=== PATIENT | female | born 1960 ===

== ENCOUNTER → 2020-05-02 10:13 | Outpatient (BNVA) | payer OTHER, SELFPAY | PROVIDERS: PCP Nurse Practitioner Family; Referring Provider Nurse Practitioner Family; Visit Provider Advanced Practice Midwife | DX: N64.4 Mastodynia (principal); N64.89 Other specified disorders of breast | CPT/HCPCS: 99203 ==

== ENCOUNTER → 2020-05-24 10:19 | Outpatient (BNVA) | payer OTHER, SELFPAY | PROVIDERS: PCP Nurse Practitioner Family; Visit Provider Surgery | DX: N64.4 Mastodynia (principal); N60.02 Solitary cyst of left breast | CPT/HCPCS: 99212 ==

== ENCOUNTER 2020-05-27 08:00 | Outpatient (RCR) | payer OTHER, SELFPAY ==
--- NOTE | 2020-06-17 10:25 | MHC.PT.DC ---
[facility] [place] [facility] [place] [facility] [place] [facility] [address] Lupe Barnett [address] [phone] F: [phone] F: [phone] F: [phone] F: [phone] Physical Therapy Discharge Report Diagnosis: Hip pain Date of Surgery: n/a Date of Evaluation: 05/03/20 Date of Discharge: 06/06/20 Treatments to Date: 7 Cancellations to Date: No Shows to Date: Discharge Status: Recommend MD Follow-up Discharge Summary: s/s unchanged. will refer back to MD at this time due to persistent unchanging L LE/UE paresthesias from PT intervention. Electronically signed by: Emanuel Marie PT Please sign and return to therapist. Thank you for your referral.
== END 2020-06-17 10:26 | disposition home or self-care (01) ==
LOC: HO.PTCHIC 08:00
PROVIDERS: PCP Nurse Practitioner Family; Visit Provider Nurse Practitioner Family
DX: M25.559 Pain in unspecified hip (principal)
CPT/HCPCS: 97035; 97110; 97112; 97163

== ENCOUNTER 2020-06-16 12:11 | Outpatient (REF) | payer OTHER, SELFPAY ==
--- NOTE | 2020-06-16 | US_ITS ---
EXAMINATION: MM DIAGNOSTIC DIGITAL BREAST TOMOSYNTHESIS, BILATERAL US DIAGNOSTIC ULTRASOUND BREAST, LEFT CLINICAL INFORMATION: Anterior left breast pain on and off since February. Recent history skin infection successfully treated with antibiotics. Persistent pain. Prior history reduction mammoplasty 2013. The lifetime risk of breast cancer based on the Tyrer-Cuzick Model is 17%. COMPARISON: Mammography: 09/15/2019, 07/14/2018, 06/18/2017 TECHNIQUE: Digital breast tomosynthesis is performed in both the craniocaudal and mediolateral oblique views along with computer-aided detection (CAD). Synthesized 2D images are generated from the tomosynthesis. Ultrasound left breast is targeted to the retroareolar and periareolar region. Grayscale imaging and color Doppler are performed without and with harmonics. FINDINGS: The breasts are almost entirely fatty (ACR BI-RADS breast composition Category a). Background stromal and fibroglandular densities are stable. There is no skin thickening or coarsening of the Gabriele's ligaments. No interval mass or architectural abnormality or focal duct ectasia. Again, there is minor scarring and benign bilateral anterior round and rim calcifications consistent with the prior reduction mammoplasty. No significant changes from prior studies. Ultrasound left breast demonstrates no cystic or solid mass, architectural abnormality, or focal duct ectasia. No skin thickening or edema tracking in the soft tissue planes. No abscess. Results are discussed with the patient at time of visit. US/US breast LT limited IMPRESSION: 1. No mammographic evidence of malignancy or focal inflammatory changes. 2. Unremarkable targeted left breast ultrasound. ASSESSMENT: BI-RADS 2: Benign RECOMMENDATION: 1. Patient's left breast pain should be managed based on the clinical impression. 2. Otherwise, routine annual screening mammography. This patient's information was entered into a reminder system with a target due date for their next mammogram.
--- NOTE | 2020-06-16 12:18 | MM_ITS ---
EXAMINATION: MM DIAGNOSTIC DIGITAL BREAST TOMOSYNTHESIS, BILATERAL US DIAGNOSTIC ULTRASOUND BREAST, LEFT CLINICAL INFORMATION: Anterior left breast pain on and off since February. Recent history skin infection successfully treated with antibiotics. Persistent pain. Prior history reduction mammoplasty 2013. The lifetime risk of breast cancer based on the Tyrer-Cuzick Model is 17%. COMPARISON: Mammography: 09/15/2019, 07/14/2018, 06/18/2017 TECHNIQUE: Digital breast tomosynthesis is performed in both the craniocaudal and mediolateral oblique views along with computer-aided detection (CAD). Synthesized 2D images are generated from the tomosynthesis. Ultrasound left breast is targeted to the retroareolar and periareolar region. Grayscale imaging and color Doppler are performed without and with harmonics. FINDINGS: The breasts are almost entirely fatty (ACR BI-RADS breast composition Category a). Background stromal and fibroglandular densities are stable. There is no skin thickening or coarsening of the Gabriele's ligaments. No interval mass or architectural abnormality or focal duct ectasia. Again, there is minor scarring and benign bilateral anterior round and rim calcifications consistent with the prior reduction mammoplasty. No significant changes from prior studies. Ultrasound left breast demonstrates no cystic or solid mass, architectural abnormality, or focal duct ectasia. No skin thickening or edema tracking in the soft tissue planes. No abscess. Results are discussed with the patient at time of visit. MM/MM tomosynthesis diagnostic BI IMPRESSION: 1. No mammographic evidence of malignancy or focal inflammatory changes. 2. Unremarkable targeted left breast ultrasound. ASSESSMENT: BI-RADS 2: Benign RECOMMENDATION: 1. Patient's left breast pain should be managed based on the clinical impression. 2. Otherwise, routine annual screening mammography. This patient's information was entered into a reminder system with a target due date for their next mammogram.
== END 2020-06-16 12:12 | disposition home or self-care (01) ==
LOC: HO.MAMMO 12:11
PROVIDERS: Visit Provider Surgery
DX: N60.02 Solitary cyst of left breast (principal); N64.4 Mastodynia
CPT/HCPCS: 76642; 77062; 77066

== ENCOUNTER 2020-06-23 07:02 | Outpatient (REF) | payer OTHER, SELFPAY ==
[2020-06-23 11:49] LABS: Alanine Aminotransferase 20 U/L (0-31); Albumin Level 4.2 g/dL (3.5-5.0); Alkaline Phosphatase 110 U/L (39-117); Anion Gap 15 (12-20); Aspartate Amino Transferase 27 U/L (5-31); Bilirubin Total 0.2 mg/dL (0.0-1.0); Blood Urea Nitrogen 10 mg/dL (9-16); Calcium 9.5 mg/dL (8.4-10.2); Carbon Dioxide 27 mmol/L (22-29); Chloride 105 mmol/L (96-108); Cholesterol 185 mg/dL; Estimated Glomerular Filt Rate > 60; Glucose Fasting 81 mg/dL (60-99); HDL Cholesterol 67 mg/dL; LDL Cholesterol Calculated 105 mg/dl; Potassium 4.5 mmol/l (3.3-5.1); Sodium 142 mmol/L (135-145); Total Protein 7.1 g/dL (6.5-8.0); Triglycerides 68 mg/dL
[2020-06-23 12:01] LABS: TSH reflex Free T4 3.46 mIU/mL (0.32-4.0); Vitamin D 25-OH Total 33.6 ng/mL (>30)
== END 2020-06-23 07:03 | disposition home or self-care (01) ==
LOC: HO.HMGCLDS 07:02
PROVIDERS: PCP Nurse Practitioner Family; Visit Provider Nurse Practitioner Family
DX: Z00.00 Encounter for general adult medical examination without abnormal findings (principal)
CPT/HCPCS: 80053; 80061; 82306; 84443

== ENCOUNTER → 2020-08-11 08:03 | Outpatient (BNVA) | payer OTHER, SELFPAY | PROVIDERS: PCP Nurse Practitioner Family; Referring Provider Nurse Practitioner Family; Visit Provider Student in an Organized Health Care Education/Training Program | DX: M47.816 Spondylosis without myelopathy or radiculopathy, lumbar region (principal) | CPT/HCPCS: 99212 ==

== ENCOUNTER → 2020-08-26 09:17 | Outpatient (BNVA) | payer OTHER, SELFPAY | PROVIDERS: PCP Nurse Practitioner Family; Visit Provider Nurse Practitioner | DX: Z76.89 Persons encountering health services in other specified circumstances (principal) | CPT/HCPCS: Q3014 ==

== ENCOUNTER 2020-09-08 09:29 | Outpatient (REF) | payer OTHER, SELFPAY ==
--- NOTE | ~2020-09-08 | US_ITS ---
EXAMINATION: US ABDOMEN COMPLETE CLINICAL INFORMATION: Fatty change of liver, not elsewhere classified. COMPARISON: Ultrasound abdomen complete 02/17/2020. TECHNIQUE: Real-time imaging of the abdominal viscera. FINDINGS: PANCREAS: The visualized pancreas is normal in size and contour and echogenicity. There is no pancreatic ductal distention or retroperitoneal effusion. Portion pancreatic tail obscured by bowel gas and not completely imaged. ABDOMINAL AORTA: The proximal, mid, and distal segments are normal in caliber. INFERIOR VENA CAVA: Visualized portions are normal. LIVER: The liver is normal in size and smooth in contour and within normal echogenicity. There is no focal hepatic parenchymal lesion or intrahepatic ductal dilatation. Color Doppler shows portal flow towards the liver. GALLBLADDER: Normal. The gallbladder is physiologically distended without evidence of stones, sludge, polyps, wall thickening or pericholecystic fluid. COMMON BILE DUCT: Normal in caliber measuring 0.3 cm in diameter. RIGHT KIDNEY: No hydronephrosis. No renal calculi or focal parenchymal lesions. The kidney measures 9.2 cm in maximum dimension. LEFT KIDNEY: No hydronephrosis. No renal calculi or focal parenchymal lesions. The kidney measures 9.4 cm in maximum dimension. SPLEEN: Normal. The spleen measures 8.2 cm in maximum dimension. FREE FLUID: None. US/US abdomen complete IMPRESSION: 1. Liver normal in size and within normal echogenicity. 2. No cholelithiasis or ductal dilatation. 3. Visualized pancreas is normal, portions pancreatic tail obscured by bowel gas.
== END 2020-09-08 09:30 | disposition home or self-care (01) ==
LOC: HO.US 09:29
PROVIDERS: Visit Provider Nurse Practitioner
DX: K76.0 Fatty (change of) liver, not elsewhere classified (principal)
CPT/HCPCS: 76700

== ENCOUNTER 2020-09-20 15:59 | Outpatient (REF) | payer OTHER, SELFPAY | END 2020-09-20 16:00 | disposition home or self-care (01) | LOC: HO.MAMMO 15:59 | PROVIDERS: PCP Nurse Practitioner Family; Visit Provider Nurse Practitioner Family | DX: Z13.89 Encounter for screening for other disorder (principal) ==

== ENCOUNTER 2020-09-23 09:28 | Outpatient (REF) | payer OTHER, SELFPAY ==
--- NOTE | ~2020-09-23 | XR_ITS ---
EXAMINATION: XR ABDOMEN WITH DECUBITUS VIEWS CLINICAL INDICATION: Chronic impaction constipation COMPARISON: X-rays of the lumbosacral spine September 2019. Abdominal ultrasound February 2020. CT abdomen and pelvis January 2018. TECHNIQUE: 2 views of the abdomen supine and upright FINDINGS: The bowel gas pattern is normal with no evidence of ileus or obstruction. Fecal volume within normal limits. No unusual soft tissue calcifications are noted. Postsurgical changes related to fusion of the lumbosacral spine, unchanged. Spinal wires/electrode device redemonstrated. XR/XR abdomen w decubitus IMPRESSION: Nonobstructive gas pattern. Postop changes in the spine, stable.
[2020-09-23 10:27] LABS: Alanine Aminotransferase 27 U/L (0-31); Albumin Level 3.8 g/dL (3.5-5.0); Alkaline Phosphatase 109 U/L (39-117); Aspartate Amino Transferase 19 U/L (5-31); Bilirubin Direct 0.3 mg/dL (0.0-0.5); Bilirubin Total 0.7 mg/dL (0.0-1.0); Total Protein 6.3 g/dL (6.5-8.0)
== END 2020-09-23 09:29 | disposition home or self-care (01) ==
LOC: HO.LAB 09:28
PROVIDERS: PCP Nurse Practitioner Family; Visit Provider Nurse Practitioner
DX: K76.0 Fatty (change of) liver, not elsewhere classified (principal); K59.04 Chronic idiopathic constipation
CPT/HCPCS: 36415; 74021; 80076; 82105

== ENCOUNTER 2020-10-12 10:16 | Outpatient (REF) | payer OTHER, SELFPAY | END 2020-10-12 10:17 | disposition home or self-care (01) | LOC: HO.HMGCLDS 10:16 | PROVIDERS: Internal Medicine; PCP Nurse Practitioner Family; Visit Provider Nurse Practitioner | DX: K59.04 Chronic idiopathic constipation (principal); K76.0 Fatty (change of) liver, not elsewhere classified; K29.70 Gastritis, unspecified, without bleeding; K21.9 Gastro-esophageal reflux disease without esophagitis; Z20.822 Contact with and (suspected) exposure to COVID-19; Z88.1 Allergy status to other antibiotic agents; Z88.5 Allergy status to narcotic agent; Z88.0 Allergy status to penicillin; Z88.8 Allergy status to other drugs, medicaments and biological substances; Z91.018 Allergy to other foods; Z91.048 Other nonmedicinal substance allergy status | CPT/HCPCS: C9803; Q3014; U0003; U0005 ==

== ENCOUNTER 2020-12-05 10:03 | Outpatient (REF) | payer OTHER, SELFPAY ==
--- NOTE | ~2020-12-05 | XR_ITS ---
EXAMINATION: XR CERVICAL SPINE CLINICAL INFORMATION: Radiculopathy, cervical region. COMPARISON: None TECHNIQUE: 3 views of the cervical spine were obtained. FINDINGS: There are bilateral cervical ribs, greater on the right. Mild leftward tilting cervical spine is present. The vertebral bodies are normal in height and there is no cervical vertebral compression, spondylolisthesis, destructive process, or prevertebral soft tissue swelling. The odontoid appears intact. There are degenerative disc changes at C5-C6 with disc narrowing and vertebral spurring. There are borderline degenerative disc changes at C4-C5 and C6-C7 with mild vertebral spurring. The oblique views show borderline bilateral foraminal spurring at C5-C6. XR/XR cervical spine 4V IMPRESSION: 1. Bilateral cervical rib, greater on right. 2. Degenerative disc changes greatest at C5-C6 with borderline bilateral foraminal spurring.
== END 2020-12-05 10:04 | disposition home or self-care (01) ==
LOC: HO.HMGCX 10:03
PROVIDERS: PCP Nurse Practitioner Family; Visit Provider Nurse Practitioner Family
DX: M54.12 Radiculopathy, cervical region (principal)
CPT/HCPCS: 72050

== ENCOUNTER → 2021-01-03 10:31 | Outpatient (BNVA) | payer OTHER, SELFPAY | PROVIDERS: PCP Nurse Practitioner Family; Visit Provider Nurse Practitioner | DX: K21.9 Gastro-esophageal reflux disease without esophagitis (principal); K59.04 Chronic idiopathic constipation; K76.0 Fatty (change of) liver, not elsewhere classified | CPT/HCPCS: Q3014 ==

== ENCOUNTER 2021-01-19 13:40 | Outpatient (REF) | payer OTHER, SELFPAY ==
--- NOTE | ~2021-01-19 | CT_ITS ---
EXAMINATION: CT CERVICAL SPINE WITHOUT CONTRAST CLINICAL INFORMATION: Radiculopathy COMPARISON: Plain film x-ray of December 05, 2020 TECHNIQUE: CT cervical spine without intrathecal contrast This CT examination was performed using dose optimization techniques as appropriate, variously including the following: *Automated exposure control *Adjustment of mA and/or kV according to patient size (this includes techniques or standardized protocols for targeted exams where dose is matched to indication/reason for exam; i.e. extremities or head) *Use of iterative reconstruction technique DLP: 348 mGy-cm FINDINGS: No abnormal prevertebral soft tissue swelling is present. Paraspinal muscle fat planes are intact. There is some degenerative spurring anteriorly at the C4-C5 level. There is disc space narrowing with endplate irregularity at the C5-C6 level. There is mild spurring of the joints of Luschka without significant neural foramina bony narrowing at the C5-C6 level. Visualized paranasal sinuses and mastoid air cell cells unremarkable. Pterygoid plates intact. No significant temporal mandibular joint abnormality appreciated. Lung apices unremarkable. CT/CT cervical spine wo con IMPRESSION: Cervical spondylosis at the C5-C6 level without evidence of bony encroachment of the neural foramina.
== END 2021-01-19 13:41 | disposition home or self-care (01) ==
LOC: HO.CT 13:40
PROVIDERS: PCP Nurse Practitioner Family; Visit Provider Nurse Practitioner Family
DX: M54.12 Radiculopathy, cervical region (principal)
CPT/HCPCS: 72125

== ENCOUNTER 2021-07-03 09:54 | Outpatient (REF) | payer OTHER, SELFPAY ==
--- NOTE | ~2021-07-03 | MM_ITS ---
EXAMINATION: MM SCREENING DIGITAL BREAST TOMOSYNTHESIS, BILATERAL CLINICAL INFORMATION: Screening. Asymptomatic. Prior history reduction mammoplasty, 2013. The lifetime risk of breast cancer based on the Tyrer-Cuzick Model is 16%. COMPARISON: Mammography: 06/16/2020, 09/15/2019, 07/14/2018 TECHNIQUE: Digital breast tomosynthesis is performed in both the craniocaudal and mediolateral oblique views along with computer-aided detection (CAD). Synthesized 2D images are generated from the tomosynthesis. FINDINGS: The breasts are almost entirely fatty (ACR BI-RADS breast composition Category a). There are no significant masses, abnormal calcifications, or other abnormalities. Stromal and fibroglandular densities and benign round and rim and dermal calcifications are stable. No developing density. No significant changes. MM/MM tomosynthesis screening BI IMPRESSION: No mammographic evidence of malignancy. ASSESSMENT: BI-RADS 2: Benign RECOMMENDATION: Routine annual mammography screening. This patient's information was entered into a reminder system with a target due date for their next mammogram.
== END 2021-07-03 09:55 | disposition home or self-care (01) ==
LOC: HO.MAMMO 09:54
PROVIDERS: Visit Provider Nurse Practitioner Family
DX: Z12.31 Encounter for screening mammogram for malignant neoplasm of breast (principal)
CPT/HCPCS: 77063; 77067

== ENCOUNTER → 2021-09-19 08:26 | Outpatient (BNVA) | payer OTHER, MEDICARE, SELFPAY | PROVIDERS: PCP Nurse Practitioner Family; Referring Provider Nurse Practitioner Family; Visit Provider Nurse Practitioner | DX: K59.04 Chronic idiopathic constipation (principal); K21.9 Gastro-esophageal reflux disease without esophagitis; K76.0 Fatty (change of) liver, not elsewhere classified; K63.5 Polyp of colon | CPT/HCPCS: 99212 ==

== ENCOUNTER 2021-11-28 11:00 | Emergency (ER) | payer OTHER, SELFPAY ==
--- NOTE | ~2021-11-28 | XR_ITS ---
EXAMINATION: LEFT ANKLE. LEFT FOOT. CLINICAL INFORMATION: Pain. Pain after falling COMPARISON: None TECHNIQUE: 3 views of the left ankle. 3 views of the left foot. FINDINGS: Left ankle: Mortise is intact. There is a tiny osseous density seen near the medial malleolus which appears chronic. There is no evidence of an acute fracture. There is mild spurring off the posterior calcaneus. 3 views of the left foot show no acute fracture. Postsurgical change in the first metatarsal is noted. Alignment preserved. XR/XR foot LT min 3V IMPRESSION: No acute abnormalities.
--- NOTE | ~2021-11-28 | XR_ITS ---
EXAMINATION: LEFT ANKLE. LEFT FOOT. CLINICAL INFORMATION: Pain. Pain after falling COMPARISON: None TECHNIQUE: 3 views of the left ankle. 3 views of the left foot. FINDINGS: Left ankle: Mortise is intact. There is a tiny osseous density seen near the medial malleolus which appears chronic. There is no evidence of an acute fracture. There is mild spurring off the posterior calcaneus. 3 views of the left foot show no acute fracture. Postsurgical change in the first metatarsal is noted. Alignment preserved. XR/XR ankle LT min 3V IMPRESSION: No acute abnormalities.
[2021-11-28 11:31] VITALS: BP 187/83; PULSE 76; RESP 19; TEMP 36.4; O2SAT 98; BMI 28.8
--- NOTE | 2021-11-28 12:51 | ED_ITS ---
HPI - Extremity Injury (Lower) General Chief Complaint: Extremity Injury, Lower Stated Complaint: fell inj l ankle Time Seen by Provider: 11/28/21 12:33 Source: patient Mode of arrival: EMS Limitations: no limitations History of Present Illness HPI Narrative: 60-year-old female who twisted her left ankle today outside the steps of [employer] [place] wall pain her taxes. 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 Patient did not fall, she did not strike her head Patient states that her misstep with her left ankle was due to her chronic left- sided weakness No numbness or tingling Related Data Home Medications Medication Instructions Recorded Confirmed alclometasone 0.05 % topical cream applic TOPICAL 05/24/20 06/06/21 ammonium lactate 12 % topical cream applic TOPICAL 05/24/20 06/06/21 betamethasone valerate 0.1 % applic TOPICAL DAILY 05/24/20 06/06/21 topical cream cetirizine 10 mg tablet 10 mg PO DAILY 05/24/20 06/06/21 sumatriptan succinate 100 mg tablet 100 mg PO ONCE PRN tab 05/24/20 06/06/21 flu vac [id number] 36mos up(PF) ml IM 06/22/20 06/06/21 doxepin 10 mg capsule 10 mg PO BEDTIME 12/05/20 06/06/21 Previous Rx's Medication Instructions Recorded tramadol 50 mg tablet 50 mg PO BID PRN 5 Days #10 tab 01/11/21 lidocaine 5 % topical patch 1 patch TOPICAL DAILY PRN 30 Days 04/10/21 #30 ea prednisone 50 mg tablet 50 mg PO DAILY 6 Days #6 tab 06/06/21 atorvastatin 20 mg tablet 20 mg PO DAILY #90 tab 08/21/21 cholecalciferol (vitamin D3) 25 25 mcg PO DAILY #90 tab 08/21/21 mcg (1,000 unit) tablet levothyroxine 75 mcg tablet 75 mcg PO DAILY #90 tab 08/21/21 bisacodyl 5 mg tablet,delayed 10 mg PO BEDTIME #60 tab 09/19/21 release linaclotide 145 mcg capsule 145 mcg PO QAM #30 cap 09/19/21 (Linzess) pantoprazole 40 mg tablet,delayed 40 mg PO BID #180 tab 09/19/21 release amlodipine 5 mg tablet 5 mg PO DAILY #90 tab 11/06/21 aspirin 81 mg tablet,delayed 81 mg PO DAILY #90 tab 11/06/21 release baclofen 10 mg tablet 10 mg PO BID PRN 30 Days #60 tab 11/06/21 methylcellulose (laxative) 500 mg 1,500 mg PO DAILY 30 Days #90 tab 11/07/21 tablet naproxen 500 mg tablet 500 mg PO BID 10 Days #20 tab 11/28/21 Allergies Allergy/AdvReac Type Severity Reaction Status Date / Time cyclobenzaprine Allergy Unknown pruritus Verified 11/28/21 11:31 morphine [MORPHINE] Allergy Unknown RASH,HIVES,SOB, Verified 11/28/21 11:31 rash, hives, SOB, rash, hives, SOB Penicillins [PENICILLINS] Allergy Unknown RASH,HIVES Verified 11/28/21 11:31 prazosin [PRAZOSIN] Allergy Unknown INCREASED Verified 11/28/21 11:31 HEADACHES, increase/worsened headaches, increase/worsened headaches strawberry [STRAWBERRY] Allergy Unknown RASH Verified 11/28/21 11:31 nickel Allergy Rash Verified 11/28/21 11:31 Butrans Allergy Unknown loss of Uncoded 11/28/21 11:31 consciousness, swelling, rash Cortisone Allergy Unknown unknown Uncoded 11/28/21 11:31 Rozerem AdvReac Unknown rash/memory Uncoded 11/28/21 11:31 loss Review of Systems Constitutional: Constitutional: Denies body ache(s), Denies chills, Denies fatigue, Denies fever(s), Denies headache(s), Denies malaise and Denies weakness Eyes: Eyes: Denies diplopia ENT: Denies vertigo, Denies dizziness, Denies headache(s) and Denies throat swelling Cardiovascular: Cardiovascular: Denies chest pain, Denies syncope, Denies leg edema, Denies lightheadedness, Denies Loss of Consciousness, Denies palpitations and Denies dyspnea Respiratory: Respiratory: Denies chest congestion, Denies cough and Denies dyspnea Musculoskeletal: Comments: Left lateral ankle pain and bruising Neurologic: Denies confusion, Denies vertigo, Denies dizziness, Denies syncope, Denies headache(s) and Denies weakness Psychiatric: Psychiatric: Denies anxiety, Denies confusion and Denies depression Endocrine: Endocrine: Denies fatigue and Denies palpitations Allergic/Immunologic: Allergic/Immunologic: Denies throat swelling PMFSH Past Medical History Medical History Bunion of unspecified foot Chronic low back pain Chronic tension headache Depression Diastolic murmur Dyslipidemia Gastritis Hepatic steatosis History of anxiety History of TIAs Hx of diverticulitis of colon Hypertension Hypothyroid Lumbar spondylosis Migraine Positive ANASTACIO (antinuclear antibody) Prediabetes Shoulder pain Tubular adenoma Surgical History H/O rectal polypectomy History of back surgery History of esophagogastroduodenoscopy (EGD) History of hysterectomy Hx of breast reduction, elective Hx of colonoscopy Family History Family History Father CVD (cardiovascular disease) ETOHism Myocardial infarct Mother CVD (cardiovascular disease) Myocardial infarct Maternal Aunt History of breast cancer Brother History of cancer of unknown primary site Other Mental health disorder Substance use disorder Social History Social History Household Members: None Housing: Apartment Alcohol intake: current Alcohol intake frequency: does not drink Patient Tobacco Use Status: Never used Tobacco Advance Directives: No Advance Directives Information Provided: No Physical Exam Vital Signs: Vital Signs: Last Vital Signs Temp 97.5 F 11/28/21 11:31 Pulse 76 11/28/21 11:31 Resp 19 11/28/21 11:31 BP 187/83 H 11/28/21 11:31 Pulse Ox 98 11/28/21 11:31 BMI result Body Mass Index 28.8 Const: General: No confusion Nutritional Appearance: well nourished Orientation/consciousness: No confusion Limitations: no limitations Eyes: Conjunctivae: conjunctivae normal Pupils: Equal, round and reactive pupils present EOM: EOMs intact bilaterally Neck: Neck: Yes full ROM, Yes no lymphadenopathy and Yes supple Resp: Effort & Inspection: normal respiratory effort and able to speak in complete sentences Auscultation: clear to auscultation bilaterally, no crackles, no rales, no rhonchi and no wheezes Cardio: Rate: regular rate Rhythm: regular rhythm Heart sounds: S1 normal heart sound present and S2 normal heart sound present Skin: General skin exam: no rashes or lesions noted Neuro: General: No confusion Cranial nerves: Yes Equal, round and reactive pupils present Extrem: Left lower extremity: full ROM, normal capillary refill and ankle Details: tenderness Location: of the lateral malleolus and of the anterior talofibular ligament, swelling Details: laterally, no edema and normal ROM; Negative for no warmth and no abrasions; No no cyanosis and no edema Psych: Appearance: grossly normal Affect: normal affect Attitude: cooperative Thought process: Normal thought process present Course Course Course Narrative: 60-year-old female with chronic left sided weakness due to a stroke in 2011 presents for twisting her left ankle today. On exam, patient is intact left lower extremity pulses, sensation, motor strength. Patient has ecchymosis and swelling to left lateral ankle. X-ray negative. Because of patient's chronic left-sided weakness, will see if she can weightbear with the boot, will have her follow up with Orthopedics, counseled rest, ice, compression, elevation. Naproxen. FINDINGS: Left ankle: Mortise is intact. There is a tiny osseous density seen near the medial malleolus which appears chronic. There is no evidence of an acute fracture. There is mild spurring off the posterior calcaneus. 3 views of the left foot show no acute fracture. Postsurgical change in the first metatarsal is noted. Alignment preserved.? Discharge Plan Discharge Clinical Impression: Moderate left ankle sprain Patient Disposition: Home, Self-Care Instructions: Ankle Sprain (ED), R.I.C.E. Treatment (ED), Walking Boot (ED) Additional Instructions: I have referred you to orthopedics, if you do not hear from them by tomorrow please call them at the following number [phone] Please use the boot until you are seen by orthopedics. Please rest, ice, and elevate your left foot. I have prescribed naproxen, please take as prescribed. Please return to emergency room for any new or concerning symptoms Prescriptions: New naproxen 500 mg tablet 500 mg PO BID 10 Days Qty: 20 0RF No Action atorvastatin 20 mg tablet 20 mg PO DAILY Qty: 90 1RF cholecalciferol (vitamin D3) 25 mcg (1,000 unit) tablet 25 mcg PO DAILY Qty: 90 1RF levothyroxine 75 mcg tablet 75 mcg PO DAILY Qty: 90 0RF baclofen 10 mg tablet 10 mg PO BID PRN (Reason: neck pains) 30 Days Qty: 60 0RF aspirin 81 mg tablet,delayed release (DR/EC) 81 mg PO DAILY Qty: 90 1RF amlodipine 5 mg tablet 5 mg PO DAILY Qty: 90 1RF methylcellulose (laxative) 500 mg tablet 1,500 mg PO DAILY 30 Days Qty: 90 6RF Afluria Qd 2019-(3yr up)(PF) 60 mcg (15 mcg x 4)/0.5 mL syringe IM 0RF lidocaine 5 % adhesive patch,medicated 1 patch topical DAILY PRN (Reason: pain) 30 Days Qty: 30 0RF Rx Instructions: leave on most painful area for up to 12 hrs doxepin 10 mg capsule 10 mg PO BEDTIME 0RF tramadol 50 mg tablet 50 mg PO BID PRN (Reason: pain) 5 Days Qty: 10 0RF prednisone 50 mg tablet 50 mg PO DAILY 6 Days Qty: 6 0RF cetirizine 10 mg tablet 10 mg PO DAILY 0RF alclometasone 0.05 % cream topical 0RF betamethasone valerate 0.1 % cream topical DAILY 0RF ammonium lactate 12 % cream topical 0RF sumatriptan succinate 100 mg tablet 100 mg PO ONCE PRN (Reason: migraine headache) 0RF bisacodyl 5 mg tablet,delayed release (DR/EC) 10 mg PO BEDTIME Qty: 60 6RF Linzess 145 mcg capsule 145 mcg PO QAM Qty: 30 6RF pantoprazole 40 mg tablet,delayed release (DR/EC) 40 mg PO BID Qty: 180 2RF Referrals: Madyson Iraheta MD [Physician] -
[2021-11-28] MEDS: Ibuprofen 600 MG TABLET PO (13:00)
[2021-11-28] MEDS: Acetaminophen 325 MG TABLET 975 MG PO (13:00)
== END 2021-11-28 13:25 | disposition home or self-care (01) ==
PROVIDERS: Emergency Provider Emergency Medicine; PCP Nurse Practitioner Family
DX: S93.402A Sprain of unspecified ligament of left ankle, initial encounter (principal); W10.9XXA Fall (on) (from) unspecified stairs and steps, initial encounter; Y93.9 Activity, unspecified; Y92.9 Unspecified place or not applicable; Y99.9 Unspecified external cause status; Z79.899 Other long term (current) drug therapy
CPT/HCPCS: 73610; 73630; 99283

== ENCOUNTER → 2022-01-08 09:41 | Outpatient (BNVA) | payer OTHER, SELFPAY | PROVIDERS: PCP Nurse Practitioner Family; Visit Provider Physician Assistant | DX: S93.402A Sprain of unspecified ligament of left ankle, initial encounter (principal) | CPT/HCPCS: 99202 ==

== ENCOUNTER 2022-01-12 12:06 | Outpatient (REF) | payer OTHER, SELFPAY ==
[2022-01-12 12:38] LABS: Binax Internal Control QC Valid; Binax Now Covid-19 Ag Negative (Negative)
== END 2022-01-12 12:07 | disposition home or self-care (01) ==
LOC: HO.HMGCLDS 12:06
PROVIDERS: Visit Provider Internal Medicine
DX: J06.9 Acute upper respiratory infection, unspecified (principal); Z20.822 Contact with and (suspected) exposure to COVID-19
CPT/HCPCS: 87811; C9803

== ENCOUNTER → 2022-01-16 07:35 | Outpatient (BNVA) | payer OTHER, SELFPAY | PROVIDERS: PCP Nurse Practitioner Family; Visit Provider Nurse Practitioner Family | DX: G43.909 Migraine, unspecified, not intractable, without status migrainosus (principal); R06.83 Snoring; I10 Essential (primary) hypertension; G47.19 Other hypersomnia; Z86.73 Personal history of transient ischemic attack (TIA), and cerebral infarction without residual deficits; Z79.899 Other long term (current) drug therapy | CPT/HCPCS: 99202 ==

== ENCOUNTER → 2022-02-19 14:42 | Outpatient (REF) | payer OTHER, SELFPAY | LOC: HO.SL 14:42 | PROVIDERS: PCP Nurse Practitioner Family; Visit Provider Nurse Practitioner Family | DX: Z13.89 Encounter for screening for other disorder (principal) ==

== ENCOUNTER → 2022-02-20 07:52 | Outpatient (BNVA) | payer OTHER, SELFPAY | PROVIDERS: PCP Nurse Practitioner Family; Referring Provider Nurse Practitioner Family; Visit Provider Nurse Practitioner | DX: K21.9 Gastro-esophageal reflux disease without esophagitis (principal); K59.04 Chronic idiopathic constipation; K76.0 Fatty (change of) liver, not elsewhere classified; Z79.899 Other long term (current) drug therapy | CPT/HCPCS: 99212 ==

== ENCOUNTER → 2022-04-24 08:15 | Outpatient (BNVA) | payer OTHER, SELFPAY | PROVIDERS: PCP Nurse Practitioner Family; Visit Provider Nurse Practitioner Family | DX: G43.909 Migraine, unspecified, not intractable, without status migrainosus (principal); R06.83 Snoring | CPT/HCPCS: 99212 ==

== ENCOUNTER → 2022-04-25 13:57 | Outpatient (BNVA) | payer OTHER, SELFPAY | PROVIDERS: PCP Nurse Practitioner Family; Visit Provider Anesthesiology | DX: M96.1 Postlaminectomy syndrome, not elsewhere classified (principal); T85.192A Other mechanical complication of implanted electronic neurostimulator of spinal cord electrode (lead), initial encounter; Z86.73 Personal history of transient ischemic attack (TIA), and cerebral infarction without residual deficits | CPT/HCPCS: 99212 ==

== ENCOUNTER 2022-05-22 06:26 | Outpatient (REF) | payer OTHER, SELFPAY ==
--- NOTE | ~2022-05-22 | FL_ITS ---
EXAMINATION: XR FLUOROSCOPY WITH IMAGES CLINICAL INFORMATION: Spinal stimulator trial. COMPARISON: Radiographs lumbar spine 09/18/2019 TECHNIQUE: Fluoroscopy performed by Dr. Cruz Crandall. Fluoroscopy time: 0.01 minutes. Cumulative Dose: 0.709 mGy. DAP: 0.193 Gy-cm2. Images: 4. FINDINGS: There are 2 spinal stimulator electrodes seen ascending the posterior spinal canal. The electrode tips are at level of mid thoracic spine, estimated T8. There is no visible kinking or defect of the leads. Stimulator generator seen overlying the left lower quadrant. There are postsurgical changes lumbosacral junction with disc spaces and surgical clips similar to prior exam. FL/FL guidance in treatment room IMPRESSION: Fluoroscopy for pain management procedure.
== END 2022-05-22 06:27 | disposition home or self-care (01) ==
LOC: CF 06:26
PROVIDERS: Visit Provider Anesthesiology
DX: M96.1 Postlaminectomy syndrome, not elsewhere classified (principal); T85.192A Other mechanical complication of implanted electronic neurostimulator of spinal cord electrode (lead), initial encounter; Z86.73 Personal history of transient ischemic attack (TIA), and cerebral infarction without residual deficits
CPT/HCPCS: 76000

== ENCOUNTER 2022-06-19 12:44 | Outpatient (REF) | payer OTHER, SELFPAY ==
[2022-06-19 12:52] LABS: MANUAL DIFF FLAG NO
[2022-06-19 13:41] LABS: Basophils Percent Auto 0.4 % (0-2); Eosinophils Absolute Auto 0.1 X10*3/uL (0.0-0.4); Eosinophils Percent Auto 1.7 % (0-4); Hematocrit 41.8 % (37.0-47.0); Hemoglobin 13.3 g/dl (12.0-16.0); Imm Gran Abs Auto 0.02 X10*3/uL (0.00-0.03); Imm Gran Pct Auto 0.3 % (0.0-0.4); Lymphocytes Percent Auto 37.9 % (20-40); Mean Corpuscular HGB Conc 31.8 g/dl (31.0-35.0); Mean Corpuscular Hemoglobin 26.8 pg (27.0-33.0); Mean Corpuscular Volume 84.1 fL (80.0-98.0); Mean Platelet Volume 10.8 fL (9.4-12.3); Monocytes Absolute Auto 0.6 X10*3/uL (0.1-1.2); Monocytes Percent Auto 7.9 % (2-11); Neutrophils Absolute Auto 4.1 x10*3/uL (2.0-8.3); Neutrophils Percent Auto 51.8 % (45-73); Platelet Count 230 X10*3/uL (160-400); Red Blood Count 4.97 X10*6/uL (4.20-5.50); Red Cell Distribution Width 14.6 % (11.0-16.0); White Blood Count 7.8 X10*3/uL (4.8-10.8)
[2022-06-19 14:27] LABS: Anion Gap 14 (12-20); Blood Urea Nitrogen 15 mg/dL (9-16); Calcium 9.9 mg/dL (8.4-10.2); Carbon Dioxide 25 mmol/L (22-29); Chloride 107 mmol/L (96-108); Estimated Glomerular Filt Rate > 60; Glucose Random 83 mg/dL (60-115); Potassium 5.3 mmol/L (3.3-5.1); Sodium 141 mmol/L (135-145)
== END 2022-06-19 12:45 | disposition home or self-care (01) ==
LOC: HO.LAB 12:44
PROVIDERS: PCP Nurse Practitioner Family; Visit Provider Nurse Practitioner Family
DX: G43.909 Migraine, unspecified, not intractable, without status migrainosus (principal); I10 Essential (primary) hypertension; Z79.899 Other long term (current) drug therapy
CPT/HCPCS: 36415; 80048; 85025; 99212

== ENCOUNTER 2022-06-21 08:41 | Outpatient (REF) | payer OTHER, SELFPAY ==
[2022-06-21 09:56] LABS: Anion Gap 13 (12-20); Blood Urea Nitrogen 17 mg/dL (9-16); Calcium 9.2 mg/dL (8.4-10.2); Carbon Dioxide 26 mmol/L (22-29); Chloride 107 mmol/L (96-108); Estimated Glomerular Filt Rate > 60; Glucose Random 79 mg/dL (60-115); Potassium 3.9 mmol/L (3.3-5.1); Sodium 142 mmol/L (135-145)
== END 2022-06-21 08:42 | disposition home or self-care (01) ==
LOC: HO.LAB 08:41
PROVIDERS: PCP Nurse Practitioner Family; Visit Provider Nurse Practitioner Family
DX: I10 Essential (primary) hypertension (principal); E87.5 Hyperkalemia
CPT/HCPCS: 36415; 80048

== ENCOUNTER 2022-07-10 09:27 | Outpatient (REF) | payer OTHER, SELFPAY ==
--- NOTE | ~2022-07-10 | MM_ITS ---
EXAMINATION: MM SCREENING DIGITAL BREAST TOMOSYNTHESIS, BILATERAL CLINICAL INFORMATION: Screening. Asymptomatic. The lifetime risk of breast cancer based on the Tyrer-Cuzick Model is 12.2%. COMPARISON: Mammography: July 03, 2021 and studies dating back to May 16, 2016 TECHNIQUE: Digital breast tomosynthesis is performed in both the craniocaudal and mediolateral oblique views along with computer-aided detection (CAD). Synthesized 2D images are generated from the tomosynthesis. FINDINGS: The breasts are almost entirely fatty (ACR BI-RADS breast composition Category a). There are no significant masses, abnormal calcifications, or other abnormalities. MM/MM tomosynthesis screening BI IMPRESSION: No significant changes from prior exam. ASSESSMENT: BI-RADS 1: Negative RECOMMENDATION: Routine annual mammography screening. This patient's information was entered into a reminder system with a target due date for their next mammogram.
== END 2022-07-10 09:28 | disposition home or self-care (01) ==
LOC: HO.MAMMO 09:27
PROVIDERS: PCP Nurse Practitioner Family; Visit Provider Nurse Practitioner Family
DX: Z12.31 Encounter for screening mammogram for malignant neoplasm of breast (principal)
CPT/HCPCS: 77063; 77067

== ENCOUNTER → 2022-07-19 08:48 | Outpatient (REF) | payer OTHER, SELFPAY | LOC: HO.SL 08:48 | PROVIDERS: PCP Nurse Practitioner Family; Visit Provider Nurse Practitioner Family | DX: R06.83 Snoring (principal); I10 Essential (primary) hypertension; G47.19 Other hypersomnia; Z86.73 Personal history of transient ischemic attack (TIA), and cerebral infarction without residual deficits | CPT/HCPCS: 95806 ==

== ENCOUNTER 2022-08-16 08:00 | Outpatient (RCR) | payer OTHER, SELFPAY ==
[2022-07-23 08:03] VITALS: BP 130/78
--- NOTE | 2022-07-23 16:30 | MHC.PT.EP ---
[facility] Office [place] Office [place] Office [address] [phone] F: [phone] F: [phone] F: [phone] F: [phone] Physical Therapy Plan of Care Date of Evaluation: Date of Surgery: Diagnosis: Headaches Assessment: Pt is a 6/3y/[age] female referred to PT for management of headaches resulting in decreased tolerance for concentrating, reading, lifting objects of weight, reading, driving as well as disturbed sleep secondary to Hx of stroke, increased cervical accessory tissue tension, decreased cervical ROM, decreased posture, and pain. Pt is deemed an appropriate candidate to receive skilled PT services to address their physical impairments in order to improve their functional ability. Frequency and Duration: The patient will be seen 2 x / wk x 5 wks. Short Term Goals: Initiate HEP. Improve baseline pain to < 5/10, initial 10/10 Group Home Goals: I with HEP. Pt will report < 1/4 disturbed night's sleep; initial: 1/2 disturbed. Pt will report she gets moderate STACK with come infrequently; initial: severe STACK which are frequent. Treatment Plan: Modalities to reduce pain, spasms and effusion. Manual therapy to restore motion and function. Therapeutic exercise to improve strength and flexibility. Neuromuscular re-education for posture and balance. Therapeutic activities to return to functional activities of daily living. Electronically signed by: Kt Lemon PT. Please sign and return to therapist. Thank you for your referral.
--- NOTE | 2022-09-13 08:16 | MHC.PT.DC ---
[facility] [place] Office [place] Office [place] Office [address] Lupe Barnett [address] [phone] F: [phone] F: [phone] F: [phone] F: [phone] Physical Therapy Discharge Report Diagnosis: Headaches Date of Surgery: Date of Evaluation: 07/23/22 Date of Discharge: 09/13/22 Treatments to Date: 5 Cancellations to Date: No Shows to Date: Discharge Status: Patient Elected to Stop Discharge Summary: Pt requested therapy hold, chart left open > 30 days and is DC'd. Electronically signed by: Kt Lemon PT. Please sign and return to therapist. Thank you for your referral.
== END 2022-09-13 08:17 | disposition home or self-care (01) ==
LOC: HO.PTCHIC 08:00
PROVIDERS: PCP Nurse Practitioner Family; Visit Provider Nurse Practitioner Family
DX: G43.909 Migraine, unspecified, not intractable, without status migrainosus (principal)
CPT/HCPCS: 97110; 97140; 97162

== ENCOUNTER 2022-08-21 08:03 | Outpatient (REF) | payer OTHER, SELFPAY ==
[2022-08-21 09:07] LABS: MANUAL DIFF FLAG NO
[2022-08-21 09:35] LABS: Basophils Percent Auto 0.4 % (0-2); Eosinophils Absolute Auto 0.2 X10*3/uL (0.0-0.4); Eosinophils Percent Auto 2.2 % (0-4); Hematocrit 39.2 % (37.0-47.0); Hemoglobin 12.3 g/dl (12.0-16.0); Imm Gran Abs Auto 0.01 X10*3/uL (0.00-0.03); Imm Gran Pct Auto 0.1 % (0.0-0.4); Lymphocytes Absolute Auto 2.6 X10*3/uL (1.2-4.9); Lymphocytes Percent Auto 37.1 % (20-40); Mean Corpuscular HGB Conc 31.4 g/dl (31.0-35.0); Mean Corpuscular Hemoglobin 26.1 pg (27.0-33.0); Mean Corpuscular Volume 83.1 fL (80.0-98.0); Mean Platelet Volume 10.6 fL (9.4-12.3); Monocytes Absolute Auto 0.5 X10*3/uL (0.1-1.2); Monocytes Percent Auto 7.8 % (2-11); Neutrophils Absolute Auto 3.6 x10*3/uL (2.0-8.3); Neutrophils Percent Auto 52.4 % (45-73); Platelet Count 185 X10*3/uL (160-400); Red Blood Count 4.72 X10*6/uL (4.20-5.50); Red Cell Distribution Width 14.6 % (11.0-16.0); White Blood Count 6.9 X10*3/uL (4.8-10.8)
[2022-08-21 09:46] LABS: Appearance Urine Clear; Color Urine Yellow; Glucose Urine UA Negative (Negative); Leukocyte Esterase Urine Small (1+) (Negative); Nitrite Urine Negative (Negative); Specific Gravity - Urine 1.015 (1.005-1.025); UMIC TRIGGER UACC YES; Urine Blood Negative (Negative); Urine Ketones Negative (Negative); Urine Protein Negative (Neg-Trace)
[2022-08-21 09:56] LABS: Bacteria Urine None Seen (None Seen); Hyaline Casts Urine 0-2 /LPF (0-2); Squamous Epithelial Cell Urine 0-2 /HPF (0-2); UACC Culture Trigger YES; WBC Urine 0-5 /HPF (0-5)
[2022-08-21 10:29] LABS: Alanine Aminotransferase 51 U/L (0-31); Albumin Level 4.1 g/dL (3.5-5.0); Alkaline Phosphatase 135 U/L (39-117); Anion Gap 14 (12-20); Aspartate Amino Transferase 29 U/L (5-31); Bilirubin Total 1.1 mg/dL (0.0-1.0); Blood Urea Nitrogen 14 mg/dL (9-16); Calcium 9.5 mg/dL (8.4-10.2); Carbon Dioxide 27 mmol/L (22-29); Chloride 107 mmol/L (96-108); Cholesterol 117 mg/dL; Estimated Glomerular Filt Rate > 60; Glucose Fasting 86 mg/dL (60-99); HDL Cholesterol 59 mg/dL; LDL Cholesterol Calculated 47 mg/dl; Potassium 4.3 mmol/L (3.3-5.1); Sodium 144 mmol/L (135-145); Total Protein 6.7 g/dL (6.5-8.0); Triglycerides 59 mg/dL
[2022-08-21 10:43] LABS: TSH reflex Free T4 2.64 uIU/mL (0.32-4.0)
[2022-08-23 13:53] LABS: Alpha Fetoprotein 2.3 ng/mL
== END 2022-08-21 08:04 | disposition home or self-care (01) ==
LOC: HO.LAB 08:03
PROVIDERS: PCP Nurse Practitioner Family; Visit Provider Nurse Practitioner
DX: K76.0 Fatty (change of) liver, not elsewhere classified (principal); K21.9 Gastro-esophageal reflux disease without esophagitis; K59.04 Chronic idiopathic constipation; G43.909 Migraine, unspecified, not intractable, without status migrainosus
CPT/HCPCS: 36415; 80053; 80061; 81001; 82105; 84443; 85025; 87086; 99212

== ENCOUNTER 2022-09-10 13:01 | Outpatient (REF) | payer OTHER, SELFPAY ==
[2022-09-10 13:57] LABS: Urine Cytology See Pathology rpt
[2022-09-10 14:06] LABS: Appearance Urine Clear; Color Urine Yellow; Glucose Urine UA Negative (Negative); Leukocyte Esterase Urine Trace (Negative); Nitrite Urine Negative (Negative); UMIC TRIGGER UACC YES; Urine Blood Negative (Negative); Urine Ketones Negative (Negative); Urine Protein Negative (Neg-Trace)
[2022-09-10 14:11] LABS: Bacteria Urine None Seen (None Seen); Hyaline Casts Urine 0-2 /LPF (0-2); RBC Urine 0-2 /HPF (0-2); Squamous Epithelial Cell Urine 0-2 /HPF (0-2); WBC Urine 0-5 /HPF (0-5)
== END 2022-09-10 13:02 | disposition home or self-care (01) ==
LOC: HO.LAB 13:01
PROVIDERS: PCP Nurse Practitioner Family; Visit Provider Nurse Practitioner Family
DX: R31.29 Other microscopic hematuria (principal)
CPT/HCPCS: 81001; 81003; 88112

== ENCOUNTER → 2022-10-09 07:40 | Outpatient (BNVA) | payer OTHER, SELFPAY | PROVIDERS: PCP Nurse Practitioner Family; Visit Provider Nurse Practitioner Family | DX: G44.85 Primary stabbing headache (principal); G43.909 Migraine, unspecified, not intractable, without status migrainosus | CPT/HCPCS: 99212 ==

== ENCOUNTER 2022-10-18 09:47 | Outpatient (REF) | payer OTHER, SELFPAY ==
--- NOTE | ~2022-10-18 | US_ITS ---
EXAMINATION: US ABDOMEN LIMITED CLINICAL INFORMATION: Fatty change of liver, not elsewhere classified. COMPARISON: X-ray abdomen 09/23/2020. Ultrasound abdomen complete 09/08/2020 and 02/17/2020. CT abdomen and pelvis 01/23/2018. TECHNIQUE: Real-time imaging of the right upper quadrant abdominal viscera. FINDINGS: PANCREAS: Not well visualized due to bowel gas LIVER: The liver is normal in size. The liver contour is normal. Liver echotexture is slightly increased. No focal hepatic lesion. There is no intrahepatic biliary duct dilatation seen. GALLBLADDER: Normal. The gallbladder is physiologically distended without evidence of stones, sludge, polyps, wall thickening or pericholecystic fluid. COMMON BILE DUCT: Normal in caliber measuring 0.5 cm in diameter. RIGHT KIDNEY: Normal. No hydronephrosis. No renal calculi or focal parenchymal lesions. The kidney measures 10.1 cm in maximum dimension. FREE FLUID: None. US/US abdomen limited IMPRESSION: Slightly echogenic liver probably representing fatty infiltration. Pancreas not well visualized.
== END 2022-10-18 09:48 | disposition home or self-care (01) ==
LOC: HO.HMGCX 09:47
PROVIDERS: PCP Nurse Practitioner Family; Visit Provider Nurse Practitioner
DX: K76.0 Fatty (change of) liver, not elsewhere classified (principal)
CPT/HCPCS: 76705

== ENCOUNTER 2022-11-01 09:26 | Outpatient (REF) | payer OTHER, SELFPAY ==
--- NOTE | ~2022-11-01 | XR_ITS ---
EXAMINATION: XR ABDOMEN WITH DECUBITUS VIEWS CLINICAL INDICATION: Gastroesophageal reflux disease. Constipation. COMPARISON: Previous x-ray most recent September 2020 TECHNIQUE: Supine and upright views of the abdomen and pelvis FINDINGS: There is stool throughout the colon suggestive of constipation. There are no dilated bowel or air-fluid levels to suggest obstruction. No free air. No calcifications. Postsurgical changes to the lower lumbar spine. Leads projecting over the lower thoracic spinal canal. XR/XR abdomen w decubitus IMPRESSION: Constipation.
[2022-11-01 11:09] LABS: MANUAL DIFF FLAG NO
[2022-11-01 11:23] LABS: Basophils Percent Auto 0.5 % (0-2); Eosinophils Absolute Auto 0.2 X10*3/uL (0.0-0.4); Eosinophils Percent Auto 2.3 % (0-4); Hematocrit 42.2 % (37.0-47.0); Imm Gran Abs Auto 0.01 X10*3/uL (0.00-0.03); Imm Gran Pct Auto 0.2 % (0.0-0.4); Lymphocytes Absolute Auto 2.5 X10*3/uL (1.2-4.9); Lymphocytes Percent Auto 37.9 % (20-40); Mean Corpuscular HGB Conc 30.8 g/dl (31.0-35.0); Mean Corpuscular Volume 84.4 fL (80.0-98.0); Mean Platelet Volume 10.7 fL (9.4-12.3); Monocytes Absolute Auto 0.4 X10*3/uL (0.1-1.2); Monocytes Percent Auto 6.3 % (2-11); Neutrophils Absolute Auto 3.5 x10*3/uL (2.0-8.3); Neutrophils Percent Auto 52.8 % (45-73); Platelet Count 226 X10*3/uL (160-400); Red Cell Distribution Width 14.9 % (11.0-16.0); White Blood Count 6.5 X10*3/uL (4.8-10.8)
[2022-11-01 11:51] LABS: Alanine Aminotransferase 48 U/L (0-31); Albumin Level 4.2 g/dL (3.5-5.0); Alkaline Phosphatase 137 U/L (39-117); Anion Gap 13 (12-20); Aspartate Amino Transferase 35 U/L (5-31); Bilirubin Total 0.8 mg/dL (0.0-1.0); Blood Urea Nitrogen 19 mg/dL (9-16); Calcium 9.6 mg/dL (8.4-10.2); Carbon Dioxide 29 mmol/L (22-29); Chloride 107 mmol/L (96-108); Cholesterol 139 mg/dL; Estimated Glomerular Filt Rate > 60; Glucose Fasting 87 mg/dL (60-99); HDL Cholesterol 61 mg/dL; LDL Cholesterol Calculated 66 mg/dl; Potassium 4.8 mmol/L (3.3-5.1); Sodium 144 mmol/L (135-145); Triglycerides 64 mg/dL
[2022-11-01 11:58] LABS: TSH reflex Free T4 3.33 uIU/mL (0.32-4.0)
[2022-11-01 11:59] LABS: Appearance Urine Clear; Color Urine Yellow; Glucose Urine UA Negative (Negative); Leukocyte Esterase Urine Small (1+) (Negative); Nitrite Urine Negative (Negative); Specific Gravity - Urine 1.025 (1.005-1.025); UMIC TRIGGER UACC YES; Urine Blood Trace (Negative); Urine Ketones Negative (Negative); Urine Protein Negative (Neg-Trace)
[2022-11-01 12:06] LABS: Bacteria Urine None Seen (None Seen); Hyaline Casts Urine 0-2 /LPF (0-2); UACC Culture Trigger YES
== END 2022-11-01 09:27 | disposition home or self-care (01) ==
LOC: HO.HMGCLDS 09:26
PROVIDERS: PCP Nurse Practitioner Family; Visit Provider Nurse Practitioner Family
DX: Z00.00 Encounter for general adult medical examination without abnormal findings (principal); K59.04 Chronic idiopathic constipation; K21.9 Gastro-esophageal reflux disease without esophagitis; K76.0 Fatty (change of) liver, not elsewhere classified; R82.90 Unspecified abnormal findings in urine
CPT/HCPCS: 36415; 74021; 80053; 80061; 81001; 81003; 84443; 85025; 87086; 99212

== ENCOUNTER → 2022-11-07 12:08 | Outpatient (BNVA) | payer OTHER, SELFPAY | PROVIDERS: PCP Nurse Practitioner Family; Visit Provider Nurse Practitioner | DX: K59.04 Chronic idiopathic constipation (principal); K21.9 Gastro-esophageal reflux disease without esophagitis; R51.9 Headache, unspecified; R74.8 Abnormal levels of other serum enzymes | CPT/HCPCS: 99212 ==

== ENCOUNTER → 2022-11-16 08:15 | Outpatient (REF) | payer OTHER, SELFPAY ==
--- NOTE | 2022-11-16 08:19 | HM_ITS ---
Conclusion: 1. Patient was monitored for total period of 1 day and 13 hours 2. Baseline was normal sinus rhythm with average heart of 62 beats per minute 3. No significant pauses greater than 2.5 seconds noted 4. Total of 11,241 PACs accounting for 8% of total beats account for frequent PACs 5. Seven SVT events, longest lasting 6 beats and the fastest at 148 beats per minute 6. No patient reported events MTDD
== END ==
LOC: HO.CARD 08:15
PROVIDERS: PCP Nurse Practitioner Family; Visit Provider Nurse Practitioner Family
DX: I49.1 Atrial premature depolarization (principal); I49.8 Other specified cardiac arrhythmias
CPT/HCPCS: 93242

== ENCOUNTER 2022-11-19 10:01 | Outpatient (REF) | payer OTHER, SELFPAY ==
--- NOTE | ~2022-11-19 | MR_ITS ---
EXAMINATION: MR BRAIN WITH AND WITHOUT CONTRAST CLINICAL INFORMATION: Stabbing headache COMPARISON: None. TECHNIQUE: MRI of the brain was obtained using routine sequences before and following administration of intravenous contrast. A total of 7.5 mL of Gadavist was administered intravenously. FINDINGS: No acute infarct. The GRE sequence is without susceptibility artifact to suggest acute or chronic blood products. No extra-axial fluid collection. The ventricles and sulci are normal in size and configuration without significant volume loss or hydrocephalus. There are a few nonspecific T2 FLAIR hyperintense foci within the subcortical white matter.No abnormal intraparenchymal or leptomeningeal enhancement. Incidental kristie cisterna magna. Bilobed/septated cystic lesion within the pituitary fossa projecting into the suprasellar cistern measuring approximately 1.3 x 1.8 x 1.1 cm (AP x TR x CC). 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 No mass effect along the optic nerve apparatus. The lesion encroaches upon the posterior right cavernous sinus. No herniation pattern. The intracranial dural venous sinus and arterial flow voids are preserved. The orbits are grossly unremarkable. Trace ethmoid air cell mucosal disease. Asymmetric opacification of right petrous apex air cells. No mastoid effusion.Nonspecific 7 mm sclerotic lesion within the high left parietal calvarium with suggestion of spiculated margins and stable since November 2017, most compatible with a bone island. MR/MR head/brain wo/w con IMPRESSION: 1. No acute intracranial findings. No abnormal intraparenchymal enhancement. 2. 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
== END 2022-11-19 10:02 | disposition home or self-care (01) ==
LOC: HO.MRI 10:01
PROVIDERS: PCP Nurse Practitioner Family; Visit Provider Nurse Practitioner Family
DX: G44.85 Primary stabbing headache (principal)
CPT/HCPCS: 70553; A9585

== ENCOUNTER 2022-11-30 08:48 | Outpatient (REF) | payer OTHER, SELFPAY ==
--- NOTE | ~2022-11-30 | CT_ITS ---
EXAMINATION: CT CERVICAL SPINE WITHOUT CONTRAST CLINICAL INFORMATION: Spondylosis without myelopathy or radiculopathy, cervical region COMPARISON: CT cervical spine 01/19/2021 TECHNIQUE: Noncontrast CT of the cervical spine was performed. Multiplanar reformations were generated and reviewed. This CT examination was performed using dose optimization techniques as appropriate, variously including the following: *Automated exposure control *Adjustment of mA and/or kV according to patient size (this includes techniques or standardized protocols for targeted exams where dose is matched to indication/reason for exam; i.e. extremities or head) *Use of iterative reconstruction technique DLP: 360 mGy-cm FINDINGS: Normal vertebral body heights. No evidence of acute fracture. No suspicious lytic or sclerotic osseous lesion. Cervical straightening. Trace anterolisthesis of C3 on C4. Multilevel degenerative disc space height loss with endplate osteophytosis, most pronounced at C5-C6. There are bilateral cervical ribs, larger on the right No abnormality of the visualized intracranial compartment. The visualized cervical soft tissues are within normal limits. The lung apices are clear. SPINAL LEVELS: C2-C3: No significant osseous spinal canal or neural foraminal narrowing C3-C4: Trace anterolisthesis. Small central disc protrusion. Left greater than right facet arthropathy. No significant osseous spinal canal and neural foraminal narrowing. C4-C5: Mild left facet arthropathy. Mild uncovertebral hypertrophy. No significant osseous spinal canal or neural foraminal narrowing. C5-C6: Uncovertebral hypertrophy. Mild to moderate bilateral neural foraminal narrowing. No significant osseous spinal canal stenosis. C6-C7: Mild right uncovertebral hypertrophy and mild left facet arthropathy. No significant osseous spinal canal or neural foraminal narrowing C7-T1: No significant osseous spinal canal or neural foraminal narrowing CT/CT cervical spine wo IV con IMPRESSION: 1. Mild multilevel cervical spondylosis without significant osseous spinal canal stenosis. Mild to moderate bilateral neural foraminal narrowing at C5-C6. 2. Bilateral cervical ribs, larger on the right.
== END 2022-11-30 08:49 | disposition home or self-care (01) ==
LOC: HO.CT 08:48
PROVIDERS: PCP Nurse Practitioner Family; Visit Provider Nurse Practitioner Family
DX: M47.812 Spondylosis without myelopathy or radiculopathy, cervical region (principal); R51.9 Headache, unspecified; M54.2 Cervicalgia
CPT/HCPCS: 72125

== ENCOUNTER → 2022-12-06 12:26 | Outpatient (BNVA) | payer OTHER, SELFPAY | PROVIDERS: PCP Nurse Practitioner Family; Referring Provider Nurse Practitioner Family; Visit Provider Nurse Practitioner ==

== ENCOUNTER 2022-12-06 13:33 | Outpatient (REF) | payer OTHER, SELFPAY ==
[2022-12-06 14:50] LABS: Gamma Glutamyl Transpeptidase 42 U/L (7-33)
[2022-12-06 16:07] LABS: Appearance Urine Clear; Color Urine Yellow; Glucose Urine UA Negative (Negative); Leukocyte Esterase Urine Negative (Negative); Nitrite Urine Negative (Negative); PH 6.5 (5.0-9.0); Specific Gravity - Urine <= 1.005 (1.005-1.025); Urine Blood Negative (Negative); Urine Ketones Negative (Negative); Urine Protein Negative (Neg-Trace)
[2022-12-14 14:14] LABS: Alk.Phos Iso. Macrohepatic 0 % (<=0); Alk.Phos Isoenzymes Bone 40 % (28-66); Alk.Phos Isoenzymes Intest 10 % (1-24); Alk.Phos Isoenzymes Liver 50 % (25-69); Alk.Phos Isoenzymes Placental 0 % (<=0); Alk.Phos Isoenzymes Total 110 U/L (37-153)
== END 2022-12-06 13:34 | disposition home or self-care (01) ==
LOC: HO.LAB 13:33
PROVIDERS: PCP Nurse Practitioner Family; Visit Provider Nurse Practitioner Family
DX: Z01.818 Encounter for other preprocedural examination (principal); R74.8 Abnormal levels of other serum enzymes; K21.9 Gastro-esophageal reflux disease without esophagitis; K59.04 Chronic idiopathic constipation; K76.0 Fatty (change of) liver, not elsewhere classified
CPT/HCPCS: 36415; 81003; 82977; 84080; 99212

== ENCOUNTER → 2023-01-16 07:47 | Outpatient (BNVA) | payer OTHER, SELFPAY | PROVIDERS: PCP Nurse Practitioner Family; Visit Provider Nurse Practitioner Family | DX: G44.85 Primary stabbing headache (principal); G43.909 Migraine, unspecified, not intractable, without status migrainosus; R51.9 Headache, unspecified; R93.0 Abnormal findings on diagnostic imaging of skull and head, not elsewhere classified | CPT/HCPCS: 99212 ==

== ENCOUNTER 2023-03-04 14:01 | Outpatient (AMB) | payer OTHER, SELFPAY ==
[2023-03-04 14:35] VITALS: BP 130/70; BMI 28.0
--- NOTE | 2023-03-04 14:35 | A.OFFVIS_ITS ---
Intake Vital Signs 03/04/23 14:35 03/04/23 14:56 Height 5 ft 5 in Weight 167 lb 15.876 oz BMI 28.0 BP 130/70 Blood Pressure Location Rt brachial Position Sitting Respiration 65 H Intake Visit Reasons: NPV/Atrial premature depolarization/Glogowski Intake Note: NPV Machinist Wood Required: Yes Machinist Wood Language: Wafer Substrate Tester Name: Iker Raymond Accompanied by: Self / Same As Patient Allergies cat dander Allergy (Unknown, Verified 03/04/23 14:38) Unknown cyclobenzaprine Allergy (Unknown, Verified 03/04/23 14:38) pruritus morphine [MORPHINE] Allergy (Unknown, Verified 03/04/23 14:38) RASH,HIVES,SOB, rash, hives, SOB, rash, hives, SOB Penicillins [PENICILLINS] Allergy (Unknown, Verified 03/04/23 14:38) RASH,HIVES prazosin [PRAZOSIN] Allergy (Unknown, Verified 03/04/23 14:38) INCREASED HEADACHES, increase/worsened headaches, increase/worsened headaches strawberry [STRAWBERRY] Allergy (Unknown, Verified 03/04/23 14:38) RASH nickel Allergy (Verified 03/04/23 14:38) Rash Butrans Allergy (Unknown, Uncoded 03/04/23 14:38) loss of consciousness, swelling, rash Cortisone Allergy (Unknown, Uncoded 03/04/23 14:38) unknown Rozerem Adverse Reaction (Unknown, Uncoded 03/04/23 14:38) rash/memory loss Medication List - Last Reconciled 03/04/23 by Rafiq Rendon MD alclometasone 0.05% appl topical amlodipine 5 mg PO DAILY aspirin 81 mg PO DAILY atorvastatin 20 mg PO DAILY betamethasone valerate 0.1% appl topical DAILY bisacodyl 10 mg (2 x 5 mg) PO BEDTIME cetirizine 10 mg PO DAILY cholecalciferol (vitamin D3) 25 mcg PO DAILY levothyroxine 75 mcg PO DAILY linaclotide (Linzess) 290 mcg PO QAM 30 days methylcellulose (laxative) 1,000 mg (2 x 500 mg) PO DAILY mirtazapine 15 mg PO BEDTIME pantoprazole 40 mg PO BID rimegepant (Nurtec ODT) 0 mg PO sertraline 25 mg PO DAILY ubrogepant (Ubrelvy) 50 - 100 mg (0.5 - 1 x 100 mg) PO ONCE PRN 30 days HPI HPI Comments History of Present Illness Details Tram is here for evaluation regarding supraventricular ectopy. Recent Holter had shown frequent supraventricular ectopy and hence she has been referred here. She feels occasional palpitations. Otherwise, does not really get any clear-cut chest pains of anginal type. No known cardiac issues like coronary artery disease or myocardial infarction or cardiomyopathy. Reported TIA versus CVA many years ago, but no further details available. Not documented have any sleep apnea. [facility] Medical History Bunion of unspecified foot Chronic low back pain Chronic tension headache Depression Diastolic murmur Dyslipidemia Gastritis Hepatic steatosis History of anxiety History of TIAs Hx of diverticulitis of colon Hypertension Hypothyroid Lumbar spondylosis Migraine Positive ANASTACIO (antinuclear antibody) Prediabetes Shoulder pain Tubular adenoma Surgical History H/O rectal polypectomy History of back surgery History of esophagogastroduodenoscopy (EGD) History of hysterectomy Hx of breast reduction, elective Hx of colonoscopy Family History Father CVD (cardiovascular disease) ETOHism Myocardial infarct Mother CVD (cardiovascular disease) Myocardial infarct Maternal Aunt History of breast cancer Brother History of cancer of unknown primary site Other Mental health disorder Substance use disorder Social History Household Members: None Housing: Apartment Alcohol intake: current Alcohol intake frequency: does not drink Patient Tobacco Use Status: Never used Tobacco e-Cigarette/Vaping Use: Never Used Current occupational status: disabled Cognitive needs: No Hearing needs: No Vision needs: No Female Reproductive History Menstrual Age of Menarche: 8 Review of Systems Const Denies chills, Denies daytime sleepiness, Denies fatigue, Denies fever(s), Denies frequent falls, Denies night sweats, Denies snoring, Denies weakness, Denies weight gain and Denies weight loss Eyes Denies loss of vision ENT Denies dizziness and Denies hearing loss Card Denies chest pain, Denies chest pain with activity, Denies syncope, Denies rapid heart rate, Denies edema, Denies claudication, Denies leg edema, Denies lightheadedness, Denies palpitations, Denies dyspnea, Denies dyspnea on exertion and Denies orthopnea Resp Denies cough, Denies excessive phlegm production, Denies dyspnea, Denies dyspnea on exertion, Denies snoring and Denies wheezing GI Denies abdominal pain, Denies hematochezia, Denies change in bowel habits, Denies change in stool character, Denies heartburn, Denies nausea and Denies vomiting Denies hematuria, Denies urinary frequency and Denies dysuria Musc Denies arthralgias, Denies muscle weakness, Denies numbness and Denies tingling Skin/Breast Denies nail changes and Denies rash Neuro Denies Abnormal speech present, Denies dizziness, Denies syncope, Denies frequent falls, Denies loss of vision, Denies memory loss, Denies numbness, Denies tingling and Denies weakness Psych Denies depression and Denies memory loss Endo Denies fatigue and Denies palpitations Aller/Immun Denies wheezing Physical Exam Vital Signs: Last Vital Signs Resp 65 H 03/04/23 14:56 BP 130/70 03/04/23 14:35 BMI result Body Mass Index 28.0 Const General: comfortable and no acute distress Orientation/consciousness: patient oriented x3 HEENT Other: Unremarkable Head: Yes normal to inspection Neck Neck: Yes normal visual inspection Chest Chest palpation & inspection: normal inspection of the chest Resp Auscultation: clear to auscultation bilaterally Cardio Palpation: normal PMI Heart sounds: S1 normal heart sound present, S2 normal heart sound present, no gallops, no murmurs and no rubs GI Palpation (GI): Soft to palpation Back/Spine/Pelvis Other: unremarkable Skin General skin exam: no rashes or lesions noted Neuro General: patient oriented x3 Speech: No Abnormal speech present Extrem General: Yes normal to inspection Psych Mental Status: mental status grossly normal Assessment & Plan Assessment & Plan (1) Atrial arrhythmia: Code(s): I49.8 - Other specified cardiac arrhythmias (2) Non-rheumatic aortic regurgitation: Code(s): I35.1 - Nonrheumatic aortic (valve) insufficiency (3) Non-rheumatic mitral regurgitation: Code(s): I34.0 - Nonrheumatic mitral (valve) insufficiency (4) HTN (hypertension): Code(s): I10 - Essential (primary) hypertension Plan In the 12 lead EKG, underlying rhythm is sinus at a rate of 63/Min; frequent supraventricular ectopy in a pattern of bigeminy. Holter shows underlying sinus rhythm with an average rate of 62/Min. Frequent PACs with burden of 8%. Seven short runs of SVT. Echocardiogram in 2020 with LVEF of 60-65%. [id number] aortic regurgitation. Mild mitral/tricuspid regurgitation. Mild left atrial dilatation. Overall, frequent supraventricular ectopy which increases the probability of developing atrial fibrillation in the future. Can try beta-blockers. Her blood pressure is also on the higher side and hence should help that as well. Continue amlodipine. Otherwise, we can screen her for obstructive sleep apnea with home sleep study. Repeat echocardiogram to follow-up on her valve disease. Follow-up after testing. Orders: Orders CA echo transthoracic complete Today I49.8 - Other specified cardiac arrhythmias RT home sleep study Today G47.33 - Obstructive sleep apnea (adult) (pediatric), I49.8 - Other specified cardiac arrhythmias Medications: New metoprolol succinate ER (Toprol XL) 50 mg PO DAILY 90 tabs 3RF I49.8 - Other specified cardiac arrhythmias Coding Level of Care Code New Pt Level 4 (25327) Diagnoses Atrial arrhythmia I49.8 Non-rheumatic aortic regurgitation I35.1 Non-rheumatic mitral regurgitation I34.0 HTN (hypertension) I10
[2023-03-04 14:56] VITALS: RESP 65
== END 2023-03-04 15:00 | disposition home or self-care (01) ==
PROVIDERS: PCP Nurse Practitioner Family; Referring Provider Nurse Practitioner Family; Visit Provider Internal Medicine
DX: I49.8 Other specified cardiac arrhythmias (principal); I35.1 Nonrheumatic aortic (valve) insufficiency; I34.0 Nonrheumatic mitral (valve) insufficiency; I10 Essential (primary) hypertension
CPT/HCPCS: 99204

== ENCOUNTER → 2023-03-04 14:01 | Outpatient (BNVA) | payer OTHER, SELFPAY | PROVIDERS: PCP Nurse Practitioner Family; Referring Provider Nurse Practitioner Family; Visit Provider Internal Medicine | DX: I49.8 Other specified cardiac arrhythmias (principal); I35.1 Nonrheumatic aortic (valve) insufficiency; I34.0 Nonrheumatic mitral (valve) insufficiency; I10 Essential (primary) hypertension; Z86.73 Personal history of transient ischemic attack (TIA), and cerebral infarction without residual deficits | CPT/HCPCS: 99202 ==

== ENCOUNTER 2023-04-01 08:11 | Outpatient (AMB) | payer OTHER, SELFPAY ==
[2023-04-01 08:22] VITALS: BP 132/74; PULSE 60; O2SAT 99; BMI 28.7
--- NOTE | 2023-04-01 08:22 | MHC.PC.OV ---
Vital Signs 04/01/23 08:22 Height 5 ft 5 in Weight 172 lb 8 oz BMI 28.7 BP 132/74 Blood Pressure Location Lt brachial Position Sitting Pulse 60 Pulse Source Pulse Oximeter Pulse Oximetry (%) 99 Oxygen Delivery Method Room Air Intake Visit Reasons: 5m follow up Allergies cat dander Allergy (Unknown, Verified 04/01/23 08:25) Unknown cyclobenzaprine Allergy (Unknown, Verified 04/01/23 08:25) pruritus morphine [MORPHINE] Allergy (Unknown, Verified 04/01/23 08:25) RASH,HIVES,SOB, rash, hives, SOB, rash, hives, SOB Penicillins [PENICILLINS] Allergy (Unknown, Verified 04/01/23 08:25) RASH,HIVES prazosin [PRAZOSIN] Allergy (Unknown, Verified 04/01/23 08:25) INCREASED HEADACHES, increase/worsened headaches, increase/worsened headaches strawberry [STRAWBERRY] Allergy (Unknown, Verified 04/01/23 08:25) RASH nickel Allergy (Verified 04/01/23 08:25) Rash Butrans Allergy (Unknown, Uncoded 04/01/23 08:25) loss of consciousness, swelling, rash Cortisone Allergy (Unknown, Uncoded 04/01/23 08:25) unknown Rozerem Adverse Reaction (Unknown, Uncoded 04/01/23 08:25) rash/memory loss Medication List - Last Reconciled 04/01/23 by MARTIN AvilaP- alclometasone 0.05% appl topical amlodipine 5 mg PO DAILY aspirin 81 mg PO DAILY atorvastatin 20 mg PO DAILY betamethasone valerate 0.1% appl topical DAILY bisacodyl 10 mg (2 x 5 mg) PO BEDTIME cetirizine 10 mg PO DAILY cholecalciferol (vitamin D3) 25 mcg PO DAILY levothyroxine 75 mcg PO DAILY linaclotide (Linzess) 290 mcg PO QAM 30 days methylcellulose (laxative) 1,000 mg (2 x 500 mg) PO DAILY metoprolol succinate ER (Toprol XL) 50 mg PO DAILY mirtazapine 15 mg PO BEDTIME pantoprazole 40 mg PO BID sertraline 100 mg PO DAILY ubrogepant (Ubrelvy) 50 - 100 mg (0.5 - 1 x 100 mg) PO ONCE PRN 30 days Tobacco use date assessed: 04/01/23 Fall risk assessment: No Falls in past year Last assessed Fall Risk: 04/01/23 Dental Screening Dental Screen Date: 04/01/23 Did you have a dental visit in the last 12 months?: Yes Did you have a dental problem in the last 6 months where you did not have access to dental care?: No Was dental information given to patient?: Patient has dentist HPI 5m follow up HPI Details HTN: Blood pressure is stable, managed with amlodipine 5mg and metoprolol 50mg. Denies chest pain, shortness of breath, headache, dizziness, and blurred vision. Will order labs. Pt is seeing cardiology, has an upcoming echo. Pt is following up with neurology due to occipital headaches. [facility] Medical History Hepatic steatosis Chronic tension headache Lumbar spondylosis Dyslipidemia Gastritis Diastolic murmur Positive ANASTACIO (antinuclear antibody) Tubular adenoma Hx of diverticulitis of colon Bunion of unspecified foot History of anxiety Depression Hypertension Shoulder pain Migraine Prediabetes Chronic low back pain Hypothyroid History of TIAs Surgical History History of esophagogastroduodenoscopy (EGD) Hx of colonoscopy H/O rectal polypectomy Hx of breast reduction, elective History of hysterectomy History of back surgery Family History Father CVD (cardiovascular disease) ETOHism Myocardial infarct Mother CVD (cardiovascular disease) Myocardial infarct Maternal Aunt History of breast cancer Brother History of cancer of unknown primary site Other Mental health disorder Substance use disorder Social History Household Members: None Housing: Apartment Alcohol intake: current Alcohol intake frequency: does not drink Patient Tobacco Use Status: Never used Tobacco e-Cigarette/Vaping Use: Never Used Current occupational status: disabled Cognitive needs: No Hearing needs: No Vision needs: No Female Reproductive History Menstrual Age of Menarche: 8 Questionnaire Thrive Questionnaire Date Thrive assessed: 09/21/21 MARTI-7 AMB Questionnaire MARTI-7 Date MARTI - 7 assessed: 09/21/21 Source: Developed by Drs. Jarad Mo, Karyn Alba, Salvador Saldana and colleagues, with an educational irwin from [employer]. Review of Systems Const Reports as per HPI Physical exam (Primary Care) Vital Signs: Last Vital Signs Pulse 60 04/01/23 08:22 BP 132/74 04/01/23 08:22 Pulse Ox 99 04/01/23 08:22 Oxygen Delivery Method Room Air 04/01/23 08:22 BMI result Body Mass Index 28.7 Tobacco/Smoking Status: Tobacco use Status Tobacco use date assessed 04/01/23 04/01/23 08:31 Patient Tobacco Use Status Never used Tobacco 04/01/23 08:31 e-Cigarette/Vaping Use Never Used 04/01/23 08:31 Thrive Assessment: Date of Thrive Assessment Date Thrive assessed 09/21/21 04/01/23 08:31 Const General: cooperative Orientation/consciousness: patient oriented x3 Resp Effort & Inspection: normal respiratory effort Auscultation: clear to auscultation bilaterally Cardio Rate: regular rate Rhythm: regular rhythm Heart sounds: S1 normal heart sound present and S2 normal heart sound present Neuro General: patient oriented x3 Extrem Right lower extremity: no edema Left lower extremity: no edema Psych Appearance: grossly normal Mental Status: mental status grossly normal Speech and movement: Normal speech and movement present Affect: normal affect Attitude: cooperative Thought process: Normal thought process present Thought content: Normal thought content present Insight: Good insight present (Psych) Judgement: Good judgement present (Psych) Assessment and Plan Assessment & Plan (1) HTN (hypertension): Code(s): I10 - Essential (primary) hypertension Plan: Labs ordered Plan The patient agreed to the use of a outside medical sales representative for this encounter. Scribed for JOCELYNE Mtz by Jackie Galo outside medical sales representative, on 04/01/2023 at 08:40 EST. Orders: Orders Complete Blood Count Auto Diff Today I10 - Essential (primary) hypertension Comprehensive [place]. Panel Fast Today I10 - Essential (primary) hypertension Lipid Panel Today I10 - Essential (primary) hypertension UA CC w/rflx Micro + Cult Today I10 - Essential (primary) hypertension TSH reflex Free T4 Today I10 - Essential (primary) hypertension Coding Level of Care Code Est Pt Level 3 (06073) Diagnoses HTN (hypertension) I10
== END 2023-04-01 08:54 | disposition home or self-care (01) ==
PROVIDERS: Visit Provider Nurse Practitioner Family
DX: I10 Essential (primary) hypertension (principal)
CPT/HCPCS: 99213

== ENCOUNTER → 2023-04-09 08:44 | Outpatient (REF) | payer OTHER, SELFPAY ==
--- NOTE | 2023-04-09 08:48 | CA_ITS ---
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 Normal LV ejection fraction of 55-60% 2. Mildly dilated left atrium 3. [id number]-[id number] mitral regurgitation and mild aortic regurgitation 4. Normal RV systolic pressure 5. No pericardial effusion Findings Left Ventricle Normal left ventricular size, thickness, and systolic function. The visually estimated ejection fraction is between 55-60%. Spectral Doppler is indicative of a normal filling pattern. Right Ventricle Normal right ventricular cavity size and systolic function. Atria The left atrium is mildly dilated. Interatrial shunt cannot be excluded. The right atrium is normal in size. Aortic Valve There is a normal trileaflet aortic valve. There is mild thickening of the aortic valve. There is no aortic valve stenosis. There is mild aortic valve regurgitation. Mitral Valve There is mild anterior and posterior mitral leaflet thickening. There is mild to moderate mitral valve regurgitation. There is no mitral valve stenosis. Pulmonic Valve The pulmonic valve is likely normal. There is trace to mild pulmonic valve regurgitation. Tricuspid Valve Normal tricuspid valve structure. There is mild tricuspid valve regurgitation. The right ventricular systolic pressure is normal. The right ventricular systolic pressure is 29 mmHg. Normal right atrial pressure. There is no evidence of pulmonary hypertension. Great Vessels All visible segments of the aorta are normal in size. The pulmonary artery was not well visualized. Venous The inferior vena cava is normal in size and collapses greater than 50% with inspiration. Pericardium/Pleural There is no evidence of pericardial effusion. Prior Study Comparison Changes noted compared to prior study dated: 04/04/2020. Mitral regurgitation appears to be [id number] Measurements 2D Linear Measurements IVSd: 0.90 0.6-0.9/0.6-1.0 cm LVIDd: 4.90 3.9-5.3/4.2-5.9 cm LVIDd Index: 2.63 2.4-3.2/2.2-3.1 cm/m2 LVIDs: 3.10 2.0-3.6 cm LVPWd: 0.90 0.7-1.1 cm LA Diam: 3.80 2.7-3.8/3.0-4.0 cm LAIDs Index: 2.04 1.5-2.3 cm/m2 LV Mass: 190.44 67-162/88-224 g LV Mass Index: 102.39 43-95/49-115 g/m2 LVOT Diam: 2.00 3.0+(-)1.3 cm 2D Systolic Function EF 4C: 56.30 >55% EF 2C: 60.50 >55% EF BiP: 58.50 >55% Mitral Valve MV Pk E: 0.83 MV PK A: 0.46 MV Decel Time: 279.00 E/A: 1.80 E'Lateral: 11.30 E'Medial: 5.66 E/E' Med: 14.60 E/E' Lat: 7.30 PHT: 82.00 MVA PHT: 2.68 Decel Colleton: 2.97 Aortic Valve AoV Pk Erasto: 1.29 AoV Mn Erasto: 0.84 AoV VTI: 0.35 AoV Pk Grad: 7.00 Aov Mn Grad: 3.00 MITCHEL Cont.VTI: 2.15 AI Pk Erasto: 3.39 AI Colleton: 1.07 LVOT LVOT Pk Erasto: 0.88 LVOT Mn Erasto: 0.58 LVOT VTI: 0.24 LVOT Pk Grad: 3.00 LVOT Mn Grad: 2.00 LVOT Diam: 2.00 LVOT Area: 3.14 Diastolic Function MV Pk E: 0.83 MV Pk A: 0.46 E/A: 1.80 E'Medial: 5.66 E/E' Med: 14.60 E' Laterial: 11.30 E/E' Lat: 7.30 Right Ventricle TAPSE (mm): 21.70 TVS' Erasto: 9.79 Tricuspid Valve TR Pk Erasto: 2.54 TR Pk Grad: 26.00 RA Press: 3.00 RVSP: 29.00 Great Vessels Aorta Sinus of Valsalva: 3.40 2.0-3.[address] Ridge: 2.50 1.7-3.4 cm Ao Asc: 3.30 2.1-3.4 cm Updated in Other Vendor System with Status of Final Leonidas Lentz MD electronically signed on 04/10/2023 10:57:48 AM with status of Final
== END ==
LOC: HO.CARD 08:44
PROVIDERS: PCP Nurse Practitioner Family; Visit Provider Internal Medicine
DX: I49.8 Other specified cardiac arrhythmias (principal); G47.33 Obstructive sleep apnea (adult) (pediatric)
CPT/HCPCS: 93306

== ENCOUNTER → 2023-04-09 08:48 | Outpatient (BNV) | payer OTHER, SELFPAY | PROVIDERS: PCP Nurse Practitioner Family; Visit Provider Internal Medicine Cardiovascular Disease | DX: I34.0 Nonrheumatic mitral (valve) insufficiency (principal); I35.1 Nonrheumatic aortic (valve) insufficiency | CPT/HCPCS: 93306 ==

== ENCOUNTER → 2023-06-03 10:41 | Outpatient (REF) | payer OTHER, SELFPAY | LOC: HO.SL 10:41 | PROVIDERS: PCP Nurse Practitioner Family; Visit Provider Internal Medicine | DX: Z13.89 Encounter for screening for other disorder (principal) ==

== ENCOUNTER 2023-06-12 07:29 | Outpatient (REF) | payer OTHER, SELFPAY ==
[2023-06-12 09:12] LABS: MANUAL DIFF FLAG NO
[2023-06-12 09:57] LABS: Basophils Percent Auto 0.6 % (0-2); Eosinophils Absolute Auto 0.3 X10*3/uL (0.0-0.4); Eosinophils Percent Auto 3.8 % (0-4); Hematocrit 40.4 % (37.0-47.0); Hemoglobin 12.6 g/dl (12.0-16.0); Imm Gran Abs Auto 0.02 X10*3/uL (0.00-0.03); Imm Gran Pct Auto 0.3 % (0.0-0.4); Lymphocytes Absolute Auto 2.8 X10*3/uL (1.2-4.9); Lymphocytes Percent Auto 39.2 % (20-40); Mean Corpuscular HGB Conc 31.2 g/dl (31.0-35.0); Mean Corpuscular Hemoglobin 26.4 pg (27.0-33.0); Mean Corpuscular Volume 84.7 fL (80.0-98.0); Mean Platelet Volume 10.6 fL (9.4-12.3); Monocytes Absolute Auto 0.5 X10*3/uL (0.1-1.2); Monocytes Percent Auto 6.4 % (2-11); Neutrophils Absolute Auto 3.6 x10*3/uL (2.0-8.3); Neutrophils Percent Auto 49.7 % (45-73); Platelet Count 222 X10*3/uL (160-400); Red Blood Count 4.77 X10*6/uL (4.20-5.50); Red Cell Distribution Width 15.1 % (11.0-16.0); White Blood Count 7.1 X10*3/uL (4.8-10.8)
[2023-06-12 10:37] LABS: Erythrocyte Sedimentation Rate 22 MM/HR (0-20)
[2023-06-12 10:41] LABS: Appearance Urine Clear; Color Urine Yellow; Glucose Urine UA Negative (Negative); Leukocyte Esterase Urine Moderate (2+) (Negative); Nitrite Urine Negative (Negative); UMIC TRIGGER UACC YES; Urine Blood Negative (Negative); Urine Ketones Negative (Negative); Urine Protein Negative (Neg-Trace)
[2023-06-12 10:54] LABS: Bacteria Urine None Seen (None Seen); Calcium Oxalate Crystals Urine Present; Hyaline Casts Urine 0-2 /LPF (0-2); UACC Culture Trigger YES
[2023-06-12 11:33] LABS: Alanine Aminotransferase 25 U/L (0-31); Albumin Level 4.3 g/dL (3.5-5.0); Alkaline Phosphatase 114 U/L (39-117); Anion Gap 10 (12-20); Aspartate Amino Transferase 29 U/L (5-31); Bilirubin Total 0.5 mg/dL (0.0-1.0); Blood Urea Nitrogen 28 mg/dL (9-16); C Reactive Protein < 0.10 mg/dL (< or = 0.50); Calcium 9.5 mg/dL (8.4-10.2); Carbon Dioxide 27 mmol/L (22-29); Chloride 107 mmol/L (96-108); Estimated Glomerular Filt Rate > 60; Glucose Random 86 mg/dL (60-115); Lactate Dehydrogenase 224 U/L (122-220); Potassium 4.4 mmol/L (3.3-5.1); Sodium 140 mmol/L (135-145)
[2023-06-12 11:35] LABS: Rheumatoid Factor < 13.0 IU/mL (<15.0)
[2023-06-13 08:03] LABS: EBV-VCA IgM Ab <36.00 U/mL
[2023-06-13 12:58] LABS: Alpha Fetoprotein 2.6 ng/mL
[2023-06-15 14:23] LABS: Vitamin D 25-OH, D2 <4 ng/mL; Vitamin D 25-OH, D3 46 ng/mL; Vitamin D 25-OH, Total 46 ng/mL (30-100)
== END 2023-06-12 07:30 | disposition home or self-care (01) ==
LOC: HO.LAB 07:29
PROVIDERS: PCP Nurse Practitioner Family; Visit Provider Nurse Practitioner
DX: R68.81 Early satiety (principal); I49.8 Other specified cardiac arrhythmias; I35.1 Nonrheumatic aortic (valve) insufficiency; I34.0 Nonrheumatic mitral (valve) insufficiency; I10 Essential (primary) hypertension; G47.33 Obstructive sleep apnea (adult) (pediatric); K59.04 Chronic idiopathic constipation; K21.9 Gastro-esophageal reflux disease without esophagitis; K76.0 Fatty (change of) liver, not elsewhere classified; R53.83 Other fatigue; R11.2 Nausea with vomiting, unspecified
CPT/HCPCS: 36415; 80053; 81001; 82105; 82306; 83615; 85025; 85652; 86140; 86431; 86664; 86665; 87086; 99212

== ENCOUNTER 2023-06-12 07:29 | Outpatient (AMB) | payer OTHER, SELFPAY ==
--- NOTE | 2023-06-12 07:52 | A.OFFVIS_ITS ---
Intake Vital Signs 06/12/23 07:55 Height 5 ft 5 in Weight 169 lb BMI 28.1 BP 143/69 H Blood Pressure Location Lt brachial Position Sitting Pulse 63 Intake Visit Reasons: 6 months follow up Intake Note: Patient for 6 month follow up for constipation. Patient cc: gassy, acid reflex, headaches, no appetite, and some constipation on and off. Dry Transfer Man Required: No Accompanied by: Self / Same As Patient Allergies cat dander Allergy (Unknown, Verified 06/12/23 07:51) Unknown cyclobenzaprine Allergy (Unknown, Verified 06/12/23 07:51) pruritus morphine [MORPHINE] Allergy (Unknown, Verified 06/12/23 07:51) RASH,HIVES,SOB, rash, hives, SOB, rash, hives, SOB Penicillins [PENICILLINS] Allergy (Unknown, Verified 06/12/23 07:51) RASH,HIVES prazosin [PRAZOSIN] Allergy (Unknown, Verified 06/12/23 07:51) INCREASED HEADACHES, increase/worsened headaches, increase/worsened headaches strawberry [STRAWBERRY] Allergy (Unknown, Verified 06/12/23 07:51) RASH nickel Allergy (Verified 06/12/23 07:51) Rash Butrans Allergy (Unknown, Uncoded 04/01/23 08:25) loss of consciousness, swelling, rash Cortisone Allergy (Unknown, Uncoded 04/01/23 08:25) unknown Rozerem Adverse Reaction (Unknown, Uncoded 04/01/23 08:25) rash/memory loss HPI 6 months follow up HPI Details Assessment & Plan (1) GERD (gastroesophageal reflux diseas e): Code(s): K21.9 - Gastro-esophageal reflux disease without esophagitis Plan: [place]cu[place] #DEDCLINES She is doing well on the Linzess 290 moving her bowels every morning. SHe stopped the protonix r/t perceived palpitations - but had a halter monitor showing runs of SVT so this is an on going evaluation and may have been random. She asks about her liver and we review the labs/US - mild GONZALEZ. Educated. She has not had any HB so I recommend TUMS if she has it (likely better r/t better bowel motility). She has N/V when she has her migraines and she has had a run of them lately. DUe for colonoscopy and agreeable w/hx of sessile TA. A she denies any respiratory problems but is having a history PVCs and history of TIAs. There are no prior problems with anesthesia or sedation. There are no infectious disease problems.. ROV 6 mos and after colonoscopy (2) Chronic idiopathic constipation: Code(s): K59.04 - Chronic idiopathic constipation (3) Hepatic steatosis: Comment: Baseline labs: 07/2019 ast/alt 42/52 alk phos 126 remainder normal, normal CBC, neg Hep A, B and C, ANASTACIO elevated 1:320 homogenous, negative autoimmune work up and neg hemochromatosis screen AFP 2.2, ferritin 32, total bilirubin 0.7 with directed 0.2 * CURRENT LABS 08/21/22 WBC 6.9 Hgb 12.3 Hct 39.2 MCV 83.1 MCH 26.1 L Plt Count 185 Estimated GFR > 60 Total Bilirubin 1.1 H AST 29 ALT 51 H Alkaline Phosphatase 135 H Alpha Fetoprotein 2.3 TSH 2.64 ULTRASOUND OF THE ABDOMEN 10/24/22 IMPRESSION: Slightly echogenic liver probably representing fatty infiltration. Pancreas not well visualized. Code(s): K76.0 - Fatty (change of) liver, not elsewhere classified (4) Pre-op examination: Code(s): Z01.818 - Encounter for other preprocedural examination Medications: New peg 3350-electroly giuliana 236-22.74-6.74 -5.86 gram (Golyt allie) until feca l effluent is makayla r; do not exceed a total volume of 2 ,000 mL 240 mL PO Q10M 1 day 4,000 mL 0RF Z12.11 - Encounter for screening for malignant neoplas m of colon Discontinued linaclotide (Linze ss) Discontinue d Reason: Doctor' s Order 145 mcg PO QAM 90 days 90 caps 2RF K59.04 - Chronic i diopathic constipa tion pantoprazole (Prot angela) Discontin ued Reason: Docto r's Order 40 mg PO BID 30 d ays 60 tabs 6RF Colonoscopy ? Scheduled for 06/28/2023 Biopsy TODAY'S VISIT Ecu[place] #Cary She has had a very difficult time of it! In April she had both the flu and COVID with very high fevers nausea vomiting and diarrhea along with body aches. Since then she has had continued fatigue and many changes in her body. She can not eat very much if she overwhelms her stomach she will vomit food and she will frequently have some nausea in the afternoon. She is not moving her bowels much but again she is not in taking much food. She is having quite a lot of gas despite all of this. This is bothersome to her. She is also having insomnia despite her daytime severe fatigue. She will go to bed at night and wake up at about 3 in the morning and not be able to sleep again. She wakes up every morning with severe headaches and this is being worked up for possible myofascial injections with Neurology/orthopedics. She will be seeing Cardiology today which is a good thing. She is continuing on her Linzess, she has utilized simethicone without much help for her gas, and she takes her pantoprazole twice a day. I think for now I am going to get some basic lab work including a fecal calprotectin to see if there is any systemic inflammation of the gut as a post COVID syndrome along with some basic inflammatory markers any urinalysis because her urine has been quite dark despite the fact that she drinks a fair amount of water. We could consider treating her with budesonide depending on the outcome of these studies. For now I think will try her on some mirtazapine to see if we can improve her sleep as this may go long way to allowing her body to repair itself. She has an appointment with me in June after her colonoscopy and we will keep this to follow-up for the labs and see how she is doing. [facility] Medical History Hepatic steatosis Chronic tension headache Lumbar spondylosis Dyslipidemia Gastritis Diastolic murmur Positive ANASTACIO (antinuclear antibody) Tubular adenoma Hx of diverticulitis of colon Bunion of unspecified foot History of anxiety Depression Hypertension Shoulder pain Migraine Prediabetes Chronic low back pain Hypothyroid History of TIAs Surgical History History of esophagogastroduodenoscopy (EGD) Hx of colonoscopy H/O rectal polypectomy Hx of breast reduction, elective History of hysterectomy History of back surgery Family History Father CVD (cardiovascular disease) ETOHism Myocardial infarct Mother CVD (cardiovascular disease) Myocardial infarct Maternal Aunt History of breast cancer Brother History of cancer of unknown primary site Other Mental health disorder Substance use disorder Social History Household Members: None Housing: Apartment Alcohol intake: current Alcohol intake frequency: does not drink Patient Tobacco Use Status: Never used Tobacco e-Cigarette/Vaping Use: Never Used Current occupational status: disabled Cognitive needs: No Hearing needs: No Vision needs: No Female Reproductive History Menstrual Age of Menarche: 8 Review of Systems Const Reports body aches, Reports difficulty sleeping, Reports fatigue, Denies fever (s), Reports headache(s), Reports lethargy, Reports malaise, Denies night sweats, Reports poor appetite and Reports weight loss ENT Reports Normal hearing present, Denies dental pain, Denies dysphagia, Reports headache(s), Denies hearing loss, Denies mouth pain, Denies odynophagia, Denies throat swelling, Denies tongue swelling and Reports other (Dentition adequate) Card Reports no additional complaints Resp Reports no additional complaints GI Denies abdominal pain, Denies melena, Denies bloating, Denies hematochezia, Reports constipation, Denies GI cramping, Denies dysphagia, Reports excessive flatus, Denies early satiety, Reports heartburn, Denies diarrhea, Reports nausea, Denies odynophagia, Reports vomiting and Denies hematemesis Skin/Breast Denies pruritus, Denies lesions, Denies rash and Denies jaundice Neuro Reports Normal hearing present, Denies Abnormal speech present and Reports headache(s) Endo Reports fatigue Aller/Immun Denies throat swelling and Denies tongue swelling Physical Exam Vital Signs: Last Vital Signs Pulse 63 06/12/23 07:55 BP 143/69 H 06/12/23 07:55 BMI result Body Mass Index 28.1 Const General: cooperative, no acute distress, well developed and well groomed Nutritional Appearance: average body habitus and well nourished Orientation/consciousness: oriented to person, oriented to place and oriented to time Limitations: No language barrier HEENT Head: Yes normocephalic and Yes atraumatic Eyes General: appearance normal, both eyes and all related structures Pupils: Equal, round and reactive pupils present Neck Neck: Yes normal visual inspection and Yes no lymphadenopathy Thyroid: Thyroid normal Resp Effort & Inspection: normal respiratory effort and able to speak in complete sentences Auscultation: clear to auscultation bilaterally Cardio Rate: regular rate Rhythm: regular rhythm Heart sounds: Normal, physiologic split S2 sound present Peripheral pulses: radial pulses present and posterior tibial pulses present GI Inspection: No distended and No Abdominal panniculus present Palpation (GI): Soft to palpation, nontender, no guarding, not rigid and No hepatosplenomegaly present Percussion: Yes normal to percussion Auscultation: normal bowel sounds Rectal Exam - Female: deferred Skin General skin exam: no rashes or lesions noted, turgor normal, skin not dry, no jaundice, No spider nevi and no striae Rashes: no rashes Nails: normal Neuro General: oriented to person, oriented to place and oriented to time Cranial nerves: Yes Equal, round and reactive pupils present and Yes Normal hearing present Speech: No Abnormal speech present Extrem General: Yes normal to inspection, No clubbing, No cyanosis and No edema Psych Appearance: grossly normal and well kempt Mental Status: mental status grossly normal Speech and movement: Normal speech and movement present Affect: normal affect Attitude: cooperative Thought process: Normal thought process present and not confabulating Thought content: Normal thought content present Insight: Fair insight present (Psych) Judgement: Fair judgement present (Psych) Assessment & Plan Assessment & Plan (1) GERD (gastroesophageal reflux disease): Code(s): K21.9 - Gastro-esophageal reflux disease without esophagitis (2) Chronic idiopathic constipation: Code(s): K59.04 - Chronic idiopathic constipation (3) Hepatic steatosis: Comment: Baseline labs: 07/2019 ast/alt 42/52 alk phos 126 remainder normal, normal CBC, neg Hep A, B and C, ANASTACIO elevated 1:320 homogenous, negative autoimmune work up and neg hemochromatosis screen AFP 2.2, ferritin 32, total bilirubin 0.7 with directed 0.2 * CURRENT LABS 08/21/22 WBC 6.9 Hgb 12.3 Hct 39.2 MCV 83.1 MCH 26.1 L Plt Count 185 Estimated GFR > 60 Total Bilirubin 1.1 H AST 29 ALT 51 H Alkaline Phosphatase 135 H Alpha Fetoprotein 2.3 TSH 2.64 ULTRASOUND OF THE ABDOMEN 10/24/22 IMPRESSION: Slightly echogenic liver probably representing fatty infiltration. Pancreas not well visualized. Code(s): K76.0 - Fatty (change of) liver, not elsewhere classified (4) Fatigue: Code(s): R53.83 - Other fatigue (5) Nausea and vomiting: Code(s): R11.2 - Nausea with vomiting, unspecified (6) Early satiety: Code(s): R68.81 - Early satiety (7) Insomnia: Code(s): G47.00 - Insomnia, unspecified Plan Colonoscopy ? Scheduled for 06/28/2023 Biopsy TODAY'S VISIT Ecu[place]orean #Declines She has had a very difficult time of it! In April she had both the flu and COVID with very high fevers nausea vomiting and diarrhea along with body aches. Since then she has had continued fatigue and many changes in her body. She can not eat very much if she overwhelms her stomach she will vomit food and she will frequently have some nausea in the afternoon. She is not moving her bowels much but again she is not in taking much food. She is having quite a lot of gas despite all of this. This is bothersome to her. She is also having insomnia despite her daytime severe fatigue. She will go to bed at night and wake up at about 3 in the morning and not be able to sleep again. She wakes up every morning with severe headaches and this is being worked up for possible myofascial injections with Neurology/orthopedics. She will be seeing Cardiology today which is a good thing. She is continuing on her Linzess, she has utilized simethicone without much help for her gas, and she takes her pantoprazole twice a day. I think for now I am going to get some basic lab work including a fecal calprotectin to see if there is any systemic inflammation of the gut as a post COVID syndrome along with some basic inflammatory markers any urinalysis because her urine has been quite dark despite the fact that she drinks a fair amount of water. We could consider treating her with budesonide depending on the outcome of these studies. For now I think will try her on some mirtazapine to see if we can improve her sleep as this may go long way to allowing her body to repair itself. She has an appointment with me in June after her colonoscopy and we will keep this to follow-up for the labs and see how she is doing. Orders: Orders Alpha Fetoprotein Today R11.2 - Nausea with vomiting, unspecified, R53.83 - Other fatigue, R68.81 - Early satiety Calprotectin, Fecal Today R11.2 - Nausea with vomiting, unspecified, R53.83 - Other fatigue, R68.81 - Early satiety UA CC w/rflx Micro + Cult Today R11.2 - Nausea with vomiting, unspecified, R53.83 - Other fatigue, R68.81 - Early satiety C Reactive Protein Today R11.2 - Nausea with vomiting, unspecified, R53.83 - Other fatigue, R68.81 - Early satiety Walt-Harman Virus Profile Today R11.2 - Nausea with vomiting, unspecified, R53.83 - Other fatigue, R68.81 - Early satiety Vitamin D 25-OH (D2 and D3) Today R11.2 - Nausea with vomiting, unspecified, R53.83 - Other fatigue, R68.81 - Early satiety Complete Blood Count Auto Diff Today R11.2 - Nausea with vomiting, unspecified, R53.83 - Other fatigue, R68.81 - Early satiety Comprehensive Met. Panel Today R11.2 - Nausea with vomiting, unspecified, R53.83 - Other fatigue, R68.81 - Early satiety US abdomen complete Today R11.2 - Nausea with vomiting, unspecified, R53.83 - Other fatigue, R68.81 - Early satiety Erythrocyte Sedimentation Rate Today R11.2 - Nausea with vomiting, unspecified, R53.83 - Other fatigue, R68.81 - Early satiety Rheumatoid Factor Today R11.2 - Nausea with vomiting, unspecified, R53.83 - Other fatigue, R68.81 - Early satiety Lactate Dehydrogenase Today R11.2 - Nausea with vomiting, unspecified, R53.83 - Other fatigue, R68.81 - Early satiety Medications: New pantoprazole 40 mg PO BID 60 tabs 6RF mirtazapine 15 mg PO BEDTIME 30 tabs 3RF G47.00 - Insomnia, unspecified, R11.2 - Nausea with vomiting, unspecified, R53.83 - Other fatigue, R68.81 - Early sa tiety Refilled linaclotide (Linzess) 290 mcg PO QAM 30 days 30 caps 6RF methylcellulose (laxative) 1,000 mg (2 x 500 mg) PO DAILY 60 tabs 6RF bisacodyl 10 mg (2 x 5 mg) PO BEDTIME 56 tabs 6RF K59.04 - Chronic idiopathic constipation Coding Level of Care Code Est Pt Level 4 (93672) Diagnoses GERD (gastroesophageal reflux disease) K21.9 Chronic idiopathic constipation K59.04 Hepatic steatosis K76.0 Fatigue R53.83 Nausea and vomiting R11.2 Early satiety R68.81 Insomnia G47.00 Time Spent (min) 38 Comment Thirty-three [id number] 5 chart
[2023-06-12 07:55] VITALS: BP 143/69; PULSE 63; BMI 28.1
== END 2023-06-12 08:51 | disposition home or self-care (01) ==
PROVIDERS: Visit Provider Nurse Practitioner
DX: K21.9 Gastro-esophageal reflux disease without esophagitis (principal); K59.04 Chronic idiopathic constipation; K76.0 Fatty (change of) liver, not elsewhere classified; R53.83 Other fatigue; R11.2 Nausea with vomiting, unspecified; R68.81 Early satiety; G47.00 Insomnia, unspecified
CPT/HCPCS: 99214

== ENCOUNTER 2023-06-12 09:21 | Outpatient (AMB) | payer OTHER, SELFPAY ==
--- NOTE | 2023-06-12 09:41 | MHC.OFFVIS ---
Intake Vital Signs 06/12/23 09:45 Height 5 ft 5 in Weight 169 lb 12.095 oz BMI 28.2 BP 126/66 Blood Pressure Location Lt brachial Position Sitting Pulse 62 Pulse Source Palpation Intake Visit Reasons: 3 mth f/up home sleep/ echo Intake Note: 3 month follow up testing Check Writing Machine Operator Required: Yes Check Writing Machine Operator Language: Masking Machine Operator Name: Rob [id number] Accompanied by: Self / Same As Patient Allergies cat dander Allergy (Unknown, Verified 06/12/23 09:44) Unknown cyclobenzaprine Allergy (Unknown, Verified 06/12/23 09:44) pruritus morphine [MORPHINE] Allergy (Unknown, Verified 06/12/23 09:44) RASH,HIVES,SOB, rash, hives, SOB, rash, hives, SOB Penicillins [PENICILLINS] Allergy (Unknown, Verified 06/12/23 09:44) RASH,HIVES prazosin [PRAZOSIN] Allergy (Unknown, Verified 06/12/23 09:44) INCREASED HEADACHES, increase/worsened headaches, increase/worsened headaches strawberry [STRAWBERRY] Allergy (Unknown, Verified 06/12/23 09:44) RASH nickel Allergy (Verified 06/12/23 09:44) Rash Butrans Allergy (Unknown, Uncoded 06/12/23 09:44) loss of consciousness, swelling, rash Cortisone Allergy (Unknown, Uncoded 06/12/23 09:44) unknown Rozerem Adverse Reaction (Unknown, Uncoded 06/12/23 09:44) rash/memory loss Medication List - Last Reconciled 06/12/23 by Rafiq Rendon MD alclometasone 0.05% appl topical amlodipine 5 mg PO DAILY aspirin 81 mg PO DAILY atorvastatin 20 mg PO DAILY betamethasone valerate 0.1% appl topical DAILY bisacodyl 10 mg (2 x 5 mg) PO BEDTIME cetirizine 10 mg PO DAILY cholecalciferol (vitamin D3) 25 mcg PO DAILY levothyroxine 75 mcg PO DAILY linaclotide (Linzess) 290 mcg PO QAM 30 days methylcellulose (laxative) 1,000 mg (2 x 500 mg) PO DAILY metoprolol succinate ER (Toprol XL) 50 mg PO DAILY mirtazapine 15 mg PO BEDTIME pantoprazole 40 mg PO BID sertraline 100 mg PO DAILY ubrogepant (Ubrelvy) 50 - 100 mg (0.5 - 1 x 100 mg) PO ONCE PRN 30 days HPI HPI Comments History of Present Illness Details Tram returns for follow-up. Recently seen in consultation regarding supraventricular ectopy. Holter had shown frequent supraventricular ectopy and hence she has been referred here. She feels occasional palpitations. Otherwise, does not really get any clear-cut chest pains of anginal type. No known cardiac issues like coronary artery disease or myocardial infarction or cardiomyopathy. Reported TIA versus CVA many years ago, but no further details available. [facility] Medical History (Reviewed 04/01/23 @ 08:54 by Carmelo Enriquez, [facility]) Hepatic steatosis Chronic tension headache Lumbar spondylosis Dyslipidemia Gastritis Diastolic murmur Positive ANASTACIO (antinuclear antibody) Tubular adenoma Hx of diverticulitis of colon Bunion of unspecified foot History of anxiety Depression Hypertension Shoulder pain Migraine Prediabetes Chronic low back pain Hypothyroid History of TIAs Surgical History History of esophagogastroduodenoscopy (EGD) Hx of colonoscopy H/O rectal polypectomy Hx of breast reduction, elective History of hysterectomy History of back surgery Family History Father CVD (cardiovascular disease) ETOHism Myocardial infarct Mother CVD (cardiovascular disease) Myocardial infarct Maternal Aunt History of breast cancer Brother History of cancer of unknown primary site Other Mental health disorder Substance use disorder Social History Household Members: None Housing: Apartment Alcohol intake: current Alcohol intake frequency: does not drink Patient Tobacco Use Status: Never used Tobacco e-Cigarette/Vaping Use: Never Used Current occupational status: disabled Cognitive needs: No Hearing needs: No Vision needs: No Female Reproductive History Menstrual Age of Menarche: 8 Review of Systems Const Denies weakness ENT Denies dizziness Card Denies chest pain, Denies chest pain with activity, Denies syncope, Denies pedal edema, Denies edema, Denies leg edema, Denies lightheadedness, Denies dyspnea, Denies dyspnea on exertion and Denies orthopnea Resp Denies cough, Denies dyspnea and Denies dyspnea on exertion GI Denies hematochezia and Denies change in stool character Musc Denies abnormal gait, Denies muscle cramps, Denies muscle weakness, Denies numbness, Denies radiating pain into limb and Denies tingling Neuro Denies abnormal gait, Denies dizziness, Denies syncope, Denies numbness, Denies tingling and Denies weakness Physical Exam Vital Signs: Last Vital Signs Pulse 62 06/12/23 09:45 BP 126/66 06/12/23 09:45 BMI result Body Mass Index 28.2 Const General: comfortable and no acute distress Orientation/consciousness: patient oriented x3 HEENT Other: Unremarkable Head: Yes normal to inspection Neck Neck: Yes normal visual inspection Chest Chest palpation & inspection: normal inspection of the chest Resp Auscultation: clear to auscultation bilaterally Cardio Palpation: normal PMI Heart sounds: S1 normal heart sound present, S2 normal heart sound present, no gallops, no murmurs and no rubs GI Palpation (GI): Soft to palpation Back/Spine/Pelvis Other: unremarkable Skin General skin exam: no rashes or lesions noted Neuro General: patient oriented x3 Extrem General: Yes normal to inspection Psych Mental Status: mental status grossly normal Assessment & Plan Assessment & Plan (1) Atrial arrhythmia: Code(s): I49.8 - Other specified cardiac arrhythmias (2) Non-rheumatic aortic regurgitation: Code(s): I35.1 - Nonrheumatic aortic (valve) insufficiency (3) Non-rheumatic mitral regurgitation: Code(s): I34.0 - Nonrheumatic mitral (valve) insufficiency (4) HTN (hypertension): Code(s): I10 - Essential (primary) hypertension (5) Obstructive sleep apnea: Code(s): G47.33 - Obstructive sleep apnea (adult) (pediatric) Plan In the 12 lead EKG, underlying rhythm is sinus at a rate of 63/Min; frequent supraventricular ectopy in a pattern of bigeminy. Holter shows underlying sinus rhythm with an average rate of 62/Min. Frequent PACs with burden of 8%. Seven short runs of SVT. Echocardiogram with LVEF of 55-60%; [id number] mitral regurgitation mild aortic regurgitation. Mild left atrial dilatation. Home sleep study shows mild MONICA with increased severity in supine sleep. She was recommended APAP-she is already seen at neurology. Overall, there is increased risk of developing atrial fibrillation the future. She has just been started on beta-blockers and that can be continued. Follow-up in 1 year. Orders: Orders ECG 3 day holter monitor 51 Weeks I49.8 - Other specified cardiac arrhythmias, R00.2 - Palpitations Coding Level of Care Code Est Pt Level 3 (84975) Diagnoses Atrial arrhythmia I49.8 Non-rheumatic aortic regurgitation I35.1 Non-rheumatic mitral regurgitation I34.0 HTN (hypertension) I10 Obstructive sleep apnea G47.33
[2023-06-12 09:45] VITALS: BP 126/66; PULSE 62; BMI 28.2
== END 2023-06-12 10:02 | disposition home or self-care (01) ==
PROVIDERS: PCP Nurse Practitioner Family; Visit Provider Internal Medicine
DX: I49.8 Other specified cardiac arrhythmias (principal); I35.1 Nonrheumatic aortic (valve) insufficiency; I34.0 Nonrheumatic mitral (valve) insufficiency; I10 Essential (primary) hypertension; G47.33 Obstructive sleep apnea (adult) (pediatric)
CPT/HCPCS: 99213

== ENCOUNTER 2023-06-13 14:25 | Outpatient (REF) | payer OTHER, SELFPAY ==
[2023-06-17 22:33] LABS: Calprotectin, Fecal 382 mcg/g
== END 2023-06-13 14:26 | disposition home or self-care (01) ==
LOC: HO.LNP 14:25
PROVIDERS: Visit Provider Nurse Practitioner
DX: R53.83 Other fatigue (principal); R68.81 Early satiety; R11.2 Nausea with vomiting, unspecified
CPT/HCPCS: 83993

== ENCOUNTER 2023-06-25 08:16 | Outpatient (REF) | payer OTHER, SELFPAY ==
--- NOTE | ~2023-06-25 | US_ITS ---
EXAMINATION: US ABDOMEN COMPLETE CLINICAL INFORMATION: Other fatigue. Nausea and vomiting. COMPARISON: X-ray abdomen 11/01/2022 and 09/23/2020. Ultrasound abdomen limited 10/18/2022. Ultrasound abdomen complete 11/06/2020. TECHNIQUE: Real-time imaging of the abdominal viscera. FINDINGS: PANCREAS: Normal head and body, the tail is obscured by bowel gas. ABDOMINAL AORTA: The proximal, mid, and distal segments are normal in caliber. INFERIOR VENA CAVA: Visualized portions are normal. LIVER: The liver is normal in size. The liver contour is normal. Parenchymal echogenicity is normal. No focal hepatic lesion. There is no intrahepatic biliary duct dilatation seen. GALLBLADDER: Normal. The gallbladder is physiologically distended without evidence of stones, sludge, polyps, wall thickening or pericholecystic fluid. COMMON BILE DUCT: Normal in caliber measuring 0.47 cm in diameter. RIGHT KIDNEY: Normal. No hydronephrosis. No renal calculi or focal parenchymal lesions. The kidney measures 9.2 cm in maximum dimension. LEFT KIDNEY: Normal. No hydronephrosis. No renal calculi or focal parenchymal lesions. The kidney measures 9.2 cm in maximum dimension. SPLEEN: Normal. The spleen measures 8.6 cm in maximum dimension. FREE FLUID: None. US/US abdomen complete IMPRESSION: No abnormality demonstrated.
[2023-06-25 11:46] LABS: Appearance Urine Clear; Color Urine Yellow; Glucose Urine UA Negative (Negative); Leukocyte Esterase Urine Trace (Negative); Nitrite Urine Negative (Negative); UMIC TRIGGER UACC YES; Urine Blood Negative (Negative); Urine Ketones Negative (Negative); Urine Protein Negative (Neg-Trace)
[2023-06-25 12:17] LABS: Bacteria Urine None Seen (None Seen); Calcium Oxalate Crystals Urine Present; Hyaline Casts Urine 0-2 /LPF (0-2); Squamous Epithelial Cell Urine 0-2 /HPF (0-2); WBC Urine 0-5 /HPF (0-5)
== END 2023-06-25 08:17 | disposition home or self-care (01) ==
LOC: HO.HMGCX 08:16
PROVIDERS: PCP Nurse Practitioner Family; Visit Provider Nurse Practitioner
DX: R53.83 Other fatigue (principal); R11.2 Nausea with vomiting, unspecified; R68.81 Early satiety
CPT/HCPCS: 76700; 81001

== ENCOUNTER 2023-06-28 11:43 | Day surgery (SDC) | payer OTHER, SELFPAY ==
[2023-06-26 15:22] VITALS: BMI 28.2
--- NOTE | 2023-06-27 09:41 | P.CONAN_ITS ---
Documented by User: Lauren New NP 06/27/23 09:44 HPI - Anesthesia Eval Consult details Narrative: 62yo F for Colonoscopy Follows [facility] [place] Cardiology. Last office visit 05/2023, stable with 1 year f/u. [facility] Active Problems Active Problems: All Active Problems (Updated 06/19/23 @ 11:36 by TATE Majano) Colitis (Acute) Calcium oxalate crystals in urine (Acute) Obstructive sleep apnea (Acute) Insomnia (Acute) Early satiety (Acute) Nausea and vomiting (Acute) Fatigue (Acute) Non-rheumatic mitral regurgitation (Acute) Non-rheumatic aortic regurgitation (Acute) Atrial arrhythmia (Acute) Depression (Acute) Mass in region of sella turcica present on magnetic resonance imaging (Acute) Pre-op examination (Acute) SVT (supraventricular tachycardia) (Acute) Elevated alkaline phosphatase level (Acute) Bigeminy (Acute) Premature atrial beats (Acute) Cervicalgia (Acute) Worsening headaches (Acute) Microscopic hematuria (Acute) Occipital headache (Acute) Hyperkalemia (Acute) Stabbing headache (Acute) Spinal cord stimulator dysfunction (Acute) Postlaminectomy syndrome (Acute) Hx of TIA (transient ischemic attack) and stroke (Acute) Edema (Acute) Headache (Acute) Snoring (Acute) Irritant dermatitis (Acute) Left ankle sprain (Acute) HTN (hypertension) (Acute) Sessile colonic polyp (Acute) Migraine (Acute) Encounter for annual wellness visit (AWV) in Medicare patient (Acute) Cervical spondylosis (Acute) Eczema (Acute) GERD (gastroesophageal reflux disease) (Acute) Chronic idiopathic constipation (Acute) Cervical radiculopathy (Acute) Hepatic steatosis (Acute) Lumbar spondylosis (Acute) Systolic murmur (Acute) Physical exam (Acute) Intractable left heel pain (Acute) Cyst of left nipple (Acute) Breast pain, left (Acute) Hip pain (Acute) Sciatica (Acute) Past Medical History Medical History Hepatic steatosis Chronic tension headache Lumbar spondylosis Dyslipidemia Gastritis Diastolic murmur Positive ANASTACIO (antinuclear antibody) Tubular adenoma Hx of diverticulitis of colon Bunion of unspecified foot History of anxiety Depression Hypertension Shoulder pain Migraine Prediabetes Chronic low back pain Hypothyroid History of TIAs Family History Family History Father CVD (cardiovascular disease) ETOHism Myocardial infarct Mother CVD (cardiovascular disease) Myocardial infarct Maternal Aunt History of breast cancer Brother History of cancer of unknown primary site Other Mental health disorder Substance use disorder Surgical History Surgical History History of esophagogastroduodenoscopy (EGD) Hx of colonoscopy H/O rectal polypectomy Hx of breast reduction, elective History of hysterectomy History of back surgery Social History Social History Household Members: None Housing: Apartment Alcohol intake: current Alcohol intake frequency: does not drink Patient Tobacco Use Status: Never used Tobacco e-Cigarette/Vaping Use: Never Used Use of substances other than those prescribed or required for medical reasons: No Are you DNR?: No Advance Directives: No Advance Directives Information Provided: Yes Current occupational status: disabled Cognitive needs: No Hearing needs: No Vision needs: No Meds Allergies Allergy/AdvReac Type Severity Reaction Status Date / Time cat dander Allergy Unknown Unknown Verified 06/12/23 09:44 cyclobenzaprine Allergy Unknown pruritus Verified 06/12/23 09:44 morphine [MORPHINE] Allergy Unknown RASH,HIVES,SOB, Verified 06/12/23 09:44 rash, hives, SOB, rash, hives, SOB Penicillins [PENICILLINS] Allergy Unknown RASH,HIVES Verified 06/12/23 09:44 prazosin [PRAZOSIN] Allergy Unknown INCREASED Verified 06/12/23 09:44 HEADACHES, increase/worsened headaches, increase/worsened headaches strawberry [STRAWBERRY] Allergy Unknown RASH Verified 06/12/23 09:44 nickel Allergy Rash Verified 06/12/23 09:44 Butrans Allergy Unknown loss of Uncoded 06/12/23 09:44 consciousness, swelling, rash Cortisone Allergy Unknown unknown Uncoded 06/12/23 09:44 Rozerem AdvReac Unknown rash/memory Uncoded 06/12/23 09:44 loss Home Medications Medication Instructions Recorded Confirmed Last Taken Type alclometasone 0.05 % topical cream applic topical 05/24/20 06/12/23 Unknown History betamethasone valerate 0.1 % applic topical DAILY 05/24/20 06/12/23 Unknown History topical cream cetirizine 10 mg tablet 10 mg PO DAILY 05/24/20 06/12/23 Unknown History sertraline 100 mg tablet 100 mg PO DAILY 04/01/23 06/12/23 Unknown History Exam Height,Weight and Vital Signs: Height 5 ft 5 in Weight 76.997 kg Pertinent Lab Results Pertinent Lab Results: Laboratory Tests 06/12/23 09:10 WBC 7.1 Hgb 12.6 Hct 40.4 Plt Count 222 Sodium 140 Potassium 4.4 Chloride 107 Carbon Dioxide 27 BUN 28 H Creatinine 0.77 Narrative Narrative: Per 05/2023 cardiac office visit EKG 05/2023 underlying rhythm is sinus at a rate of 63/Min; frequent supraventricular ectopy in a pattern of bigeminy. Holter shows underlying sinus rhythm with an average rate of 62/Min. Frequent PACs with burden of 8%. Seven short runs of SVT. Home sleep study shows mild MONICA with increased severity in supine sleep. She was recommended APAP-she is already seen at neurology. ECHO 05/2023 Conclusions: - 1. Normal LV ejection fraction of 55-60% 2. Mildly dilated left atrium 3. [id number] mitral regurgitation and mild aortic regurgitation 4. Normal RV systolic pressure 5. No pericardial effusion Assessment and Plan Assessment Anesthesia Assessment: Chart Reviewed Documented by User: Radha Peres MD 06/28/23 14:27 [facility] Past Medical History Medical History Hepatic steatosis Chronic tension headache Lumbar spondylosis Dyslipidemia Gastritis Diastolic murmur Positive ANASTACIO (antinuclear antibody) Tubular adenoma Hx of diverticulitis of colon Bunion of unspecified foot History of anxiety Depression Hypertension Shoulder pain Migraine Prediabetes Chronic low back pain Hypothyroid History of TIAs Family History Family History Father CVD (cardiovascular disease) ETOHism Myocardial infarct Mother CVD (cardiovascular disease) Myocardial infarct Maternal Aunt History of breast cancer Brother History of cancer of unknown primary site Other Mental health disorder Substance use disorder Family history of problems with anesthesia: No Surgical History Surgical History History of esophagogastroduodenoscopy (EGD) Hx of colonoscopy H/O rectal polypectomy Hx of breast reduction, elective History of hysterectomy History of back surgery History of Problems with Anesthesia: No Social History Social History Household Members: None Housing: Apartment Alcohol intake: current Alcohol intake frequency: does not drink Patient Tobacco Use Status: Never used Tobacco e-Cigarette/Vaping Use: Never Used Use of substances other than those prescribed or required for medical reasons: No Are you DNR?: No Advance Directives: No Advance Directives Information Provided: Yes Current occupational status: disabled Cognitive needs: No Hearing needs: No Vision needs: No Meds Allergies Allergy/AdvReac Type Severity Reaction Status Date / Time cat dander Allergy Unknown Unknown Verified 06/12/23 09:44 cyclobenzaprine Allergy Unknown pruritus Verified 06/12/23 09:44 morphine [MORPHINE] Allergy Unknown RASH,HIVES,SOB, Verified 06/12/23 09:44 rash, hives, SOB, rash, hives, SOB Penicillins [PENICILLINS] Allergy Unknown RASH,HIVES Verified 06/12/23 09:44 prazosin [PRAZOSIN] Allergy Unknown INCREASED Verified 06/12/23 09:44 HEADACHES, increase/worsened headaches, increase/worsened headaches strawberry [STRAWBERRY] Allergy Unknown RASH Verified 06/12/23 09:44 nickel Allergy Rash Verified 06/12/23 09:44 Butrans Allergy Unknown loss of Uncoded 06/12/23 09:44 consciousness, swelling, rash Cortisone Allergy Unknown unknown Uncoded 06/12/23 09:44 Rozerem AdvReac Unknown rash/memory Uncoded 06/12/23 09:44 loss Home Medications Medication Instructions Recorded Confirmed Last Taken Type alclometasone 0.05 % topical cream applic topical 05/24/20 06/12/23 Unknown History betamethasone valerate 0.1 % applic topical DAILY 05/24/20 06/12/23 Unknown History topical cream cetirizine 10 mg tablet 10 mg PO DAILY 05/24/20 06/12/23 Unknown History sertraline 100 mg tablet 100 mg PO DAILY 04/01/23 06/12/23 Unknown History Exam Airway Mallampati Class: II (bridge) TM Dist: >3cm Neck ROM: Full Heart: rrr Lungs: cta Assessment and Plan Assessment Anesthesia Assessment: Anesthesia Plan Discussed Final Anesthetic Review Family History of Problems with Anesthesia: No History of Problems with Anesthesia: No NPO: Yes ASA Class: III Final Preanesthetic Review: No Changes in Pt Med Stat, Meds/Allgs Chart Reviewed and Consent Obtained/Reviewed Patient Risk: Intermediate Procedure Risk: Intermediate Anesthetic Plan Anesthetic Plan: MAC: Disposition: Standard PACU
[2023-06-28 13:56] VITALS: BMI 28.0
[2023-06-28 14:00] VITALS: BP 129/56; PULSE 53; RESP 16; TEMP 36.2; O2SAT 98
[2023-06-28] MEDS: Lactated Ringers 1,000 ML 100 ML IVCONT (14:03)
--- NOTE | 2023-06-28 15:09 | MHC.SHP ---
Pre-Procedural Eval Section A Date of Service: 06/28/23 The patient is an INPATIENT: No Changes since office visit: Yes Patient answered all questions; No Cold of Flu in the past 2 weeks, No New Medical Problems and No Changes in Medication The History & Physical has been completed within 30 days and I have reviewed it.: Yes Section B Chief Complaint: Chronic idiopathic constipation Allergies: Allergies Allergy/AdvReac Type Severity Reaction Status Date / Time cat dander Allergy Unknown Unknown Verified 06/12/23 09:44 cyclobenzaprine Allergy Unknown pruritus Verified 06/12/23 09:44 morphine [MORPHINE] Allergy Unknown RASH,HIVES,SOB, Verified 06/12/23 09:44 rash, hives, SOB, rash, hives, SOB Penicillins [PENICILLINS] Allergy Unknown RASH,HIVES Verified 06/12/23 09:44 prazosin [PRAZOSIN] Allergy Unknown INCREASED Verified 06/12/23 09:44 HEADACHES, increase/worsened headaches, increase/worsened headaches strawberry [STRAWBERRY] Allergy Unknown RASH Verified 06/12/23 09:44 nickel Allergy Rash Verified 06/12/23 09:44 Butrans Allergy Unknown loss of Uncoded 06/12/23 09:44 consciousness, swelling, rash Cortisone Allergy Unknown unknown Uncoded 06/12/23 09:44 Rozerem AdvReac Unknown rash/memory Uncoded 06/12/23 09:44 loss Plan Diagnosis/Plan: Unchanged I have reviewed the history and physical and performed a pertinent physical examination on my patient. No changes have occurred unless specified. Time Spent With Patient Time: Total time managing care of this patient today ____ minutes.
--- NOTE | 2023-06-28 15:09 | W.PM.OPN ---
Operative Note Operative Note Date of Service: 06/28/23 Narrative: COLONOSCOPY TILL CECUM WITH SNARE POLYPECTOMY Pre-op diagnosis: Surveillance for colon polyps Post-op diagnosis:? Colon polyps, diverticulosis Endoscopist:? Sarahy Dwyer MD Anesthesia:?MAC Consent: Indications for the procedure and potential complications of bleeding, perforation, reaction to medications and missed diagnosis were discussed with the patient and informed consent was obtained. Instrument: Olympus PCF H 190 L variable stiffness pediatric colonoscope Monitoring: Vital signs and clinical assessment, intermittent blood pressure monitoring, continuous EKG monitoring, Pulse oximetry and Carbon Dioxide monitoring were done throughout the procedure. Please see anesthesia flowsheet. Colon withdrawl time was 16 minutes. Procedure: The patient was placed in the left lateral decubitis position and pre-procedure medications were administered. After a digital rectal examination of the ano-rectum, the video colonoscope was inserted into the rectum and advanced through the colon to the cecum. The colonoscope was slowly withdrawn in a retrograde panoramic fashion and the colon mucosa was carefully examined including a retroflexed view of the rectum. Findings and interventions are described below. Procedure Difficulty: Colon was long and tortuous and there was some loop formation Findings: Terminal Ileum: Not evaluated Cecum: Normal Ascending Colon: Normal Transverse Colon: Normal Descending Colon: A 6-7 mm sessile polyp - removed with a cold snare Sigmoid Colon: Moderate diverticulosis Rectum: Normal Ano-rectum: Normal Colon preparation: Good after some irrigation Impression and Post Procedure Diagnosis: Colonoscopy Findings: One small polyp removed Moderate diverticulosis seen in the sigmoid colon Plan: Await pathology results Patient has an appointment on 07/12/23 in the GI Clinic with Nayeli Bond NP . Repeat Colonoscopy interval based on path results - in 5 years if polyps are adenomatous and 10 years if polyps are hyperplastic. Above findings were reviewed with the patient and Colon polyps and handout was given in the discharge area
[2023-06-28 15:50] VITALS: BP 91/52; PULSE 59; RESP 16; TEMP 36.8; O2SAT 98
[2023-06-28 16:05] VITALS: BP 107/44; PULSE 57; RESP 16; O2SAT 98
[2023-06-28 16:20] VITALS: BP 130/56; PULSE 58; RESP 16; TEMP 36.3; O2SAT 98
== END 2023-06-28 16:31 | disposition home or self-care (01) ==
PROVIDERS: PCP Nurse Practitioner Family; Visit Provider Internal Medicine Gastroenterology
PROC: 0DJD8ZZ Inspection of Lower Intestinal Tract, Via Natural or Artificial Opening Endoscopic (ICD-10-PCS; CPT 45378; principal; 2023-06-28 14:40)
DX: K59.04 Chronic idiopathic constipation (principal); Z86.010 Personal history of colon polyps; K63.5 Polyp of colon; K57.30 Diverticulosis of large intestine without perforation or abscess without bleeding; K21.9 Gastro-esophageal reflux disease without esophagitis; K76.0 Fatty (change of) liver, not elsewhere classified; R53.83 Other fatigue; R11.2 Nausea with vomiting, unspecified; R68.81 Early satiety; G47.00 Insomnia, unspecified; G43.909 Migraine, unspecified, not intractable, without status migrainosus; I10 Essential (primary) hypertension; R73.03 Prediabetes; Z86.73 Personal history of transient ischemic attack (TIA), and cerebral infarction without residual deficits; Z79.899 Other long term (current) drug therapy; Z88.0 Allergy status to penicillin; Z88.5 Allergy status to narcotic agent; Z88.8 Allergy status to other drugs, medicaments and biological substances; Z98.890 Other specified postprocedural states; Z86.16 Personal history of COVID-19
CPT/HCPCS: 45385; 88305; J2704

== ENCOUNTER → 2023-06-28 11:43 | Outpatient (BNV) | payer OTHER, SELFPAY | PROVIDERS: PCP Nurse Practitioner Family; Visit Provider Internal Medicine Gastroenterology | DX: Z12.11 Encounter for screening for malignant neoplasm of colon (principal); K57.30 Diverticulosis of large intestine without perforation or abscess without bleeding; D12.4 Benign neoplasm of descending colon | CPT/HCPCS: 45385 ==

== ENCOUNTER 2023-07-16 08:42 | Outpatient (REF) | payer OTHER, SELFPAY ==
--- NOTE | ~2023-07-16 | MM_ITS ---
EXAMINATION: MM SCREENING DIGITAL BREAST TOMOSYNTHESIS, BILATERAL CLINICAL INFORMATION: Screening. Asymptomatic. Prior history of reduction mammoplasty. COMPARISON: Mammography: 07/10/2022, 07/03/2021, 06/16/2020, 09/15/2019, and dating back to 2012. TECHNIQUE: Digital breast tomosynthesis is performed in both the craniocaudal and mediolateral oblique views along with computer-aided detection (CAD). Synthesized 2D images are generated from the tomosynthesis. FINDINGS: The breasts are almost entirely fatty (ACR BI-RADS breast composition Category a). There are skin calcifications in the bilateral anterior periareolar regions. There are no suspicious masses, suspicious grouped calcifications, or areas of architectural distortion in either breast. The parenchymal pattern is stable from prior exams. No axillary abnormalities. MM/MM tomosynthesis screening BI IMPRESSION: No mammographic evidence of malignancy. ASSESSMENT: BI-RADS BI-RADS 2 - Benign Findings RECOMMENDATION: Routine annual mammography screening. 1 year F/U This examination should not preclude the clinical evaluation of a suspicious palpable abnormality. This patient's information was entered into a reminder system with a target due date for their next mammogram.
== END 2023-07-16 08:43 | disposition home or self-care (01) ==
LOC: HO.MAMMO 08:42
PROVIDERS: PCP Nurse Practitioner Family; Visit Provider Nurse Practitioner Family
DX: Z12.31 Encounter for screening mammogram for malignant neoplasm of breast (principal)
CPT/HCPCS: 77063; 77067

== ENCOUNTER → 2023-07-16 09:15 | Outpatient (BNV) | payer OTHER, SELFPAY | PROVIDERS: PCP Nurse Practitioner Family; Visit Provider Radiology Diagnostic Radiology | DX: Z12.31 Encounter for screening mammogram for malignant neoplasm of breast (principal) | CPT/HCPCS: 77063; 77067 ==

== ENCOUNTER 2023-08-01 08:27 | Outpatient (AMB) | payer OTHER, SELFPAY ==
--- NOTE | 2023-08-01 08:34 | A.OFFPC_ITS ---
Vital Signs 08/01/23 08:37 Weight 174 lb 8 oz BP 128/82 Blood Pressure Location Lt brachial Position Sitting Pulse 55 Pulse Source Pulse Oximeter Pulse Oximetry (%) 99 Oxygen Delivery Method Room Air Intake Visit Reasons: 4 Month follow up Intake Note: Patient here for HTN F/U. Allergies cat dander Allergy (Unknown, Verified 08/01/23 08:38) Unknown cyclobenzaprine Allergy (Unknown, Verified 08/01/23 08:38) pruritus morphine [MORPHINE] Allergy (Unknown, Verified 08/01/23 08:38) RASH,HIVES,SOB, rash, hives, SOB, rash, hives, SOB Penicillins [PENICILLINS] Allergy (Unknown, Verified 08/01/23 08:38) RASH,HIVES prazosin [PRAZOSIN] Allergy (Unknown, Verified 08/01/23 08:38) INCREASED HEADACHES, increase/worsened headaches, increase/worsened headaches strawberry [STRAWBERRY] Allergy (Unknown, Verified 08/01/23 08:38) RASH nickel Allergy (Verified 08/01/23 08:38) Rash Butrans Allergy (Unknown, Uncoded 08/01/23 08:38) loss of consciousness, swelling, rash Cortisone Allergy (Unknown, Uncoded 08/01/23 08:38) unknown Rozerem Adverse Reaction (Unknown, Uncoded 08/01/23 08:38) rash/memory loss Tobacco use date assessed: 08/01/23 Fall risk assessment: No Falls in past year Last assessed Fall Risk: 08/01/23 Dental Screening Dental Screen Date: 08/01/23 Did you have a dental visit in the last 12 months?: No Did you have a dental problem in the last 6 months where you did not have access to dental care?: No Was dental information given to patient?: Patient has dentist HPI 4 Month follow up HPI Details Pt reports ongoing left-sided cervical neck pain. She reports that this radiates to her occipital skull. Pt had a CT on 11/30/22 which showed mild multilevel cervical spondylosis without significant osseous spinal canal stenosis. Mild to moderate bilateral neural foraminal narrowing at C5-C6. Bilateral cervical ribs, larger on the right. She will be seeing [facility] at the end of this month for injections. Pt was also following up with neurology due to migraines/cervical spine pain. Denies fever, chills, and dizziness. FOR[facility], [facility] Medical History Hepatic steatosis Chronic tension headache Lumbar spondylosis Dyslipidemia Gastritis Diastolic murmur Positive ANASTACIO (antinuclear antibody) Tubular adenoma Hx of diverticulitis of colon Bunion of unspecified foot History of anxiety Depression Hypertension Shoulder pain Migraine Prediabetes Chronic low back pain Hypothyroid History of TIAs Surgical History History of esophagogastroduodenoscopy (EGD) Hx of colonoscopy H/O rectal polypectomy Hx of breast reduction, elective History of hysterectomy History of back surgery Family History Father CVD (cardiovascular disease) ETOHism Myocardial infarct Mother CVD (cardiovascular disease) Myocardial infarct Maternal Aunt History of breast cancer Brother History of cancer of unknown primary site Other Mental health disorder Substance use disorder Social History Household Members: None Housing: Apartment Alcohol intake: current Alcohol intake frequency: does not drink Patient Tobacco Use Status: Never used Tobacco e-Cigarette/Vaping Use: Never Used Current occupational status: disabled Cognitive needs: No Hearing needs: No Vision needs: No Female Reproductive History Menstrual Age of Menarche: 8 Questionnaire PHQ-9 Over the last 2 weeks, how often have you been bothered by any of the following problems? 1. Little interest or pleasure in doing things: nearly every day 2. Feeling down, depressed, or hopeless: more than half the days 3. Trouble falling or staying asleep, or sleeping too much: several days 4. Feeling tired or having little energy: not at all 5. Poor appetite or overeating: not at all 6. Feeling bad about yourself - or that you are a failure or have let yourself or your family down: nearly every day 7. Trouble concentrating on things, such as reading the newspaper or watching television: several days 8. Moving or speaking so slowly that other people could have noticed. Or the opposite - being so fidgety or restless that you have been moving around a lot more than usual: not at all 9. Thoughts that you would be better off or of hurting yourself in some way: not at all Total score: 10 Depression Screening Interpretation: Positive Depression Screening Done: Yes 81605 - PHQ-9 Billing: Yes Source: Developed by Drs. Jarad Mo, Salvador Quinones and colleagues, with an educational irwin from [employer]. Thrive Questionnaire Date Thrive assessed: 09/21/21 AUDIT C Alcohol Use Questionnaire (AUDIT-C) 1. How often do you have a drink containing alcohol?: Never 3. How often do you have six or more drinks on one occasion?: Never Total Score: 0 MARTI-7 AMB Questionnaire MARTI-7 Date MARTI - 7 assessed: 08/01/23 Source: Developed by Karyn White Kurt Kroenke and colleagues, with an educational irwin from [employer]. MARTI-7 Assessment Billing MARTI-7 Assessment Tool: pt declined-do not bill Review of Systems Const Reports as per HPI Physical exam (Primary Care) Vital Signs: Last Vital Signs Pulse 55 08/01/23 08:37 BP 128/82 08/01/23 08:37 Pulse Ox 99 08/01/23 08:37 Oxygen Delivery Method Room Air 08/01/23 08:37 Tobacco/Smoking Status: Tobacco use Status Tobacco use date assessed 08/01/23 08/01/23 08:39 Patient Tobacco Use Status Never used Tobacco 08/01/23 08:34 e-Cigarette/Vaping Use Never Used 08/01/23 08:34 PHQ-9: PHQ-9 Score PHQ-9: Total score 10 08/01/23 09:12 Depression Screening Interpretation: Positive Thrive Assessment: Date of Thrive Assessment Date Thrive assessed 09/21/21 08/01/23 08:34 Const General: cooperative Orientation/consciousness: patient oriented x3 Resp Effort & Inspection: normal respiratory effort Auscultation: clear to auscultation bilaterally Cardio Rate: regular rate Rhythm: regular rhythm Heart sounds: S1 normal heart sound present, S2 normal heart sound present and Murmur heart sound present systolic (faint) Neuro General: patient oriented x3 Extrem Other: turning head side to side, chin tucks and chin raises, tenderness reported to left occipital skull region, radiating to left upper cervical region and to left upper trap. + spurlings Psych Appearance: grossly normal Mental Status: mental status grossly normal Speech and movement: Normal speech and movement present Affect: normal affect Attitude: cooperative Thought process: Normal thought process present Thought content: Normal thought content present Insight: Good insight present (Psych) Judgement: Good judgement present (Psych) Assessment and Plan Assessment & Plan (1) Cervicalgia: Code(s): M54.2 - Cervicalgia (2) Occipital headache: Code(s): R51.9 - Headache, unspecified Plan: pt following up with [facility] Plan The patient agreed to the use of a electromedical service engineer for this encounter. Scribed for [employer] by Jackie Galo electromedical service engineer, on 08/01/2023 at 08:55 EST. Coding Level of Care Code Est Pt Level 3 (50910) Diagnoses Cervicalgia M54.2 Occipital headache R51.9
[2023-08-01 08:37] VITALS: BP 128/82; PULSE 55; O2SAT 99
== END 2023-08-01 09:03 | disposition home or self-care (01) ==
PROVIDERS: PCP Nurse Practitioner Family; Visit Provider Nurse Practitioner Family
DX: M54.2 Cervicalgia (principal); R51.9 Headache, unspecified
CPT/HCPCS: 99213

== ENCOUNTER 2023-08-13 16:48 | Emergency (ER) | payer OTHER, SELFPAY ==
[2023-08-13 16:58] VITALS: BP 156/56; PULSE 58; RESP 18; TEMP 36.3; O2SAT 98; BMI 28.8
[2023-08-14 00:31] VITALS: BP 176/68; PULSE 59; RESP 19; TEMP 36.4; O2SAT 98
--- NOTE | 2023-08-14 00:59 | ED_ITS ---
HPI - Headache General Chief Complaint: Dizziness Stated Complaint: headache dizzy Time Seen by Provider: 08/14/23 00:31 Source: patient, family and old records reviewed Mode of arrival: ambulatory Limitations: no limitations History of Present Illness HPI Narrative: 62 yo female with PMH of neck pain, HTN, GERD, chronic headaches being followed by neurology and neurosurgery just had botox injections but no relief from headaches now cannot sleep. States she just needs to sleep. She is frustrated and is taking ubrelvy but no relief. I offered her medications but she is refusing and states she just wants medications to help her. No further workup. States she has dealt with this and there is no change from baseline but the dentist made her come today because she was dizzy and complained of pain today. MD elicited complaint: migraine Pertinent past history: migraines Onset (ago): month(s) Onset description: gradually and while at rest Location: left, temporal and band-like Severity: moderate Quality & Timing: throbbing and progressively worsening Exacerbating factors: light and noise Relieving factors: nothing Context: other (chronic never goes away) Associated symptoms: nausea, vomiting, photophobia and other (dizziness) Related Data Home Medications Medication Instructions Recorded Confirmed alclometasone 0.05 % topical cream applic topical 05/24/20 06/12/23 betamethasone valerate 0.1 % applic topical DAILY 05/24/20 06/12/23 topical cream cetirizine 10 mg tablet 10 mg PO DAILY 05/24/20 06/12/23 sertraline 100 mg tablet 100 mg PO DAILY 04/01/23 06/12/23 Previous Rx's Medication Instructions Recorded ubrogepant 100 mg tablet (Ubrelvy) 50 - 100 mg (0.5 - 1 x 100 mg) PO 03/01/23 ONCE PRN migraine headache 30 days #16 tabs metoprolol succinate 50 mg 50 mg PO DAILY #90 tabs 03/04/23 tablet,extended release 24 hr (Toprol XL) atorvastatin 20 mg tablet 20 mg PO DAILY #90 tabs 05/10/23 cholecalciferol (vitamin D3) 25 25 mcg PO DAILY #90 tabs 05/29/23 mcg (1,000 unit) tablet levothyroxine 75 mcg tablet 75 mcg PO DAILY #90 tabs 05/29/23 linaclotide 290 mcg capsule 290 mcg PO QAM 30 days #30 caps 06/12/23 (Linzess) methylcellulose (laxative) 500 mg 1,000 mg (2 x 500 mg) PO DAILY #60 06/12/23 tablet tabs mirtazapine 15 mg tablet 15 mg PO BEDTIME #30 tabs 06/12/23 pantoprazole 40 mg tablet,delayed 40 mg PO BID #60 tabs 06/12/23 release budesonide 3 mg 9 mg (3 x 3 mg) PO DAILY #90 ea 06/19/23 capsule,delayed,extended release amlodipine 5 mg tablet 5 mg PO DAILY #90 tabs 08/08/23 aspirin 81 mg tablet,delayed 81 mg PO DAILY #90 tabs 08/08/23 release lorazepam 1 mg tablet (Ativan) 1 mg PO BEDTIME PRN sleep #7 tabs 08/14/23 Allergies Allergy/AdvReac Type Severity Reaction Status Date / Time cat dander Allergy Unknown Unknown Verified 08/01/23 08:38 cyclobenzaprine Allergy Unknown pruritus Verified 08/01/23 08:38 morphine [MORPHINE] Allergy Unknown RASH,HIVES,SOB, Verified 08/01/23 08:38 rash, hives, SOB, rash, hives, SOB Penicillins [PENICILLINS] Allergy Unknown RASH,HIVES Verified 08/01/23 08:38 prazosin [PRAZOSIN] Allergy Unknown INCREASED Verified 08/01/23 08:38 HEADACHES, increase/worsened headaches, increase/worsened headaches strawberry [STRAWBERRY] Allergy Unknown RASH Verified 08/01/23 08:38 nickel Allergy Rash Verified 08/01/23 08:38 Butrans Allergy Unknown loss of Uncoded 08/01/23 08:38 consciousness, swelling, rash Cortisone Allergy Unknown unknown Uncoded 08/01/23 08:38 Rozerem AdvReac Unknown rash/memory Uncoded 08/01/23 08:38 loss Review of Systems Review of Systems: Constitutional : No Fever, No Chills, No Fatigue ENT/Mouth : No sore throat, No Rhinorrhea Eyes: No Eye Pain, No Swelling, No Redness Cardiovascular : No Chest Pain, No SOB, No Dyspnea on Exertion Respiratory : No Cough, No Sputum Gastrointestinal : pos Nausea, No Vomiting, No Diarrhea, No abdominal Pain Genitourinary : No Dysuria, No Urinary Frequency, No Hematuria, Musculoskeletal : No joint pain, No Myalgias, No Joint Swelling Skin : No Skin Lesions, No rash Neuro : No Weakness, No Numbness, pos Dizziness, positive Headache Psych : No Anxiety/Panic, No Depression All other systems reviewed and are negative [facility] Past Medical History Attestation statement: The following information was validated with the patient. Source: old records reviewed Medical History Hepatic steatosis Chronic tension headache Lumbar spondylosis Dyslipidemia Gastritis Diastolic murmur Positive ANASTACIO (antinuclear antibody) Tubular adenoma Hx of diverticulitis of colon Bunion of unspecified foot History of anxiety Depression Hypertension Shoulder pain Migraine Prediabetes Chronic low back pain Hypothyroid History of TIAs Surgical History History of esophagogastroduodenoscopy (EGD) Hx of colonoscopy H/O rectal polypectomy Hx of breast reduction, elective History of hysterectomy History of back surgery Family History Family History Father CVD (cardiovascular disease) ETOHism Myocardial infarct Mother CVD (cardiovascular disease) Myocardial infarct Maternal Aunt History of breast cancer Brother History of cancer of unknown primary site Other Mental health disorder Substance use disorder Social History Social History Household Members: None Housing: Apartment Alcohol intake: current Alcohol intake frequency: does not drink Patient Tobacco Use Status: Never used Tobacco e-Cigarette/Vaping Use: Never Used Advance Directives: No Advance Directives Information Provided: Yes Current occupational status: disabled Cognitive needs: No Hearing needs: No Vision needs: No Physical Exam Vital Signs: Vital Signs: Last Vital Signs Temp 97.6 F 08/14/23 00:31 Pulse 59 08/14/23 00:31 Resp 19 08/14/23 00:31 BP 176/68 H 08/14/23 00:31 Pulse Ox 98 08/14/23 00:31 O2 Del Method Room Air 08/14/23 00:31 BMI result Body Mass Index 28.8 Appearance: Alert. Oriented X3. No acute distress. Eyes: Pupils equal, round and reactive to light. ENT: Pharynx normal. on scalp states she feels she has holes I see no rash, no abscess there are no holes I just feel the ridges of her occiput Neck: Normal inspection. Neck supple. CVS: Normal heart rate and rhythm. Pulses normal. Respiratory: No respiratory distress. Breath sounds normal. Abdomen: Soft and nontender. Skin: Skin warm and dry. Normal skin color. Normal skin turgor. Extremities: No lower extremity edema. No calf ttp Neuro: Oriented X 3. No motor deficit. No sensory deficit. Medical Decision Making Medical Decision Making MDM Narrative: 62 yo female with PMH of neck pain, HTN, GERD, chronic headaches being followed by neurology and neurosurgery just had botox injections but no relief from headaches now cannot sleep she notes no change from her headaches no new neuro deficits she is asking for medications - does not want anything here just PO meds at home. 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 At this time I offered workup and IV in ED but she refused and wants medications to help her at home she cannot sleep PO ativan ordered. Differential Diagnosis Differential Diagnoses: The differential diagnosis associated with the presentation includes migraine, tension Admission/Observation Consideration of admission/observation: Escalation of care including admission/observation considered declined Independent Historian Clinical information obtained from an independent historian. History obtained from or confirmed by: Friend External Record Review External record reviewed: Inpatient record and Prior outpatient radiology Prescription Management I considered prescription management with: Other Discharge Plan Discharge Clinical Impression: Headache, migraine Qualifiers: Migraine type: unspecified Status migrainosus presence: with status migrainosus Intractability: intractable Qualified Code(s): G43.911 - Migraine, unspecified, intractable, with status migrainosus Patient Disposition: Home, Self-Care Instructions: Migraine Headache (ED) Additional Instructions: please follow up with your neurosurgeon and doctor about your symptoms return for any worsening symptoms or concerns. karissa un seguimiento con wheatley neurocirujano y m?dico si mago s?ntomas regresan en channing de que empeore o tenga alguna inquietud. Prescriptions: New lorazepam [Ativan] 1 mg tablet 1 mg PO BEDTIME PRN (Reason: sleep) Qty: 7 0RF No Action Ubrelvy 100 mg tablet 50 - 100 mg PO ONCE PRN (Reason: migraine headache) 30 Days Qty: 16 3RF Rx Instructions: take at onset of migraine, may repeat in 2hrs (may take w/ Ibuprofen) atorvastatin 20 mg tablet 20 mg PO DAILY Qty: 90 1RF levothyroxine 75 mcg tablet 75 mcg PO DAILY Qty: 90 1RF cholecalciferol (vitamin D3) 25 mcg (1,000 unit) tablet 25 mcg PO DAILY Qty: 90 1RF budesonide 3 mg capsule,delayed,extend.release 9 mg PO DAILY Qty: 90 3RF aspirin 81 mg tablet,delayed release (DR/EC) 81 mg PO DAILY Qty: 90 1RF amlodipine 5 mg tablet 5 mg PO DAILY Qty: 90 1RF sertraline 100 mg tablet 100 mg PO DAILY cetirizine 10 mg tablet 10 mg PO DAILY alclometasone 0.05 % cream topical betamethasone valerate 0.1 % cream topical DAILY metoprolol succinate [Toprol XL] 50 mg tablet extended release 24 hr 50 mg PO DAILY Qty: 90 3RF mirtazapine 15 mg tablet 15 mg PO BEDTIME Qty: 30 3RF Linzess 290 mcg capsule 290 mcg PO QAM 30 Days Qty: 30 6RF pantoprazole 40 mg tablet,delayed release (DR/EC) 40 mg PO BID Qty: 60 6RF methylcellulose (laxative) 500 mg tablet 1,000 mg PO DAILY Qty: 60 6RF Print Language: Norwegian
== END 2023-08-14 01:28 | disposition home or self-care (01) ==
PROVIDERS: Emergency Provider Emergency Medicine; PCP Nurse Practitioner Family
DX: G43.911 Migraine, unspecified, intractable, with status migrainosus (principal)
CPT/HCPCS: 99283; 99284

== ENCOUNTER 2023-08-23 11:42 | Outpatient (REF) | payer OTHER, SELFPAY ==
[2023-08-23 13:02] LABS: MANUAL DIFF FLAG NO
[2023-08-23 13:05] LABS: Basophils Percent Auto 0.3 % (0-2); Eosinophils Absolute Auto 0.2 X10*3/uL (0.0-0.4); Hematocrit 41.4 % (37.0-47.0); Hemoglobin 12.7 g/dl (12.0-16.0); Imm Gran Abs Auto 0.01 X10*3/uL (0.00-0.03); Imm Gran Pct Auto 0.2 % (0.0-0.4); Lymphocytes Absolute Auto 2.5 X10*3/uL (1.2-4.9); Lymphocytes Percent Auto 39.2 % (20-40); Mean Corpuscular HGB Conc 30.7 g/dl (31.0-35.0); Mean Corpuscular Hemoglobin 26.1 pg (27.0-33.0); Mean Platelet Volume 9.7 fL (9.4-12.3); Monocytes Absolute Auto 0.5 X10*3/uL (0.1-1.2); Monocytes Percent Auto 7.5 % (2-11); Neutrophils Absolute Auto 3.2 x10*3/uL (2.0-8.3); Neutrophils Percent Auto 49.8 % (45-73); Platelet Count 217 X10*3/uL (160-400); Red Blood Count 4.87 X10*6/uL (4.20-5.50); Red Cell Distribution Width 14.6 % (11.0-16.0); White Blood Count 6.4 X10*3/uL (4.8-10.8)
[2023-08-23 13:15] LABS: Ammonia 26 umol/L (13-55)
[2023-08-23 13:20] LABS: Alanine Aminotransferase 40 U/L (0-31); Albumin Level 4.3 g/dL (3.5-5.0); Alkaline Phosphatase 115 U/L (39-117); Anion Gap 12 (12-20); Aspartate Amino Transferase 32 U/L (5-31); Bilirubin Total 0.5 mg/dL (0.0-1.0); Blood Urea Nitrogen 19 mg/dL (9-16); C Reactive Protein < 0.10 mg/dL (< or = 0.50); Calcium 9.7 mg/dL (8.4-10.2); Carbon Dioxide 28 mmol/L (22-29); Chloride 106 mmol/L (96-108); Estimated Glomerular Filt Rate > 60; Glucose Random 97 mg/dL (60-115); Potassium 3.8 mmol/L (3.3-5.1); Sodium 142 mmol/L (135-145); Total Protein 8.2 g/dL (6.5-8.0)
[2023-08-23 13:55] LABS: Folate 13.2 ng/mL (> or = 4.0); Vitamin B12 510 pg/mL (200-900)
[2023-08-23 13:59] LABS: Appearance Urine Clear; Color Urine Yellow; Glucose Urine UA Negative (Negative); Leukocyte Esterase Urine Negative (Negative); Nitrite Urine Negative (Negative); PH 5.5 (5.0-9.0); Urine Blood Negative (Negative); Urine Ketones Negative (Negative); Urine Protein Negative (Neg-Trace)
[2023-08-24 09:13] LABS: Prolactin 5.5 ng/mL
[2023-08-28 13:43] LABS: Vitamin D 25-OH, D2 <4 ng/mL; Vitamin D 25-OH, D3 39 ng/mL; Vitamin D 25-OH, Total 39 ng/mL (30-100)
[2023-08-30 14:58] LABS: Insulin Growth Factor 2 634 ng/mL (267-616)
== END 2023-08-23 11:43 | disposition home or self-care (01) ==
LOC: HO.LAB 11:42
PROVIDERS: PCP Nurse Practitioner Family; Visit Provider Nurse Practitioner
DX: E23.6 Other disorders of pituitary gland (principal); R51.9 Headache, unspecified; R19.5 Other fecal abnormalities; R53.83 Other fatigue; R11.2 Nausea with vomiting, unspecified; R68.81 Early satiety; K21.9 Gastro-esophageal reflux disease without esophagitis; K59.04 Chronic idiopathic constipation
CPT/HCPCS: 36415; 80053; 81003; 82140; 82306; 82607; 82746; 83789; 84146; 85025; 86140; 99212

== ENCOUNTER 2023-08-23 11:42 | Outpatient (AMB) | payer OTHER, SELFPAY ==
--- NOTE | 2023-08-23 11:47 | A.OFFVIS_ITS ---
Intake Vital Signs 08/23/23 11:49 Height 5 ft Weight 175 lb 14.862 oz BMI 34.4 BP 147/76 H Blood Pressure Location Lt brachial Position Sitting Pulse 69 Intake Visit Reasons: S/P Congers; Dr. Dwyer Intake Note: Tram returns to in office follow up s/p colonoscopy. CC: Patient underwent colonoscopy with Dr. Dwyer on 06/28/24. Patient reports that she is doing well from GI standpoint. She c/o headaches and feeling disoriented and losing her balance sometimes. 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: Yes Accompanied by: Self / Same As Patient Allergies cat dander Allergy (Unknown, Verified 08/23/23 11:55) Unknown cyclobenzaprine Allergy (Unknown, Verified 08/23/23 11:55) pruritus morphine [MORPHINE] Allergy (Unknown, Verified 08/23/23 11:55) RASH,HIVES,SOB, rash, hives, SOB, rash, hives, SOB Penicillins [PENICILLINS] Allergy (Unknown, Verified 08/23/23 11:55) RASH,HIVES prazosin [PRAZOSIN] Allergy (Unknown, Verified 08/23/23 11:55) INCREASED HEADACHES, increase/worsened headaches, increase/worsened headaches strawberry [STRAWBERRY] Allergy (Unknown, Verified 08/23/23 11:55) RASH nickel Allergy (Verified 08/23/23 11:55) Rash Butrans Allergy (Unknown, Uncoded 08/01/23 08:38) loss of consciousness, swelling, rash Cortisone Allergy (Unknown, Uncoded 08/01/23 08:38) unknown Rozerem Adverse Reaction (Unknown, Uncoded 08/01/23 08:38) rash/memory loss HPI S/P Congers; Dr. Dwyer HPI Details Assessment & Plan (1) GERD (gastroesophageal reflux diseas e): Code(s): K21.9 - Gastro-esophageal reflux disease without esophagitis (2) Chronic idiopathic constipation: Code(s): K59.04 - Chronic idiopathic constipation (3) Hepatic steatosis: Comment: Baseline labs: 07/2019 ast/alt 42/52 alk phos 126 remainder normal, normal CBC, neg Hep A, B and C, ANASTACIO elevated 1:320 homogenous, negative autoimmune work up and neg hemochromatosis screen AFP 2.2, ferritin 32, total bilirubin 0.7 with directed 0.2 * CURRENT LABS 08/21/22 WBC 6.9 Hgb 12.3 Hct 39.2 MCV 83.1 MCH 26.1 L Plt Count 185 Estimated GFR > 60 Total Bilirubin 1.1 H AST 29 ALT 51 H Alkaline Phosphatase 135 H Alpha Fetoprotein 2.3 TSH 2.64 ULTRASOUND OF THE ABDOMEN 10/24/22 IMPRESSION: Slightly echogenic liver probably representing fatty infiltration. Pancreas not well visualized. Code(s): K76.0 - Fatty (change of) liver, not elsewhere classified (4) Fatigue: Code(s): R53.83 - Other fatigue (5) Nausea and vomiting: Code(s): R11.2 - Nausea with vomiting, unspecified (6) Early satiety: Code(s): R68.81 - Early satiety (7) Insomnia: Code(s): G47.00 - Insomnia, unspecified Plan She has had a very difficult time of it! In April she had both the flu and COVID with very high fevers nausea vomiting and diarrhea along with body aches. Since then she has had continued fatigue and many changes in her body. She can not eat very much if she overwhelms her stomach she will vomit food and she will frequently have some nausea in the afternoon. She is not moving her bowels much but again she is not in taking much food. She is having quite a lot of gas despite all of this. This is bothersome to her. She is also having insomnia despite her daytime severe fatigue. She will go to bed at night and wake up at about 3 in the morning and not be able to sleep again. She wakes up every morning with severe headaches and this is being worked up for possible myofascial injections with Neurology/orthopedics. She will be seeing Cardiology today which is a good thing. She is continuing on her Linzess, she has utilized simethicone without much help for her gas, and she takes her pantoprazole twice a day. I think for now I am going to get some basic lab work including a fecal calprotectin to see if there is any systemic inflammation of the gut as a post COVID syndrome along with some basic inflammatory markers any urinalysis because her urine has been quite dark despite the fact that she drinks a fair amount of water. We could consider treating her with budesonide depending on the outcome of these studies. For now I think will try her on some mirtazapine to see if we can improve her sleep as this may go long way to allowing her body to repair itself. She has an appointment with me in June after her colonoscopy and we will keep this to follow-up for the labs and see how she is doing. Orders: Orders Alpha Fetoprotein Today R11.2 - Nausea wit h vomiting, unspec ified, R53.83 - Ot her fatigue, R68.8 1 - Early satiety Calprotectin, Feca l Today R11.2 - Nausea wit h vomiting, unspec ified, R53.83 - Ot her fatigue, R68.8 1 - Early satiety UA CC w/rflx Micro + Cult Today R11.2 - Nausea wit h vomiting, unspec ified, R53.83 - Ot her fatigue, R68.8 1 - Early satiety C Reactive Protein Today R11.2 - Nausea wit h vomiting, unspec ified, R53.83 - Ot her fatigue, R68.8 1 - Early satiety Walt-Harman Virus Profile Today R11.2 - Nausea wit h vomiting, unspec ified, R53.83 - Ot her fatigue, R68.8 1 - Early satiety Vitamin D 25-OH (D 2 and D3) Today R11.2 - Nausea wit h vomiting, unspec ified, R53.83 - Ot her fatigue, R68.8 1 - Early satiety Complete Blood Cou nt Auto Diff Today R11.2 - Nausea wit h vomiting, unspec ified, R53.83 - Ot her fatigue, R68.8 1 - Early satiety Comprehensive Met. Panel Today R11.2 - Nausea wit h vomiting, unspec ified, R53.83 - Ot her fatigue, R68.8 1 - Early satiety US abdomen complet e Today R11.2 - Nausea wit h vomiting, unspec ified, R53.83 - Ot her fatigue, R68.8 1 - Early satiety Erythrocyte Sedime ntation Rate Today R11.2 - Nausea wit h vomiting, unspec ified, R53.83 - Ot her fatigue, R68.8 1 - Early satiety Rheumatoid Factor Today R11.2 - Nausea wit h vomiting, unspec ified, R53.83 - Ot her fatigue, R68.8 1 - Early satiety Lactate Dehydrogen ase Today R11.2 - Nausea wit h vomiting, unspec ified, R53.83 - Ot her fatigue, R68.8 1 - Early satiety Medications: New pantoprazole 40 mg PO BID 60 t abs 6RF mirtazapine 15 mg PO BEDTIME 30 tabs 3RF G47.00 - Insomnia, unspecified, R11. 2 - Nausea with vo miting, unspecifie d, R53.83 - Other fatigue, R68.81 - Early satiety Refilled linaclotide (Linze ss) 290 mcg PO QAM 30 days 30 caps 6RF methylcellulose (l axative) 1,000 mg (2 x 500 mg) PO DAILY 60 ta bs 6RF bisacodyl 10 mg (2 x 5 mg) P O BEDTIME 56 tabs 6RF K59.04 - Chronic i diopathic constipa tion LABS: Laboratory Tests 06/12/23 06/12/23 06/13/23 09:10 09:10 12:40 WBC 7.1 Hgb 12.6 Hct 40.4 Plt Count 222 Estimated GFR > 60 Total Bilirubin 0.5 AST 29 ALT 25 Alkaline Phosphata se 114 Lactate Dehydrogen ase 224 H C-Reactive Protein < 0.10 Alpha Fetoprotein 2.6 25-OH Vitamin D To lisha 46 Stool Calprotectin 382 H Rheumatoid Factor < 13.0 EBV Capsid Ag IgG Ab 186.00 H EBV Capsid Ag IgM Index <36.00 EBV Nuclear Ag IgG Indx 213.00 H Colonoscopy 07/01/23 Findings: Terminal Ileum: Not evaluated Cecum: Normal Ascending Colon: Normal Transverse Colon: Normal Descending Colon: A 6-7 mm sessile polyp - removed with a cold snare Sigmoid Colon: Moderate diverticulosis Rectum: Normal Ano-rectum: Normal Colon preparation: Good after some irrigation Impression and Post Procedure Diagnosis: Colonoscopy Findings: One small polyp removed Moderate diverticulosis seen in the sigmoid colon Plan: Await pathology results Patient has an appointment on 07/12/23 in the GI Clinic with Nayeli Bond NP . Repeat Colonoscopy interval based on path results - in 5 years if polyps are adenomatous and 10 years if polyps are hyperplastic Biopsy Received: 07/01/23 Diagnosis Colon, descending, polypectomy: Hyperplastic mucosal polyp TODAY'S VISIT [place] Nahum Livingston She tolerated the procedure well and is agreeable to a 10 year follow-up. The procedure was well tolerated. The results were explained and the patient is agreeable to the follow-up interval as stated. The bowel pattern has returned to normal. Education was provided to tell any 1st degree relatives about their findings to be sure that they are screened by age 45. Educated that they will be put on a recall list when it is time for their repeat scope but should they move out of state or away from the hospital they will need to remember along with their primary to repeat the procedure in a timely fashion to avoid any adverse complications. She has been having a couple of days when I forget where I am and who I am speaking with, and I am forgetting more and more [place] every day. She does not retain information she has read. She was seen in the ER for this. It seems she declined a work up. She feels all of this started after she had covid this past summer. No other medications that were new. She is not sleeping well, so this could be the problem. She is taking the mirtazepine 30mg and finds it helpful for sleep. I will get an expanse of labs for confusion/dizziness etc, and we will try reducing her budesinide to see it this is worsening her sx. It HAS helped with her gas and bloating. Again, my thought was that she has had some sort of post COVID inflammation since her symptoms do not match IBD and neither does her most recent colonoscopy with biopsies. She continues on her pantoprazole and Linzess and these are working well. ROV 3 weeks. [facility] Medical History (Updated 08/23/23 @ 12:32 by TATE Majano) Hepatic steatosis Chronic tension headache Lumbar spondylosis Dyslipidemia Gastritis Diastolic murmur Positive ANASTACIO (antinuclear antibody) Tubular adenoma Hx of diverticulitis of colon Bunion of unspecified foot History of anxiety Depression Hypertension Shoulder pain Migraine Prediabetes Chronic low back pain Hypothyroid History of TIAs Surgical History (Updated 08/23/23 @ 11:57 by DIETER Sears) History of esophagogastroduodenoscopy (EGD) Hx of colonoscopy H/O rectal polypectomy Hx of breast reduction, elective History of hysterectomy History of back surgery Family History Father CVD (cardiovascular disease) ETOHism Myocardial infarct Mother CVD (cardiovascular disease) Myocardial infarct Maternal Aunt History of breast cancer Brother History of cancer of unknown primary site Other Mental health disorder Substance use disorder Social History Household Members: None Housing: Apartment Alcohol intake: current Alcohol intake frequency: does not drink Patient Tobacco Use Status: Never used Tobacco e-Cigarette/Vaping Use: Never Used Current occupational status: disabled Cognitive needs: No Hearing needs: No Vision needs: No Female Reproductive History Menstrual Age of Menarche: 8 Review of Systems Const Denies fatigue, Denies fever(s), Reports headache(s), Reports malaise, Denies night sweats, Denies poor appetite and Denies weight loss Eyes Details: glasses Reports diplopia and Reports requires corrective lenses ENT Reports Normal hearing present, Denies dental pain, Denies dysphagia, Reports headache(s), Denies hearing loss, Denies mouth pain, Denies odynophagia, Reports disequilibrium, Denies throat swelling, Denies tongue swelling and Reports other (Dentition adequate) Card Reports syncope Resp Reports no additional complaints GI Details: Denies abdominal pain, Denies melena, Reports bloating, Denies hematochezia, Reports constipation, Denies GI cramping, Denies dysphagia, Denies excessive flatus, Denies early satiety, Reports heartburn, Denies diarrhea, Denies nausea, Denies odynophagia, Denies vomiting and Denies hematemesis Musc Reports myalgias and Reports arthralgias Skin/Breast Denies pruritus, Denies lesions, Denies rash and Denies jaundice Neuro Reports Normal hearing present, Denies Abnormal speech present, Reports syncope, Reports headache(s), Reports memory loss and Reports disequilibrium Psych Reports abnormal sleep pattern and Reports memory loss Endo Denies fatigue Aller/Immun Denies throat swelling and Denies tongue swelling Physical Exam Vital Signs: Last Vital Signs Pulse 69 08/23/23 11:49 BP 147/76 H 08/23/23 11:49 BMI result Body Mass Index 34.4 Const General: awake, acute distress mild and tired appearing Nutritional Appearance: well nourished and obese Orientation/consciousness: oriented to person, oriented to place and oriented to time Limitations: language barrier HEENT Head: Yes normocephalic and Yes atraumatic Eyes General: appearance normal, both eyes and all related structures Pupils: Equal, round and reactive pupils present Neck Neck: Yes normal visual inspection and Yes no lymphadenopathy Thyroid: Thyroid normal Resp Effort & Inspection: normal respiratory effort and able to speak in complete sentences Auscultation: clear to auscultation bilaterally Cardio Rate: regular rate Rhythm: regular rhythm Heart sounds: Normal, physiologic split S2 sound present Peripheral pulses: radial pulses present and posterior tibial pulses present GI Inspection: Yes distended, No Abdominal panniculus present and Yes obesity Palpation (GI): Soft to palpation, Tenderness to palpation present (GI), no guarding, not rigid and No hepatosplenomegaly present Percussion: Yes normal to percussion Auscultation: normal bowel sounds Rectal Exam - Female: deferred Skin General skin exam: no rashes or lesions noted, turgor normal, skin not dry, no jaundice, No spider nevi and no striae Rashes: no rashes Nails: normal Neuro General: oriented to person, oriented to place and oriented to time Cranial nerves: Yes Equal, round and reactive pupils present and Yes Normal hearing present Speech: No Abnormal speech present Extrem General: Yes normal to inspection, No clubbing, No cyanosis and No edema Psych Appearance: grossly normal and well kempt Mental Status: mental status grossly normal Speech and movement: Slowed speech present (Psych) Affect: Labile affect present, Sad affect present and Anxious affect present Attitude: cooperative Thought process: not confabulating and Impoverished thought process present Thought content: Normal thought content present Insight: Limited insight present (Psych) Judgement: Limited judgement present (Psych) Results Reviewed Results Reviewed: Laboratory Tests 06/12/23 06/12/23 06/13/23 09:10 09:10 12:40 WBC 7.1 Hgb 12.6 Hct 40.4 Plt Count 222 Estimated GFR > 60 Total Bilirubin 0.5 AST 29 ALT 25 Alkaline Phosphatase 114 Lactate Dehydrogenase 224 H C-Reactive Protein < 0.10 Alpha Fetoprotein 2.6 25-OH Vitamin D Total 46 Stool Calprotectin 382 H Rheumatoid Factor < 13.0 EBV Capsid Ag IgG Ab 186.00 H EBV Capsid Ag IgM Index <36.00 EBV Nuclear Ag IgG Indx 213.00 H Colonoscopy 07/01/23 Findings: Terminal Ileum: Not evaluated Cecum: Normal Ascending Colon: Normal Transverse Colon: Normal Descending Colon: A 6-7 mm sessile polyp - removed with a cold snare Sigmoid Colon: Moderate diverticulosis Rectum: Normal Ano-rectum: Normal Colon preparation: Good after some irrigation Impression and Post Procedure Diagnosis: Colonoscopy Findings: One small polyp removed Moderate diverticulosis seen in the sigmoid colon Plan: Await pathology results Patient has an appointment on 07/12/23 in the GI Clinic with Nayeli Bond NP . Repeat Colonoscopy interval based on path results - in 5 years if polyps are adenomatous and 10 years if polyps are hyperplastic Biopsy Received: 07/01/23 Diagnosis Colon, descending, polypectomy: Hyperplastic mucosal polyp Assessment & Plan Assessment & Plan (1) Worsening headaches: Code(s): R51.9 - Headache, unspecified (2) Elevated fecal calprotectin: Comment: ? Post COVID inflammation since patient has constipation less likely IBD Code(s): R19.5 - Other fecal abnormalities Plan [place] #Benji Live She tolerated the procedure well and is agreeable to a 10 year follow-up. The procedure was well tolerated. The results were explained and the patient is agreeable to the follow-up interval as stated. The bowel pattern has returned to normal. Education was provided to tell any 1st degree relatives about their findings to be sure that they are screened by age 45. Educated that they will be put on a recall list when it is time for their repeat scope but should they move out of state or away from the hospital they will need to remember along with their primary to repeat the procedure in a timely fashion to avoid any adverse complications. She has been having a couple of days when I forget where I am and who I am speaking with, and I am forgetting more and more [place] every day. She does not retain information she has read. She was seen in the ER for this. It seems she declined a work up. She feels all of this started after she had covid this past summer. No other medications that were new. She is not sleeping well, so this could be the problem. She is taking the mirtazepine 30mg and finds it helpful for sleep. I will get an expanse of labs for confusion/dizziness etc, and we will try reducing her budesinide to see it this is worsening her sx. It HAS helped with her gas and bloating. Again, my thought was that she has had some sort of post COVID inflammation since her symptoms do not match IBD and neither does her most recent colonoscopy with biopsies. She continues on her pantoprazole and Linzess and these are working well. This is a very long appointment because she seems to have trouble reporting her symptoms as she holds her head in her hand and jumps somewhat from subject to subject. I can tell that she is very worried and concerned, but she has been referred to both Neurosurgery and outside Neurology. Because she does not seem to think she is getting any answers I encouraged her to call Mehnaz Stephens and get a follow-up with her. I am obviously no expert in pituitary cyst/tumors. ROV 3 weeks. Orders: Orders Complete Blood Count Auto Diff Today E23.6 - Other disorders of pituitary gland, R51.9 - Headache, unspecified Ammonia Today E23.6 - Other disorders of pituitary gland, R51.9 - Headache, unspecified Vitamin D 25-OH (D2 and D3) Today E23.6 - Other disorders of pituitary gland, R51.9 - Headache, unspecified Insulin Growth Factor 2 Today E23.6 - Other disorders of pituitary gland, R51.9 - Headache, unspecified C Reactive Protein Today R19.5 - Other fecal abnormalities Comprehensive Met. Panel Today E23.6 - Other disorders of pituitary gland, R51.9 - Headache, unspecified UA CC w/rflx Micro + Cult Today E23.6 - Other disorders of pituitary gland, R51.9 - Headache, unspecified Vitamin B12 and Folate Today E23.6 - Other disorders of pituitary gland, R51.9 - Headache, unspecified Prolactin Today E23.6 - Other disorders of pituitary gland, R51.9 - Headache, unspecified Medications: Refilled linaclotide (Linzess) 290 mcg PO QAM 30 days 30 caps 6RF pantoprazole 40 mg PO BID 60 tabs 6RF methylcellulose (laxative) 1,000 mg (2 x 500 mg) PO DAILY 60 tabs 6RF Coding Level of Care Code Est Pt Level 4 (85242) Diagnoses Worsening headaches R51.9 Elevated fecal calprotectin R19.5 Time Spent (min) 45
[2023-08-23 11:49] VITALS: BP 147/76; PULSE 69; BMI 34.4
== END 2023-08-23 12:40 | disposition home or self-care (01) ==
PROVIDERS: PCP Nurse Practitioner Family; Visit Provider Nurse Practitioner
DX: R51.9 Headache, unspecified (principal); R19.5 Other fecal abnormalities
CPT/HCPCS: 99214

== ENCOUNTER 2023-09-13 12:19 | Outpatient (AMB) | payer OTHER, SELFPAY ==
--- NOTE | 2023-09-13 12:29 | A.OFFVIS_ITS ---
Intake Vital Signs 09/13/23 12:44 Height 5 ft 5 in Weight 176 lb BMI 29.3 BP 126/61 Blood Pressure Location Lt brachial Position Sitting Pulse 65 Intake Visit Reasons: 3 week follow up Intake Note: Patient follow up for lab/urine results. Patient cc: abdominal fullness, and gaining weight, denies any other GI issues. Powerhouse Electrician Required: Yes Powerhouse Electrician [place] [facility] [place] Accompanied by: Self / Same As Patient Allergies cat dander Allergy (Unknown, Verified 09/13/23 12:41) Unknown cyclobenzaprine Allergy (Unknown, Verified 09/13/23 12:41) pruritus morphine [MORPHINE] Allergy (Unknown, Verified 09/13/23 12:41) RASH,HIVES,SOB, rash, hives, SOB, rash, hives, SOB Penicillins [PENICILLINS] Allergy (Unknown, Verified 09/13/23 12:41) RASH,HIVES prazosin [PRAZOSIN] Allergy (Unknown, Verified 09/13/23 12:41) INCREASED HEADACHES, increase/worsened headaches, increase/worsened headaches strawberry [STRAWBERRY] Allergy (Unknown, Verified 09/13/23 12:41) RASH nickel Allergy (Verified 09/13/23 12:41) Rash Butrans Allergy (Unknown, Uncoded 08/01/23 08:38) loss of consciousness, swelling, rash Cortisone Allergy (Unknown, Uncoded 08/01/23 08:38) unknown Rozerem Adverse Reaction (Unknown, Uncoded 08/01/23 08:38) rash/memory loss HPI 3 week follow up HPI Details Assessment & Plan (1) Worsening headaches: Code(s): R51.9 - Headache, unspecified (2) Elevated fecal calprotectin: Comment: ? Post COVID inflammation since patient has constipation less likely IBD Code(s): R19.5 - Other fecal abnormalities Plan [place] #Benji Live She tolerated the procedure well and is agreeable to a 10 year follow-up. The procedure was well tolerated. The results were explained and the patient is agreeable to the follow-up interval as stated. The bowel pattern has returned to normal. Education was provided to tell any 1st degree relatives about their findings to be sure that they are screened by age 45. Educated that they will be put on a recall list when it is time for their repeat scope but should they move out of state or away from the hospital they will need to remember along with their primary to repeat the procedure in a timely fashion to avoid any adverse complications. She has been having a couple of days when I forget where I am and who I am speaking with, and I am forgetting more and more Occitan every day. She does not retain information she has read. She was seen in the ER for this. It seems she declined a work up. She feels all of this started after she had covid this past summer. No other medications that were new. She is not sleeping well, so this could be the problem. She is taking the mirtazepine 30mg and finds it helpful for sleep. I will get an expanse of labs for confusion/dizziness etc, and we will try reducing her budesinide to see it this is worsening her sx. It HAS helped with her gas and bloating. Again, my thought was that she has had some sort of post COVID inflammation since her symptoms do not match IBD and neither does her most recent colonoscopy with biopsies. She continues on her pantoprazole and Linzess and these are working well. This is a very long appointment because she seems to have trouble reporting her symptoms as she holds her head in her hand and jumps somewhat from subject to subject. I can tell that she is very worried and concerned, but she has been referred to both Neurosurgery and outside Neurology. Because she does not seem to think she is getting any answers I encouraged her to call Mehnaz Stephens and get a follow-up with her. I am obviously no expert in pituitary cyst/tumors. ROV 3 weeks. Orders: Orders Complete Blood Cou nt Auto Diff Today E23.6 - Other diso rders of pituitary gland, R51.9 - He adache, unspecifie d Ammonia Today E23.6 - Other diso rders of pituitary gland, R51.9 - He adache, unspecifie d Vitamin D 25-OH (D 2 and D3) Today E23.6 - Other diso rders of pituitary gland, R51.9 - He adache, unspecifie d Insulin Growth Fac tor 2 Today E23.6 - Other diso rders of pituitary gland, R51.9 - He adache, unspecifie d C Reactive Protein Today R19.5 - Other feca l abnormalities Comprehensive Met. Panel Today E23.6 - Other diso rders of pituitary gland, R51.9 - He adache, unspecifie d UA CC w/rflx Micro + Cult Today E23.6 - Other diso rders of pituitary gland, R51.9 - He adache, unspecifie d Vitamin B12 and Fo late Today E23.6 - Other diso rders of pituitary gland, R51.9 - He adache, unspecifie d Prolactin Today E23.6 - Other diso rders of pituitary gland, R51.9 - He adache, unspecifie d Medications: Refilled linaclotide (Linze ss) 290 mcg PO QAM 30 days 30 caps 6RF pantoprazole 40 mg PO BID 60 t abs 6RF methylcellulose (l axative) 1,000 mg (2 x 500 mg) PO DAILY 60 ta bs 6RF LABS: Laboratory Tests 06/12/23 06/12/23 06/12/23 09:10 09:10 09:10 WBC 7.1 Hgb 12.6 Hct 40.4 ESR 22 H Estimated GFR Total Bilirubin AST ALT Alkaline Phosphata se Lactate Dehydrogen ase 224 H C-Reactive Protein Alpha Fetoprotein Vitamin B12 Folate Prolactin Insulin-like GF II Stool Calprotectin Rheumatoid Factor < 13.0 06/12/23 06/13/23 08/23/23 09:10 12:40 13:00 WBC Hgb Hct ESR Estimated GFR > 60 Total Bilirubin 0.5 AST 32 H ALT 40 H Alkaline Phosphata se 115 Lactate Dehydrogen ase C-Reactive Protein Alpha Fetoprotein 2.6 Vitamin B12 Folate Prolactin Insulin-like GF II Stool Calprotectin 382 H Rheumatoid Factor 08/23/23 08/23/23 13:00 13:00 WBC Hgb Hct ESR Estimated GFR Total Bilirubin AST ALT Alkaline Phosphata se Lactate Dehydrogen ase C-Reactive Protein < 0.10 Alpha Fetoprotein Vitamin B12 510 Folate 13.2 Prolactin 5.5 Insulin-like GF II 634 H Stool Calprotectin Rheumatoid Factor 08/23/23-[address]: Carmelo Cagle THEORETICAL PHYSICS TEACHER- ORDERED: Ua Clean Catch QUERIES: Sourc e: Urine, Clean Ca tch Test Result Flag Refere nce Ur Color Yellow Ur Appear Clear PH 5.5 5.0-9.0 Ur Glu Neg ative Negative m g/dL Urine Blood Negative Neg ative Spec G ravity Ur 1.010 1.005-1.025 U rine Protein Nega tive Neg-Trace m g/dL Urine [place] es Negative Neg ative mg/dL Ur N itrite Negativ e Negative Ur Na Esterase Ne gative Negative COLONOSCOPY 07/01/23 Findings: Terminal Ileum: Not evaluated Cecum: Normal Ascending Colon: Normal Transverse Colon: Normal Descending Colon: A 6-7 mm sessile polyp - removed with a cold snare Sigmoid Colon: Moderate diverticulosis Rectum: Normal Ano-rectum: Normal Colon preparation: Good after some irrigation Impression and Post Procedure Diagnosis: Colonoscopy Findings: One small polyp removed Moderate diverticulosis seen in the sigmoid colon Plan: Await pathology results Patient has an appointment on 07/12/23 in the GI Clinic with Nayeli Bond NP . Repeat Colonoscopy interval based on path results - in 5 years if polyps are adenomatous and 10 years if polyps are hyperplastic. Received: 07/01/23 Diagnosis Colon, descending, polypectomy: Hyperplastic mucosal polyp TODAY'S VISIT [place] #Hannah Live She is agreeable to a 10 year follow-up. The procedure was well tolerated. The results were explained and the patient is agreeable to the follow-up interval as stated. The bowel pattern has returned to normal. Education was provided to tell any 1st degree relatives about their findings to be sure that they are screened by age 45. Educated that they will be put on a recall list when it is time for their repeat scope but should they move out of state or away from the hospital they will need to remember along with their primary to repeat the procedure in a timely fashion to avoid any adverse complications. She has a cold today. She says I have an eating disorder, I have gained a lot of weight. She seems to have a large appetite and eats a lot at night. However, review of her past visits shows only a 3-5lb wt gain. We review the labs, she has not yet seen neurology about the pituitary mass found on brain MRI. Given her elevated insulin like growth factor, I think she should be seen by an personalized living assistant for more definitive work up. She continues to c/o dizziness and disorientation. We had reduced the budesinide to see if this helped the dizziness, she has weaned down to 1 a day. This had helped with her gas and bloating, but now it has returned. Her fecal calprotectin was elevated, but the colonoscopy looked normal. I want her to start weaning to be off of this and see how she does. Her BM's are normal and formed. I will give her simethicone for the bloating. She was just started on a migraine preventative medication because her STACK's have been very severe. This has helped her migraines, but not the pain at the base of her head at the neck. 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 She shows me a rash on her skin that appears to be Jesika so I will prescribe some nystatin. I am also referring her to endocrinology for her workup. Will try starting her on simethicone because she feels quite bloated as we wean her off of budesonide. Return office visit in 8 weeks [facility] Medical History (Updated 09/13/23 @ 13:25 by TATE Majano) Hepatic steatosis Chronic tension headache Lumbar spondylosis Dyslipidemia Gastritis Diastolic murmur Positive ANASTACIO (antinuclear antibody) Tubular adenoma Hx of diverticulitis of colon Bunion of unspecified foot History of anxiety Depression Hypertension Shoulder pain Migraine Prediabetes Chronic low back pain Hypothyroid History of TIAs Surgical History History of esophagogastroduodenoscopy (EGD) Hx of colonoscopy H/O rectal polypectomy Hx of breast reduction, elective History of hysterectomy History of back surgery Family History Father CVD (cardiovascular disease) ETOHism Myocardial infarct Mother CVD (cardiovascular disease) Myocardial infarct Maternal Aunt History of breast cancer Brother History of cancer of unknown primary site Other Mental health disorder Substance use disorder Social History Household Members: None Housing: Apartment Alcohol intake: current Alcohol intake frequency: does not drink Patient Tobacco Use Status: Never used Tobacco e-Cigarette/Vaping Use: Never Used Current occupational status: disabled Cognitive needs: No Hearing needs: No Vision needs: No Female Reproductive History Menstrual Age of Menarche: 8 Review of Systems Const Denies fatigue, Reports fever(s), Reports headache(s), Reports malaise, Denies night sweats, Denies poor appetite, Reports weight gain and Denies weight loss ENT Reports Normal hearing present, Denies dental pain, Denies dysphagia, Reports vertigo, Reports headache(s), Denies hearing loss, Reports hoarseness, Denies mouth pain, Reports nasal congestion, Reports nasal discharge, Reports neck pain, Denies odynophagia, Reports disequilibrium, Denies throat swelling, Denies tongue swelling and Reports other (Dentition adequate) Card Reports no additional complaints Resp Reports cough GI Details: Denies abdominal pain, Denies melena, Reports bloating, Denies hematochezia, Reports constipation, Reports GI cramping, Denies dysphagia, Denies excessive flatus, Denies early satiety, Reports heartburn, Denies diarrhea, Denies nausea, Denies odynophagia, Denies vomiting and Denies hematemesis Musc Reports myalgias and Reports neck pain Skin/Breast Denies pruritus, Denies lesions, Denies rash and Denies jaundice Neuro Reports Normal hearing present, Denies Abnormal speech present, Reports vertigo, Reports headache(s) and Reports disequilibrium Psych Reports anxiety Endo Denies fatigue and Reports polyphagia Aller/Immun Denies throat swelling and Denies tongue swelling Physical Exam Vital Signs: Last Vital Signs Pulse 65 09/13/23 12:44 BP 126/61 09/13/23 12:44 BMI result Body Mass Index 29.3 Const General: cooperative, no acute distress, well developed and well groomed Nutritional Appearance: well nourished, obese and overweight Orientation/consciousness: oriented to person, oriented to place and oriented to time Limitations: No language barrier, ambulation with cane, ambulation with walker and wheelchair HEENT Head: Yes normocephalic and Yes atraumatic Eyes General: appearance normal, both eyes and all related structures Pupils: Equal, round and reactive pupils present Neck Neck: Yes normal visual inspection and Yes no lymphadenopathy Thyroid: Thyroid normal Resp Effort & Inspection: normal respiratory effort and able to speak in complete sentences Auscultation: clear to auscultation bilaterally Cardio Rate: regular rate Rhythm: regular rhythm Heart sounds: Normal, physiologic split S2 sound present Peripheral pulses: radial pulses present and posterior tibial pulses present GI Inspection: No distended and No Abdominal panniculus present Palpation (GI): Soft to palpation, nontender, no guarding, not rigid, No hepatosplenomegaly present and Hepatosplenomegaly present Percussion: Yes normal to percussion Auscultation: normal bowel sounds Rectal Exam - Female: deferred Skin General skin exam: no rashes or lesions noted, turgor normal, skin not dry, no jaundice, No spider nevi and no striae Rashes: no rashes Nails: normal Neuro General: oriented to person, oriented to place and oriented to time Cranial nerves: Yes Equal, round and reactive pupils present and Yes Normal hearing present Speech: No Abnormal speech present Extrem General: Yes normal to inspection, No clubbing, No cyanosis and No edema Psych Thought process: Normal thought process present and not confabulating Thought content: Normal thought content present Insight: Good insight present (Psych) Judgement: Good judgement present (Psych) Results Reviewed Results Reviewed: Laboratory Tests 06/12/23 06/12/23 06/12/23 09:10 09:10 09:10 WBC 7.1 Hgb 12.6 Hct 40.4 ESR 22 H Estimated GFR Total Bilirubin AST ALT Alkaline Phosphatase Lactate Dehydrogenase 224 H C-Reactive Protein Alpha Fetoprotein Vitamin B12 Folate Prolactin Insulin-like GF II Stool Calprotectin Rheumatoid Factor < 13.0 06/12/23 06/13/23 08/23/23 09:10 12:40 13:00 WBC Hgb Hct ESR Estimated GFR > 60 Total Bilirubin 0.5 AST 32 H ALT 40 H Alkaline Phosphatase 115 Lactate Dehydrogenase C-Reactive Protein Alpha Fetoprotein 2.6 Vitamin B12 Folate Prolactin Insulin-like GF II Stool Calprotectin 382 H Rheumatoid Factor 08/23/23 08/23/23 13:00 13:00 WBC Hgb Hct ESR Estimated GFR Total Bilirubin AST ALT Alkaline Phosphatase Lactate Dehydrogenase C-Reactive Protein < 0.10 Alpha Fetoprotein Vitamin B12 510 Folate 13.2 Prolactin 5.5 Insulin-like GF II 634 H Stool Calprotectin Rheumatoid Factor 08/23/23-[address] [facility] [address]: Carmelo Enriquez [facility] ORDERED: Ua Clean Catch QUERIES: Source: Urine, Clean Catch Test Result Flag Reference Ur Color Yellow Ur Appear Clear PH 5.5 5.0-9.0 Ur Glu Negative Negative mg/dL Urine Blood Negative Negative Spec Orla Ur 1.010 1.005-1.025 Urine Protein Negative Neg-Trace mg/dL Urine Ketones Negative Negative mg/dL Ur Nitrite Negative Negative Ur Na Esterase Negative Negative COLONOSCOPY 07/01/23 Findings: Terminal Ileum: Not evaluated Cecum: Normal Ascending Colon: Normal Transverse Colon: Normal Descending Colon: A 6-7 mm sessile polyp - removed with a cold snare Sigmoid Colon: Moderate diverticulosis Rectum: Normal Ano-rectum: Normal Colon preparation: Good after some irrigation Impression and Post Procedure Diagnosis: Colonoscopy Findings: One small polyp removed Moderate diverticulosis seen in the sigmoid colon Plan: Await pathology results Patient has an appointment on 07/12/23 in the GI Clinic with Nayeli Bond NP . Repeat Colonoscopy interval based on path results - in 5 years if polyps are adenomatous and 10 years if polyps are hyperplastic. Received: 07/01/23 Diagnosis Colon, descending, polypectomy: Hyperplastic mucosal polyp Assessment & Plan Assessment & Plan (1) GERD (gastroesophageal reflux disease): Code(s): K21.9 - Gastro-esophageal reflux disease without esophagitis (2) Chronic idiopathic constipation: Code(s): K59.04 - Chronic idiopathic constipation (3) Hepatic steatosis: Comment: Baseline labs: 07/2019 ast/alt 42/52 alk phos 126 remainder normal, normal CBC, neg Hep A, B and C, ANASTACIO elevated 1:320 homogenous, negative autoimmune work up and neg hemochromatosis screen AFP 2.2, ferritin 32, total bilirubin 0.7 with directed 0.2 * CURRENT LABS 08/21/22 WBC 6.9 Hgb 12.3 Hct 39.2 MCV 83.1 MCH 26.1 L Plt Count 185 Estimated GFR > 60 Total Bilirubin 1.1 H AST 29 ALT 51 H Alkaline Phosphatase 135 H Alpha Fetoprotein 2.3 TSH 2.64 ULTRASOUND OF THE ABDOMEN 10/24/22 IMPRESSION: Slightly echogenic liver probably representing fatty infiltration. Pancreas not well visualized. 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 The procedure was well tolerated. The results were explained and the patient is agreeable to the follow-up interval as stated. The bowel pattern has returned to normal. Education was provided to tell any 1st degree relatives about their findings to be sure that they are screened by age 45. Educated that they will be put on a recall list when it is time for their repeat scope but should they move out of state or away from the hospital they will need to remember along with their primary to repeat the procedure in a timely fashion to avoid any adverse complications. She has a cold today. She says I have an eating disorder, I have gained a lot of weight. She seems to have a large appetite and eats a lot at night. However, review of her past visits shows only a 3-5lb wt gain. We review the labs, she has not yet seen neurology about the pituitary mass found on brain MRI. Given her elevated insulin like growth factor, I think she should be seen by an personalized living assistant for more definitive work up. She continues to c/o dizziness and disorientation. We had reduced the budesinide to see if this helped the dizziness, she has weaned down to 1 a day. This had helped with her gas and bloating, but now it has returned. Her fecal calprotectin was elevated, but the colonoscopy looked normal. I want her to start weaning to be off of this and see how she does. Her BM's are normal and formed. I will give her simethicone for the bloating. She was just started on a migraine preventative medication because her STACK's have been very severe. This has helped her migraines, but not the pain at the base of her head at the neck. 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 She shows me a rash on her skin that appears to be Jesika so I will prescribe some nystatin. I am also referring her to endocrinology for her workup. Will try starting her on simethicone because she feels quite bloated as we wean her off of budesonide. Return office visit in 8 weeks Orders: Referrals Endocrinology Referral E23.6 - Other disorders of pituitary gland, R79.89 - Other specified abnormal findings of blood chemistry Medications: New simethicone after meals 180 mg PO QID 120 caps 3RF 30 days nystatin 1 appl topical TID 30 grams 0RF B37.2 - Candidiasis of skin and nail Coding Level of Care Code Est Pt Level 4 (68141) Diagnoses GERD (gastroesophageal reflux disease) K21.9 Chronic idiopathic constipation K59.04 Hepatic steatosis K76.0 Pituitary cyst E23.6 Elevated insulin-like growth factor 1 (IGF-1) level R79.89 Jesika infection of flexural skin B37.2 Family history of colon cancer Z80.0
[2023-09-13 12:44] VITALS: BP 126/61; PULSE 65; BMI 29.3
== END 2023-09-13 13:31 | disposition home or self-care (01) ==
PROVIDERS: PCP Nurse Practitioner Family; Visit Provider Nurse Practitioner
DX: K21.9 Gastro-esophageal reflux disease without esophagitis (principal); K59.04 Chronic idiopathic constipation; K76.0 Fatty (change of) liver, not elsewhere classified; E23.6 Other disorders of pituitary gland; R79.89 Other specified abnormal findings of blood chemistry; B37.2 Candidiasis of skin and nail; Z80.0 Family history of malignant neoplasm of digestive organs
CPT/HCPCS: 99214

== ENCOUNTER → 2023-09-13 12:19 | Outpatient (BNVA) | payer OTHER, SELFPAY | PROVIDERS: PCP Nurse Practitioner Family; Visit Provider Nurse Practitioner | DX: K21.9 Gastro-esophageal reflux disease without esophagitis (principal); K59.04 Chronic idiopathic constipation; K76.0 Fatty (change of) liver, not elsewhere classified; E23.6 Other disorders of pituitary gland; R79.89 Other specified abnormal findings of blood chemistry; B37.2 Candidiasis of skin and nail; Z80.0 Family history of malignant neoplasm of digestive organs | CPT/HCPCS: 99212 ==

== ENCOUNTER 2023-10-31 08:38 | Outpatient (AMB) | payer OTHER, SELFPAY ==
[2023-10-31 08:46] VITALS: BP 114/66; BMI 29.1
--- NOTE | 2023-10-31 08:46 | MHC.OFFVIS ---
Intake Vital Signs 10/31/23 08:46 Height 5 ft 5 in Weight 175 lb BMI 29.1 BP 114/66 Intake Visit Reasons: non inflammatory disorders of vagina Intake Note: Caregiver Svetlana Cash Room Clerk Required: Yes Cash Room Clerk Language: Assistant Project Engineer Name: Shannon TURNER Information Interpreted: non-clinical & clinical Ethnoarchaeologist: Ethnoarchaeologist Present (Shannon) Accompanied by: Other Relationship Allergies cat dander Allergy (Unknown, Verified 09/13/23 12:41) Unknown cyclobenzaprine Allergy (Unknown, Verified 09/13/23 12:41) pruritus morphine [MORPHINE] Allergy (Unknown, Verified 09/13/23 12:41) RASH,HIVES,SOB, rash, hives, SOB, rash, hives, SOB Penicillins [PENICILLINS] Allergy (Unknown, Verified 09/13/23 12:41) RASH,HIVES prazosin [PRAZOSIN] Allergy (Unknown, Verified 09/13/23 12:41) INCREASED HEADACHES, increase/worsened headaches, increase/worsened headaches strawberry [STRAWBERRY] Allergy (Unknown, Verified 09/13/23 12:41) RASH nickel Allergy (Verified 09/13/23 12:41) Rash Butrans Allergy (Unknown, Uncoded 08/01/23 08:38) loss of consciousness, swelling, rash Cortisone Allergy (Unknown, Uncoded 08/01/23 08:38) unknown Rozerem Adverse Reaction (Unknown, Uncoded 08/01/23 08:38) rash/memory loss HPI HPI Comments History of Present Illness Details 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 She reports being treated for a fungal rash last month that did not resolve after course of antibiotics. She still presents with some itching externally, currently not sexually active, has no pelvic pain or urinary symptoms. COUNT INCLUDES [facility] Medical History (Updated 09/13/23 @ 13:25 by TATE Majano) Hepatic steatosis Chronic tension headache Lumbar spondylosis Dyslipidemia Gastritis Diastolic murmur Positive ANASTACIO (antinuclear antibody) Tubular adenoma Hx of diverticulitis of colon Bunion of unspecified foot History of anxiety Depression Hypertension Shoulder pain Migraine Prediabetes Chronic low back pain Hypothyroid History of TIAs Surgical History History of esophagogastroduodenoscopy (EGD) Hx of colonoscopy H/O rectal polypectomy Hx of breast reduction, elective History of hysterectomy History of back surgery Family History Father CVD (cardiovascular disease) ETOHism Myocardial infarct Mother CVD (cardiovascular disease) Myocardial infarct Maternal Aunt History of breast cancer Brother History of cancer of unknown primary site Other Mental health disorder Substance use disorder Social History Household Members: None Housing: Apartment Alcohol intake: current Alcohol intake frequency: does not drink Patient Tobacco Use Status: Never used Tobacco e-Cigarette/Vaping Use: Never Used Current occupational status: disabled Cognitive needs: No Hearing needs: No Vision needs: No Female Reproductive History Menstrual Age of Menarche: 8 Menopause type: surgical Total pregnancies: 0 Review of Systems Const All systems reviewed & are unremarkable except as noted in HPI and below Physical Exam Vital Signs: Last Vital Signs BP 114/66 10/31/23 08:46 BMI result Body Mass Index 29.1 Const General: cooperative, healthy appearing and no acute distress Orientation/consciousness: patient oriented x3 GI Inspection: Yes normal to inspection Palpation (GI): Soft to palpation and Other GI palpation findings present (Nontender) Rectal Exam - Female: visual inspection normal Other: Fungal appearing rash predominantly in the bilateral groins and on the left labia majora, and left inner upper thigh adjacent to the groin General: Yes bladder normal to palpation External Female Exam: normal appearance of the urethra Speculum Exam - Vagina: normal appearance of the vagina, normal palpation and normal vaginal discharge (Heavy white and creamy) Speculum Exam - Cervix: normal appearance of the cervix and normal palpation Bimanual exam- vagina & uterus: normal bimanual exam, normal palpation, uterine size normal, bladder normal to palpation, normal palpation, uterine shape normal and non-tender Bimanual Exam- Adnexa, other: normal adnexae Neuro General: patient oriented x3 Assessment & Plan Assessment & Plan (1) Vulvar rash: Code(s): R21 - Rash and other nonspecific skin eruption Plan Discussed: BV panel obtained await results for plan of care and treatment. Topical medication ordered today, directions for use were reviewed. Instructions: Clean with warm water, no soaps, scented products. Use a cool cloth to the area several times a day if swollen and/or uncomfortable. Wear loose, cotton underclothes, avoid tight outer clothing. Air when possible. No coitus until well healed. Complete all medications as prescribed. Await final pending results for any changes in the plan of care. Call the office if there is no improvement in 24-48hrs., or if worsening symptoms. All of her questions and concerns were addressed to the best of my ability and shared decision making. She is agreeable to the plan of care. Schedule annual exam. This note is constructed using voice recognition software. While every effort has been made to ensure accuracy, rivet passer errors may have been included. Orders: Orders Bacterial Vaginosis Panel Today N89.8 - Other specified noninflammatory disorders of vagina Medications: New clotrimazole-betamethasone 1-0.05 % apply externally a thin coat to the area as directed 1 appl topical BID 7 days 45 grams 0RF itching Coding Level of Care Code Est Pt Level 3 (54150) Diagnoses Vulvar rash R21
== END 2023-10-31 09:27 | disposition home or self-care (01) ==
PROVIDERS: PCP Nurse Practitioner Family; Visit Provider Advanced Practice Midwife
DX: R21 Rash and other nonspecific skin eruption (principal)
CPT/HCPCS: 99213

== ENCOUNTER 2023-10-31 08:38 | Outpatient (REF) | payer OTHER, SELFPAY ==
[2023-11-01 12:19] LABS: BV Int Neg Control Negative (Negative); BV Int Pos Control Positive (Positive)
== END 2023-10-31 08:39 | disposition home or self-care (01) ==
LOC: HO.LNP 08:38
PROVIDERS: PCP Nurse Practitioner Family; Visit Provider Advanced Practice Midwife
DX: N89.8 Other specified noninflammatory disorders of vagina (principal); R21 Rash and other nonspecific skin eruption
CPT/HCPCS: 87480; 87510; 87660; 99212

== ENCOUNTER 2023-11-07 10:23 | Outpatient (AMB) | payer OTHER, SELFPAY ==
--- NOTE | 2023-11-07 10:27 | MHC.PC.OV ---
Vital Signs 11/07/23 10:30 Height 5 ft 5 in Weight 178 lb 6 oz BMI 29.7 BP 110/74 Blood Pressure Location Lt brachial Position Sitting Pulse 63 Pulse Source Pulse Oximeter Pulse Oximetry (%) 99 Oxygen Delivery Method Room Air Intake Visit Reasons: Annual PE Intake Note: Patient here for physical exam. pt would like to talk about headaches that she has been having daily. mammo: 2023 due 2024 Allergies cat dander Allergy (Unknown, Verified 11/07/23 10:30) Unknown cyclobenzaprine Allergy (Unknown, Verified 11/07/23 10:30) pruritus morphine [MORPHINE] Allergy (Unknown, Verified 11/07/23 10:30) RASH,HIVES,SOB, rash, hives, SOB, rash, hives, SOB Penicillins [PENICILLINS] Allergy (Unknown, Verified 11/07/23 10:30) RASH,HIVES prazosin [PRAZOSIN] Allergy (Unknown, Verified 11/07/23 10:30) INCREASED HEADACHES, increase/worsened headaches, increase/worsened headaches strawberry [STRAWBERRY] Allergy (Unknown, Verified 11/07/23 10:30) RASH nickel Allergy (Verified 11/07/23 10:30) Rash Butrans Allergy (Unknown, Uncoded 11/07/23 10:30) loss of consciousness, swelling, rash Cortisone Allergy (Unknown, Uncoded 11/07/23 10:30) unknown Rozerem Adverse Reaction (Unknown, Uncoded 11/07/23 10:30) rash/memory loss Medication List - Last Reconciled 11/07/23 by ROGER Avila-BC alclometasone 0.05% appl topical amlodipine 5 mg PO DAILY ammonium lactate 12% 1 appl topical BID aspirin 81 mg PO DAILY atorvastatin 20 mg PO DAILY baclofen 10 mg PO BID betamethasone valerate 0.1% appl topical DAILY budesonide DR-ER 9 mg (3 x 3 mg) PO DAILY cetirizine 10 mg PO DAILY cholecalciferol (vitamin D3) 25 mcg PO DAILY clotrimazole-betamethasone 1-0.05 % 1 appl topical BID 7 days duloxetine 20 mg PO DAILY hydroxyzine pamoate 25 mg PO DAILY PRN levothyroxine 75 mcg PO DAILY lidocaine 5% 1 patch topical DAILY PRN 30 days linaclotide (Linzess) 290 mcg PO QAM 30 days lorazepam (Ativan) 1 mg PO BEDTIME PRN methylcellulose (laxative) 1,000 mg (2 x 500 mg) PO DAILY metoprolol succinate ER (Toprol XL) 50 mg PO DAILY metronidazole 500 mg PO BID 7 days mirtazapine 30 mg PO BEDTIME mirtazapine 15 mg PO BEDTIME nystatin 1 appl topical TID pantoprazole 40 mg PO BID sertraline 100 mg PO DAILY simethicone 180 mg PO QID 30 days ubrogepant (Ubrelvy) 50 - 100 mg (0.5 - 1 x 100 mg) PO ONCE PRN 30 days Tobacco use date assessed: 08/01/23 Fall risk assessment: 2 + Falls in past year Last assessed Fall Risk: 11/07/23 Dental Screening Dental Screen Date: 08/01/23 HPI Annual PE HPI Details Pt is here for a PE. Will order labs. Colon screen is up to date. Mammo is up to date. 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 Pt follows up with cardiology and GI. Pt c/o ongoing frequent headaches. She saw neurology for this in the past but is no longer seeing them. It was believed that pt's headaches are related to her spine. She is seeing [facility] and will be seeing endo. [facility] Medical History Hepatic steatosis Chronic tension headache Lumbar spondylosis Dyslipidemia Gastritis Diastolic murmur Positive ANASTACIO (antinuclear antibody) Tubular adenoma Hx of diverticulitis of colon Bunion of unspecified foot History of anxiety Depression Hypertension Shoulder pain Migraine Prediabetes Chronic low back pain Hypothyroid History of TIAs Surgical History History of esophagogastroduodenoscopy (EGD) Hx of colonoscopy H/O rectal polypectomy Hx of breast reduction, elective History of hysterectomy History of back surgery Family History Father CVD (cardiovascular disease) ETOHism Myocardial infarct Mother CVD (cardiovascular disease) Myocardial infarct Maternal Aunt History of breast cancer Brother History of cancer of unknown primary site Other Mental health disorder Substance use disorder Social History (Reviewed 11/07/23 @ 10:55 by JOCELYNE AvilaMargarita Household Members: None Housing: Apartment Alcohol intake: current Alcohol intake frequency: does not drink Patient Tobacco Use Status: Never used Tobacco e-Cigarette/Vaping Use: Never Used Current occupational status: disabled Cognitive needs: No Hearing needs: No Vision needs: No Female Reproductive History Menstrual Age of Menarche: 8 Questionnaire Thrive Questionnaire Date Thrive assessed: 09/21/21 AUDIT C Alcohol Use Questionnaire (AUDIT-C) 1. How often do you have a drink containing alcohol?: Never 3. How often do you have six or more drinks on one occasion?: Never Total Score: 0 Score Reviewed/Action Taken: No MARTI-7 AMB Questionnaire MARTI-7 Date MARTI - 7 assessed: 08/01/23 Source: Developed by Drs. Jarad Mo, Karyn Alba, Salvador Saldana and colleagues, with an educational irwin from [employer]. Review of Systems Const Denies chills, Denies fever(s) and Reports headache(s) Eyes Denies blurry vision ENT Denies vertigo, Denies dizziness, Reports headache(s) and Denies sore throat Card Denies chest pain at rest, Denies chest pain with activity, Denies diaphoresis, Denies dyspnea and Denies dyspnea on exertion Resp Denies cough, Denies dyspnea, Denies dyspnea on exertion and Denies wheezing GI Denies abdominal pain, Denies melena, Denies hematochezia, Denies constipation, Denies diarrhea and Denies loose stools Denies hematuria Musc Denies numbness and Denies tingling Skin/Breast Denies lesions Neuro Denies vertigo, Denies dizziness, Reports headache(s), Denies numbness and Denies tingling Psych Denies anxiety, Denies depression, Denies homicidal ideation, Denies suicidal ideation and Denies other (substance abuse) Aller/Immun Denies wheezing Physical exam (Primary Care) Vital Signs: Last Vital Signs Pulse 63 11/07/23 10:30 BP 110/74 11/07/23 10:30 Pulse Ox 99 11/07/23 10:30 Oxygen Delivery Method Room Air 11/07/23 10:30 BMI result Body Mass Index 29.7 Tobacco/Smoking Status: Tobacco use Status Tobacco use date assessed 08/01/23 11/07/23 10:29 Patient Tobacco Use Status Never used Tobacco 11/07/23 10:29 e-Cigarette/Vaping Use Never Used 11/07/23 10:29 Thrive Assessment: Date of Thrive Assessment Date Thrive assessed 09/21/21 11/07/23 10:29 Const General: cooperative Nutritional Appearance: well nourished Orientation/consciousness: patient oriented x3 HENMT Head: Yes normal to inspection, Yes normocephalic and Yes atraumatic Ears: TM's normal bilaterally Eyes General: appearance normal, both eyes and all related structures Alignment and Position: alignment normal and position normal Neck Neck: Yes normal visual inspection and Yes no lymphadenopathy Thyroid: Thyroid normal Resp Effort & Inspection: normal respiratory effort Auscultation: clear to auscultation bilaterally Cardio Rate: regular rate Rhythm: regular rhythm Heart sounds: S1 normal heart sound present, S2 normal heart sound present and no murmurs GI Palpation (GI): Soft to palpation and nontender Auscultation: normal bowel sounds Skin Rashes: no rashes Neuro General: patient oriented x3, moves all extremities, no focal motor deficits and deep tendon reflexes 2+ bilaterally Romberg Test: Negative Psych Appearance: grossly normal Mental Status: mental status grossly normal Speech and movement: Normal speech and movement present Affect: normal affect Attitude: cooperative Thought process: Normal thought process present Thought content: Normal thought content present Insight: Good insight present (Psych) Judgement: Good judgement present (Psych) Assessment and Plan Assessment & Plan (1) Physical exam: Code(s): Z00.00 - Encounter for general adult medical examination without abnormal findings Plan: Labs ordered Plan The patient agreed to the use of a biomedical engineering technologist for this encounter. Scribed for JOCELYNE Mtz by Jackie Galo biomedical engineering technologist, on 11/07/2023 at 10:40 EST. Orders: Orders UA CC w/rflx Micro + Cult Today Z00.00 - Encounter for general adult medical examination without abnormal findings Lipid Panel Today Z00.00 - Encounter for general adult medical examination without abnormal findings Vitamin D 25-OH Total Today Z00.00 - Encounter for general adult medical examination without abnormal findings Complete Blood Count Auto Diff Today Z00.00 - Encounter for general adult medical examination without abnormal findings Comprehensive [place]. Panel Fast Today Z00.00 - Encounter for general adult medical examination without abnormal findings TSH reflex Free T4 Today Z00.00 - Encounter for general adult medical examination without abnormal findings XR DEXA axial skeleton Today Z00.00 - Encounter for general adult medical examination without abnormal findings Medications: New lidocaine 5% leave on most painful area for up to 12 hrs 1 patch topical DAILY 30 days PRN 30 ea 0RF pain Coding Level of Care Code Est Pt Prev Care 40-64y(46016) Diagnoses Physical exam Z00.00
[2023-11-07 10:30] VITALS: BP 110/74; PULSE 63; O2SAT 99; BMI 29.7
== END 2023-11-07 11:03 | disposition home or self-care (01) ==
PROVIDERS: PCP Nurse Practitioner Family; Visit Provider Nurse Practitioner Family
DX: Z00.00 Encounter for general adult medical examination without abnormal findings (principal)
CPT/HCPCS: 99396

== ENCOUNTER 2023-11-12 09:24 | Outpatient (REF) | payer OTHER, SELFPAY ==
[2023-11-12 13:20] LABS: Appearance Urine Clear; Color Urine Dark Yellow; Glucose Urine UA Negative (Negative); Leukocyte Esterase Urine Small (1+) (Negative); Nitrite Urine Negative (Negative); PH 6.5 (5.0-9.0); UMIC TRIGGER UACC YES; Urine Blood Negative (Negative); Urine Ketones Trace mg/dL (Negative); Urine Protein Negative (Neg-Trace)
[2023-11-12 13:23] LABS: MANUAL DIFF FLAG NO
[2023-11-12 13:29] LABS: Basophils Percent Auto 0.4 % (0-2); Eosinophils Absolute Auto 0.2 X10*3/uL (0.0-0.4); Eosinophils Percent Auto 2.4 % (0-4); Hematocrit 41.6 % (37.0-47.0); Hemoglobin 12.9 g/dl (12.0-16.0); Imm Gran Abs Auto 0.02 X10*3/uL (0.00-0.03); Imm Gran Pct Auto 0.3 % (0.0-0.4); Lymphocytes Absolute Auto 2.6 X10*3/uL (1.2-4.9); Lymphocytes Percent Auto 37.9 % (20-40); Mean Corpuscular Hemoglobin 27.1 pg (27.0-33.0); Mean Corpuscular Volume 87.4 fL (80.0-98.0); Mean Platelet Volume 10.6 fL (9.4-12.3); Monocytes Absolute Auto 0.6 X10*3/uL (0.1-1.2); Monocytes Percent Auto 8.5 % (2-11); Neutrophils Absolute Auto 3.4 x10*3/uL (2.0-8.3); Neutrophils Percent Auto 50.5 % (45-73); Platelet Count 204 X10*3/uL (160-400); Red Blood Count 4.76 X10*6/uL (4.20-5.50); Red Cell Distribution Width 14.6 % (11.0-16.0); White Blood Count 6.7 X10*3/uL (4.8-10.8)
[2023-11-12 13:39] LABS: Bacteria Urine Trace (None Seen); Hyaline Casts Urine 0-2 /LPF (0-2); RBC Urine 0-2 /HPF (0-2); UACC Culture Trigger YES; WBC Urine 0-5 /HPF (0-5)
[2023-11-12 14:18] LABS: Alanine Aminotransferase 40 U/L (0-31); Albumin Level 3.9 g/dL (3.5-5.0); Alkaline Phosphatase 80 U/L (39-117); Anion Gap 11 (12-20); Aspartate Amino Transferase 38 U/L (5-31); Bilirubin Total 0.4 mg/dL (0.0-1.0); Blood Urea Nitrogen 16 mg/dL (9-16); Calcium 9.5 mg/dL (8.4-10.2); Carbon Dioxide 29 mmol/L (22-29); Chloride 108 mmol/L (96-108); Cholesterol 110 mg/dL (<200); Estimated Glomerular Filt Rate > 60; Glucose Fasting 90 mg/dL (60-99); HDL Cholesterol 54 mg/dL (>40); LDL Cholesterol Calculated 43 mg/dL (<100); Potassium 4.8 mmol/L (3.3-5.1); Sodium 143 mmol/L (135-145); TSH reflex Free T4 3.72 uIU/mL (0.32-4.0); Total Protein 7.1 g/dL (6.5-8.0); Triglycerides 65 mg/dL (<150); Vitamin D 25-OH Total 30.1 ng/mL (>30)
== END 2023-11-12 09:25 | disposition home or self-care (01) ==
LOC: HO.HMGCLDS 09:24
PROVIDERS: PCP Nurse Practitioner Family; Visit Provider Nurse Practitioner Family
DX: Z00.00 Encounter for general adult medical examination without abnormal findings (principal); Z13.6 Encounter for screening for cardiovascular disorders; R82.90 Unspecified abnormal findings in urine
CPT/HCPCS: 36415; 80053; 80061; 81001; 82306; 84443; 85025; 87086

== ENCOUNTER 2023-12-31 10:53 | Outpatient (REF) | payer OTHER, SELFPAY ==
--- NOTE | ~2023-12-31 | MM_ITS ---
EXAMINATION: BONE DENSITOMETRY CLINICAL INDICATION: Osteopenia. COMPARISON: This is the patient's baseline examination. TECHNIQUE: Using a [employer] DXA System (software version: 13.1) manufactured by [employer], dual-energy x-ray absorptiometry was performed of the lumbar spine and left hip. The images are of good technical quality. Summary results are attached. FINDINGS: LEFT FEMUR, NECK: BMD 0.719 g/cm2, Z-score -1.2, T-score -2.3, osteopenia. LEFT FEMUR, TOTAL: BMD 0.754 g/cm2, Z-score -1.2, T-score -2.0, osteopenia. AP SPINE L1-L4: BMD 1.118 g/cm2, Z-score 0.5, T-score -0.5, normal. IDENTIFIED RISK FACTORS: Early menopause, bilateral oophorectomy, hysterectomy, recurrent falls, secondary osteoporosis (hyperthyroidism). HISTORY OF FRACTURE: None listed. MEDICATIONS: Calcium, vitamin D. MM/XR DEXA axial skeleton IMPRESSION: 1. DIAGNOSIS: Osteopenia based on the lowest T-score value of -2.3 in the femoral neck applying World Health Organization criteria. 2. 10-YEAR FRACTURE RISK PREDICTION, FRAX: Major osteoporotic fracture (clinical spine, forearm, hip or shoulder) 6.6%. Hip fracture 1.2%. 3. Treatment Recommendations: NOF guidelines recommend consideration for treatment in postmenopausal women and men age 50 and older presenting with the following: -A hip or vertebral (clinical or morphometric) fracture. -T-score less than or equal to -2.5 at the femoral neck or spine after appropriate evaluation to exclude secondary causes. -Low bone mass at the hip or spine and a 10-year fracture probability by FRAX of greater than or equal to 3% for hip fracture or greater than or equal to 20% for major osteoporotic fracture based on the [place] adapted WHO algorithm. 4. Other Recommendations: All treatment decisions require clinical judgment and consideration of individual patient factors, including patient preferences, comorbidities, previous drug use, risk factors not captured in the FRAX model (e.g. frailty, falls, vitamin D deficiency, increased bone turnover, interval significant decline in bone density) and possible under or overestimation of fracture risk by FRAX. Additional medical evaluation for secondary cause of low bone mineral density may be appropriate. FUTURE SCAN RECOMMENDATION: People with diagnosed cases of osteoporosis or at high risk for fracture should have regular bone mineral density tests. For patients eligible for Medicare, routine testing is allowed once every 2 years. The testing frequency can be increased to one year for patients who have rapidly progressing disease, those who are receiving or discontinuing medical therapy to restore bone mass, or have additional risk factors.
== END 2023-12-31 10:54 | disposition home or self-care (01) ==
LOC: HO.MAMMO 10:53
PROVIDERS: PCP Nurse Practitioner Family; Visit Provider Nurse Practitioner Family
DX: Z13.820 Encounter for screening for osteoporosis (principal); M85.9 Disorder of bone density and structure, unspecified; Z78.0 Asymptomatic menopausal state
CPT/HCPCS: 77080

== ENCOUNTER 2024-01-20 10:28 | Outpatient (REF) | payer OTHER, SELFPAY ==
--- NOTE | ~2024-01-20 | XR_ITS ---
EXAMINATION: XR SHOULDER, RIGHT CLINICAL INFORMATION: Shoulder pain COMPARISON: None available. TECHNIQUE: Two views of the right shoulder. FINDINGS: Mild acromioclavicular arthritis. Humeral head articulates with the glenoid. There is inferior humeral head spurring. Limited evaluation of the glenohumeral joint space in the provided views. No acute fracture or dislocation. No abnormal soft tissue calcification. There is a partially imaged stimulator device projected over the thoracolumbar spine. XR/XR shoulder RT min 2V IMPRESSION: Mild glenohumeral joint arthritis. Mild acromioclavicular arthritis.
== END 2024-01-20 10:29 | disposition home or self-care (01) ==
LOC: HO.XRAY 10:28
PROVIDERS: PCP Nurse Practitioner Family; Visit Provider Student in an Organized Health Care Education/Training Program
DX: M75.41 Impingement syndrome of right shoulder (principal)
CPT/HCPCS: 73030

== ENCOUNTER 2024-03-17 08:40 | Outpatient (AMB) | payer MEDICARE, MEDICAID, SELFPAY ==
--- NOTE | 2024-03-17 08:52 | MHC.OFFVIS ---
Vital Signs 03/17/24 08:53 Height 5 ft 5 in Weight 180 lb 5.41 oz BMI 30.0 BP 138/62 Blood Pressure Location Lt brachial Position Sitting Pulse 55 Intake Visit Reasons: 6 month follow up Intake Note: Tram presents to in office today in 6 months follow up of GERD and CIC. CC: Patient reports that she went to see endocrinology on 03/09 and was ordered to have some bloodwork. Patient reports nausea and vomiting recently but she sates she believes is related to migraines, because her migraines are worst. She states that she feels like she is gaining too much weight and she is not eating much. Denies other GI concerns today. Field Education Director Required: Yes Accompanied by: WAITSTAFF Allergies buprenorphine [From Butrans] Allergy (Severe, Verified 03/17/24 09:02) Anaphylaxis cat dander Allergy (Unknown, Verified 03/17/24 09:02) Unknown cortisone Allergy (Unknown, Verified 03/17/24 09:02) Unknown cyclobenzaprine Allergy (Unknown, Verified 03/17/24 09:02) pruritus morphine [MORPHINE] Allergy (Unknown, Verified 03/17/24 09:02) RASH,HIVES,SOB, rash, hives, SOB, rash, hives, SOB Penicillins [PENICILLINS] Allergy (Unknown, Verified 03/17/24 09:02) RASH,HIVES prazosin [PRAZOSIN] Allergy (Unknown, Verified 03/17/24 09:02) INCREASED HEADACHES, increase/worsened headaches, increase/worsened headaches strawberry [STRAWBERRY] Allergy (Unknown, Verified 03/17/24 09:02) RASH nickel Allergy (Verified 03/17/24 09:02) Rash Rozerem Adverse Reaction (Unknown, Uncoded 11/07/23 10:30) rash/memory loss HPI HPI 6 month follow up: Details: Assessment & Plan (1) GERD (gastroesophageal reflux disease): Code(s): K21.9 - Gastro-esophageal reflux disease without esophagitis (2) Chronic idiopathic constipation: Code(s): K59.04 - Chronic idiopathic constipation (3) Hepatic steatosis: Comment: Baseline labs: 07/2019 ast/alt 42/52 alk phos 126 remainder normal, normal CBC, neg Hep A, B and C, ANASTACIO elevated 1:320 homogenous, negative autoimmune work up and neg hemochromatosis screen AFP 2.2, ferritin 32, total bilirubin 0.7 with directed 0.2 * CURRENT LABS 08/21/22 WBC 6.9 Hgb 12.3 Hct 39.2 MCV 83.1 MCH 26.1 L Plt Count 185 Estimated GFR > 60 Total Bilirubin 1.1 H AST 29 ALT 51 H Alkaline Phosphatase 135 H Alpha Fetoprotein 2.3 TSH 2.64 ULTRASOUND OF THE ABDOMEN 10/24/22 IMPRESSION: Slightly echogenic liver probably representing fatty infiltration. Pancreas not well visualized. Code(s): K76.0 - Fatty (change of) liver, not elsewhere classified (4) Pituitary cyst: Code(s): E23.6 - Other disorders of pituitary gland (5) Elevated insulin-like growth factor 1 (IGF-1) level: Code(s): R79.89 - Other specified abnormal findings of blood chemistry (6) Jesika infection of flexural skin: Code(s): B37.2 - Candidiasis of skin and nail (7) Family history of colon cancer: Comment: brother age 42 Code(s): Z80.0 - Family history of malignant neoplasm of digestive organs Plan [place] #Hannah Live She is agreeable to a 10 year follow-up. The procedure was well tolerated. The results were explained and the patient is agreeable to the follow-up interval as stated. The bowel pattern has returned to normal. Education was provided to tell any 1st degree relatives about their findings to be sure that they are screened by age 45. Educated that they will be put on a recall list when it is time for their repeat scope but should they move out of state or away from the hospital they will need to remember along with their primary to repeat the procedure in a timely fashion to avoid any adverse complications. She has a cold today. She says I have an eating disorder, I have gained a lot of weight. She seems to have a large appetite and eats a lot at night. However, review of her past visits shows only a 3-5lb wt gain. We review the labs, she has not yet seen neurology about the pituitary mass found on brain MRI. Given her elevated insulin like growth factor, I think she should be seen by an rn provider relations for more definitive work up. She continues to c/o dizziness and disorientation. We had reduced the budesinide to see if this helped the dizziness, she has weaned down to 1 a day. This had helped with her gas and bloating, but now it has returned. Her fecal calprotectin was elevated, but the colonoscopy looked normal. I want her to start weaning to be off of this and see how she does. Her BM's are normal and formed. I will give her simethicone for the bloating. She was just started on a migraine preventative medication because her STACK's have been very severe. This has helped her migraines, but not the pain at the base of her head at the neck. 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 She shows me a rash on her skin that appears to be Jesika so I will prescribe some nystatin. I am also referring her to endocrinology for her workup. Will try starting her on simethicone because she feels quite bloated as we wean her off of budesonide. Return office visit in 8 weeks Orders: Referrals Endocrinology Referral E23.6 - Other disorders of pituitary gland, R79.89 - Other specified abnormal findings of blood chemistry Medications: New simethicone after meals 180 mg PO QID 120 caps 3RF 30 days nystatin 1 appl topical TID 30 grams 0RF B37.2 - Candidiasis of skin and nail TODAY'S VISIT [place] #WAITSTAFF translates per pt request (sissy) She tells me she has been seeing the endocriniolgist and they are investigating a possible pituitary lesion. She is having severe STACK's and vomiting. CIC and GERD well controlled with Linzess, bisacodyl p.r.n., simethicone, and pantoprazole twice a day. She is due for monitoring for transaminitis and I will get labs and an ultrasound. Return office visit in 6 months. [facility] Medical History Hepatic steatosis Chronic tension headache Lumbar spondylosis Dyslipidemia Gastritis Diastolic murmur Positive ANASTACIO (antinuclear antibody) Tubular adenoma Hx of diverticulitis of colon Bunion of unspecified foot History of anxiety Depression Hypertension Shoulder pain Migraine Prediabetes Chronic low back pain Hypothyroid History of TIAs Surgical History History of esophagogastroduodenoscopy (EGD) Hx of colonoscopy H/O rectal polypectomy Hx of breast reduction, elective History of hysterectomy History of back surgery Family History Father CVD (cardiovascular disease) ETOHism Myocardial infarct Mother CVD (cardiovascular disease) Myocardial infarct Maternal Aunt History of breast cancer Brother History of cancer of unknown primary site Other Mental health disorder Substance use disorder Social History Household Members: None Housing: Apartment Alcohol intake: current Alcohol intake frequency: does not drink Patient Tobacco Use Status: Never used Tobacco e-Cigarette/Vaping Use: Never Used Current occupational status: disabled Cognitive needs: No Hearing needs: No Vision needs: No Female Reproductive History Menstrual Age of Menarche: 8 Review of Systems Const Denies fatigue, Denies fever(s), Reports headache(s), Denies night sweats, Reports poor appetite, Reports weight gain and Denies weight loss Eyes Details: glasses Reports requires corrective lenses ENT Reports Normal hearing present, Denies dental pain, Denies dysphagia, Reports dizziness, Reports headache(s), Denies hearing loss, Denies mouth pain, Denies odynophagia, Denies throat swelling, Denies tongue swelling and Reports other (Dentition adequate) Card Reports leg edema Resp Reports no additional complaints GI Details: Denies abdominal pain, Denies melena, Reports bloating, Denies hematochezia, Reports constipation, Denies GI cramping, Denies dysphagia, Denies excessive flatus, Denies early satiety, Reports heartburn, Denies diarrhea, Reports nausea, Denies odynophagia, Reports vomiting and Denies hematemesis Skin/Breast Denies pruritus, Denies lesions, Denies rash and Denies jaundice Neuro Reports Normal hearing present, Denies Abnormal speech present, Reports dizziness, Reports headache(s) and Reports memory loss Psych Reports memory loss Endo Denies fatigue Aller/Immun Denies throat swelling and Denies tongue swelling Physical Exam Vital Signs: Last Vital Signs Pulse 55 03/17/24 08:53 BP 138/62 03/17/24 08:53 BMI result Body Mass Index 30.0 Const General: cooperative, no acute distress, well developed and well groomed Nutritional Appearance: well nourished and obese Orientation/consciousness: oriented to person, oriented to place and oriented to time Limitations: language barrier HEENT Head: Yes normocephalic and Yes atraumatic Eyes General: appearance normal, both eyes and all related structures Pupils: Equal, round and reactive pupils present Neck Neck: Yes normal visual inspection and Yes no lymphadenopathy Thyroid: Thyroid normal Resp Effort & Inspection: normal respiratory effort and able to speak in complete sentences Auscultation: clear to auscultation bilaterally Cardio Rate: regular rate Rhythm: regular rhythm Heart sounds: Normal, physiologic split S2 sound present Peripheral pulses: radial pulses present and posterior tibial pulses present GI Inspection: No distended, No Abdominal panniculus present and Yes obesity Palpation (GI): Soft to palpation, nontender, no guarding, not rigid and No hepatosplenomegaly present Percussion: Yes normal to percussion Auscultation: normal bowel sounds Rectal Exam - Female: deferred Skin General skin exam: no rashes or lesions noted, turgor normal, skin not dry, no jaundice, No spider nevi and no striae Rashes: no rashes Nails: normal Neuro General: oriented to person, oriented to place and oriented to time Cranial nerves: Yes Equal, round and reactive pupils present and Yes Normal hearing present Speech: No Abnormal speech present Extrem General: Yes normal to inspection, No clubbing, No cyanosis and No edema Psych Appearance: grossly normal and well kempt Mental Status: mental status grossly normal Speech and movement: Normal speech and movement present Affect: normal affect Attitude: cooperative Thought process: Normal thought process present and not confabulating Thought content: Normal thought content present Insight: Limited insight present (Psych) Judgement: Limited judgement present (Psych) Assessment & Plan Assessment & Plan (1) Chronic idiopathic constipation: Code(s): K59.04 - Chronic idiopathic constipation Category: Medical (2) GERD (gastroesophageal reflux disease): Code(s): K21.9 - Gastro-esophageal reflux disease without esophagitis Category: Medical (3) Hepatic steatosis: Comment: Baseline labs: 07/2019 ast/alt 42/52 alk phos 126 remainder normal, normal CBC, neg Hep A, B and C, ANASTACIO elevated 1:320 homogenous, negative autoimmune work up and neg hemochromatosis screen AFP 2.2, ferritin 32, total bilirubin 0.7 with directed 0.2 * CURRENT LABS 08/21/22 WBC 6.9 Hgb 12.3 Hct 39.2 MCV 83.1 MCH 26.1 L Plt Count 185 Estimated GFR > 60 Total Bilirubin 1.1 H AST 29 ALT 51 H Alkaline Phosphatase 135 H Alpha Fetoprotein 2.3 TSH 2.64 ULTRASOUND OF THE ABDOMEN 10/24/22 IMPRESSION: Slightly echogenic liver probably representing fatty infiltration. Pancreas not well visualized. Code(s): K76.0 - Fatty (change of) liver, not elsewhere classified Category: Medical Plan [place] #WAITSTAFF translates per pt request (sissy) She tells me she has been seeing the endocriniolgist and they are investigating a possible pituitary lesion. She is having severe STACK's and vomiting. CIC and GERD well controlled with Linzess, bisacodyl p.r.n., simethicone, and pantoprazole twice a day. She is due for monitoring for transaminitis and I will get labs and an ultrasound. Return office visit in 6 months. Orders: Orders US abdomen complete Today K76.0 - Fatty (change of) liver, not elsewhere classified Alpha Fetoprotein Today K76.0 - Fatty (change of) liver, not elsewhere classified Comprehensive Met. Panel Today K76.0 - Fatty (change of) liver, not elsewhere classified Medications: New bisacodyl 10 mg (2 x 5 mg) PO BEDTIME 60 tabs 3RF K21.9 - Gastro-esophageal reflux disease without esophagitis, K59.04 - Chronic idiopathic constipation Refilled simethicone after meals 180 mg PO QID 30 days 120 caps 6RF pantoprazole 40 mg PO BID 60 tabs 6RF linaclotide (Linzess) 290 mcg PO QAM 30 days 30 caps 6RF Coding Level of Care Code Est Pt Level 3 (87528) Diagnoses Chronic idiopathic constipation K59.04 GERD (gastroesophageal reflux disease) K21.9 Hepatic steatosis K76.0
[2024-03-17 08:53] VITALS: BP 138/62; PULSE 55
== END 2024-03-17 09:46 | disposition home or self-care (01) ==
PROVIDERS: PCP Nurse Practitioner Family; Visit Provider Nurse Practitioner
DX: K59.04 Chronic idiopathic constipation (principal); K21.9 Gastro-esophageal reflux disease without esophagitis; K76.0 Fatty (change of) liver, not elsewhere classified
CPT/HCPCS: 99213

== ENCOUNTER → 2024-03-17 08:40 | Outpatient (BNVA) | payer MEDICARE, MEDICAID, SELFPAY | PROVIDERS: PCP Nurse Practitioner Family; Visit Provider Nurse Practitioner | DX: K59.04 Chronic idiopathic constipation (principal); K21.9 Gastro-esophageal reflux disease without esophagitis; K76.0 Fatty (change of) liver, not elsewhere classified | CPT/HCPCS: 99212 ==

== ENCOUNTER 2024-04-03 08:29 | Outpatient (REF) | payer MEDICARE, OTHER, SELFPAY ==
--- NOTE | ~2024-04-03 | US_ITS ---
EXAMINATION: US ABDOMEN COMPLETE CLINICAL INFORMATION: Fatty change of liver, not elsewhere classified. COMPARISON: Ultrasound abdomen complete 06/25/2023. X-ray abdomen 11/01/2022. Limited abdominal ultrasound 10/18/2022. CT abdomen and pelvis 01/23/2018. TECHNIQUE: Real-time imaging of the abdominal viscera. FINDINGS: PANCREAS: The visualized pancreas appears unremarkable but the pancreatic tail is obscured by bowel gas. ABDOMINAL AORTA: The proximal, mid, and distal segments are normal in caliber. INFERIOR VENA CAVA: Visualized portions are normal. LIVER: The liver is normal in size. The liver contour is normal. Parenchymal echogenicity is normal. No focal hepatic lesion. There is no intrahepatic biliary duct dilatation seen. GALLBLADDER: m The gallbladder is physiologically distended without evidence of stones, sludge, polyps, wall thickening or pericholecystic fluid. COMMON BILE DUCT: Normal in caliber measuring 0.5 cm in diameter. RIGHT KIDNEY: Normal. No hydronephrosis. No renal calculi or focal parenchymal lesions. The kidney measures 10.3 cm in maximum dimension. LEFT KIDNEY: Normal. No hydronephrosis. No renal calculi or focal parenchymal lesions. The kidney measures 10.1 cm in maximum dimension. SPLEEN: Normal. The spleen measures 8.3 cm in maximum dimension. FREE FLUID: None. US/US abdomen complete IMPRESSION: Negative exam. Electronically signed by: Aguila Mann MD 04/08/2024 05:05 PM EDT
[2024-04-03 14:08] LABS: Alanine Aminotransferase 20 U/L (0-31); Albumin Level 4.3 g/dL (3.5-5.0); Alkaline Phosphatase 89 U/L (39-117); Anion Gap 12 (12-20); Aspartate Amino Transferase 24 U/L (5-31); Bilirubin Total 0.6 mg/dL (0.0-1.0); Blood Urea Nitrogen 13 mg/dL (9-16); Calcium 10.2 mg/dL (8.4-10.2); Carbon Dioxide 32 mmol/L (22-29); Chloride 107 mmol/L (96-108); Estimated Glomerular Filt Rate 57; Glucose Random 92 mg/dL (60-115); Potassium 4.6 mmol/L (3.3-5.1); Sodium 146 mmol/L (135-145); Total Protein 7.6 g/dL (6.5-8.0)
[2024-04-06 13:08] LABS: Alpha Fetoprotein 1.8 ng/mL
== END 2024-04-03 08:30 | disposition home or self-care (01) ==
LOC: HO.HMGCX 08:29
PROVIDERS: PCP Nurse Practitioner Family; Visit Provider Nurse Practitioner
DX: K76.0 Fatty (change of) liver, not elsewhere classified (principal)
CPT/HCPCS: 36415; 76700; 80053; 82105

== ENCOUNTER 2024-04-30 11:47 | Outpatient (REF) | payer OTHER, SELFPAY | END 2024-04-30 11:48 | disposition home or self-care (01) | LOC: HO.MRI 11:47 | PROVIDERS: PCP Nurse Practitioner Family; Visit Provider Nurse Practitioner Family | DX: Z13.89 Encounter for screening for other disorder (principal) ==

== ENCOUNTER 2024-05-06 13:36 | Outpatient (REF) | payer OTHER, SELFPAY ==
--- NOTE | ~2024-05-06 | MR_ITS ---
EXAMINATION: MR BRAIN WITHOUT AND WITH CONTRAST CLINICAL INFORMATION: Disorders of pituitary gland COMPARISON: MRI brain on 11/19/2022 TECHNIQUE: Multiplanar, multisequence MRI of the brain was obtained before and after the intravenous administration of 4.5 mL Gadavist. FINDINGS: The sella is not enlarged. Redemonstration of bilobed/septated cystic lesion within the pituitary fossa the pituitary fossa 1.9 cm in transverse dimensions, unchanged. The lesion extends into the suprasellar region. There is mass effect on the pituitary gland. Leftward deviation of the infundibulum. There is mild involvement of the right cavernous sinus. The optic chiasm and prechiasmatic optic tracts are unremarkable. No abnormal intracranial enhancement. No acute intracranial hemorrhage or infarct. Scattered and confluent periventricular and deep white matter T2/FLAIR hyperintensities, nonspecific however commonly seen with small vessel ischemic disease. No midline shift or hydrocephalus. No acute extra-axial fluid collections. The osseous structures are unremarkable. The pineal gland and remaining midline structures are unremarkable. No orbital pathology. The paranasal sinuses and mastoid air cells are clear. 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 Electronically signed by: Erik Mckay MD 05/07/2024 12:10 PM EDT
[2024-05-06] MEDS: gadobutroL 7.5 ML VIAL IVPUSH (14:39)
== END 2024-05-06 13:37 | disposition home or self-care (01) ==
LOC: HO.MRI 13:36
PROVIDERS: PCP Nurse Practitioner Family; Visit Provider Nurse Practitioner Family
DX: E23.6 Other disorders of pituitary gland (principal); G44.85 Primary stabbing headache
CPT/HCPCS: 70553; A9585

== ENCOUNTER → 2024-05-22 11:14 | Outpatient (REF) | payer OTHER, SELFPAY ==
--- NOTE | 2024-05-22 11:17 | HM_ITS ---
* Total monitoring time 3 days. * Underlying rhythm is sinus with an average rate of 53/Min. About 87% of the time, rate < 60/Min. * Supraventricular ectopy noted with a burden of 1.7%. * Rare ventricular ectopy with minimal burden. * No significant pauses or high-grade AV blocks. * No patient markers or diary events. MTDD
== END ==
LOC: HO.CARD 11:14
PROVIDERS: PCP Nurse Practitioner Family; Visit Provider Internal Medicine
DX: R00.2 Palpitations (principal); I49.8 Other specified cardiac arrhythmias
CPT/HCPCS: 93242

== ENCOUNTER → 2024-05-22 11:17 | Outpatient (BNV) | payer OTHER, SELFPAY | PROVIDERS: PCP Nurse Practitioner Family; Visit Provider Internal Medicine | DX: I47.10 Supraventricular tachycardia, unspecified (principal) | CPT/HCPCS: 93244 ==

== ENCOUNTER 2024-07-17 09:44 | Outpatient (AMB) | payer OTHER, SELFPAY ==
[2024-07-17 09:46] VITALS: BP 144/78; PULSE 51; O2SAT 97; BMI 28.8
--- NOTE | 2024-07-17 09:46 | MHC.OFFVIS ---
Vital Signs 07/17/24 09:46 Height 5 ft 5 in Weight 173 lb 4 oz BMI 28.8 BP 144/78 H Blood Pressure Location Rt brachial Position Sitting Pulse 51 Pulse Source Pulse Oximeter Pulse Oximetry (%) 97 Oxygen Delivery Method Room Air Intake Visit Reasons: Follow Up Procurement Specialist Required: No Accompanied by: Self / Same As Patient Allergies buprenorphine [From Butrans] Allergy (Severe, Verified 07/17/24 09:52) Anaphylaxis cat dander Allergy (Unknown, Verified 07/17/24 09:52) Unknown cortisone Allergy (Unknown, Verified 07/17/24 09:52) Unknown cyclobenzaprine Allergy (Unknown, Verified 07/17/24 09:52) pruritus morphine [MORPHINE] Allergy (Unknown, Verified 07/17/24 09:52) RASH,HIVES,SOB, rash, hives, SOB, rash, hives, SOB Penicillins [PENICILLINS] Allergy (Unknown, Verified 07/17/24 09:52) RASH,HIVES prazosin [PRAZOSIN] Allergy (Unknown, Verified 07/17/24 09:52) INCREASED HEADACHES, increase/worsened headaches, increase/worsened headaches strawberry [STRAWBERRY] Allergy (Unknown, Verified 07/17/24 09:52) RASH nickel Allergy (Verified 07/17/24 09:52) Rash Rozerem Adverse Reaction (Unknown, Uncoded 11/07/23 10:30) rash/memory loss Do you need a note to return to daycare/school/sports/work: No HPI Comments Details: 63-yr-old female presents for f/u visit of stabbing headache and migraine. She was last seen by this provider in January 2023. Pt states she is having worsening headaches and migraines. Pt continues to have constant left lateral occipital region stabbing headache. She continues to have bothersome neck discomfort/tightness. She has chronic LLE weakness s/p stroke. She is noticing that she is not recalling what she is reading as well as she used to. She denies any peripheral vision changes. She has f/u eye exam this month- at [facility] in [place]. 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 Scattered and confluent periventricular and deep white matter T2/FLAIR hyperintensities, nonspecific however commonly seen with small vessel ischemic disease. She is f/b [facility] Endocrinology. When the migraine is worse she is feeling more squeezing and pressure. Migraine is bilateral frontal/top pressure a/w photophobia, phonophobia, nausea, dizziness, disoriented feeling, and activity intolerance. In the past month, she had 2 attacks, lasting 8 days. States she tried but Topiramate, as it caused palpitations. Reports Nurtec was more helpful than the Ubrelvy for the migraine and stabbing headaches.? Previous work-up: 11/19/22, MR/MR head/brain wo/w con IMPRESSION: 1.? No acute intracranial findings. No abnormal intraparenchymal enhancement. 2.? 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 11/30/22, CT/CT cervical spine wo IV con IMPRESSION: ?1.? Mild multilevel cervical spondylosis without significant osseous spinal canal stenosis. Mild to moderate bilateral neural foraminal narrowing at C5-C6. ?2.? Bilateral cervical ribs, larger on the right PFSH Medical History Physical exam Encounter for annual wellness visit (AWV) in Medicare patient Pre-op examination Early satiety Hepatic steatosis Chronic tension headache Lumbar spondylosis Dyslipidemia Gastritis Diastolic murmur Positive ANASTACIO (antinuclear antibody) Tubular adenoma Hx of diverticulitis of colon Bunion of unspecified foot History of anxiety Depression Hypertension Shoulder pain Migraine Prediabetes Chronic low back pain Hypothyroid History of TIAs Surgical History History of esophagogastroduodenoscopy (EGD) Hx of colonoscopy H/O rectal polypectomy Hx of breast reduction, elective History of hysterectomy History of back surgery Family History Father CVD (cardiovascular disease) ETOHism Myocardial infarct Mother CVD (cardiovascular disease) Myocardial infarct Maternal Aunt History of breast cancer Brother History of cancer of unknown primary site Other Mental health disorder Substance use disorder Social History Household Members: None Housing: Apartment Alcohol intake: current Alcohol intake frequency: does not drink Patient Tobacco Use Status: Never used Tobacco e-Cigarette/Vaping Use: Never Used Current occupational status: disabled Cognitive needs: No Hearing needs: No Vision needs: No Female Reproductive History Menstrual Age of Menarche: 8 Physical Exam Vital Signs: Last Vital Signs Pulse 51 07/17/24 09:46 BP 144/78 H 07/17/24 09:46 Pulse Ox 97 07/17/24 09:46 Oxygen Delivery Method Room Air 07/17/24 09:46 BMI result Body Mass Index 28.8 Const General: cooperative and no acute distress Orientation/consciousness: patient oriented x3 HEENT Head: Yes normocephalic Resp Effort & Inspection: normal respiratory effort and able to speak in complete sentences Back/Spine/Pelvis Other: Bilateral posterior cervical tightness. Cervical ROM: limited Neuro Other: Photophobic Gait steady w/ LLE AFO. General: patient oriented x3, gait normal and CN's II-XI intact bilaterally Cognition (Neuro): normal cognition Motor exam (neuro): 5/5 motor strength present throughout Psych Appearance: grossly normal Mental Status: mental status grossly normal Speech and movement: Normal speech and movement present Affect: normal affect Attitude: cooperative Thought process: Normal thought process present Thought content: Normal thought content present Insight: Good insight present (Psych) Judgement: Good judgement present (Psych) Assessment & Plan Assessment & Plan (1) Occipital headache: Code(s): R51.9 - Headache, unspecified Category: Medical (2) Stabbing headache: Code(s): 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 Category: Medical (3) Migraine: Code(s): G43.909 - Migraine, unspecified, not intractable, without status migrainosus Category: Medical (4) Mass in region of sella turcica present on magnetic resonance imaging: Code(s): R93.0 - Abnormal findings on diagnostic imaging of skull and head, not elsewhere classified Category: Medical Plan For sella turcica mass: Follow-up with [facility] Endocrinology as scheduled. For left side locked headache: Trial lamotrigine 25 mg q.h.s. x2 weeks, then 25 mg b.i.d. Pt may benefit from a trial of occipital nerve block and/or adjustment in her Botox regimen. Treatment contraindications: Tegretol and Trileptal due to cyclobenzaprine allergy. For acute migraine without aura treatment: Discontinue Ubrelvy order-not as effective as Nurtec. Resume Nurtec 75 mg ODT at onset of migraine, may repeat in 24 hours. We will need to initiate a new Nurtec prior authorization request. Previous acute tx trials: Reyvow, not tolerated, caused palpitations. Ubrelvy order-not as effective as Nurtec. Tx contraindications: Triptans- h/o stroke, TIA, HTN. For migraine without aura preventive treatment: Try lamotrigine as above. Previous preventive migraine tx trials: Propranolol ER 60mg qhs- ineffective and contraindicated during allergy injection tx. Amitriptyline- not tolerated palpitations, nausea. Topiramate- caused chest discomfort. For memory: Monitor clinically, however if memory does not improve with optimization of migraine and headache control, consider further workup including EEG and labs. Previous HST- WNL. Pt previously declined f/u in-lab PSG. Medications: New lamotrigine 1 tab qhs x's 2 weeks, then 1 tab bid orally daily; 60 tabs 1RF 30 days 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 rimegepant (Nurtec ODT) at onset of migraine, max 1 tab per day 75 mg PO ONCE PRN 16 tabs 6RF migraine headache 30 days Discontinued ubrogepant take at onset of migraine, may repeat in 2hrs (may take w/ Ibuprofen) Discontinued Reason: Doctor's Order 50 - 100 mg (0.5 - 1 x 100 mg) PO ONCE 30 days PRN 16 tabs 3RF migraine headache Coding Level of Care Code Est Pt Level 4 (49903) Diagnoses Occipital headache R51.9 Stabbing headache G44.85 Migraine G43.909 Mass in region of sella turcica present on magnetic resonance imaging R93.0
== END 2024-07-17 11:03 | disposition home or self-care (01) ==
PROVIDERS: PCP Nurse Practitioner Family; Visit Provider Nurse Practitioner Family
DX: R51.9 Headache, unspecified (principal); G44.85 Primary stabbing headache; G43.909 Migraine, unspecified, not intractable, without status migrainosus; R93.0 Abnormal findings on diagnostic imaging of skull and head, not elsewhere classified
CPT/HCPCS: 99214

== ENCOUNTER → 2024-07-17 09:44 | Outpatient (BNVA) | payer MEDICARE, OTHER, SELFPAY | PROVIDERS: PCP Nurse Practitioner Family; Visit Provider Nurse Practitioner Family | DX: G44.85 Primary stabbing headache (principal); G43.909 Migraine, unspecified, not intractable, without status migrainosus; R93.0 Abnormal findings on diagnostic imaging of skull and head, not elsewhere classified; R51.9 Headache, unspecified | CPT/HCPCS: 99212 ==

== ENCOUNTER 2024-07-20 08:55 | Outpatient (REF) | payer OTHER, SELFPAY ==
--- NOTE | ~2024-07-20 | MM_ITS ---
EXAMINATION: MM SCREENING DIGITAL BREAST TOMOSYNTHESIS, BILATERAL CLINICAL INFORMATION: Screening. Asymptomatic. COMPARISON: Mammography: Comparison is made with available priors TECHNIQUE: Digital breast mammography with tomosynthesis is performed in both the craniocaudal and mediolateral oblique views along with computer-aided detection (CAD). FINDINGS: There are scattered areas of fibroglandular density (ACR BI-RADS breast composition Category b). Bilateral reduction mammoplasty. There are no significant masses, abnormal calcifications, or other abnormalities. MM/MM tomosynthesis screening BI IMPRESSION: No mammographic evidence of malignancy. ASSESSMENT: BI-RADS BI-RADS 2 - Benign Findings RECOMMENDATION: Routine annual mammography screening. 1 year F/U This examination should not preclude the clinical evaluation of a suspicious palpable abnormality. This patient's information was entered into a reminder system with a target due date for their next mammogram. Electronically signed by: Araceli Wetzel DO 07/26/2024 05:53 PM ROXANA
== END 2024-07-20 08:56 | disposition home or self-care (01) ==
LOC: HO.MAMMO 08:55
PROVIDERS: PCP Nurse Practitioner Family; Visit Provider Nurse Practitioner Family
DX: Z12.31 Encounter for screening mammogram for malignant neoplasm of breast (principal)
CPT/HCPCS: 77063; 77067

== ENCOUNTER → 2024-07-20 09:15 | Outpatient (BNV) | payer OTHER, SELFPAY | PROVIDERS: PCP Nurse Practitioner Family; Visit Provider Internal Medicine | DX: Z12.31 Encounter for screening mammogram for malignant neoplasm of breast (principal) | CPT/HCPCS: 77063; 77067 ==

== ENCOUNTER 2024-08-12 09:05 | Outpatient (AMB) | payer OTHER, SELFPAY ==
[2024-08-12 09:18] VITALS: BP 116/70; BMI 28.8
--- NOTE | 2024-08-12 09:18 | A.OFFVIS_ITS ---
Vital Signs 3 08/12/24 09:18 Height 5 ft 5 in Weight 173 lb BMI 28.8 BP 116/70 Intake Visit Reasons: Vaginal rash Flight Radio Operator Services: Flight Radio Operator Present Information Interpreted: clinical only Lead Injection Mold Technician: Lead Injection Mold Technician Present Allergies buprenorphine [From Butrans] Allergy (Severe, Verified 08/12/24 09:19) Anaphylaxis cat dander Allergy (Unknown, Verified 08/12/24 09:19) Unknown cortisone Allergy (Unknown, Verified 08/12/24 09:19) Unknown cyclobenzaprine Allergy (Unknown, Verified 08/12/24 09:19) pruritus morphine [MORPHINE] Allergy (Unknown, Verified 08/12/24 09:19) RASH,HIVES,SOB, rash, hives, SOB, rash, hives, SOB Penicillins [PENICILLINS] Allergy (Unknown, Verified 08/12/24 09:19) RASH,HIVES prazosin [PRAZOSIN] Allergy (Unknown, Verified 08/12/24 09:19) INCREASED HEADACHES, increase/worsened headaches, increase/worsened headaches strawberry [STRAWBERRY] Allergy (Unknown, Verified 08/12/24 09:19) RASH nickel Allergy (Verified 08/12/24 09:19) Rash Rozerem Adverse Reaction (Unknown, Uncoded 08/12/24 09:19) rash/memory loss Medication List - Last Reconciled 08/12/24 by Selene Larkin CNM alclometasone 0.05% appl topical amlodipine 5 mg PO DAILY ammonium lactate 12% 1 appl topical BID aspirin 81 mg PO DAILY atorvastatin 20 mg PO DAILY baclofen 10 mg PO BID betamethasone valerate 0.1% appl topical DAILY bisacodyl 5 mg PO BEDTIME budesonide DR-ER 9 mg (3 x 3 mg) PO DAILY cetirizine 10 mg PO DAILY cholecalciferol (vitamin D3) 25 mcg PO DAILY hydroxyzine pamoate 25 mg PO DAILY PRN lamotrigine 1 tab qhs x's 2 weeks, then 1 tab bid orally daily; 30 days [Left leg AFO for nighttime use As directed] levothyroxine 75 mcg PO DAILY linaclotide (Linzess) 290 mcg PO QAM 30 days lorazepam (Ativan) 1 mg PO BEDTIME PRN meloxicam 7.5 mg PO BID methylcellulose (laxative) (Citrucel) 1,000 mg (2 x 500 mg) PO DAILY metoprolol succinate ER (Toprol XL) 50 mg PO DAILY nystatin 1 appl topical TID pantoprazole 40 mg PO BID rimegepant (Nurtec ODT) 75 mg PO ONCE PRN 30 days sertraline 100 mg PO DAILY sertraline 25 mg PO DAILY simethicone 180 mg PO QID 30 days Post menopausal: Yes HPI HPI Vaginal rash: Details: Patient is here because she has a recurrence of a rash in her groin that she had last year in October. She saw Mindy Dahl at that time and she was given a prescription for clotrimazole betamethasone that she said worked for her additionally and she thought it was at the same time but it must have been after the visit those swabs that have been taken came back positive for BV and she was prescribed metronidazole tablets which she also took she said she does not have any vaginal complaints at all neither itching or discharge or malodor and her issue today is only in the groin.. She is accompanied by a her BLUEPRINT DEVELOPER. Patient had a stroke a few years ago and is gradually encouraging the left side of her body to take on more function. [facility] Medical History Physical exam Encounter for annual wellness visit (AWV) in Medicare patient Pre-op examination Early satiety Hepatic steatosis Chronic tension headache Lumbar spondylosis Dyslipidemia Gastritis Diastolic murmur Positive ANASTACIO (antinuclear antibody) Tubular adenoma Hx of diverticulitis of colon Bunion of unspecified foot History of anxiety Depression Hypertension Shoulder pain Migraine Prediabetes Chronic low back pain Hypothyroid History of TIAs Surgical History History of esophagogastroduodenoscopy (EGD) Hx of colonoscopy H/O rectal polypectomy Hx of breast reduction, elective History of hysterectomy History of back surgery Family History Father CVD (cardiovascular disease) ETOHism Myocardial infarct Mother CVD (cardiovascular disease) Myocardial infarct Maternal Aunt History of breast cancer Brother History of cancer of unknown primary site Other Mental health disorder Substance use disorder Social History Household Members: None Housing: Apartment Alcohol intake: current Alcohol intake frequency: does not drink Patient Tobacco Use Status: Never used Tobacco e-Cigarette/Vaping Use: Never Used Current occupational status: disabled Cognitive needs: No Hearing needs: No Vision needs: No Female Reproductive History Menstrual Age of Menarche: 8 control method: none Total pregnancies: 0 Physical Exam Vital Signs: Last Vital Signs BP 116/70 08/12/24 09:18 BMI result Body Mass Index 28.8 Other: External exam there is darkening of the skin in both groin areas and also there was some pink inflammation in parts of the right groin. External exam of the vaginal introitus reveals atrophic vaginal changes but no abnormal discharge patient denies any symptoms in her vaginal area at all so we will defer exam with speculum and cultures as not necessary. Female genitals images: 2 1. Areas of darkened pigmentation blending into pink 2. Areas of darkened pigmentation. Assessment & Plan Assessment & Plan (1) Hx of TIA (transient ischemic attack) and stroke: Code(s): Z86.73 - Personal history of transient ischemic attack (TIA), and cerebral infarction without residual deficits Category: Medical (2) Fungal infection of the groin: Comment: We will re-treat with clotrimazole betamethasone cream to be used twice daily for up to 2 weeks maximum for a recurrence, with refills Code(s): B35.6 - Tinea cruris Category: Medical Plan Reviewed that she has not been on any recent antibiotics. She is not diabetic. Reviewed that this is a very common recurrence and we all have yeast and fungus on our skin and it does prefer areas that become moist so anything she can do to keep her groin area clean and dry which she is endeavoring to do is to the good. We will re-treat with the clotrimazole betamethasone cream that worked well for her last year and I will give her refills and I also gave instructions on limiting its use to only when necessary but it can be we used if she does have a future recurrence. Reviewed the circumstances that contribute to this. There was no need to do vaginal cultures as she has no vaginal symptoms whatsoever she is not sexually active she has no discharge or malodor or itching from vaginal area. Reviewed how well she is doing in her continued recovery from her stroke in trying to become more mobile and not lose function and force her left side to work. Prescription sent to her new [facility] pharmacy with 3 refills; originally prescription went to her old pharmacy- [facility] so it needed to be re sent.. She has an appointment for her annual exam coming up as well as well as appointments with other providers. Medications: Changed 2 From clotrimazole-betamethasone 1-0.05 % apply externally a thin coat to the area as directed 1 appl topical BID 7 days 45 grams 0RF itching To clotrimazole-betamethasone 1-0.05 % apply externally a thin coat to the area as directed, twice daily for 1-2 w maximum at a time....may retreat for a recurrence 1 appl topical BID 7 days 45 grams 3RF itching Refilled 2 clotrimazole-betamethasone 1-0.05 % apply externally a thin coat to the area as directed, twice daily for 1-2 w maximum at a time....may retreat for a recurrence 1 appl topical BID 7 days 45 grams 3RF itching Coding Level of Care Code Est Pt Level 3 (77213) Diagnoses Hx of TIA (transient ischemic attack) and stroke Z86.73 Fungal infection of the groin B35.6
--- OUTSIDE RECORDS SUMMARY | 2024-08-12 10:29 | XMS_ITS | Data Portability ---
Author Organization [facility] [employer] [facility], Main Office Address [address] [place] [address] Care Team Providers Care Eye Dropper Assembler Name Role Phone MARKY BUNN - 2ND FLOOR OTHER Assessment No assessment recorded. Plan of Treatment Reminders Order Date Submit Date Provider Last Modified By Organization Details Last Modified Time Details Appointments None record ed. Lab None record ed. Referral None record ed. Procedures None record ed. Surgeries None record ed. Imaging None record ed. Medication Orders None record ed. Patient TargetsNo targets recorded. Patient InstructionsNo instructions recorded. Reason for Referral None Reported. Problems Name Problem SNOMED Code Status Onset Date Resolution Date Notes Provider Name and Address Organization Details Recorded Time Hemiplegic migraine 55021529 Active 2016 Lizy Duong MD [address] , [address], [place], [address], [facility] Amina 7 21:05:29 Depressive disorder 70936880 Active 2016 Lizy Duong MD [address], [address], [place], [address], [facility] [employer] [facility] 7 21:08:25 Disturbance in speech 32656089 Active 2016 Lizy Duong MD [address] [place] [address], [address], [place], [address], [facility] [employer] [facility] 7 21:08:28 Essential hypertension 50281273 Active 2016 Lizy Duong MD [address], [address], [place], [address], [facility] [employer] [facility] 7 21:08:32 Mixed hyperlipidemia 651585240 Active 2016 Lizy Duong MD [address], [address], [place], [address], [facility] [employer] [facility] 7 21:12:16 Allergic rhinitis 94308156 Active 2016 Lizy Duong MD [address], [address], [place], [address], [facility] [employer] [facility] 7 21:12:45 Gastroesophage al reflux disease without esophagitis 774569989 Active 2016 Lizy Duong MD [address], [address], [place], [address], [facility] [employer] [facility] 7 21:13:12 Acquired hypothyroidism 151418765 Active 2016 Lizy Duong MD [address], [address], [place], [address], [facility] [employer] [facility] 7 21:13:54 History of cerebrovascula r accident 490911784 Active 2016 Lizy Duong MD [address], [address], [place], [address], [facility] [employer] [facility] 7 13:39:33 Problem Notes None recorded. Medical Equipment None Reported. Allergies Allergen ID Allergen Name Allergen Category Reaction Reaction Severity Criticality Documentation Date Start Date Code Code System Note Provider Name and Address Organization Details Recorded Time [id number] 2824e codeine medicatio n Not available Not available Not available 01/13/2017 2670 RxNorm Not Available Not Available Not Available Vitals Date Recorded Heart rate Respiratory rate Body temperature Oxygen saturation Oxygen saturation in Arterial blood by Pulse oximetry Systolic blood pressure Diastolic blood pressure Provider Name and Address Organization Details Last Updated DateTime 7 78 /min 18 /min 98.1 [degF] 98 % 98 % 118 mm[Hg] 70 mm[Hg] Lizy Duong MD [address], [address], [place], [address], [employer] [facility] 7 16:24:20 Social History None recorded. Functional Status None recorded. Mental Status None recorded. Family History Nothing Reported. Medical History No medical history recorded. Gynecological HistoryNo gynecological history recorded. Obstetrics History GPAL:G 0 P 0 0 0 0 Past Encounters Encounter ID Performer Location Encounter Start Date Encounter Closed Date Diagnosis/Indication Diagnosis SNOMED-CT Code Diagnosis ICD10 Code Diagnosis Note [id number] Lizy Duong MD [address] [address] 01/11/2017 16:22:56 01/25/2017 13:57:04 Hemiplegic migraine 53952647 G43.409 Was started on topamax in hospital. Had already been on baclofen and lidocaine patches for back/neck pain. At this time with new sxs as below, being sent back to hospital for further eval. Disturbance in speech 29 140459 R47.89 New speech abnormalit y, hard to describe, part stutter, part word finding difficulti es. Was definitely not present yesterday per nurse who cared for her last night. WIll send back to ED as above. Essential hypertension 21690711 I10 Stable on chlorthali done 25 mg qd. Depressive disorder 3548 9007 F33.1 Had been stable on citalopram 40 mg qd. Sees outpt psych. Consult NEG prn. Mixed hyperlipidemia 267 115550 E78.2 Continue atorvastat in 20 mg qd and ASA 81 mg. Allergic rhinitis 925471 04 J30.2 Continue benadryl prn Gastroesop hageal reflux disease without esophagitis 300838876 K21.9 continue famotidine 20 mg BID Acquired hypothyroidism 969706659 E03.8 TSH good on levothyrox ine 50 mcg qd. Follow [id number] Lizy Duong MD [address] [address] 01/14/2017 13:20:56 01/25/2017 14:01:02 Hemiplegic migraine 51286969 G43.409 Sxs have completely resolved, probably topamax has kicked in now. Will continue and have her f/u with neuro as planned. OK for d/c tomorrow Disturbance in speech 29 557122 R47.89 Resolved Essential hypertension 67892340 I10 Stable on chlorthali done 25 mg qd. F/U with PCP as outpt. Depressive disorder 3548 9007 F33.1 Had been stable on citalopram 40 mg qd. Sees outpt psych. F/U with PCP as outpt. Mixed hyperlipidemia 267 648082 E78.2 Continue atorvastat in 20 mg qd and ASA 81 mg. F/U with PCP as outpt. Allergic rhinitis 948782 04 J30.2 Continue benadryl prn Gastroesop hageal reflux disease without esophagitis 163011693 K21.9 continue famotidine 20 mg BID. F/U with PCP as outpt. Acquired hypothyroidism 627820332 E03.8 TSH good on levothyrox ine 50 mcg qd. F/U with PCP as outpt. History of cerebrovascular accident 035902999 Z86.73 with some left sided weakness and balance issues, PT/OT feel she is ready to go home. 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 Health Concerns Section Related Observation LastModified by Organization Detai ls LastModified Time None Recorded Concern Status LastModified by Organization Details LastModified Time None Recorded Advance Directives Directive None Recorded Payers Encounter Date Sequence Insurance Name Policy Number Policy Spicer Covered Member ID Spicer Member ID Guarantor Name 01/11/2017 2 [place] [facility] Tram Macedo [id number] Tram Mossendez 01/11/2017 1 [facility] - [facility] PRIOR TO 2022 - DUAL ELIGIBLE (MEDICARE REPLACEMENT/AD VANTAGE - HMO) Tram Macedo [id number] Tram Macedo 01/14/2017 2 [place] [facility] Tram Mossendez [id number] Tram Mossendez 01/14/2017 1 [facility] - DOS PRIOR TO 2022 - DUAL ELIGIBLE (MEDICARE REPLACEMENT/AD VANTAGE - HMO) Tram Macedo [id number] Tram Macedo Notes Date Note Type Note Provider Name and Address Organization Details Recorded Time 01/11/2017 text/html This is a 56 yo woman who is here for rehab after an acute hospitalization for a question of CVA, with final dx of hemiplegic migraine. She has baseline left hemiparesis since CVA in 2012. She presented to ED on 01/09 with left sided weakness and severe STACK. Her CT and MRI of brain were both neg. Carotid dopplers were unremarkable. Neuro saw her and dxed her as above and started her on topiramate. And wants to see her in f/u as an outpt. PMH is notable for CVA in 2011 and 2012 with residual left sided weakness, depression, AODM, HLD, HTN, anxiety, hypothyroidism, s/p OANH and low back pain. This AM she had severe head pain which improved after 600 mg of ibuprofen. When I go in to see her she is having trouble communicating. See PE notes. Lizy Duong MD [address] [place] [address], [address], [place], [address], [facility] Amina 01/13/2017 21:26:25 01/14/2017 text/html I am asked to se e this 56 yo woman because she feels ready to go home. She was here for rehab after an acute hospitalization for a question of CVA, with final dx of hemiplegic migraine. Neuro saw her and dxed her as above and started her on topiramate. And wants to see her in f/u as an outpt. On 01/11 I sent her back to the ED because of unusual dysarthric speech which was new for her. They gave her fioricet and she improved and she was sent back. At this time she feels back to normal. No pain currently. PT/OT feels she is ready to go home. Plan for d/c tomorrow. PMH is notable for CVA in 2011 and 2012 with residual left sided weakness, depression, AODM, HLD, HTN, anxiety, hypothyroidism, s/p OANH and low back pain. Lizy Duong MD [address] [place] [address], [address], [place], [address], [facility] Amina 01/14/2017 13:41:26 OBGyn Episode No OBEpisode recorded.
--- OUTSIDE RECORDS SUMMARY | 2024-08-12 10:29 | XMS_ITS | Clinical Summary ---
Author Organization [facility] Address [address] [place] [address] Care Team Providers Care Skin Washer Name Role Phone Carmelo Enriquez Primary Care Provider [phone] Social History Tobacco Use Types Packs/Day Years Used Date Smoking Tobacco: Never Assessed Sex and Gender Information Value Date Recorded Sex Assigned at Not on file Gender Identity Not on file Sexual Orientation Not on file Plan of Treatment Health Maintenance Due Date Last Done Comments Hepatitis C Screening 1960 COVID-19 Vaccine (#1) 06/03/1959 Depression Screening 1970 Preventative Health Evaluation 1976 DTap / Tdap / Td (1 - Tdap) 1977 Cervical Cancer Screening (P ap Smear) 12/02/1979 Colon Cancer Screening (Colonoscopy) 12/02/2003 Breast Cancer Screening (Mammogram) 2008 Shingrix-Zoster Vaccine (1 of 2) 2008 Fall Risk Assessment 12/02/2023 Osteoporosis Screening (DEXA Scan) 12/02/2023 Pneumococcal Vaccine (1 of 1 - PCV) 12/02/2023 Influenza Vaccine (#1) 2024 RSV Adult > 60+ Yrs or Pregn ant (1 - 1-dose 75+ series) 2033 Hepatitis B Vaccines Aged Out No long er eligible based on patient's age to complete this topic Pneumococcal Vaccine Aged Out No long er eligible based on patient's age to complete this topic RSV Ped < 20 months Aged Out No longe r eligible based on patient's age to complete this topic Care Teams Skin Washer Relationship Specialty Start Date End Date Carmelo Enriquez [address] [facility] [address] PCP - General Family Medicine 04/18/20
--- OUTSIDE RECORDS SUMMARY | 2024-08-12 10:30 | XMS_ITS | Clinical Summary ---
Author Organization [employer] [facility] Address [address] [place] [address] Care Team Providers Care Orientation & Mobility Specialist Name Role Phone Carmelo Enriquez NP Primary Care Provider Surgical History Surgery Date Site/Laterality Comments BACK SURGERY PROCEDURE: HISTORICAL BACK SURGERY HYSTERECTOMY PROCEDURE: HISTORICAL HYSTERECTOMY BREAST REDUCTION PROCEDURE: FL BREAST REDUCTION Medical History Medical History Date Comments Headache DX:Headache Migraine DX:Migraine Depression DX:Depression Gastritis DX:Gastritis Essential (primary) hypertension DX:Essential (primary) hypertension Hypothyroidism DX:Hypothyroidis m Social History Tobacco Use Types Packs/Day Years Used Date Smoking Tobacco: Never Smokeless Tobacco: Never Sex and Gender Information Value Date Recorded Sex Assigned at Not on file Gender Identity Not on file Sexual Orientation Not on file Obstetrics History Last Filed Vital Signs Vital Sign Reading Time Taken Comments Blood Pressure - - Pulse - - Temperature - - Respiratory Rate - - Oxygen Saturation - - Inhaled Oxygen Concentration - - Weight 76.2 kg (168 lb) 01/22/2023 11:07 AM EDT Height 165.1 cm (5' 5 ) 01/22/2023 11:07 AM EDT Body Mass Index 27.96 01/22/2023 11:07 AM EDT Plan of Treatment Health Maintenance Due Date Last Done Comments Breast Cancer Screening 1960 DTaP,Tdap,and Td Vaccines (1 - Tdap) 1977 Cervical Cancer Screening: P ap Smear 12/02/1979 Zoster Vaccines (1 of 2) 2008 Colorectal Cancer Screening: Colonoscopy 06/17/2022 Depression Screening 06/17/2022 Hepatitis C Screening 06/17/2022 Osteoporosis Screening (Bone Density Screening) 06/17/2022 Social Influencers of Health Screening 06/17/2022 Falls Risk Assessment 12/02/2023 Pneumococcal Vaccine: 65+ Ye ars (1 of 1 - PCV) 12/02/2023 COVID-19 Vaccine ( - 2023-2 5 season) 2024 Influenza Vaccine (#1) 2024 RSV Immunization Patients 60 + Years Old (1 - 1-dose 75+ series) 2033 HIB Vaccines Aged Out No longer eligi ble based on patient's age to complete this topic HPV Vaccines Aged Out No longer eligi ble based on patient's age to complete this topic Hepatitis A Vaccines Aged Out No long er eligible based on patient's age to complete this topic Hepatitis B Vaccines Aged Out No long er eligible based on patient's age to complete this topic IPV Vaccines Aged Out No longer eligi ble based on patient's age to complete this topic MMR Vaccines Aged Out No longer eligi ble based on patient's age to complete this topic Meningococcal ACWY Vaccine Aged Out N o longer eligible based on patient's age to complete this topic Pneumococcal Vaccine: Pediat rics (0 to 5 Years) and At-Risk Patients (6 to 64 Years) Aged Out No longer eligible b ased on patient's age to complete this topic RSV Immunization Patients Un gustavo 20 months Aged Out No longer eligible b ased on patient's age to complete this topic Varicella Vaccines Aged Out No longer eligible based on patient's age to complete this topic Care Teams Orientation & Mobility Specialist Relationship Specialty Start Date End Date Carmelo Enriquez NP [address] [facility] [place], [place] PCP - General Family Medicine 04/18/20
== END 2024-08-12 10:30 | disposition home or self-care (01) ==
PROVIDERS: PCP Nurse Practitioner Family; Visit Provider Advanced Practice Midwife
DX: Z86.73 Personal history of transient ischemic attack (TIA), and cerebral infarction without residual deficits (principal); B35.6 Tinea cruris
CPT/HCPCS: 99213

== ENCOUNTER → 2024-08-12 09:05 | Outpatient (BNVA) | payer OTHER, SELFPAY | PROVIDERS: PCP Nurse Practitioner Family; Visit Provider Advanced Practice Midwife | DX: B35.6 Tinea cruris (principal); Z86.73 Personal history of transient ischemic attack (TIA), and cerebral infarction without residual deficits; Z79.899 Other long term (current) drug therapy | CPT/HCPCS: 99212 ==

== ENCOUNTER 2024-08-17 09:30 | Outpatient (AMB) | payer OTHER, SELFPAY ==
--- OUTSIDE RECORDS SUMMARY | 2024-08-17 09:55 | XMS_ITS | Clinical Summary ---
Author Organization [employer] [facility] Address [address] [place] [address] Care Team Providers Care Airplane Refueler Name Role Phone Carmelo Enriquez NP Primary [...] age to complete this topic Care Teams Airplane Refueler Relationship Specialty Start Date End Date Carmelo Enriquez NP [address] [facility] [place], [place] PCP - General Family Medicine 04/18/20
--- OUTSIDE RECORDS SUMMARY | 2024-08-17 09:55 | XMS_ITS | Clinical Summary ---
Author Organization [facility] Address [address] [place] [address] Care Team Providers Care Pulmonologist Name Role Phone Carmelo Enriquez Primary Care Provider [phone] Social History Tobacco Use Types Packs/Day Years [...] age to complete this topic Care Teams Pulmonologist Relationship Specialty Start Date End Date Carmelo Enriquez [address] [place] [address] PCP - General Family Medicine 04/18/20
[2024-08-17 10:14] VITALS: BP 150/62; PULSE 58; BMI 29.1
--- NOTE | 2024-08-17 10:14 | A.OFFVIS_ITS ---
Vital Signs 08/17/24 10:14 Height 5 ft 5 in Weight 174 lb 9.698 oz BMI 29.1 BP 150/62 H Blood Pressure Location Rt brachial Position Sitting Pulse 58 Intake Visit Reasons: r/s 1-20/ yr f/up W[employer] F[employer] Required: No Accompanied by: Other Relationship Allergies buprenorphine [From Butrans] Allergy (Severe, Verified 08/12/24 09:19) Anaphylaxis cat dander Allergy (Unknown, Verified 08/12/24 09:19) Unknown cortisone Allergy (Unknown, Verified 08/12/24 09:19) Unknown cyclobenzaprine Allergy (Unknown, Verified 08/12/24 09:19) pruritus morphine [MORPHINE] Allergy (Unknown, Verified 08/12/24 09:19) RASH,HIVES,SOB, rash, hives, SOB, rash, hives, SOB Penicillins [PENICILLINS] Allergy (Unknown, Verified 08/12/24 09:19) RASH,HIVES prazosin [PRAZOSIN] Allergy (Unknown, Verified 08/12/24 09:19) INCREASED HEADACHES, increase/worsened headaches, increase/worsened headaches strawberry [STRAWBERRY] Allergy (Unknown, Verified 08/12/24 09:19) RASH nickel Allergy (Verified 08/12/24 09:19) Rash Rozerem Adverse Reaction (Unknown, Uncoded 08/12/24 09:19) rash/memory loss Medication List - Last Reconciled 08/17/24 by Rafiq Rendon MD alclometasone 0.05% appl topical amlodipine 5 mg PO DAILY ammonium lactate 12% 1 appl topical BID aspirin 81 mg PO DAILY atorvastatin 20 mg PO DAILY baclofen 10 mg PO BID betamethasone valerate 0.1% appl topical DAILY bisacodyl 5 mg PO BEDTIME budesonide DR-ER 9 mg (3 x 3 mg) PO DAILY cetirizine 10 mg PO DAILY PRN cholecalciferol (vitamin D3) 25 mcg PO DAILY clotrimazole-betamethasone 1-0.05 % 1 appl topical BID 7 days hydroxyzine pamoate 75 mg PO DAILY PRN lamotrigine 1 tab qhs x's 2 weeks, then 1 tab bid orally daily; 30 days [Left leg AFO for nighttime use As directed] levothyroxine 75 mcg PO DAILY linaclotide (Linzess) 290 mcg PO QAM 30 days lorazepam (Ativan) 1 mg PO BEDTIME PRN meloxicam 7.5 mg PO BID methylcellulose (laxative) (Citrucel) 1,000 mg (2 x 500 mg) PO DAILY metoprolol succinate ER (Toprol XL) 50 mg PO DAILY nystatin 1 appl topical TID pantoprazole 40 mg PO BID rimegepant (Nurtec ODT) 75 mg PO ONCE PRN 30 days sertraline 100 mg PO DAILY simethicone 180 mg PO QID 30 days HPI Comments Details: Tram returns for follow-up regarding supraventricular ectopy. Previously, Holter had shown frequent supraventricular ectopy and hence she was referred here. She feels occasional palpitations. Otherwise, does not really get any clear-cut chest pains of anginal type. No known cardiac issues like coronary artery disease or myocardial infarction or cardiomyopathy. Reported TIA versus CVA many years ago, but no further details available. [facility] Medical History (Updated 08/13/24 @ 10:53 by Carmelo Enriquez [facility]) Physical exam Encounter for annual wellness visit (AWV) in Medicare patient Pre-op examination Early satiety Hepatic steatosis Chronic tension headache Lumbar spondylosis Dyslipidemia Gastritis Diastolic murmur Positive ANASTACIO (antinuclear antibody) Tubular adenoma Hx of diverticulitis of colon Bunion of unspecified foot History of anxiety Depression Hypertension Shoulder pain Migraine Prediabetes Chronic low back pain Hypothyroid History of TIAs Surgical History History of esophagogastroduodenoscopy (EGD) Hx of colonoscopy H/O rectal polypectomy Hx of breast reduction, elective History of hysterectomy History of back surgery Family History Father CVD (cardiovascular disease) ETOHism Myocardial infarct Mother CVD (cardiovascular disease) Myocardial infarct Maternal Aunt History of breast cancer Brother History of cancer of unknown primary site Other Mental health disorder Substance use disorder Social History Household Members: None Housing: Apartment Alcohol intake: current Alcohol intake frequency: does not drink Patient Tobacco Use Status: Never used Tobacco e-Cigarette/Vaping Use: Never Used Current occupational status: disabled Cognitive needs: No Hearing needs: No Vision needs: No Female Reproductive History Menstrual Age of Menarche: 8 Review of Systems Const Denies chills, Denies fatigue, Denies fever(s), Denies weight gain and Denies weight loss ENT Denies dizziness Card Denies chest pain, Denies leg edema, Denies lightheadedness, Denies palpitat ions, Denies dyspnea on exertion, Denies orthopnea and Denies other Resp Denies cough and Denies dyspnea on exertion GI Denies hematochezia and Denies change in stool character Musc Denies abnormal gait, Denies muscle weakness, Denies numbness, Denies radiating pain into limb and Denies tingling Neuro Denies abnormal gait, Denies dizziness, Denies numbness and Denies tingling Endo Denies fatigue and Denies palpitations Physical Exam Vital Signs: Last Vital Signs Pulse 58 08/17/24 10:14 BP 150/62 H 08/17/24 10:14 BMI result Body Mass Index 29.1 Const General: comfortable and no acute distress Orientation/consciousness: patient oriented x3 HEENT Other: Unremarkable Head: Yes normal to inspection Neck Neck: Yes normal visual inspection Chest Chest palpation & inspection: normal inspection of the chest Resp Auscultation: clear to auscultation bilaterally Cardio Palpation: normal PMI Heart sounds: S1 normal heart sound present, S2 normal heart sound present, no gallops, no murmurs and no rubs GI Palpation (GI): Soft to palpation Back/Spine/Pelvis Other: unremarkable Skin General skin exam: no rashes or lesions noted Neuro General: patient oriented x3 Extrem General: Yes normal to inspection Psych Mental Status: mental status grossly normal Office Procedures EKG Details: EKG with underlying sinus bradycardia at 58/Min; no significant ST-T changes and otherwise unremarkable. [place]. [id number], Complete Assessment & Plan Assessment & Plan (1) Atrial arrhythmia: Code(s): I49.8 - Other specified cardiac arrhythmias Category: Medical (2) Non-rheumatic aortic regurgitation: Code(s): I35.1 - Nonrheumatic aortic (valve) insufficiency Category: Medical (3) Non-rheumatic mitral regurgitation: Code(s): I34.0 - Nonrheumatic mitral (valve) insufficiency Category: Medical (4) HTN (hypertension): Code(s): I10 - Essential (primary) hypertension Category: Medical (5) Obstructive sleep apnea: Code(s): G47.33 - Obstructive sleep apnea (adult) (pediatric) Category: Medical Plan In a prior EKG, underlying rhythm is sinus at a rate of 63/Min; frequent supraventricular ectopy in a pattern of bigeminy. Holter shows underlying sinus rhythm with an average rate of 62/Min. Frequent PACs with burden of 8%. Seven short runs of SVT. This was repeated and the more recent study shows PAC burden of 1.7%. Echocardiogram with LVEF of 55-60%; iwcf-cm-qutnajvo mitral regurgitation, mild aortic regurgitation. Mild left atrial dilatation. Home sleep study shows mild MONICA with increased severity in supine sleep. She was recommended APAP- however, she is not being treated for this and hence we will send a message to Nephrology. Blood pressure seems to be up and down. Today, slightly increased but last week it was only 116/70 mm Hg. Hence no changes today. Overall, there is increased risk of developing atrial fibrillation in the future due to frequent supraventricular ectopy. Okay to continue beta-blockers without changes. We will see her back in about 2 years. Coding Level of Care Code Est Pt Level 4 (17593) Diagnoses Atrial arrhythmia I49.8 Non-rheumatic aortic regurgitation I35.1 Non-rheumatic mitral regurgitation I34.0 HTN (hypertension) I10 Obstructive sleep apnea G47.33 CPT Codes EKG - CPT: 31191-Vycnbyhejytilqdai, Complete ([id number])
== END 2024-08-17 10:41 | disposition home or self-care (01) ==
PROVIDERS: PCP Nurse Practitioner Family; Visit Provider Internal Medicine
DX: I49.8 Other specified cardiac arrhythmias (principal); I35.1 Nonrheumatic aortic (valve) insufficiency; I34.0 Nonrheumatic mitral (valve) insufficiency; I10 Essential (primary) hypertension; G47.33 Obstructive sleep apnea (adult) (pediatric)
CPT/HCPCS: 93010; 99214

== ENCOUNTER → 2024-08-17 09:30 | Outpatient (BNVA) | payer OTHER, SELFPAY | PROVIDERS: PCP Nurse Practitioner Family; Visit Provider Internal Medicine ==

== ENCOUNTER 2024-08-17 10:36 | Outpatient (REF) | payer OTHER, SELFPAY ==
[2024-08-17 10:47] LABS: MANUAL DIFF FLAG NO
[2024-08-17 11:17] LABS: Basophils Percent Auto 0.4 % (0-2); Eosinophils Absolute Auto 0.1 X10*3/uL (0.0-0.4); Eosinophils Percent Auto 1.5 % (0-4); Hematocrit 40.3 % (37.0-47.0); Hemoglobin 12.7 g/dl (12.0-16.0); Imm Gran Abs Auto 0.03 X10*3/uL (0.00-0.03); Imm Gran Pct Auto 0.4 % (0.0-0.4); Lymphocytes Absolute Auto 2.4 X10*3/uL (1.2-4.9); Lymphocytes Percent Auto 29.9 % (20-40); Mean Corpuscular HGB Conc 31.5 g/dl (31.0-35.0); Mean Corpuscular Hemoglobin 26.9 pg (27.0-33.0); Mean Corpuscular Volume 85.4 fL (80.0-98.0); Mean Platelet Volume 10.5 fL (9.4-12.3); Monocytes Absolute Auto 0.5 X10*3/uL (0.1-1.2); Monocytes Percent Auto 6.2 % (2-11); Neutrophils Absolute Auto 4.9 x10*3/uL (2.0-8.3); Neutrophils Percent Auto 61.6 % (45-73); Platelet Count 210 X10*3/uL (160-400); Red Blood Count 4.72 X10*6/uL (4.20-5.50); Red Cell Distribution Width 15.4 % (11.0-16.0); White Blood Count 7.9 X10*3/uL (4.8-10.8)
--- OUTSIDE RECORDS SUMMARY | 2024-08-17 11:28 | XMS_ITS | Clinical Summary ---
Author Organization [facility] [facility] Address [id number] [place] [address] Care Team Providers Care Locksmith Apprentice Name Role Phone Carmelo Enriquez NP Primary Care Provider Surgical History Surgery Date Site/Laterality Comments BACK SURGERY PROCEDURE: HISTORICAL BACK SURGERY HYSTERECTOMY PROCEDURE: HISTORICAL HYSTERECTOMY BREAST REDUCTION PROCEDURE: [place] BREAST REDUCTION Medical History Medical History Date [...] age to complete this topic Care Teams Locksmith Apprentice Relationship Specialty Start Date End Date Carmelo Enriquez NP [address] [place], [place] PCP - General Family Medicine 04/18/20
--- OUTSIDE RECORDS SUMMARY | 2024-08-17 11:28 | XMS_ITS | Data Portability ---
Author Organization [facility] [employer] [facility], Main Office Address [address] [place] [address] Care Team Providers Care Wireless Telegrapher Name Role Phone MARKY BUNN - 2ND [...] Address Organization Details Recorded Time Hemiplegic migraine 28488161 Active 2016 Lizy Duong MD [address] , [address], [place], [address], [facility] [employer] 7 21:05:29 Depressive disorder 32198634 Active 2016 Lizy Duong MD [address], [address], [place], [address], [facility] [employer] [facility] 7 21:08:25 Disturbance in speech 91833254 Active 2016 Lizy Duong MD [address] [place] [address], [address], [place], [address], [facility] [employer] [facility] 7 21:08:28 Essential hypertension 24730361 Active 2016 Lizy Duong MD [address], [address], [place], [address], [facility] [employer] [facility] 7 21:08:32 Mixed hyperlipidemia 514316234 Active 2016 Lizy Duong MD [address], [address], [place], [address], [facility] [employer] [facility] 7 21:12:16 Allergic rhinitis 04163498 Active 2016 Lizy Duong MD [address], [address], [place], [address], [facility] [employer] [facility] 7 21:12:45 Gastroesophage al reflux disease without esophagitis 703943540 Active 2016 Lizy Duong MD [address], [address], [place], [address], [facility] 7 21:13:12 Acquired hypothyroidism 138168765 Active 2016 Lizy Duong MD [address], [address], [place], [address], [facility] [employer] [facility] 7 21:13:54 History of cerebrovascula r accident 335839733 Active 2016 Lziy Duong MD [address], [address], [place], [address], [facility] [employer] [facility] 7 13:39:33 Problem Notes None recorded. Medical Equipment None Reported. Allergies Allergen ID Allergen Name Allergen Category Reaction Reaction Severity Criticality Documentation Date Start Date Code Code System Note Provider Name and Address Organization Details Recorded Time 7402 codeine medicatio n Not available Not available [...] mm[Hg] 70 mm[Hg] Lizy Duong MD [address], [address], [place], [address], [facility] 7 16:24:20 Social History None recorded. Functional Status None recorded. Mental Status None recorded. Family History Nothing Reported. Medical History No medical history recorded. Gynecological HistoryNo gynecological history recorded. Obstetrics History GPAL:G 0 P 0 0 0 0 Past Encounters Encounter ID Performer Location Encounter Start Date Encounter Closed Date Diagnosis/Indication Diagnosis SNOMED-CT Code Diagnosis ICD10 Code Diagnosis Note [id number] Lizy Duong MD [address] [address] 01/11/2017 16:22:56 01/25/2017 13:57:04 Hemiplegic migraine 31698985 G43.409 Was started on topamax in hospital. Had already been on baclofen and lidocaine patches for back/neck pain. At this time with new sxs as below, being sent back to hospital for further eval. Disturbance in speech 29 716180 R47.89 New speech abnormalit y, hard to describe, part stutter, part word finding difficulti es. Was definitely not present yesterday per nurse who cared for her last night. WIll send back to ED as above. Essential hypertension 52801109 I10 Stable on chlorthali done 25 mg qd. Depressive disorder 3548 9007 F33.1 Had been stable on citalopram 40 mg qd. Sees outpt psych. Consult NEG prn. Mixed hyperlipidemia 267 984614 E78.2 Continue atorvastat in 20 mg qd and ASA 81 mg. Allergic rhinitis 470904 04 J30.2 Continue benadryl prn Gastroesop hageal reflux disease without esophagitis 461503949 K21.9 continue famotidine 20 mg BID Acquired hypothyroidism 129676242 E03.8 TSH good on levothyrox ine 50 mcg qd. Follow [id number] Lizy Duong MD [address] [address] 01/14/2017 13:20:56 01/25/2017 14:01:02 Hemiplegic migraine 13376835 G43.409 Sxs have completely resolved, probably topamax has kicked in now. Will continue and have her f/u with neuro as planned. OK for d/c tomorrow Disturbance in speech 29 002844 R47.89 Resolved Essential hypertension 74465109 I10 Stable on chlorthali done 25 mg qd. F/U with PCP as outpt. Depressive disorder 3548 9007 F33.1 Had been stable on citalopram 40 mg qd. Sees outpt psych. F/U with PCP as outpt. Mixed hyperlipidemia 267 199582 E78.2 Continue atorvastat in 20 mg qd and ASA 81 mg. F/U with PCP as outpt. Allergic rhinitis 669357 04 J30.2 Continue benadryl prn Gastroesop hageal reflux disease without esophagitis 475748463 K21.9 continue famotidine 20 mg BID. F/U with PCP as outpt. Acquired hypothyroidism 317049900 E03.8 TSH good on levothyrox ine 50 mcg qd. F/U with PCP as outpt. History of cerebrovascular accident 460550007 Z86.73 with some left sided weakness and balance issues, PT/OT feel she is ready to go home. 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 Health Concerns Section Related Observation LastModified by Organization Detai ls LastModified Time None Recorded Concern Status LastModified by Organization Details LastModified Time None Recorded Advance Directives Directive None Recorded Payers Encounter Date Sequence Insurance Name Policy Number Policy Spicer Covered Member ID Spicer Member ID Guarantor Name 01/11/2017 2 [place] [facility] Tram Macedo [id number] Tram Macedo 01/11/2017 1 [facility] - DOS PRIOR TO 2022 - DUAL ELIGIBLE (MEDICARE REPLACEMENT/AD VANTAGE - HMO) Tram Macedo [id number] Tram Macedo 01/14/2017 2 [place] [facility] Tram Macedo [id number] Tram Macedo 01/14/2017 1 [facility] - DOS PRIOR TO 2022 - DUAL ELIGIBLE (MEDICARE REPLACEMENT/AD VANTAGE - HMO) Tram Macedo [id number] Tram Macedo Notes Date Note Type Note [...] communicating. See PE notes. Lizy Duong MD [address], [address], [place], [address], [facility] [employer] 01/13/2017 21:26:25 01/14/2017 text/html I am asked [...] and low back pain. Lizy Duong MD [address], [address], [place], [address], [facility] [employer] 01/14/2017 13:41:26 OBGyn Episode No OBEpisode recorded.
--- OUTSIDE RECORDS SUMMARY | 2024-08-17 11:28 | XMS_ITS | Clinical Summary ---
Author Organization [facility] Address [address] [place] [address] Care Team Providers Care General Accounting Clerk Name Role Phone Carmelo Enriquez Primary Care Provider [phone] Social History Tobacco Use Types Packs/Day Years [...] age to complete this topic Care Teams General Accounting Clerk Relationship Specialty Start Date End Date Carmelo Enriquez [address] [facility] [place] [address] PCP - General Family Medicine 04/18/20
[2024-08-17 12:41] LABS: Alanine Aminotransferase 99 U/L (0-31); Albumin Level 4.1 g/dL (3.5-5.0); Alkaline Phosphatase 135 U/L (39-117); Anion Gap 12 (12-20); Aspartate Amino Transferase 84 U/L (5-31); Bilirubin Total 0.4 mg/dL (0.0-1.0); Blood Urea Nitrogen 20 mg/dL (9-16); Calcium 9.4 mg/dL (8.4-10.2); Carbon Dioxide 27 mmol/L (22-29); Chloride 109 mmol/L (96-108); Estimated Glomerular Filt Rate > 60; Glucose Random 99 mg/dL (60-115); Potassium 4.6 mmol/L (3.3-5.1); Sodium 143 mmol/L (135-145); TSH reflex Free T4 5.41 uIU/mL (0.32-4.0); Total Protein 7.8 g/dL (6.5-8.0)
[2024-08-17 13:37] LABS: Free T4 (Free Thyroxine) 0.84 ng/dL (0.71-1.85)
== END 2024-08-17 10:37 | disposition home or self-care (01) ==
LOC: HO.LAB 10:36
PROVIDERS: PCP Nurse Practitioner Family; Visit Provider Nurse Practitioner Family
DX: G47.33 Obstructive sleep apnea (adult) (pediatric) (principal); R53.83 Other fatigue; I10 Essential (primary) hypertension; I34.0 Nonrheumatic mitral (valve) insufficiency; I35.1 Nonrheumatic aortic (valve) insufficiency; I49.8 Other specified cardiac arrhythmias
CPT/HCPCS: 36415; 80053; 84439; 84443; 85025; 93005; 99212

== ENCOUNTER → 2024-08-19 09:31 | Outpatient (BNVA) | payer MEDICARE, OTHER, SELFPAY | PROVIDERS: PCP Nurse Practitioner Family; Visit Provider Nurse Practitioner Family | DX: R74.8 Abnormal levels of other serum enzymes (principal); E03.9 Hypothyroidism, unspecified; G47.30 Sleep apnea, unspecified | CPT/HCPCS: 99212 ==

== ENCOUNTER 2024-09-08 09:25 | Outpatient (REF) | payer OTHER, SELFPAY ==
--- NOTE | ~2024-09-08 | US_ITS ---
CLINICAL HISTORY: R74.8 - Abnormal levels of other serum enzymes US abdomen complete with color Doppler Comparison: None Findings: The visualized pancreas, aorta, and inferior vena cava are unremarkable. Liver normal size and echotexture. No focal hepatic masses. Common duct 4.4 mm diameter. Physiologic distention of the gallbladder. No gallstones or sludge. No gallbladder wall thickening. No pericholecystic fluid. No sonographic Callahan sign. Main portal vein antegrade. Right kidney normal size, 10.0 cm in length. Normal cortical width and echotexture. No solid or cystic renal masses. No nephrolithiasis or hydronephrosis. Left kidney normal, 9.1 cm in length. Normal cortical width and echotexture. No solid or cystic renal masses. No nephrolithiasis or hydronephrosis. Spleen measures 8.5 cm. No splenic masses. No ascites. No lymphadenopathy. Impression: 1. Normal abdominal ultrasound. This document has been electronically signed by: Flynn Geiger MD on 09/08/2024 10:32:18
--- OUTSIDE RECORDS SUMMARY | 2024-09-08 10:27 | XMS_ITS | Clinical Summary ---
Author Organization [facility] Address [address] [place] [address] Care Team Providers Care Communications Strategist Name Role Phone Carmelo Enriquez Primary Care Provider [phone] Social History Tobacco Use Types Packs/Day Years [...] age to complete this topic Care Teams Communications Strategist Relationship Specialty Start Date End Date Carmelo Enriquez [address] [place] [address] PCP - General Family Medicine 04/18/20
--- OUTSIDE RECORDS SUMMARY | 2024-09-08 10:27 | XMS_ITS | Data Portability ---
Author Organization [facility] [employer] [facility], Main Office Address [address] [place] [address] Care Team Providers Care Drywall Hanger Name Role Phone MARKY BUNN - 2ND [...] Address Organization Details Recorded Time Hemiplegic migraine 91342471 Active 2016 Lizy Duong MD [address] , [address], [place], [address], [facility] [employer] 7 21:05:29 Depressive disorder 40538055 Active 2016 Lizy Duong MD [address], [address], [place], [address], [facility] [employer] [facility] 7 21:08:25 Disturbance in speech 80824337 Active 2016 Lizy Duong MD [facility] [address] , [address], [place], [address], [facility] [employer] [facility] 7 21:08:28 Essential hypertension 89244984 Active 2016 Lizy Duong MD [address], [address], [place], [address], [facility] [employer] [facility] 7 21:08:32 Mixed hyperlipidemia 681056270 Active 2016 Lizy Duong MD [address], [address], [place], [address], [facility] [employer] [facility] 7 21:12:16 Allergic rhinitis 37394772 Active 2016 Lizy Duong MD [address], [address], [place], [address], [facility] [employer] [facility] 7 21:12:45 Gastroesophage al reflux disease without esophagitis 478219744 Active 2016 Lizy Duong MD [address], [address], [place], [address], [facility] 7 21:13:12 Acquired hypothyroidism 225322138 Active 2016 Lizy Duong MD [address], [address], [place], [address], [facility] [employer] [facility] 7 21:13:54 History of cerebrovascula r accident 821100829 Active 2016 Lizy Duong MD [address], [address], [place], [address], [facility] [employer] [facility] 7 13:39:33 Problem Notes None recorded. Medical [...] mm[Hg] 70 mm[Hg] Lizy Duong MD [address], [address], [place], [address], [employer] 7 16:24:20 Social History None recorded. Functional Status None recorded. Mental Status None recorded. Family History Nothing Reported. Medical History No medical history recorded. Gynecological HistoryNo gynecological history recorded. Obstetrics History GPAL:G 0 P 0 0 0 0 Past Encounters Encounter ID Performer Location Encounter Start Date Encounter Closed Date Diagnosis/Indication Diagnosis SNOMED-CT Code Diagnosis ICD10 Code Diagnosis Note [id number] Lizy Duong MD [address] [address] 01/11/2017 16:22:56 01/25/2017 13:57:04 Hemiplegic migraine 21419610 G43.409 Was started on topamax in hospital. Had already been on baclofen and lidocaine patches for back/neck pain. At this time with new sxs as below, being sent back to hospital for further eval. Disturbance in speech 29 382606 R47.89 New speech abnormalit y, hard to describe, part stutter, part word finding difficulti es. Was definitely not present yesterday per nurse who cared for her last night. WIll send back to ED as above. Essential hypertension 29142519 I10 Stable on chlorthali done 25 mg qd. Depressive disorder 3548 9007 F33.1 Had been stable on citalopram 40 mg qd. Sees outpt psych. Consult NEG prn. Mixed hyperlipidemia 267 791472 E78.2 Continue atorvastat in 20 mg qd and ASA 81 mg. Allergic rhinitis 466048 04 J30.2 Continue benadryl prn Gastroesop hageal reflux disease without esophagitis 608539404 K21.9 continue famotidine 20 mg BID Acquired hypothyroidism 909416783 E03.8 TSH good on levothyrox ine 50 mcg qd. Follow [id number] Lizy Duong MD [address] [address] 01/14/2017 13:20:56 01/25/2017 14:01:02 Hemiplegic migraine 47400729 G43.409 Sxs have completely resolved, probably topamax has kicked in now. Will continue and have her f/u with neuro as planned. OK for d/c tomorrow Disturbance in speech 29 749709 R47.89 Resolved Essential hypertension 26892170 I10 Stable on chlorthali done 25 mg qd. F/U with PCP as outpt. Depressive disorder 3548 9007 F33.1 Had been stable on citalopram 40 mg qd. Sees outpt psych. F/U with PCP as outpt. Mixed hyperlipidemia 267 393204 E78.2 Continue atorvastat in 20 mg qd and ASA 81 mg. F/U with PCP as outpt. Allergic rhinitis 086915 04 J30.2 Continue benadryl prn Gastroesop hageal reflux disease without esophagitis 316957214 K21.9 continue famotidine 20 mg BID. F/U with PCP as outpt. Acquired hypothyroidism 845227789 E03.8 TSH good on levothyrox ine 50 mcg qd. F/U with PCP as outpt. History of cerebrovascular accident 409802656 Z86.73 with some left sided weakness and balance issues, PT/OT feel she is ready to go home. 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 Health Concerns Section Related Observation LastModified by Organization Detai ls LastModified Time None Recorded Concern Status LastModified by Organization Details LastModified Time None Recorded Advance Directives Directive None Recorded Payers Encounter Date Sequence Insurance Name Policy Number Policy Spicer Covered Member ID Spicer Member ID Guarantor Name 01/11/2017 2 [place] [facility] Tram Macedo [id number] Tram Macedo 01/11/2017 1 [facility] - DOS PRIOR TO 2022 - DUAL ELIGIBLE (MEDICARE REPLACEMENT/AD VANTAGE - HMO) Tram Macedo [id number] Tram Macedo 01/14/2017 2 [place] [facility] Tram Macedo [id number] Tram Macedo 01/14/2017 1 [facility] - DOS PRIOR TO 2022 - DUAL ELIGIBLE (MEDICARE REPLACEMENT/AD VANTAGE - HMO) Tram Macedo [id number] Tram Macedo Notes Date Note Type Note [...] See PE notes. Lizy Duong MD [address], [address], [place], [address], [facility] [employer] 01/13/2017 21:26:25 01/14/2017 text/html I am asked [...] low back pain. Lizy Duong MD [address], [address], [place], [address], [employer] 01/14/2017 13:41:26 OBGyn Episode No OBEpisode recorded.
--- OUTSIDE RECORDS SUMMARY | 2024-09-08 10:27 | XMS_ITS | Clinical Summary ---
Author Organization [facility] Address [id number] [place] [id number] Care Team Providers Care Face Man Name Role Phone Carmelo Enriquez NP Primary Care Provider Surgical History Surgery Date Site/Laterality Comments BACK SURGERY PROCEDURE: HISTORICAL BACK SURGERY HYSTERECTOMY PROCEDURE: HISTORICAL HYSTERECTOMY BREAST REDUCTION PROCEDURE: [place] BREAST REDUCTION Medical History Medical History Date Comments Headache DX:Headache Migraine DX:Migraine Depression DX:Depression Gastritis DX:Gastritis Essential (primary) hypertension DX:Essential (primary) hypertension Hypothyroidism DX:Hypothyroidis m Social History Tobacco Use Types Packs/Day Years Used Date Smoking Tobacco: Never Smokeless Tobacco: Never Comments Unknown Sex and Gender Information Value Date Recorded Sex Assigned at Not on file Legal Sex Female 12:19 AM EST Gender Identity Not on file Sexual Orientation [...] Cervical Cancer Screening: P ap Smear 12/02/1979 Pneumococcal Vaccine: 50+ Ye ars (1 of 1 - PCV) 2008 Zoster Vaccines (1 of 2) 2008 Colorectal Cancer Screening: Colonoscopy 06/17/2022 Depression Screening 06/17/2022 Hepatitis C Screening 06/17/2022 Osteoporosis Screening (Bone Density Screening) 06/17/2022 Social Influencers of Health Screening 06/17/2022 Falls Risk Assessment 12/02/2023 COVID-19 Vaccine ( - 2023-2 5 [...] patient's age to complete this topic Meningococcal B Vacine Aged Out No lo nger eligible based on patient's age to complete [...] age to complete this topic Care Teams Face Man Relationship Specialty Start Date End Date [facility]ri[facility] [place] [facility] 04/18/20
== END 2024-09-08 09:26 | disposition home or self-care (01) ==
LOC: HO.HMGCX 09:25
PROVIDERS: PCP Nurse Practitioner Family; Visit Provider Nurse Practitioner Family
DX: R74.8 Abnormal levels of other serum enzymes (principal)
CPT/HCPCS: 76700

== ENCOUNTER → 2024-09-08 09:27 | Outpatient (BNV) | payer OTHER, SELFPAY | PROVIDERS: PCP Nurse Practitioner Family; Visit Provider Radiology Diagnostic Radiology | DX: R74.8 Abnormal levels of other serum enzymes (principal) | CPT/HCPCS: 76700 ==

== ENCOUNTER 2024-10-08 11:01 | Outpatient (AMB) | payer OTHER, SELFPAY ==
--- NOTE | 2024-10-08 11:09 | A.OFFVIS_ITS ---
Vital Signs 10/08/24 11:21 Height 5 ft 5 in Weight 174 lb 9.698 oz BMI 29.1 BP 151/66 H Blood Pressure Location Lt brachial Position Sitting Pulse 61 Intake Visit Reasons: 6 month follow up CIC, Ko Intake Note: Tram presents in follow up of CIC and KO. CC: Patient c/o vomiting after she eats and takes her medication, a lot of gas, acid reflux. Onset about a month ago. The patient is questioning if the new medication she was placed on has something to do with onset of symptoms. Patient states that she is not eating well. Healthcare Liaison Required: No Allergies buprenorphine [From Butrans] Allergy (Severe, Verified 10/08/24 11:32) Anaphylaxis cat dander Allergy (Unknown, Verified 10/08/24 11:32) Unknown cortisone Allergy (Unknown, Verified 10/08/24 11:32) Unknown cyclobenzaprine Allergy (Unknown, Verified 10/08/24 11:32) pruritus morphine [MORPHINE] Allergy (Unknown, Verified 10/08/24 11:32) RASH,HIVES,SOB, rash, hives, SOB, rash, hives, SOB Penicillins [PENICILLINS] Allergy (Unknown, Verified 10/08/24 11:32) RASH,HIVES prazosin [PRAZOSIN] Allergy (Unknown, Verified 10/08/24 11:32) INCREASED HEADACHES, increase/worsened headaches, increase/worsened headaches strawberry [STRAWBERRY] Allergy (Unknown, Verified 10/08/24 11:32) RASH nickel Allergy (Verified 10/08/24 11:32) Rash Rozerem Adverse Reaction (Unknown, Uncoded 08/12/24 09:19) rash/memory loss HPI HPI 6 month follow up CIC, Ko: Details: Assessment & Plan (1) Chronic idiopathic constipation: Code(s): K59.04 - Chronic idiopathic constipation Category: Medical (2) GERD (gastroesophageal reflux disease): Code(s): K21.9 - Gastro-esophageal reflux disease without esophagitis Category: Medical (3) Hepatic steatosis: Comment: Baseline labs: 07/2019 ast/alt 42/52 alk phos 126 remainder normal, normal CBC, neg Hep A, B and C, ANASTACIO elevated 1:320 homogenous, negative autoimmune work up and neg hemochromatosis screen AFP 2.2, ferritin 32, total bilirubin 0.7 with directed 0.2 * CURRENT LABS 08/21/22 WBC 6.9 Hgb 12.3 Hct 39.2 MCV 83.1 MCH 26.1 L Plt Count 185 Estimated GFR > 60 Total Bilirubin 1.1 H AST 29 ALT 51 H Alkaline Phosphatase 135 H Alpha Fetoprotein 2.3 TSH 2.64 ULTRASOUND OF THE ABDOMEN 10/24/22 IMPRESSION: Slightly echogenic liver probably representing fatty infiltration. Pancreas not well visualized. Code(s): K76.0 - Fatty (change of) liver, not elsewhere classified Category: Medical Plan [employer]OV[employer]IAN #[employer] EQUIPMENT MECH[employer]IC translates per pt request (sissy) She tells me she has been seeing the endocriniolgist and they are investigating a possible pituitary lesion. She is having severe STACK's and vomiting. CIC and GERD well controlled with Linzess, bisacodyl p.r.n., simethicone, and pantoprazole twice a day. She is due for monitoring for transaminitis and I will get labs and an ultrasound. Return office visit in 6 months. Orders: Orders US abdomen complete Today K76.0 - Fatty (change of) liver, not elsewhere classified Alpha Fetoprotein Today K76.0 - Fatty (change of) liver, not elsewhere classified Comprehensive Met. Panel Today K76.0 - Fatty (change of) liver, not elsewhere classified Medications: New bisacodyl 10 mg (2 x 5 mg) PO BEDTIME 60 tabs 3RF K21.9 - Gastro-esophageal ref lux disease without esophagitis, K59.04 - Chronic idiopathic constipation Refilled simethicone after meals 180 mg PO QID 30 days 120 caps 6RF pantoprazole 40 mg PO BID 60 tabs 6RF linaclotide (Linzess) 290 mcg PO QAM 30 days 30 caps 6RF LABS Laboratory Tests 04/03/24 04/03/24 08/17/24 09:25 09:28 10:46 Estimated GFR 57 > 60 Total Bilirubin 0.6 0.4 AST 24 84 H ALT 20 99 H Alkaline Phosphatase 89 135 H Alpha Fetoprotein 1.8 TSH 5.41 H Free T4 0.84 US OF THE ABDOMEN 09/08/24 Findings: The visualized pancreas, aorta, and inferior vena cava are unremarkable. Liver normal size and echotexture. No focal hepatic masses. Common duct 4.4 mm diameter. Physiologic distention of the gallbladder. No gallstones or sludge. No gallbladder wall thickening. No pericholecystic fluid. No sonographic Callahan sign. Main portal vein antegrade. Right kidney normal size, 10.0 cm in length. Normal cortical width and echotexture. No solid or cystic renal masses. No nephrolithiasis or hydronephrosis. Left kidney normal, 9.1 cm in length. Normal cortical width and echotexture. No solid or cystic renal masses. No nephrolithiasis or hydronephrosis. Spleen measures 8.5 cm. No splenic masses. No ascites. No lymphadenopathy. Impression: 1. Normal abdominal ultrasound. TODAY'S VISIT Egyptian #declines CIC and GERD well controlled with Linzess, bisacodyl p.r.n., simethicone, and pantoprazole twice a day. She started vomiting after being started on lamictal by her automotive electrician helper also since she started it she seems to have a severe increase in her transaminitis. Because 1 of the potential side effects of Lamictal is severe fulminant hepatic failure I tell her to stop it immediately I think this is also causing her nausea and vomiting. Will also get some additional liver workup to make sure there is no other contributing factor. We will repeat labs today and then again in 2 weeks to make sure they are coming down. I am going to give her a temporary prescription of Zofran but she does find that if she avoids heavier foods she is less nauseated and this will be for comfort until we find the underlying cause. I am going to send her for an EKG because cardiotoxicity can sometimes be a problem with Lamictal we will also get an amylase lipase to screen for pancreatitis. Of note she has been on it for at least 4 weeks and it has had no affect on her headaches and according to the Neurology note this is why was initiated. I will send a letter to the provider letting her know why I have discontinued the medication. Return office visit next available [facility] Medical History (Updated 10/08/24 @ 11:52 by TATE Majano) Colitis Elevated fecal calprotectin Vaginal irritation Jesika infection of flexural skin Fungal infection of the groin Physical exam Encounter for annual wellness visit (AWV) in Medicare patient Pre-op examination Early satiety Hepatic steatosis Chronic tension headache Lumbar spondylosis Dyslipidemia Gastritis Diastolic murmur Positive ANASTACIO (antinuclear antibody) Tubular adenoma Hx of diverticulitis of colon Bunion of unspecified foot History of anxiety Depression Hypertension Shoulder pain Migraine Prediabetes Chronic low back pain Hypothyroid History of TIAs Surgical History History of esophagogastroduodenoscopy (EGD) Hx of colonoscopy H/O rectal polypectomy Hx of breast reduction, elective History of hysterectomy History of back surgery Family History Father CVD (cardiovascular disease) ETOHism Myocardial infarct Mother CVD (cardiovascular disease) Myocardial infarct Maternal Aunt History of breast cancer Brother History of cancer of unknown primary site Other Mental health disorder Substance use disorder Social History Household Members: None Housing: Apartment Alcohol intake: current Alcohol intake frequency: does not drink Patient Tobacco Use Status: Never used Tobacco e-Cigarette/Vaping Use: Never Used Current occupational status: disabled Cognitive needs: No Hearing needs: No Vision needs: No Female Reproductive History Menstrual Age of Menarche: 8 Review of Systems Const Denies fatigue, Denies fever(s), Reports headache(s), Denies night sweats, Denies poor appetite and Denies weight loss ENT Reports Normal hearing present, Denies dental pain, Denies dysphagia, Reports dizziness, Reports headache(s), Denies hearing loss, Denies mouth pain, Denies odynophagia, Denies throat swelling, Denies tongue swelling and Reports other (Dentition adequate) Card Reports irregular heart rhythm Resp Reports no additional complaints GI Details: Reports abdominal pain, Denies melena, Denies bloating, Denies hematochezia, Reports constipation, Denies GI cramping, Denies dysphagia, Denies excessive flatus, Denies early satiety, Reports heartburn, Denies diarrhea, Reports nausea, Denies odynophagia, Reports vomiting and Denies hematemesis Skin/Breast Denies pruritus, Denies lesions, Denies rash and Denies jaundice Neuro Reports Normal hearing present, Denies Abnormal speech present, Reports dizziness and Reports headache(s) Endo Denies fatigue Aller/Immun Denies throat swelling and Denies tongue swelling Physical Exam Const General: cooperative, no acute distress, well developed and well groomed Nutritional Appearance: well nourished and overweight Orientation/consciousness: oriented to person, oriented to place and oriented to time Limitations: No language barrier HEENT Head: Yes normocephalic and Yes atraumatic Eyes General: appearance normal, both eyes and all related structures Pupils: Equal, round and reactive pupils present Neck Neck: Yes normal visual inspection and Yes no lymphadenopathy Thyroid: Thyroid normal Resp Effort & Inspection: normal respiratory effort and able to speak in complete sentences Auscultation: clear to auscultation bilaterally Cardio Rate: regular rate Rhythm: regular rhythm Heart sounds: Normal, physiologic split S2 sound present Peripheral pulses: radial pulses present and posterior tibial pulses present GI Inspection: No distended and No Abdominal panniculus present Palpation (GI): Soft to palpation, nontender, no guarding, not rigid and No hepatosplenomegaly present Percussion: Yes normal to percussion Auscultation: normal bowel sounds Rectal Exam - Female: deferred Skin General skin exam: no rashes or lesions noted, turgor normal, skin not dry, no jaundice, No spider nevi and no striae Rashes: no rashes Nails: normal Neuro General: oriented to person, oriented to place and oriented to time Cranial nerves: Yes Equal, round and reactive pupils present and Yes Normal hearing present Speech: No Abnormal speech present Extrem General: Yes normal to inspection, No clubbing, No cyanosis and No edema Psych Appearance: grossly normal and well kempt Mental Status: mental status grossly normal Speech and movement: Normal speech and movement present Affect: normal affect Attitude: cooperative Thought process: Normal thought process present and not confabulating Thought content: Normal thought content present Insight: Limited insight present (Psych) Judgement: Limited judgement present (Psych) Assessment & Plan Assessment & Plan (1) GERD (gastroesophageal reflux disease): Code(s): K21.9 - Gastro-esophageal reflux disease without esophagitis Category: Medical (2) Chronic idiopathic constipation: Code(s): K59.04 - Chronic idiopathic constipation Category: Medical (3) Hepatic steatosis: Comment: Baseline labs: 07/2019 ast/alt 42/52 alk phos 126 remainder normal, normal CBC, neg Hep A, B and C, ANASTACIO elevated 1:320 homogenous, negative autoimmune work up and neg hemochromatosis screen AFP 2.2, ferritin 32, total bilirubin 0.7 with directed 0.2 * CURRENT LABS 08/21/22 WBC 6.9 Hgb 12.3 Hct 39.2 MCV 83.1 MCH 26.1 L Plt Count 185 Estimated GFR > 60 Total Bilirubin 1.1 H AST 29 ALT 51 H Alkaline Phosphatase 135 H Alpha Fetoprotein 2.3 TSH 2.64 ULTRASOUND OF THE ABDOMEN 10/24/22 IMPRESSION: Slightly echogenic liver probably representing fatty infiltration. Pancreas not well visualized. Code(s): K76.0 - Fatty (change of) liver, not elsewhere classified Category: Medical (4) Nausea and vomiting: Code(s): R11.2 - Nausea with vomiting, unspecified Category: Medical (5) Transaminitis: Code(s): R74.01 - Elevation of levels of liver transaminase levels Category: Medical (6) Chest pain: Code(s): R07.9 - Chest pain, unspecified Category: Medical (7) Nausea and vomiting: Code(s): R11.2 - Nausea with vomiting, unspecified Category: Medical (8) Transaminitis: Code(s): R74.01 - Elevation of levels of liver transaminase levels Category: Medical Plan Egyptian #declines CIC and GERD well controlled with Linzess, bisacodyl p.r.n., simethicone, and pantoprazole twice a day. She started vomiting after being started on lamictal by her automotive electrician helper also since she started it she seems to have a severe increase in her transaminitis. Because 1 of the potential side effects of Lamictal is severe fulminant hepatic failure I tell her to stop it immediately I think this is also causing her nausea and vomiting. Will also get some additional liver workup to make sure there is no other contributing factor. We will repeat labs today and then again in 2 weeks to make sure they are coming down. I am going to give her a temporary prescription of Zofran but she does find that if she avoids heavier foods she is less nauseated and this will be for comfort until we find the underlying cause. I am going to send her for an EKG because cardiotoxicity can sometimes be a problem with Lamictal we will also get an amylase lipase to screen for pancreatitis. Of note she has been on it for at least 4 weeks and it has had no affect on her headaches and according to the Neurology note this is why was initiated. I will send a letter to the provider letting her know why I have discontinued the medication. Return office visit next available Orders: Orders ECG 12 lead EKG Today R07.9 - Chest pain, unspecified Amylase Today R11.2 - Nausea with vomiting, unspecified, R74.01 - Elevation of levels of liver transaminase levels Complete Blood Count Auto Diff Today R11.2 - Nausea with vomiting, unspecified, R74.01 - Elevation of levels of liver transaminase levels Comprehensive Met. Panel Today R11.2 - Nausea with vomiting, unspecified, R74.01 - Elevation of levels of liver transaminase levels Hepatitis A,B,C Profile Today R11.2 - Nausea with vomiting, unspecified, R74.01 - Elevation of levels of liver transaminase levels Liver Panel Today R11.2 - Nausea with vomiting, unspecified, R74.01 - Elevation of levels of liver transaminase levels Lipase Today R11.2 - Nausea with vomiting, unspecified, R74.01 - Elevation of levels of liver transaminase levels Mitochondrial Antibody Today R11.2 - Nausea with vomiting, unspecified, R74.01 - Elevation of levels of liver transaminase levels Smooth Muscle Antibody Today R11.2 - Nausea with vomiting, unspecified, R74.01 - Elevation of levels of liver transaminase levels Medications: New ondansetron HCl 4 mg PO BID-TID 14 days PRN 60 tabs 0RF nausea and vomiting R11.2 - Nausea with vomiting, unspecified Changed From budesonide DR-ER 9 mg (3 x 3 mg) PO DAILY 90 caps 5RF K52.9 - Noninfective gastroenteritis and colitis, unspecified To budesonide DR-ER 6 mg (2 x 3 mg) PO DAILY 60 caps 5RF K52.9 - Noninfective gastroenteritis and colitis, unspecified Refilled psyllium husk (Reguloid (psyllium husk)) 2 caps PO daily 0.8 grams (2 x 0.4 gram) PO DAILY 30 days 60 caps 3RF pantoprazole 40 mg PO BID 60 tabs 6RF simethicone after meals 180 mg PO QID 30 days 120 caps 6RF linaclotide (Linzess) 290 mcg PO QAM 30 days 30 caps 6RF Discontinued lamotrigine Discontinued Reason: Change Referral Type 1 tab qhs x's 2 weeks, then 1 tab bid orally daily; 30 days 60 tabs 1RF 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
[2024-10-08 11:21] VITALS: BP 151/66; PULSE 61; BMI 29.1
--- OUTSIDE RECORDS SUMMARY | 2024-10-08 14:37 | XMS_ITS | Data Portability ---
Author Organization [employer] [facility], [place] - [facility] Address [address] [place] [phone] Care Team Providers Care Acoustical Carpenter Name Role Phone HIM CCA OTHER Assessment Encounter Date Assessment Date Assessment LastModified by Organization Details LastModified Time 09/21/2024 09/21/2024 I provided real -time medical direction via phone for this encounter, and was available for additional phone based assistance as needed. I have reviewed and agree with the Assessment and Plan as documented by the Sample Wrapper. We discussed the diagnostic uncertainty of home visits and the risk associated with this. In this case the patient and I felt this to be an acceptable and reasonable amount of risk given the benefit of avoiding an ED visit. However caution patient should any of her symptoms worsen she will need to go to the ED urgently-also advised close follow-up with PCP to call tomorrow. She was also informed she may call us for a revisit if she feels she needs 1. The patient/family given the opportunity to ask questions. Allergies and pharmacy reviewed. Patient request to use local [facility] for pharmacy rather than [facility] Advised if develops CP/severe SOB/turning blue/severe abdominal pain/uncontrolle d n/v/d or black/bloody emesis or stool/ AMS/ syncope/ severe STACK/ any new neuro changes: vision/ speech/ focal weakness/ or numbness//hi fever to call 911- she verbalized understanding of instructions to the medic [email or web address] Not available 09/21/2024 19:46:19 Plan of Treatment Reminders Order Date Submit Date Provider Last Modified By Organization Details Last Modified Time Details Appointments None recorded. Lab rapid flu (A+B) 2024 025 [email or web address] 0 [facility], [address] [place] [address], [place], [phone], 15:03:52 rapid SARS CoV 2 Ag, QL IA, respiratory specimen 2024 [email or web address] [facility], [address] [place] [address], [phone], 5 15:03:51 BMP, serum or plasma [facility]24 [facility], [address] [place] [address], [id number], 18:04:17 Referral None recorded. Procedures None recorded. Surgeries None recorded. Imaging None recorded. Medication Orders acetaminoph en ER 650 mg tablet,exte nded release 2024 [facility]/Pharmacy #[id number], [address] [place] [address], [id number], 5 15:15:29 acetaminoph en 500 mg tablet 2024 025 [email or web address] 0 [facility]/Pharmacy #[id number], [address] [place] [address], [address], 5 15:15:26 sodium chloride 0.9 % intravenous solution 2024 025 [email or web address] 0 [facility]/Pharmacy #[facility], [address] [place] [address], [address], 5 15:05:39 ondansetron HCl (PF) 4 mg/2 mL injection solution 2024 [email or web address] 0 [facility]/Pharmacy #[id number], [address] [place] [address], [address], 5 15:05:39 loperamide 2 mg tablet 2024 025 [email or web address] 0 [facility]/Pharmacy #[id number], [address] [place] [address], [address], 5 15:05:39 ondansetron 4 mg disintegrat ing tablet 2024 025 [facility]/Pharmacy #[id number], [address] [place], [address], 15:15:29 loperamide 2 mg tablet 2024 025 [facility]/Pharmacy #[id number], [address] [place], [address], 15:15:29 Patient TargetsNo targets recorded. Patient InstructionsNo instructions recorded. Reason for Referral None Reported. Results Created Date Observation Date Name Description Value Unit Range Abnormal Flag Note LastModifiedBy Organization Detail LastModifiedTime 09/22/1909/21/2024 rapid SARS CoV 2 Ag, QL IA, respi rator y speci men rapid SARS CoV 2 Ag, QL IA, respiratory specimen negati ve Not Available [facility] [address] [place] [address], [phone], 09/21/2024 14:51:23 09/22/19 25 09/21/2024 rapid flu (A+B) Flu negati ve Not Available [facility] [address] [place] [address], [phone], 09/21/2024 14:51:20 Result Notes None recorded. Medical Equipment None Reported. Allergies Allergen ID Allergen Name Allergen Category Reaction Reaction Severity Criticality Documentation Date Start Date Code Code System Note Provider Name and Address Organization Details Recorded Time 97874 Product containin g penicilli n (product) medicatio n Not available Not available Not available 09/21/2024 14559 8001 SNOMED Not Available [facility] - production 09:59:51 78984 morphine medicatio n Not available Not available Not available 09/21/2024 7052 RxNorm Not Available [facility] - production 09:59:51 Medications Name Sig Start Date Stop Date Status Note LastModified by Organization Details LastModified Time atorvastatin 20 mg tablet active Not Available Not Available Not Available loperamide 2 mg capsule PLEASE SEE ATTACHED FOR DETAILED DIRECTIONS active Not Available Not Available N ot Available cetirizine 10 mg tablet active Not Available Not Available Not Available ibuprofen 800 mg tablet TOME AIDA TABLETA POR V A ORAL CADA OCHO HORAS CUANDO SEA NECESARIO PARA EL DOLOR active Not Available Not Available No t Available simethicone 180 mg capsule active Not Available Not Available Not Available metoprolol succinate ER 50 mg tablet,exten ded release 24 hr active Not Available Not Available Not Available sertraline 100 mg tablet active Not Available Not Available Not Available loperamide 2 mg tablet Take 2 tablets after the first bout of diarrhea every day, then may have 1 pill after each subsequent loose/diarr hea stool-maxim um 4 tablets per 24 hours 2024 active Not Available Not Available Not Avai lable clindamycin HCl 150 mg capsule TOME 1 C PSULA POR V A ORAL CADA DOCE HORAS HASTA QUE SE TERMINE active Not Available Not Available N ot Available metronidazol e 500 mg tablet active Not Available Not Available Not Available amlodipine 5 mg tablet active Not Available Not Available No t Available aspirin 81 mg tablet,delay ed release active Not Available Not Available N ot Available lamotrigine 25 mg tablet active Not Available Not Available Not Available acetaminophe n ER 650 mg tablet,exten ded release Take 1 tablet every 6 hours by oral route as needed, for pain. 2024 active Not Available Not Available Not Avai lable levothyroxin e 75 mcg tablet active Not Available Not Available Not Available meloxicam 7.5 mg tablet active Not Available Not Available Not Available levothyroxin e 100 mcg tablet active Not Available Not Available Not Available baclofen 10 mg tablet active Not Available Not Available No t Available pantoprazole 40 mg tablet,delay ed release active Not Available Not Available N ot Available mirtazapine 30 mg tablet active Not Available Not Available Not Available clotrimazole -betamethaso ne 1 %-0.05 % topical cream active Not Available Not Available Not Available Citrucel 500 mg tablet active Not Available Not Available No t Available sertraline 25 mg tablet active Not Available Not Available Not Available ammonium lactate 12 % topical cream active Not Available Not Available Not Available bisacodyl 5 mg tablet,delay ed release active Not Available Not Available N ot Available mirtazapine 15 mg tablet active Not Available Not Available Not Available budesonide DR - ER 3 mg capsule,daquan yed,extended release active Not Available Not Available Not Available ondansetron 4 mg disintegrati ng tablet DISSOLVE 1 TABLET POR V A ORAL CADA OCHO HORAS CUANDO SEA NECESARIO PARA LAS N USEAS Y V MITOS active Not Available Not Available No t Available hydroxyzine pamoate 25 mg capsule active Not Available Not Available N ot Available duloxetine 20 mg capsule,daquan yed release active Not Available Not Available Not Available cholecalcife rol (vitamin D3) 25 mcg (1,000 unit) tablet active Not Available Not Available Not Available Linzess 290 mcg capsule active Not Available Not Available Not Available Ubrelvy 100 mg tablet active Not Available Not Available No t Available Nurtec ODT 75 mg disintegrati ng tablet active Not Available Not Available No t Available Vitals Date Recorded Heart rate Respiratory rate Body temperature Body weight Body height Oxygen saturation Oxygen saturation in Arterial blood by Pulse oximetry Systolic blood pressure Diastolic blood pressure Provider Name and Address Organization Details Last Updated DateTime 5 56 /min 19 /min 97.9 [degF] 86140.0 08 g 165.1 cm 99 % 99 % 141 mm[Hg] 66 mm[Hg] Not Available [facility] - production 5 14:49:20 Social History None recorded. Functional Status None recorded. Mental Status None recorded. Family History Nothing Reported. Medical History No medical history recorded. Gynecological HistoryNo gynecological history recorded. Obstetrics History GPAL:G 0 P 0 0 0 0 Past Encounters Encounter ID Performer Location Encounter Start Date Encounter Closed Date Diagnosis/Indication Diagnosis SNOMED-CT Code Diagnosis ICD10 Code Diagnosis Note [id number] Esperanza Chaidez MD [facility] - [facility] [address] [place] [phone] 09/21/2024 14:49:10 09/21/2024 22:15:10 Muscle pain 56167039 M79.10 Likely viral syndrome with myalgias/l abs non concerning -lactate not above 2, patient has stable H&H. See medic notes- d/w patient - avoid ibuprofen while GI upset -explained it is too irritating to the GI tract- may have Tylenol Headache 69797591 R51.9 has been taking excedrin and ibuprofen/ given GERD and dyspepsia ketorolac contraindi cated-advi sed may have Tylenol safely Nausea, vo miting and diarrhea 0936941 R11.2 R19.7 hx GERD-advis ed to continue pantoprazo le she feels better after normal saline and Zofran will send Rxfor zofran-adv ised clear liquids today avoiding caffeine as that can be a GI irritant and then progressed slowly to a bland brat diet/avoid ing dairy. Patient does not seem to be having excessive diarrhea she thinks she may have been on antibiotic s last month, she is unsure nothing more recent will trial low-dose loperamide along with dietary restrictio ns-likely viral gastroente ritis but reviewed warning signs for worsening of her condition which would require immediate recheck in the ED. She verbalized understand ing to the medic Health Concerns Section Related Observation LastModified by Organization Detai ls LastModified Time None Recorded Concern Status LastModified by Organization Details LastModified Time None Recorded Advance Directives Directive None Recorded Payers Encounter Date Sequence Insurance Name Policy Number Policy Spicer Covered Member ID Spicer Member ID Guarantor Name 09/21/2024 1 [facility] - DOS ON OR AFTER 2022 - DUAL ELIGIBLE - RETIREMENT OPTIONS AND ONE CARE (MEDICARE REPLACEMENT/ADV ANTAGE - HMO) Tram Macedo [id number] Tram Macedo Notes Date Note Type Note Provider Name and Address Organization Details Recorded Time 09/21/2024 text/html CRC Nurse Triage Notes (Danny Buck): Reason For Request: Patient has a body ache and headache for 1 week.Denies: Sharp focal or diffuse abdominal pain Vomiting blood/coffee ground material Bloating, jaundice new onset with pain Nausea and vomiting greater than 2 hours with abdominal pain Tearing pain that radiates to back Food Impaction Chief Complaints: Headache, Diarrhea, Nausea / VomitingPMH: Stroke, Hypertension, MigrainePMH Reviewed at 09/21/2024 - :59Allergies Reviewed at 09/21/2024 - :59Comments: Sales And Catering Coordinator verified the patient's name//address and phone number. Pt Colombian speaking primarily, lang interpreter# [phone] used for triage assessment. Pt reports body aches for approx one week, diarrhea with intermittent nausea. Pt also reports headaches and poor PO intake. Pt denies any sick contacts, states she lives alone. Pt reports abdominal discomfort when she eats solid food. Pt reports taking migraine medication for headache but states this time it is not working . Education provided on the response time and the patient was advised to monitor reported s/s and seek emergency treatment if needed -Kamran Buck RN Sample Wrapper Organization Information for Karla Frost - [place] Legal Name: [facility] TransportationAddr ess: [address] [place], [place] [address], [facility] Director: Omid PALACIO No.: [id number] Sample Wrapper POC Test Results from Karla Frost - ALS Rapid COVID antigen (14:45:50)COVID: -Attachments uploaded as part of this test result can be found under Documents section. Rapid influenza antigen (14:45:51)Flu: -Attachments uploaded as part of this test result can be found under Documents section. epoc (14:45:55)pH: 7.358 pH unitspCO2: 47.6 mmHgpO2: 26.4 mmHgNa: 141 mmol/LK: 4.6 mmol/LiCa: 1.27 mmol/LCl: 107 mmol/LTCO2: 26.0 mEq/LHct: 41 %Hb: 14.1 g/dLGlu: 106 mg/dLLac: 1.89 mmol/LCr: 0.72 mg/dLBUN: 16 mg/dLA mmol/LHCO3: 26.7 mmol/LAttachments uploaded as part of this test result can be found under Documents section. .................. .................. .................. .................. .................. .................. .................. ............... Sample Wrapper Note From Karla Frost: Pt chief complaint today of headache, nausea, vomiting as well as diarrhea and possible dehydration. Pt state that all signs and symptoms have been occurring for the past 5 days prior to [facility] arrival on scene, pt notes that she has been drinking roughly 1 liter of water each day. Pt also notes her headache to be. 7/10 level mostly focused in the front portion of her head but not going down to her face, eyes or ears. Pt states that she has been having splits between bouts of diarrhea as well as vomiting, last bout of either was this morning after her breakfast, or noted watery stool with no discoloration such as red. This goes as well for her bouts of vomiting. Pt has been taking excedrin as well as ibuprofen with minimal relief in symptoms. Pt today is looking to have a general ,assessment as well as possible treatment. Pt denies any cp, sob, dizziness or blurred vision. Nonneural focal exam, afebrile, vitals wnl for the baseline of the patient, lungs are noted to be clear on auscultation bilaterally. Benign abdominal assessment from pain. Pt notes a weird feeling in the abdomen, no lower extremity edema. 20 gauge iv placed in right ac. Per [facility] orders POC blood work taken with no significant findings. Pt is feliciano 4 with a GCS of 15. Negative covid. Flu test given. [facility] Esperanza Chaidez consulted, Pt given. 1 gram of Tylenol, 500 ml of normal saline, 4 mg of loperamide as well as 4 mg of iv zofran. Pt informs to contact her pcp at earliest convenience for a possible follow up. Pt informed of red flag S&S and to call emergency services if any present. [facility] Lab Orders: rapid flu (A+B): Performed rapid SARS CoV 2 Ag, QL IA, respiratory specimen: Performed BMP, serum or plasma: Performed [facility] Medication Orders: acetaminophen 500 mg tablet: Administered sodium chloride 0.9 % intravenous solution: Administered ondansetron HCl (PF) 4 mg/2 mL injection solution: Administered loperamide 2 mg tablet: Administered .................. .................. .................. .................. .................. .................. .................. ............... [facility] Consulted: Esperanza Chaidez .................. .................. .................. .................. .................. .................. .................. ............... Disposition: Fulfilled SEGMD: Patient states she has a history of migraines for which she takes Excedrin and ibuprofen. Has not had any medication since this morning. Her bowel movement this morning was watery but not black or bloody and she feels like her GERD is acting up she has small amounts of vomit without hematemesis. She is on pantoprazole 40 mg daily. She denies chest pain. For breakfast she had coffee [place] and milk. She has had normal urination. She denies any focal weakness numbness, changes in vision or speech. She states she does have some pain in the back of her upper neck which radiates to the front of her head. Esperanza Chaidez MD [address] [place] [address],[address] [facility], [place], [phone], Turn 09/21/2024 19:47:12 OBGyn Episode No OBEpisode recorded.
--- OUTSIDE RECORDS SUMMARY | 2024-10-08 14:37 | XMS_ITS | Clinical Summary ---
[facility] Address [id number] [place] [phone] Care Team Providers Care Ip Paralegal Name Role Phone Carmelo Enriquez NP Primary Care Provider Surgical History Surgery Date Site/Laterality Comments BACK SURGERY PROCEDURE: HISTORICAL BACK SURGERY HYSTERECTOMY PROCEDURE: HISTORICAL HYSTERECTOMY BREAST REDUCTION PROCEDURE: [place] BREAST REDUCTION Medical History Medical History Date [...] age to complete this topic Care Teams Ip Paralegal Relationship Specialty Start Date End Date [facility] Enriquez [facility] [address] [facility] - General Family Medicine 04/18/20
--- OUTSIDE RECORDS SUMMARY | 2024-10-08 14:37 | XMS_ITS | Clinical Summary ---
Author Organization [facility] Address [address] [place] [address] Care Team Providers Care Animal Shelter Clerk Name Role Phone Carmelo Enriquez Primary Care Provider [phone] Social History Tobacco Use Types Packs/Day Years [...] age to complete this topic Care Teams Animal Shelter Clerk Relationship Specialty Start Date End Date Carmelo Enriquez [address] [place] [address] PCP - General Family Medicine 04/18/20
--- OUTSIDE RECORDS SUMMARY | 2024-10-08 14:37 | XMS_ITS | Continuity of Care Document ---
Author Organization [facility], [place] - [facility] Address [address] [place] [address] Care Team Providers Care Cutter Grinder Operator Name Role Phone HIM CCA OTHER Assessment Encounter Date Assessment Date Assessment LastModified by Organization Details LastModified Time 09/21/2024 09/21/2024 I provided real -time medical direction via phone for this encounter, and was available for additional phone based assistance as needed. I have reviewed and agree with the Assessment and Plan as documented by the Athletic Coordinator. We discussed the diagnostic uncertainty of home [...] verbalized understanding of instructions to the medic [email or web address] Not available 09/21/2024 19:46:19 Plan of Treatment Reminders Order Date Submit Date Provider Last Modified By Organization Details Last Modified Time Details Appointments None recorded. Lab rapid flu (A+B) 2024 025 [email or web address] 0 [facility], [address] [place] [address], [place], [address], 15:03:52 rapid SARS CoV 2 Ag, QL IA, respiratory specimen 2024 025 [email or web address] 0 [facility], [address] [place] [address], [address], 5 15:03:51 BMP, serum or plasma 2024 [facility], [address] [place] [address], [address], 18:04:17 Referral None recorded. Procedures None recorded. Surgeries None recorded. Imaging None recorded. Medication Orders acetaminoph en ER 650 mg tablet,exte nded release 2024 [id number], [address] [place] [address], [address], 5 15:15:29 acetaminoph en 500 mg tablet 2024 025 [email or web address] 0 [id number], [address] [place] [address], [address], 5 15:15:26 sodium chloride 0.9 % intravenous solution 2024 025 [email or web address] 0 [id number], [address] [place] [address], [address], 5 15:05:39 ondansetron HCl (PF) 4 mg/2 mL injection solution 2024 025 [email or web address] 0 [facility], [address] [place] [address], [address], 5 15:05:39 loperamide 2 mg tablet 2024 025 [email or web address] 0 [id number], [address] [place] [address], [address], 5 15:05:39 ondansetron 4 mg disintegrat ing tablet 2024 025 [id number], [address] [place], [address], 15:15:29 loperamide 2 mg tablet 2024 025 [id number], [address] [place], [address], 15:15:29 Patient TargetsNo targets recorded. Patient InstructionsNo instructions recorded. Reason for Referral None Reported. Results Created Date Observation Date Name Description Value Unit Range Abnormal Flag Note LastModifiedBy Organization Detail LastModifiedTime 09/22/1909/21/2024 rapid SARS CoV 2 Ag, QL IA, respi rator y speci men rapid SARS CoV 2 Ag, QL IA, respiratory specimen negati ve Not Available [facility] ed [address] [place] [address], [address], 09/21/2024 14:51:23 09/22/19 25 09/21/2024 rapid flu (A+B) Flu negati ve Not Available [facility] ed [address] [place] [address], [address], 09/21/2024 14:51:20 Result Notes None recorded. Medical Equipment None Reported. Allergies Allergen ID Allergen Name Allergen Category Reaction Reaction Severity Criticality Documentation Date Start Date Code Code System Note Provider Name and Address Organization Details Recorded Time 99881 Product containin g penicilli n (product) medicatio n Not available Not available Not available 09/21/2024 91396 8001 SNOMED Not Available [facility] - production 09:59:51 73381 morphine medicatio n Not available Not available [...] 5 56 /min 19 /min 97.9 [degF] 63459.0 08 g 165.1 cm 99 % 99 [...] SNOMED-CT Code Diagnosis ICD10 Code Diagnosis Note [id number] Esperanza Chaidez MD Main - [facility] [address] [place] [phone] 09/21/2024 14:49:10 09/21/2024 22:15:10 Muscle pain 79234531 M79.10 Likely viral syndrome with myalgias/l abs non concerning -lactate not above 2, patient has stable H&H. See medic notes- d/w patient - avoid ibuprofen while GI upset -explained it is too irritating to the GI tract- may have Tylenol Headache 41623111 R51.9 has been taking excedrin and ibuprofen/ given GERD and dyspepsia ketorolac contraindi cated-advi sed may have Tylenol safely Nausea, vo miting and diarrhea 6886004 R11.2 R19.7 hx GERD-advis ed to continue [...] by Organization Details LastModified Time None Recorded Payers Encounter Date Sequence Insurance Name Policy Number Policy Spicer Covered Member ID Spicer Member ID Guarantor Name 09/21/2024 1 [facility] - DOS ON OR AFTER 2022 - DUAL ELIGIBLE - SNF OPTIONS AND ONE CARE (MEDICARE REPLACEMENT/ADV ANTAGE - HMO) Tram Macedo [id number] Tram Macedo Notes Date Note Type Note [...] - :59Allergies Reviewed at 09/21/2024 - :59Comments: Maintenance Welder verified the patient's name//address and phone number. Pt Cameroonian speaking primarily, seamer panty hose# [phone] used for triage assessment. Pt reports body [...] emergency treatment if needed -Kamran Buck RN Athletic Coordinator Organization Information for Karla Frost [place] Legal Name: [facility] TransportationAddr ess: [address] [facility], [place] [address], Medical Director: Omid PALACIO No.: [id number] Athletic Coordinator POC Test Results from Karla Frost - LAURIE Rapid COVID antigen (14:45:50)COVID: -Attachments uploaded as [...] .................. .................. .................. .................. .................. .................. ............... Athletic Coordinator Note From Karla Frost: Pt chief complaint today of headache, nausea, vomiting as well as diarrhea and possible dehydration. Pt state that all signs and symptoms have been occurring for the past 5 days prior to [facility] arrival on scene, pt notes that she [...] gauge iv placed in right ac. Per [facility] orders POC blood work taken with no significant findings. Pt is feliciano 4 with a GCS of 15. Negative covid. Flu test given. [facility] Esperanza Chaidez consulted, Pt given. 1 gram of Tylenol, 500 ml of normal saline, 4 mg of loperamide as well as 4 mg of iv zofran. Pt informs to contact her pcp at earliest convenience for a possible follow up. Pt informed of red flag S&S and to call emergency services if any present. [facility] Lab Orders: rapid flu (A+B): Performed rapid SARS CoV 2 Ag, QL IA, respiratory specimen: Performed BMP, serum or plasma: Performed [facility] Medication Orders: acetaminophen 500 mg tablet: Administered sodium chloride 0.9 % intravenous solution: Administered ondansetron HCl (PF) 4 mg/2 mL injection solution: Administered loperamide 2 mg tablet: Administered .................. .................. .................. .................. .................. .................. .................. ............... [facility] Consulted: Esperanza Chaidez .................. .................. .................. .................. [...] chest pain. For breakfast she had coffee [place] and milk. She has had normal urination. She denies any focal weakness numbness, changes in vision or speech. She states she does have some pain in the back of her upper neck which radiates to the front of her head. Esperanza Chaidez MD [address] [place] [address],[facility], [place], [phone], [place] 09/21/2024 19:47:12 OBGyn Episode No OBEpisode recorded.
== END 2024-10-08 11:57 | disposition home or self-care (01) ==
LOC: HO.HGI 11:03
PROVIDERS: PCP Nurse Practitioner Family; Visit Provider Nurse Practitioner
DX: K21.9 Gastro-esophageal reflux disease without esophagitis (principal); K59.04 Chronic idiopathic constipation; K76.0 Fatty (change of) liver, not elsewhere classified; R11.2 Nausea with vomiting, unspecified; R74.01 Elevation of levels of liver transaminase levels; R07.9 Chest pain, unspecified
CPT/HCPCS: 99214

== ENCOUNTER → 2024-10-08 11:01 | Outpatient (REF) | payer OTHER, SELFPAY ==
--- NOTE | 2024-10-08 12:13 | ECG_ITS ---
Test Reason : chest pain Blood Pressure : */* mmHG Vent. Rate : 61 BPM Atrial Rate : 61 BPM P-R Int : 146 ms QRS Dur : 78 ms QT Int : 388 ms P-R-T Axes : 21 3 35 degrees QTcB Int : 390 ms Normal sinus rhythm Normal ECG When compared with ECG of 19-Nov-2017 13:39, Non-specific change in ST segment in Inferior leads Non-specific change in ST segment in Lateral leads QT has shortened Referred By: Nayeli Bond Electronically Signed By: JOLENE SCOTT MD
[2024-10-08 12:20] LABS: MANUAL DIFF FLAG NO
[2024-10-08 12:37] LABS: Basophils Percent Auto 0.6 % (0-2); Eosinophils Absolute Auto 0.1 X10*3/uL (0.0-0.4); Hematocrit 43.1 % (37.0-47.0); Hemoglobin 13.3 g/dl (12.0-16.0); Imm Gran Abs Auto 0.02 X10*3/uL (0.00-0.03); Imm Gran Pct Auto 0.3 % (0.0-0.4); Lymphocytes Absolute Auto 2.3 X10*3/uL (1.2-4.9); Lymphocytes Percent Auto 31.8 % (20-40); Mean Corpuscular HGB Conc 30.9 g/dl (31.0-35.0); Mean Corpuscular Hemoglobin 26.3 pg (27.0-33.0); Mean Corpuscular Volume 85.2 fL (80.0-98.0); Mean Platelet Volume 10.2 fL (9.4-12.3); Monocytes Absolute Auto 0.5 X10*3/uL (0.1-1.2); Monocytes Percent Auto 7.4 % (2-11); Neutrophils Absolute Auto 4.2 x10*3/uL (2.0-8.3); Neutrophils Percent Auto 57.9 % (45-73); Platelet Count 214 X10*3/uL (160-400); Red Blood Count 5.06 X10*6/uL (4.20-5.50); Red Cell Distribution Width 14.4 % (11.0-16.0); White Blood Count 7.2 X10*3/uL (4.8-10.8)
[2024-10-08 13:04] LABS: Alanine Aminotransferase 76 U/L (0-31); Albumin Level 4.3 g/dL (3.5-5.0); Anion Gap 13 (12-20); Aspartate Amino Transferase 67 U/L (5-31); Bilirubin Direct 0.2 mg/dL (0.0-0.5); Bilirubin Total 0.5 mg/dL (0.0-1.0); Blood Urea Nitrogen 17 mg/dL (9-16); Calcium 10.2 mg/dL (8.4-10.2); Carbon Dioxide 26 mmol/L (22-29); Chloride 108 mmol/L (96-108); Estimated Glomerular Filt Rate > 60; Glucose Random 103 mg/dL (60-115); Lipase 8 U/L (8-78); Sodium 142 mmol/L (135-145); Total Protein 7.9 g/dL (6.5-8.0)
[2024-10-08 13:06] LABS: Alkaline Phosphatase 126 U/L (39-117); Amylase 65 U/L (28-100)
[2024-10-08 13:21] LABS: HBS Num1 8.19 mIU/mL (0-7.99); HBc Num1 0.09 S/CO (0.00-0.79); HBsAGNum1 0.38 S/CO (0.00-0.99); Hepatitis A Antibody IgM 0.24 Index (0-0.79); Hepatitis B Core Antibody Nonreactive (Nonreactive); Hepatitis B Surface Antigen Negative (Negative); ~HepC Num1 0.12 S/CO (0.00-0.79); ~Hepatitis A Antibody IgM Nonreactive (Nonreactive); ~Hepatitis C Antibody Nonreactive (Nonreactive)
[2024-10-08 15:18] LABS: HBS Num2 8.34 mIU/mL (0-7.99); HBS Num3 8.48 mIU/mL (0-7.99); ~Hepatitis B Surface Antibody GRAYZONE (Nonreactive)
--- OUTSIDE RECORDS SUMMARY | 2024-10-08 15:30 | XMS_ITS | Clinical Summary ---
Author Organization [facility] Address [address] [place] [phone] Care Team Providers Care Division Controller Name Role Phone Carmelo Enriquez NP Primary Care Provider Surgical History Surgery Date Site/Laterality Comments BACK SURGERY PROCEDURE: HISTORICAL BACK SURGERY HYSTERECTOMY PROCEDURE: HISTORICAL HYSTERECTOMY BREAST REDUCTION PROCEDURE: [place] BREAST REDUCTION Medical History Medical History Date [...] age to complete this topic Care Teams Division Controller Relationship Specialty Start Date End Date [facility]ri[facility] [address] [facility] [place] [facility] - General Family Medicine 04/18/20
--- OUTSIDE RECORDS SUMMARY | 2024-10-08 15:30 | XMS_ITS | Clinical Summary ---
Author Organization [facility] Address [address] [place] [address] Care Team Providers Care Multicultural Internship Name Role Phone Carmelo Enriquez Primary Care Provider [phone] Social History Tobacco Use Types Packs/Day Years [...] age to complete this topic Care Teams Multicultural Internship Relationship Specialty Start Date End Date Carmelo Enriquez [address] [facility] [place] [address] PCP - General Family Medicine 04/18/20
== END ==
LOC: HO.CARD 11:01
PROVIDERS: PCP Nurse Practitioner Family; Visit Provider Nurse Practitioner
DX: R07.9 Chest pain, unspecified (principal); R11.2 Nausea with vomiting, unspecified; R74.01 Elevation of levels of liver transaminase levels; K21.9 Gastro-esophageal reflux disease without esophagitis; K59.04 Chronic idiopathic constipation; K76.0 Fatty (change of) liver, not elsewhere classified
CPT/HCPCS: 36415; 80053; 82150; 82248; 83690; 85025; 86015; 86381; 86704; 86706; 86709; 86803; 87340; 93005; 99212

== ENCOUNTER → 2024-10-08 12:13 | Outpatient (BNV) | payer OTHER, SELFPAY | PROVIDERS: PCP Nurse Practitioner Family; Visit Provider Internal Medicine Cardiovascular Disease | DX: R07.9 Chest pain, unspecified (principal) | CPT/HCPCS: 93010 ==

== ENCOUNTER 2024-11-04 08:36 | Outpatient (AMB) | payer OTHER, SELFPAY ==
--- NOTE | 2024-11-04 08:38 | MHC.OFFVIS ---
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 Rukhsana Laboratory Technician Required: No Instructional Support Technician: Instructional Support Technician Present Accompanied by: Other Relationship Allergies buprenorphine [From Butrans] Allergy (Severe, Verified 11/04/24 08:39) Anaphylaxis cat dander Allergy (Unknown, Verified 11/04/24 08:39) Unknown cortisone Allergy (Unknown, Verified 11/04/24 08:39) Unknown cyclobenzaprine Allergy (Unknown, Verified 11/04/24 08:39) pruritus morphine [MORPHINE] Allergy (Unknown, Verified 11/04/24 08:39) RASH,HIVES,SOB, rash, hives, SOB, rash, hives, SOB Penicillins [PENICILLINS] Allergy (Unknown, Verified 11/04/24 08:39) RASH,HIVES prazosin [PRAZOSIN] Allergy (Unknown, Verified 11/04/24 08:39) INCREASED HEADACHES, increase/worsened headaches, increase/worsened headaches strawberry [STRAWBERRY] Allergy (Unknown, Verified 11/04/24 08:39) RASH nickel Allergy (Verified 11/04/24 08:39) Rash Rozerem Adverse Reaction (Unknown, Uncoded 08/12/24 09:19) rash/memory loss HPI Comments Details: She is a postmenopausal woman presenting for her 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 She is doing well with no top distribution executive concerns. Currently sexually active. Denies any vaginal dryness or irritation. Attempting to eat a healthy diet with calcium and vitamin D. History of hysterectomy for uterine cancer. Poor histrorian. Last mammogram; 2024. Colonoscopy is UTD. [facility] Medical History Colitis Elevated fecal calprotectin Vaginal irritation Jesika infection of flexural skin Fungal infection of the groin Physical exam Encounter for annual wellness visit (AWV) in Medicare patient Pre-op examination Early satiety Hepatic steatosis Chronic tension headache Lumbar spondylosis Dyslipidemia Gastritis Diastolic murmur Positive ANASTACIO (antinuclear antibody) Tubular adenoma Hx of diverticulitis of colon Bunion of unspecified foot History of anxiety Depression Hypertension Shoulder pain Migraine Prediabetes Chronic low back pain Hypothyroid History of TIAs Surgical History History of esophagogastroduodenoscopy (EGD) Hx of colonoscopy H/O rectal polypectomy Hx of breast reduction, elective History of hysterectomy History of back surgery Family History Father CVD (cardiovascular disease) ETOHism Myocardial infarct Mother CVD (cardiovascular disease) Myocardial infarct Maternal Aunt History of breast cancer Brother History of cancer of unknown primary site Other Mental health disorder Substance use disorder Social History Household Members: None Housing: Apartment Alcohol intake: current Alcohol intake frequency: does not drink Patient Tobacco Use Status: Never used Tobacco e-Cigarette/Vaping Use: Never Used Current occupational status: disabled Cognitive needs: No Hearing needs: No Vision needs: No Female Reproductive History Menstrual Age of Menarche: 8 Menopause type: surgical Total pregnancies: 0 Date of Mammogram: 07/20/24 (Birad 2) Review of Systems Const All systems reviewed & are unremarkable except as noted in HPI and below Reports as per HPI Eyes Reports no additional complaints ENT Reports no additional complaints Card Reports no additional complaints Resp Reports no additional complaints GI Reports as per HPI and Reports no additional complaints Reports as per HPI Musc Reports no additional complaints Skin/Breast Reports as per HPI Neuro Reports no additional complaints Psych Reports no additional complaints Endo Reports no additional complaints Abel/Lymph Reports no additional complaints Aller/Immun Reports no additional complaints Physical Exam Vital Signs: Last Vital Signs BP 116/68 11/04/24 08:39 BMI result Body Mass Index 29.0 Const General: cooperative, healthy appearing, no acute distress, well developed and alert Orientation/consciousness: patient oriented x3 HEENT Head: Yes normal to inspection Eyes General: appearance normal, both eyes and all related structures Neck Neck: Yes normal visual inspection Thyroid: Thyroid normal Chest Other: Bilateral breast reconstruction scarring Chest palpation & inspection: normal inspection of the chest and other (no puckering, dimpling, peau de orange, retraction, discharge, masses) Breast/axilla inspection: normal inspection of the breasts Breast/axilla palpation: normal palpation of the breasts Resp Effort & Inspection: normal respiratory effort GI Inspection: Yes normal to inspection and Yes scar Palpation (GI): Soft to palpation Rectal Exam - Female: deferred General: Yes bladder normal to palpation External Female Exam: normal external appearance and normal appearance of the urethra Speculum Exam - Vagina: normal appearance of the vagina, normal palpation, normal vaginal discharge and vagina atrophic Speculum Exam - Cervix: Cervix absent (Vaginal cuff no lesions or nodules) Bimanual exam- vagina & uterus: normal bimanual exam, normal palpation, bladder normal to palpation and uterus absent Bimanual Exam- Adnexa, other: no masses Skin General skin exam: no rashes or lesions noted Rashes: no rashes Neuro General: patient oriented x3 Cognition (Neuro): normal cognition Extrem General: Yes normal to inspection Psych Appearance: well kempt Mental Status: other (Having issues with memory, historical information) Attitude: cooperative Thought process: Normal thought process present Assessment & Plan Assessment & Plan (1) Encounter for well woman exam with routine gynecological exam: Code(s): Z01.419 - Encounter for gynecological examination (general) (routine) without abnormal findings Category: Medical Plan Discussed: Current recommendations for pap smears per ASCCP guidelines. Breast awareness, periodic self breast exams and yearly mammogram. Maintain a healthy lifestyle, well balanced diet including Calcium 1,200 mg and Vitamin D 600 IU daily, and routine exercise. Patient verbalizes understanding and agrees to the plan of care. She was given opportunity to ask questions and all questions were answered to the best of my ability. RTO in 1 year for annual top distribution executive exam. This note is constructed using voice recognition software. While every effort has been made to ensure accuracy, coroner technician errors may have been included. Coding Level of Care Code Est Pt Prev Care >65y(75215) Diagnoses Encounter for well woman exam with routine gynecological exam Z01.419
[2024-11-04 08:39] VITALS: BP 116/68; BMI 29.0
--- OUTSIDE RECORDS SUMMARY | 2024-11-04 08:59 | XMS_ITS | Data Portability ---
Author Organization [facility], [place] - [facility] Address [address] [place] [phone] Care Team Providers Care Paint Factory Worker Name Role Phone HIM CCA OTHER Assessment Encounter Date Assessment Date Assessment LastModified by Organization Details LastModified Time 09/21/2024 09/21/2024 I provided real -time medical direction via phone for this encounter, and was available for additional phone based assistance as needed. I have reviewed and agree with the Assessment and Plan as documented by the Senior Web Designer. We discussed the diagnostic uncertainty of home [...] verbalized understanding of instructions to the medic [email or web address] Not available 09/21/2024 19:46:19 Plan of Treatment Reminders Order Date Submit Date Provider Last Modified By Organization Details Last Modified Time Details Appointments None recorded. Lab rapid flu (A+B) 2024 025 [email or web address] 0 [facility], [address] [place] [address], [address] 15:03:52 rapid SARS CoV 2 Ag, QL IA, respiratory specimen 2024 [email or web address] 0 [facility], [address] [place] [address], [address] 15:03:51 BMP, serum or plasma 2024 [facility], [address] [place] [address], [address] 18:04:17 Referral None recorded. Procedures None recorded. Surgeries None recorded. Imaging None recorded. Medication Orders acetaminoph en ER 650 mg tablet,exte nded release 2024 [facility]44[facility], [address] [place], [address], 15:15:29 acetaminoph en 500 mg tablet 2024 025 [email or web address] 0 [facility]44[facility], [address] [place] [address], [address], 15:15:26 sodium chloride 0.9 % intravenous solution 2024 [email or web address] 0 [facility], [address] [place], [address], 15:05:39 ondansetron HCl (PF) 4 mg/2 mL injection solution 2024 025 [email or web address] 0 [facility]44[facility], [address] [place], [address], 15:05:39 loperamide 2 mg tablet 2024 025 [email or web address] 0 [facility]44[facility], [address] [place], [address], 5 15:05:39 ondansetron 4 mg disintegrat ing tablet 2024 [facility], [address] [place], [address], 5 15:15:29 loperamide 2 mg tablet 2024 025 [facility], [address] [facility], [place], [address], 5 15:15:29 Patient TargetsNo targets recorded. Patient InstructionsNo instructions recorded. Reason for Referral None Reported. Results Created Date Observation Date Name Description Value Unit Range Abnormal Flag Note LastModifiedBy Organization Detail LastModifiedTime 09/22/1909/21/2024 rapid SARS CoV 2 Ag, QL IA, respi rator y speci men rapid SARS CoV 2 Ag, QL IA, respiratory specimen negati ve Not Available [facility] ed [address] [place] [address], [address] 09/21/2024 14:51:23 09/22/1909/21/2024 rapid flu (A+B) Flu negati ve Not Available [facility] ed [address] [place] [address], [address] 09/21/2024 14:51:20 Result Notes None recorded. Medical Equipment None Reported. Allergies Allergen ID Allergen Name Allergen Category Reaction Reaction Severity Criticality Documentation Date Start Date Code Code System Note Provider Name and Address Organization Details Recorded Time 37885 Product containin g penicilli n (product) medicatio n Not available Not available Not available 09/21/2024 81033 8001 SNOMED Not Available [facility] 09:59[facility]51 32553 morphine medicatio n Not available Not available Not available 09/21/2024 7052 RxNorm Not Available [facility] 09:59:51 Medications Name Sig Start [...] 5 56 /min 19 /min 97.9 [degF] 12929.0 08 g 165.1 cm 99 % 99 [...] SNOMED-CT Code Diagnosis ICD10 Code Diagnosis Note 62400 Esperanza Chaidez MD Main - [facility] [address] [place] [phone] 09/21/2024 14:49:10 09/21/2024 22:15:10 Muscle pain 24683495 M79.10 Likely viral syndrome with myalgias/l abs non concerning -lactate not above 2, patient has stable H&H. See medic notes- d/w patient - avoid ibuprofen while GI upset -explained it is too irritating to the GI tract- may have Tylenol Headache 04918972 R51.9 has been taking excedrin and ibuprofen/ given GERD and dyspepsia ketorolac contraindi cated-advi sed may have Tylenol safely Nausea, vo miting and diarrhea 2454392 R11.2 R19.7 hx GERD-advis ed to continue [...] Spicer Member ID Guarantor Name 09/21/2024 1 [facility] - DOS ON OR AFTER 2022 - DUAL ELIGIBLE - DETENTION OPTIONS AND ONE CARE (MEDICARE REPLACEMENT/ADV ANTAGE - HMO) Tram Macedo [id number] Tram Macedo Notes Date Note Type Note [...] / VomitingPMH: Stroke, Hypertension, MigrainePMH Reviewed at 09/21/2024:59Allergies Reviewed at 09/21/2024 - :59Comments: Cane Stripper verified the patient's name//address and phone number. Pt Namibian speaking primarily, button cutter# [id number] used for triage assessment. Pt reports body [...] emergency treatment if needed -Kamran Buck RN Senior Web Designer Organization Information for Karla Frost Gui SULLIVANIsaíasradha Legal Name: [facility] TransportationAddr ess: [address] [place], [place] [address], USMedical Director: Omid Michelle [facility] No.: [id number] Senior Web Designer POC Test Results from Karla Frost - [...] .................. .................. .................. .................. .................. .................. ............... Senior Web Designer Note From Kam Frostlorraine: Pt chief complaint today of headache, nausea, vomiting as well as diarrhea and possible dehydration. Pt state that all signs and symptoms have been occurring for the past 5 days prior to [facility] arrival on scene, pt notes that [...] gauge iv placed in right ac. Per [facility] orders POC blood work taken with no significant findings. Pt is feliciano 4 with a GCS of 15. Negative covid. Flu test given. [facility] Esperanza Chaidez consulted, Pt given. 1 gram of Tylenol, 500 ml of normal saline, 4 mg of loperamide as well as 4 mg of iv zofran. Pt informs to contact her pcp at earliest convenience for a possible follow up. Pt informed of red flag S&S and to call emergency services if any present. [facility] Lab Orders: rapid flu (A+B): Performed rapid SARS CoV 2 Ag, QL IA, respiratory specimen: Performed BMP, serum or plasma: Performed [facility] Medication Orders: acetaminophen 500 mg tablet: Administered sodium chloride 0.9 % intravenous solution: Administered ondansetron HCl (PF) 4 mg/2 mL injection solution: Administered loperamide 2 mg tablet: Administered .................. .................. .................. .................. .................. .................. .................. ............... [facility] Consulted: Esperanza Chaidez .................. .................. .................. .................. [...] chest pain. For breakfast she had coffee [place] and milk. She has had normal urination. She denies any focal weakness numbness, changes in vision or speech. She states she does have some pain in the back of her upper neck which radiates to the front of her head. Esperanza Chaidez MD [address] [facility],[address], [place], [phone], [place] 09/21/2024 19:47:12 OBGyn Episode No OBEpisode recorded.
--- OUTSIDE RECORDS SUMMARY | 2024-11-04 08:59 | XMS_ITS | Clinical Summary ---
Author Organization [facility] Address [address] [place] [phone] Care Team Providers Care Access Developer Name Role Phone Carmelo Enriquez NP Primary [...] - 2023-2 5 season) 2024 Influenza Vaccine (Season Ended) 2025 RSV Immunization Adult Patie nts (1 - 1-dose 75+ series) 2033 HIB [...] age to complete this topic Meningococcal B Vaccine Aged Out No l onger eligible based on patient's age to complete [...] age to complete this topic Care Teams Access Developer Relationship Specialty Start Date End Date [facility]ri[facility] [place] [facility] - [facility] 04/18/20
--- OUTSIDE RECORDS SUMMARY | 2024-11-04 08:59 | XMS_ITS | Data Portability ---
Author Organization [facility] [employer] [facility], Main Office Address [address], [address] [place] [address] Care Team Providers Care Operations Coordinator Name Role Phone MARKY BUNN - 2ND [...] Address Organization Details Recorded Time Hemiplegic migraine 84135856 Active 2016 Lizy Duong MD [address] , [address], [place], [address], [facility] [employer] [facility] 7 21:05:29 Depressive disorder 87220241 Active 2016 Lizy Duong MD [address], [address], [place], [address], [facility] [employer] [facility] 7 21:08:25 Disturbance in speech 20842487 Active 2016 Lizy Duong MD [address] [place] [address], [address], [place], [address], [facility] [employer] [facility] 7 21:08:28 Essential hypertension 69489482 Active 2016 Lizy Duong MD [address], [address], [place], [address], [facility] [employer] [facility] 7 21:08:32 Mixed hyperlipidemia 171597393 Active 2016 Lizy Duong MD [address], [address], [place], [address], [facility] [employer] [facility] 7 21:12:16 Allergic rhinitis 71709161 Active 2016 Lizy Duong MD [address], [address], [place], [address], [facility] [employer] [facility] 7 21:12:45 Gastroesophage al reflux disease without esophagitis 230945609 Active 2016 Lizy Duong MD [address], [address], [place], [address], [facility] 7 21:13:12 Acquired hypothyroidism 190912751 Active 2016 Lizy Duong MD [address], [address], [place], [address], [facility] [employer] [facility] 7 21:13:54 History of cerebrovascula r accident 533319812 Active 2016 Lizy Duong MD [address], [address], [place], [address], [facility] [employer] [facility] 7 13:39:33 Problem Notes None recorded. [...] mm[Hg] 70 mm[Hg] Lizy Duong MD [address], [address], [place], [address], [employer] 7 16:24:20 Social History None recorded. Functional Status None recorded. Mental Status None recorded. Family History Nothing Reported. Medical History No medical history recorded. Gynecological HistoryNo gynecological history recorded. Obstetrics History GPAL:G 0 P 0 0 0 0 Past Encounters Encounter ID Performer Location Encounter Start Date Encounter Closed Date Diagnosis/Indication Diagnosis SNOMED-CT Code Diagnosis ICD10 Code Diagnosis Note [id number] Lizy Duong MD [address] [address] 01/11/2017 16:22:56 01/25/2017 13:57:04 Hemiplegic migraine 13840556 G43.409 Was started on topamax in hospital. Had already been on baclofen and lidocaine patches for back/neck pain. At this time with new sxs as below, being sent back to hospital for further eval. Disturbance in speech 29 139047 R47.89 New speech abnormalit y, hard to describe, part stutter, part word finding difficulti es. Was definitely not present yesterday per nurse who cared for her last night. WIll send back to ED as above. Essential hypertension 34820591 I10 Stable on chlorthali done 25 mg qd. Depressive disorder 3548 9007 F33.1 Had been stable on citalopram 40 mg qd. Sees outpt psych. Consult NEG prn. Mixed hyperlipidemia 267 151605 E78.2 Continue atorvastat in 20 mg qd and ASA 81 mg. Allergic rhinitis 423152 04 J30.2 Continue benadryl prn Gastroesop hageal reflux disease without esophagitis 256131194 K21.9 continue famotidine 20 mg BID Acquired hypothyroidism 684067410 E03.8 TSH good on levothyrox ine 50 mcg qd. Follow [id number] Lizy Duong MD [address] [address] 01/14/2017 13:20:56 01/25/2017 14:01:02 Hemiplegic migraine 24257995 G43.409 Sxs have completely resolved, probably topamax has kicked in now. Will continue and have her f/u with neuro as planned. OK for d/c tomorrow Disturbance in speech 29 970539 R47.89 Resolved Essential hypertension 17268072 I10 Stable on chlorthali done 25 mg qd. F/U with PCP as outpt. Depressive disorder 3548 9007 F33.1 Had been stable on citalopram 40 mg qd. Sees outpt psych. F/U with PCP as outpt. Mixed hyperlipidemia 267 338833 E78.2 Continue atorvastat in 20 mg qd and ASA 81 mg. F/U with PCP as outpt. Allergic rhinitis 392736 04 J30.2 Continue benadryl prn Gastroesop hageal reflux disease without esophagitis 501133132 K21.9 continue famotidine 20 mg BID. F/U with PCP as outpt. Acquired hypothyroidism 841204314 E03.8 TSH good on levothyrox ine 50 mcg qd. F/U with PCP as outpt. History of cerebrovascular accident 309870088 Z86.73 with some left sided weakness and balance issues, PT/OT feel she is ready to go home. 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 Health Concerns Section Related Observation LastModified by Organization Detai ls LastModified Time None Recorded Concern Status LastModified by Organization Details LastModified Time None Recorded Advance Directives Directive None Recorded Payers Encounter Date Sequence Insurance Name Policy Number Policy Spicer Covered Member ID Spicer Member ID Guarantor Name 01/11/2017 2 [place] [facility] Tram Macedo [id number] Tram Macedo 01/11/2017 1 [facility] - DOS PRIOR TO 2022 - DUAL ELIGIBLE (MEDICARE REPLACEMENT/AD VANTAGE - HMO) Tram Macedo [id number] Tram Macedo 01/14/2017 2 [place] [facility] Tram Macedo [id number] Tram Macedo 01/14/2017 1 [facility] - DOS PRIOR TO 2022 - DUAL ELIGIBLE (MEDICARE REPLACEMENT/AD VANTAGE - HMO) Tram Macedo [id number] Tram Macedo Notes Date Note Type Note [...] See PE notes. Lizy Duong MD [address], [address], [place], [address], [facility] [employer] 01/13/2017 21:26:25 01/14/2017 text/html I am asked [...] low back pain. Lizy Duong MD [address], [address], [place], [address], [employer] 01/14/2017 13:41:26 OBGyn Episode No OBEpisode recorded.
--- OUTSIDE RECORDS SUMMARY | 2024-11-04 08:59 | XMS_ITS | Clinical Summary ---
Author Organization [employer] [facility] Address [address] [place] [address] Care Team Providers Care Corporate Relations Manager Name Role Phone Carmelo Enriquez Primary Care Provider [phone] Social History Tobacco Use Types Packs/Day Years [...] age to complete this topic Care Teams Corporate Relations Manager Relationship Specialty Start Date End Date Carmelo Enriquez [address] [facility] [place] [address] PCP - General Family Medicine 04/18/20
== END 2024-11-04 09:43 | disposition home or self-care (01) ==
LOC: HO.HWS 08:37
PROVIDERS: PCP Nurse Practitioner Family; Visit Provider Advanced Practice Midwife
DX: Z01.419 Encounter for gynecological examination (general) (routine) without abnormal findings (principal)
CPT/HCPCS: 99397; 99459

== ENCOUNTER → 2024-11-04 08:36 | Outpatient (BNVA) | payer OTHER, SELFPAY | PROVIDERS: PCP Nurse Practitioner Family; Visit Provider Advanced Practice Midwife | DX: Z01.419 Encounter for gynecological examination (general) (routine) without abnormal findings (principal) | CPT/HCPCS: 99397; 99459 ==

== ENCOUNTER 2024-11-24 12:28 | Outpatient (AMB) | payer OTHER, SELFPAY ==
--- NOTE | 2024-11-24 13:04 | MHC.OFFVIS ---
Vital Signs 11/24/24 13:05 Height 5 ft 5 in Weight 172 lb BMI 28.6 BP 150/70 H Blood Pressure Location Rt brachial Position Sitting Pulse 61 Pulse Source Pulse Oximeter Pulse Oximetry (%) 96 Oxygen Delivery Method Room Air Intake Visit Reasons: Follow Up 2mo Professor Of Genetics Required: Yes Professor Of Genetics Services: Professor Of Genetics Offered & Declined (HAT LINING BLOCKER ) Allergies buprenorphine [From Butrans] Allergy (Severe, Verified 11/24/24 13:08) Anaphylaxis cat dander Allergy (Unknown, Verified 11/24/24 13:08) Unknown cortisone Allergy (Unknown, Verified 11/24/24 13:08) Unknown cyclobenzaprine Allergy (Unknown, Verified 11/24/24 13:08) pruritus morphine [MORPHINE] Allergy (Unknown, Verified 11/24/24 13:08) RASH,HIVES,SOB, rash, hives, SOB, rash, hives, SOB Penicillins [PENICILLINS] Allergy (Unknown, Verified 11/24/24 13:08) RASH,HIVES prazosin [PRAZOSIN] Allergy (Unknown, Verified 11/24/24 13:08) INCREASED HEADACHES, increase/worsened headaches, increase/worsened headaches strawberry [STRAWBERRY] Allergy (Unknown, Verified 11/24/24 13:08) RASH nickel Allergy (Verified 11/24/24 13:08) Rash Rozerem Adverse Reaction (Unknown, Uncoded 08/12/24 09:19) rash/memory loss Medication List - Last Reconciled 11/24/24 by ROGER Cabrera amlodipine 5 mg PO DAILY ammonium lactate 12% 1 appl topical BID aspirin 81 mg PO DAILY atorvastatin 20 mg PO DAILY baclofen 10 mg PO BID betamethasone valerate 0.1% appl topical DAILY bisacodyl 5 mg PO DAILY budesonide DR-ER 6 mg (2 x 3 mg) PO DAILY cetirizine 10 mg PO DAILY PRN cholecalciferol (vitamin D3) 25 mcg PO DAILY clotrimazole-betamethasone 1-0.05 % 1 appl topical BID 7 days hydroxyzine pamoate 75 mg PO DAILY PRN [Left leg AFO for nighttime use As directed] levothyroxine 100 mcg PO DAILY linaclotide (Linzess) 290 mcg PO QAM 30 days lorazepam (Ativan) 1 mg PO BEDTIME PRN meloxicam 7.5 mg PO BID methylcellulose (laxative) (Citrucel) 1,000 mg (2 x 500 mg) PO DAILY metoprolol succinate ER (Toprol XL) 50 mg PO DAILY nystatin 1 appl topical TID ondansetron HCl 4 mg PO BID-TID PRN pantoprazole 40 mg PO BID psyllium husk (Reguloid (psyllium husk)) 0.8 grams (2 x 0.4 gram) PO DAILY 30 days rimegepant (Nurtec ODT) 75 mg PO ONCE PRN 30 days sertraline 100 mg PO DAILY simethicone 180 mg PO QID HPI Comments Details: 63-yr-old female presents for f/u visit of stabbing headache and migraine. 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 Pt states headaches are better, though she stopped lamotrigine as it was causing GI upset. In Aug, cardiology reached d/t pt's h/o ? MONICA, however is not on treatment. Pt endorses fragmented sleep, snoring, excessive daytime sleepiness- has been falling asleep at doctor's appointments, at rest. 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 Pt reports she had 2 migraines attack x's 3 days each. She was able to resume Nurtec, which is much more effective. 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 States that the Nurtec does help this headache as well. She continues to have bothersome neck discomfort/tightness. States PS&S pain management plans to do cervical injections. She has chronic LLE weakness s/p stroke. She was doing Tin Chi, but stopped recently d/t being frustrated that her LLE was not moving as well. She has noticed dizziness in the last 3 months- not right in space dizziness lasting a few seconds, which can occur when walking. Prone to listing to the left. She endorses decreased sensation in her left hand and left foot. The dizziness is not a/w headache s/s. Pt denies preceding URIs. Pt did recently have tooth extractions. Migraine is bilateral frontal/top pressure, squeezing when worse, a/w photophobia, phonophobia, nausea, dizziness, disoriented feeling, and activity intolerance. She denies peripheral vision changes, nipple discharge, shoe size changes. She is f[facility] [place]. She is f/b [facility] End[facility]. Previous work-up: 04/2024 Brain MRI w/wo- Stable bilobed/septated sella/suprasellar cystic lesion within the pituitary fossa. Scattered and confluent periventricular and deep white matter T2/FLAIR hyperintensities, nonspecific however commonly seen with small vessel ischemic disease. 11/19/22, MR/MR head/brain wo/w con IMPRESSION: 1.? No acute intracranial findings. No abnormal intraparenchymal enhancement. 2.? 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 11/30/22, CT/CT cervical spine wo IV con IMPRESSION: ?1.? Mild multilevel cervical spondylosis without significant osseous spinal canal stenosis. Mild to moderate bilateral neural foraminal narrowing at C5-C6. ?2.? Bilateral cervical ribs, larger on the right PFSH Medical History Colitis Elevated fecal calprotectin Vaginal irritation Jesika infection of flexural skin Fungal infection of the groin Physical exam Encounter for annual wellness visit (AWV) in Medicare patient Pre-op examination Early satiety Hepatic steatosis Chronic tension headache Lumbar spondylosis Dyslipidemia Gastritis Diastolic murmur Positive ANASTACIO (antinuclear antibody) Tubular adenoma Hx of diverticulitis of colon Bunion of unspecified foot History of anxiety Depression Hypertension Shoulder pain Migraine Prediabetes Chronic low back pain Hypothyroid History of TIAs Surgical History History of esophagogastroduodenoscopy (EGD) Hx of colonoscopy H/O rectal polypectomy Hx of breast reduction, elective History of hysterectomy History of back surgery Family History Father CVD (cardiovascular disease) ETOHism Myocardial infarct Mother CVD (cardiovascular disease) Myocardial infarct Maternal Aunt History of breast cancer Brother History of cancer of unknown primary site Other Mental health disorder Substance use disorder Social History Household Members: None Housing: Apartment Alcohol intake: current Alcohol intake frequency: does not drink Patient Tobacco Use Status: Never used Tobacco e-Cigarette/Vaping Use: Never Used Current occupational status: disabled Cognitive needs: No Hearing needs: No Vision needs: No Female Reproductive History Menstrual Age of Menarche: 8 Physical Exam Vital Signs: Last Vital Signs Pulse 61 11/24/24 13:05 BP 150/70 H 11/24/24 13:05 Pulse Ox 96 11/24/24 13:05 Oxygen Delivery Method Room Air 11/24/24 13:05 BMI result Body Mass Index 28.6 Const General: cooperative and no acute distress Orientation/consciousness: patient oriented x3 HEENT Head: Yes normocephalic Resp Effort & Inspection: normal respiratory effort and able to speak in complete sentences Back/Spine/Pelvis Other: Bilateral posterior cervical tightness. Cervical ROM: limited Neuro Other: Bilateral posterior cervical tightness. Left sided mild hemiplegia. Decreased distal LUE and LLE sensation. LUE mild tone. LUE negative Tinel, Phalen, Medial compression test. Gait steady w/ LLE AFO. Pt able to easily move from chair to exam table. General: patient oriented x3, gait normal and CN's II-XI intact bilaterally Cognition (Neuro): normal cognition Motor exam (neuro): 5/5 motor strength present throughout Psych Appearance: grossly normal Mental Status: mental status grossly normal Speech and movement: Normal speech and movement present Affect: normal affect Attitude: cooperative Thought process: Normal thought process present Thought content: Normal thought content present Insight: Good insight present (Psych) Judgement: Good judgement present (Psych) Assessment & Plan Assessment & Plan (1) Occipital headache: Code(s): R51.9 - Headache, unspecified Category: Medical (2) Stabbing headache: Code(s): 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 Category: Medical (3) Migraine: Code(s): G43.909 - Migraine, unspecified, not intractable, without status migrainosus Category: Medical (4) Mass in region of sella turcica present on magnetic resonance imaging: Code(s): R93.0 - Abnormal findings on diagnostic imaging of skull and head, not elsewhere classified Category: Medical Plan For sella turcica mass: Follow-up with [facility] Endocrinology as scheduled. For LUE and LLE distal numbness, balance issues, off balance dizziness: Discussed ordering EMG/NCS and/or PT- however patient would like to wait until after she has upcoming cervical injections with [employer] [facility]. Patient would likely benefit from resuming Tni Chi again. For left side locked headache: Patient has stopped lamotrigine- as it caused GI upset. May continue to use Nurtec as needed, as this has been effective. Treatment contraindications: Tegretol and Trileptal due to cyclobenzaprine allergy. For acute migraine without aura treatment: Continue Nurtec 75 mg ODT at onset of migraine, may repeat in 24 hours. Previous acute tx trials: Reyvow, not tolerated, caused palpitations. Ubrelvy order-not as effective as Nurtec. Tx contraindications: Triptans- h/o stroke, TIA, HTN. For migraine without aura preventive treatment: Continue sertraline 100 mg daily Previous preventive migraine tx trials: Propranolol ER 60mg qhs- ineffective and contraindicated during allergy injection tx. Amitriptyline- not tolerated palpitations, nausea. Topiramate- caused chest discomfort. For sleep difficulties and hypersomnia: Patient advised to undergo in-lab PSG to further assess for sleep apnea and periodic limb movements of sleep, as last HST was inconclusive. Discussed simple strategies to optimize sleep hygiene. For memory: Monitor clinically. Previous HST- WNL. Pt previously declined f/u in-lab PSG. Coding Level of Care Code Est Pt Level 4 (81159) Diagnoses Occipital headache R51.9 Stabbing headache G44.85 Migraine G43.909 Mass in region of sella turcica present on magnetic resonance imaging R93.0 [place] Sleepiness Scale Questions Sitting and reading: high chance of dozing Watching TV: high chance of dozing Sitting inactive in a theater, movie etc.: moderate chance of dozing As a passenger in a car for an hour without break: would never doze Lying down in the afternoon when circumstances permit: high chance of dozing Sitting and talking to someone: would never doze Sitting quietly after lunch without alcohol: moderate chance of dozing In a car, while stopped for a few minutes in the traffic: would never doze ESS < 10: normal, ESS > 12: pathologic: 13
[2024-11-24 13:05] VITALS: BP 150/70; PULSE 61; O2SAT 96; BMI 28.6
--- OUTSIDE RECORDS SUMMARY | 2024-11-24 13:35 | XMS_ITS | Clinical Summary ---
Author Organization [employer] [facility] Address [address] [place] [address] Care Team Providers Care Fire Fighter [employer] Name Role Phone Carmelo Enriquez Primary Care Provider [phone] Social History Tobacco Use Types Packs/Day Years [...] age to complete this topic Care Teams Fire Fighter [employer] Relationship Specialty Start Date End Date Carmelo Enriquez [address] [place] [address] PCP - General Family Medicine 04/18/20
--- OUTSIDE RECORDS SUMMARY | 2024-11-24 13:35 | XMS_ITS | Clinical Summary ---
[facility] Address [address] [place] [address] Care Team Providers Care Assistant Broker Name Role Phone Carmelo Enriquez NP Primary Care Provider Surgical History Surgery Date Site/Laterality Comments BACK SURGERY PROCEDURE: HISTORICAL BACK SURGERY HYSTERECTOMY PROCEDURE: HISTORICAL HYSTERECTOMY BREAST REDUCTION PROCEDURE: [place] BREAST REDUCTION Medical History Medical History Date [...] age to complete this topic Care Teams Assistant Broker Relationship Specialty Start Date End Date Carmelo Enriquez NP [facility] PCP - General Family Medicine 04/18/20
--- OUTSIDE RECORDS SUMMARY | 2024-11-24 13:35 | XMS_ITS | Data Portability ---
Author Organization [employer] [facility], [place] in - [facility] Address [address] [place] [phone] Care Team Providers Care Utility Bill Collector Name Role Phone HIM CCA OTHER Assessment Encounter Date Assessment Date Assessment LastModified by Organization Details LastModified Time 09/21/2024 09/21/2024 I provided real -time medical direction via phone for this encounter, and was available for additional phone based assistance as needed. I have reviewed and agree with the Assessment and Plan as documented by the [employer]. We discussed the diagnostic uncertainty of home [...] verbalized understanding of instructions to the medic Not available 09/21/2024 19:46:19 Plan of Treatment Reminders Order Date Submit Date Provider Last Modified By Organization Details Last Modified Time Details Appointments None recorded. Lab rapid flu (A+B) 2024 025 [email or web address] 0 [facility], [address] [place] [address], [id number] 15:03:52 rapid SARS CoV 2 Ag, QL IA, respiratory specimen 2024 [email or web address] 0 [facility], [address] [place] [address], [id number] 15:03:51 BMP, serum or plasma 2024 [facility], [address] [place] [address], [id number] 18:04:17 Referral None recorded. Procedures None recorded. Surgeries None recorded. Imaging None recorded. Medication Orders acetaminoph en ER 650 mg tablet,exte nded release 2024 [facility] #[id number], [address] [place], [address], 15:15:29 acetaminoph en 500 mg tablet 2024 025 [email or web address] 0 [facility] #[id number], [address] [place] [address], [address], 15:15:26 sodium chloride 0.9 % intravenous solution 2024 [email or web address] 0 [id number], [address] [place], [address], 15:05:39 ondansetron HCl (PF) 4 mg/2 mL injection solution 2024 025 [email or web address] 0 [facility]44[facility], [address] [place], [address], 15:05:39 loperamide 2 mg tablet 2024 025 [email or web address] 0 [facility]44[facility], [address] [place], [address], 5 15:05:39 ondansetron 4 mg disintegrat ing tablet 2024 [facility] #[id number], [address] [place], [address], 5 15:15:29 loperamide 2 mg tablet 2024 025 [facility] #[id number], [address] [facility], [place], [address], 5 15:15:29 Patient TargetsNo targets recorded. Patient InstructionsNo instructions recorded. Reason for Referral None Reported. Results Created Date Observation Date Name Description Value Unit Range Abnormal Flag Note LastModifiedBy Organization Detail LastModifiedTime 09/22/1909/21/2024 rapid SARS CoV 2 Ag, QL IA, respi rator y speci men rapid SARS CoV 2 Ag, QL IA, respiratory specimen negati ve Not Available [facility] ed [address] [place] [address], [id number] 09/21/2024 14:51:23 09/22/1909/21/2024 rapid flu (A+B) Flu negati ve Not Available [facility] ed [address] [place] [address], [id number] 09/21/2024 14:51:20 Result Notes None recorded. Medical Equipment None Reported. Allergies Allergen ID Allergen Name Allergen Category Reaction Reaction Severity Criticality Documentation Date Start Date Code Code System Note Provider Name and Address Organization Details Recorded Time 90238 Product containin g penicilli n (product) medicatio n Not available Not available Not available 09/21/2024 90924 8001 SNOMED Not Available [facility]51 95483 morphine medicatio n Not available Not available Not available 09/21/2024 7052 RxNorm Not Available [facility]51 Medications Name Sig [...] 5 56 /min 19 /min 97.9 [degF] 16798.0 08 g 165.1 cm 99 % 99 [...] SNOMED-CT Code Diagnosis ICD10 Code Diagnosis Note [id number] Esperanza Chaidez MD Main - [facility] [address] [place] [phone] 09/21/2024 14:49:10 09/21/2024 22:15:10 Muscle pain 74971429 M79.10 Likely viral syndrome with myalgias/l abs non concerning -lactate not above 2, patient has stable H&H. See medic notes- d/w patient - avoid ibuprofen while GI upset -explained it is too irritating to the GI tract- may have Tylenol Headache 40470036 R51.9 has been taking excedrin and ibuprofen/ given GERD and dyspepsia ketorolac contraindi cated-advi sed may have Tylenol safely Nausea, vo miting and diarrhea 3599332 R11.2 R19.7 hx GERD-advis ed to continue [...] Recorded Advance Directives Directive None Recorded Payers Insurance Date Sequence Insurance Name Policy Number Policy Spicer Covered Member ID Spicer Member ID Guarantor Name 09/21/2024 1 [facility] - DOS ON OR AFTER 2022 - DUAL ELIGIBLE - RESIDENTIAL OPTIONS AND ONE CARE (MEDICARE REPLACEMENT/ADV ANTAGE - HMO) Tram Macedo [id number] Tram Macedo Notes Date Note Type Note [...] at 09/21/2024:59Allergies Reviewed at 09/21/2024 - :59Comments: Plate Stacker verified the patient's name//address and phone number. Pt Albanian speaking primarily, system support developer# [id number] used for triage assessment. Pt reports body [...] emergency treatment if needed -Kamran Buck RN [employer] Organization Information for Karla Frost Gui SULLIVANIsaíasradha Legal Name: [facility] TransportationAddr ess: [address] [place], [place] [address], USMedical Director: Omid Michelle [facility] No.: [id number] [employer] POC Test Results from Karla Frost - [...] .................. .................. .................. .................. .................. .................. ............... [employer] Note From Kam Frostlorraine: Pt chief complaint today of headache, nausea, vomiting as well as diarrhea and possible dehydration. Pt state that all signs and symptoms have been occurring for the past [address] [facility] arrival on scene, pt notes that [...] gauge iv placed in right ac. Per [facility] orders POC blood work taken with no significant findings. Pt is feliciano 4 with a GCS of 15. Negative covid. Flu test given. [facility] Esperanza Chaidez consulted, Pt given. 1 gram of Tylenol, 500 ml of normal saline, 4 mg of loperamide as well as 4 mg of iv zofran. Pt informs to contact her pcp at earliest convenience for a possible follow up. Pt informed of red flag S&S and to call emergency services if any present. [facility] Lab Orders: rapid flu (A+B): Performed rapid SARS CoV 2 Ag, QL IA, respiratory specimen: Performed BMP, serum or plasma: Performed [facility] Medication Orders: acetaminophen 500 mg tablet: Administered sodium chloride 0.9 % intravenous solution: Administered ondansetron HCl (PF) 4 mg/2 mL injection solution: Administered loperamide 2 mg tablet: Administered .................. .................. .................. .................. .................. .................. .................. ............... [facility] Consulted: Esperanza Chaidez .................. .................. .................. .................. [...] chest pain. For breakfast she had coffee [place] and milk. She has had normal urination. She denies any focal weakness numbness, changes in vision or speech. She states she does have some pain in the back of her upper neck which radiates to the front of her head. Esperanza Chaidez MD [address] [facility],[address], [place], [address], [employer] 09/21/2024 19:47:12 OBGyn Episode No OBEpisode recorded.
--- OUTSIDE RECORDS SUMMARY | 2024-11-24 13:35 | XMS_ITS | Data Portability ---
Author Organization [facility] [employer] [facility], Main Office Address [address] [facility] [facility], [address] [place] [address] Care Team Providers Care Clinical Trial Specialist Name Role Phone MARKY BUNN - 2ND [...] Address Organization Details Recorded Time Hemiplegic migraine 35055153 Active 2016 Lizy Duong MD [address] [facility], [address], [place], [address], [facility] [employer] [facility] 7 21:05:29 Depressive disorder 10461867 Active 2016 Lizy Duong MD [address], [address], [place], [address], [facility] [employer] [facility] 7 21:08:25 Disturbance in speech 52017439 Active 2016 Lizy Duong MD [address] [place] [address], [address], [place], [address], [facility] [employer] [facility] 7 21:08:28 Essential hypertension 71621741 Active 2016 Lizy Duong MD [address] [facility] [address], [address], [place], [address], [facility] [employer] [facility] 7 21:08:32 Mixed hyperlipidemia 465884393 Active 2016 Lizy Duong MD [address], [address], [place], [address], [place] [employer] 7 21:12:16 Allergic rhinitis 33853596 Active 2016 Lizy Duong MD [address] [facility] [address], [address], [place], [address], [facility] [employer] [facility] 7 21:12:45 Gastroesophage al reflux disease without esophagitis 259026524 Active 2016 Lizy Duong MD [address] [facility], [address], [place], [address], [facility] [employer] 7 21:13:12 Acquired hypothyroidism 447203176 Active 2016 Lizy Duong MD [address] [facility], [address], [place], [address], [facility] [employer] 7 21:13:54 History of cerebrovascula r accident 332509984 Active 2016 Lizy Duong MD [address] [place] [address], [address], [place], [address], [employer] 7 13:39:33 Problem Notes None recorded. Medical Equipment None Reported. Allergies Allergen ID Allergen Name Allergen Category Reaction Reaction Severity Criticality Documentation Date Start Date Code Code System Note Provider Name and Address Organization Details Recorded Time 7402 codeine medicatio n Not available Not available Not available 01/13/2017 2670 RxNorm Lizy Duong MD [address] [facility], [address], [place], [address], [employer] 7 21:26:10 Vitals Date Recorded Heart rate Respiratory rate Body temperature Oxygen saturation Oxygen saturation in Arterial blood by Pulse oximetry Systolic blood pressure Diastolic blood pressure Provider Name and Address Organization Details Last Updated DateTime 7 78 /min 18 /min 98.1 [degF] 98 % 98 % 118 mm[Hg] 70 mm[Hg] Lizy Duong MD [address] [place] [address], [address], [place], [address], [employer] 7 16:24:20 Social History None recorded. Functional Status None recorded. Mental Status None recorded. Family History Nothing Reported. Medical History No medical history recorded. Gynecological HistoryNo gynecological history recorded. Obstetrics History GPAL:G 0 P 0 0 0 0 Past Encounters Encounter ID Performer Location Encounter Start Date Encounter Closed Date Diagnosis/Indication Diagnosis SNOMED-CT Code Diagnosis ICD10 Code Diagnosis Note [id number] Lizy Duong MD [address] [address] 01/11/2017 16:22:56 01/25/2017 13:57:04 Hemiplegic migraine 14826240 G43.409 Was started on topamax in hospital. Had already been on baclofen and lidocaine patches for back/neck pain. At this time with new sxs as below, being sent back to hospital for further eval. Disturbance in speech 29 749983 R47.89 New speech abnormalit y, hard to describe, part stutter, part word finding difficulti es. Was definitely not present yesterday per nurse who cared for her last night. WIll send back to ED as above. Essential hypertension 10060919 I10 Stable on chlorthali done 25 mg qd. Depressive disorder 3548 9007 F33.1 Had been stable on citalopram 40 mg qd. Sees outpt psych. Consult NEG prn. Mixed hyperlipidemia 267 641358 E78.2 Continue atorvastat in 20 mg qd and ASA 81 mg. Allergic rhinitis 958709 04 J30.2 Continue benadryl prn Gastroesop hageal reflux disease without esophagitis 818785632 K21.9 continue famotidine 20 mg BID Acquired hypothyroidism 081766513 E03.8 TSH good on levothyrox ine 50 mcg qd. Follow [id number] Lizy Duong MD [address] [address] 01/14/2017 13:20:56 01/25/2017 14:01:02 Hemiplegic migraine 74373639 G43.409 Sxs have completely resolved, probably topamax has kicked in now. Will continue and have her f/u with neuro as planned. OK for d/c tomorrow Disturbance in speech 29 700072 R47.89 Resolved Essential hypertension 31855130 I10 Stable on chlorthali done 25 mg qd. F/U with PCP as outpt. Depressive disorder 3548 9007 F33.1 Had been stable on citalopram 40 mg qd. Sees outpt psych. F/U with PCP as outpt. Mixed hyperlipidemia 267 857160 E78.2 Continue atorvastat in 20 mg qd and ASA 81 mg. F/U with PCP as outpt. Allergic rhinitis 519440 04 J30.2 Continue benadryl prn Gastroesop hageal reflux disease without esophagitis 663337017 K21.9 continue famotidine 20 mg BID. F/U with PCP as outpt. Acquired hypothyroidism 569928057 E03.8 TSH good on levothyrox ine 50 mcg qd. F/U with PCP as outpt. History of cerebrovascular accident 822698004 Z86.73 with some left sided weakness and balance issues, PT/OT feel she is ready to go home. 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 - DOS PRIOR TO 2022 - DUAL ELIGIBLE (MEDICARE REPLACEMENT/AD VANTAGE - HMO) Tram Macedo [id number] Tram Macedo 01/11/2017 2 [place] [facility] Tram Macedo [id number] Tram Macedo 01/14/[address] [facility] - DOS PRIOR TO 2022 - DUAL ELIGIBLE (MEDICARE REPLACEMENT/AD VANTAGE - HMO) Tram Macedo [id number] Tram Macedo 01/14/2017 2 [place] [facility] Tram Macedo [id number] Tr[employer] Notes Date Note Type Note [...] communicating. See PE notes. Lizy Duong MD [address] [place] [address], [address], [place], [address], [employer] 01/13/2017 21:26:25 01/14/2017 text/html I am asked [...] and low back pain. Lizy Duong MD [address] [place] [address], [address], [place], [address], [employer] 01/14/2017 13:41:26 OBGyn Episode No OBEpisode recorded.
== END 2024-11-24 13:52 | disposition home or self-care (01) ==
LOC: HO.HSMS 12:29
PROVIDERS: PCP Nurse Practitioner Family; Visit Provider Nurse Practitioner Family
DX: R51.9 Headache, unspecified (principal); G44.85 Primary stabbing headache; G43.909 Migraine, unspecified, not intractable, without status migrainosus; R93.0 Abnormal findings on diagnostic imaging of skull and head, not elsewhere classified
CPT/HCPCS: 99214

== ENCOUNTER → 2024-11-24 12:28 | Outpatient (BNVA) | payer OTHER, SELFPAY | PROVIDERS: PCP Nurse Practitioner Family; Visit Provider Nurse Practitioner Family | DX: G43.909 Migraine, unspecified, not intractable, without status migrainosus (principal); G44.85 Primary stabbing headache; R51.9 Headache, unspecified; R93.0 Abnormal findings on diagnostic imaging of skull and head, not elsewhere classified | CPT/HCPCS: 99212 ==

== ENCOUNTER 2024-12-08 08:47 | Outpatient (AMB) | payer OTHER, SELFPAY ==
[2024-12-08 08:59] VITALS: BP 138/72; PULSE 64; O2SAT 98; BMI 28.2
--- NOTE | 2024-12-08 08:59 | MHC.PC.OV ---
Vital Signs 12/08/24 08:59 Height 5 ft 5 in Weight 169 lb 4 oz BMI 28.2 BP 138/72 Blood Pressure Location Lt brachial Position Sitting Pulse 64 Pulse Source Pulse Oximeter Pulse Oximetry (%) 98 Oxygen Delivery Method Room Air Intake Visit Reasons: PE Allergies buprenorphine [From Butrans] Allergy (Severe, Verified 12/08/24 08:59) Anaphylaxis cat dander Allergy (Unknown, Verified 12/08/24 08:59) Unknown cortisone Allergy (Unknown, Verified 12/08/24 08:59) Unknown cyclobenzaprine Allergy (Unknown, Verified 12/08/24 08:59) pruritus morphine [MORPHINE] Allergy (Unknown, Verified 12/08/24 08:59) RASH,HIVES,SOB, rash, hives, SOB, rash, hives, SOB Penicillins [PENICILLINS] Allergy (Unknown, Verified 12/08/24 08:59) RASH,HIVES prazosin [PRAZOSIN] Allergy (Unknown, Verified 12/08/24 08:59) INCREASED HEADACHES, increase/worsened headaches, increase/worsened headaches strawberry [STRAWBERRY] Allergy (Unknown, Verified 12/08/24 08:59) RASH nickel Allergy (Verified 12/08/24 08:59) Rash Rozerem Adverse Reaction (Unknown, Uncoded 12/08/24 08:59) rash/memory loss Tobacco use date assessed: 12/08/24 Fall risk assessment: No Falls in past year Last assessed Fall Risk: 12/08/24 Dental Screening Dental Screen Date: 12/08/24 Did you have a dental visit in the last 12 months?: Yes Did you have a dental problem in the last 6 months where you did not have access to dental care?: No Was dental information given to patient?: Patient has dentist HPI PE HPI Details History of Present Illness The patient is a 64-year-old female presenting for a physical examination. She accompanies this visit with a personal computer network engineer and reports doing quite well overall. She has no acute or chronic health complaints and has appropriately maintained her health screenings. Her mammograms and colonoscopies are current, and she regularly consults a welding machine operator electron beam, squirrel man, neurology, and dermatologt. The plan includes the administration of a pneumonia vaccination, as she is due for it. Health Maintenance - Mammograms up to date - Colonoscopies up to date - Pneumonia vaccination planned for today - Routine labs ordered for today Social History - Accompanied by a personal computer network engineer Review of Systems - General: Reports feeling well overall denies any recent fevers, chills, n/v, urinary issues, blood in stool, denies any cp or sob, depression, or anxiety Physical Exam General: Cooperative, healthy appearing, comfortable, no acute distress and well developed Orientation: Patient oriented x3 Limitations: No limitations Head: Normal to inspection Ears: Hearing grossly normal bilaterally Nose: Normal external nose present Face and sinus: Normal facial exam Eyes: Appearance normal, both eyes and all related structures Neck: Normal visual inspection and Yes full ROM Respiratory: Normal respiratory effort and able to speak in complete sentences. Clear to auscultation bilaterally Cardiovascular: Regular rate and rhythm. Normal S1 and S2 GI: Normal to inspection. Soft to palpation and nontender Skin: No rashes or lesions noted Neuro: Patient oriented x3 Extremities: Normal to inspection Results Plan The plan for this visit includes the administration of the pneumonia vaccination, as the patient is due for it. Routine labs have been ordered to monitor her health. The patient will continue follow-up care with her welding machine operator electron beam and brazing machine operator helper. No immediate health concerns were noted during today's examination, which was benign. Discussion Notes During this visit, I reviewed the importance of regular health maintenance with the patient, emphasizing continued adherence to screening schedules. The decision to administer the pneumonia vaccine was discussed, and the patient expressed understanding and agreement. The significance of collaborating with her welding machine operator electron beam and brazing machine operator helper was also reinforced to ensure comprehensive management of her healthcare needs. Patient Instructions - Receive a pneumonia vaccination today - Proceed with planned lab tests - Return for regular follow-ups as advised - Continue seeing your welding machine operator electron beam and brazing machine operator helper as scheduled [facility] Medical History Physical exam Colitis Elevated fecal calprotectin Vaginal irritation Jesika infection of flexural skin Fungal infection of the groin Encounter for annual wellness visit (AWV) in Medicare patient Pre-op examination Early satiety Hepatic steatosis Chronic tension headache Lumbar spondylosis Dyslipidemia Gastritis Diastolic murmur Positive ANASTACIO (antinuclear antibody) Tubular adenoma Hx of diverticulitis of colon Bunion of unspecified foot History of anxiety Depression Hypertension Shoulder pain Migraine Prediabetes Chronic low back pain Hypothyroid History of TIAs Surgical History History of esophagogastroduodenoscopy (EGD) Hx of colonoscopy H/O rectal polypectomy Hx of breast reduction, elective History of hysterectomy History of back surgery Family History Father CVD (cardiovascular disease) ETOHism Myocardial infarct Mother CVD (cardiovascular disease) Myocardial infarct Maternal Aunt History of breast cancer Brother History of cancer of unknown primary site Other Mental health disorder Substance use disorder Social History Household Members: None Housing: Apartment Alcohol intake: current Alcohol intake frequency: does not drink Patient Tobacco Use Status: Never used Tobacco e-Cigarette/Vaping Use: Never Used service: No Current occupational status: disabled Cognitive needs: No Hearing needs: No Vision needs: No Female Reproductive History Menstrual Age of Menarche: 8 Questionnaire Thrive Questionnaire Date Thrive assessed: 12/08/24 I am a: Patient What is your living situation today?: I have a steady place to live Within the past 12 months, did the food you bought not last and you didn't have the money to get more?: Often true Within the past 12 months, did you worry whether your food would run out before you got money to buy more?: Never true Do you have trouble paying for medicines?: No Do you have trouble getting transportation to medical appointments?: No Do you have trouble paying your heating and electricity bill?: No Do you have trouble taking care of your child, family member or friend?: No Do you have trouble with day-to-day activities such as bathing, preparing meals, shopping, managing finances, etc.?: Yes Are you currently unemployed and looking for a job?: No Are you interested in more education?: No Please select the resources that you would like help with: None Currently or been in a relationship where the following occur: No concerns reported THRIVE Score: 1 AUDIT C Alcohol Use Questionnaire (AUDIT-C) 1. How often do you have a drink containing alcohol?: Never 3. How often do you have six or more drinks on one occasion?: Never Total Score: 0 Score Reviewed/Action Taken: Yes MARTI-7 AMB Questionnaire MARTI-7 Date MARTI - 7 assessed: 08/19/24 Source: Developed by Drs. Jarad Mo, Karyn Alba, Salvador Saldana and colleagues, with an educational irwin from [employer]. Physical exam (Primary Care) Vital Signs: Last Vital Signs Pulse 64 12/08/24 08:59 BP 138/72 12/08/24 08:59 Pulse Ox 98 12/08/24 08:59 Oxygen Delivery Method Room Air 12/08/24 08:59 BMI result Body Mass Index 28.2 Tobacco/Smoking Status: Tobacco use Status Tobacco use date assessed 12/08/24 12/08/24 09:07 Patient Tobacco Use Status Never used Tobacco 12/08/24 09:07 e-Cigarette/Vaping Use Never Used 12/08/24 09:07 Thrive Assessment: Date of Thrive Assessment Date Thrive assessed 12/08/24 12/08/24 09:07 Currently or been in a relationship where the following occur: No concerns reported Immunizations pneumoc 20-melissa conj-dip cr(PF) 0.5 mL IM syringe Performing Provider: JOCELYNE Avila Performing Location: [facility] Administered by: Ramon Echevarria CMA on 12/08/24 09:32 Dose Route Admin Location Dispensed Lot Number Expiration Date FORMERLY NAMED [facility] Casing Inspector 0.5 mL IM Left Deltoid 0.5 mL [id number] 10/12/25 WizeETH/PFIZER VIS Given Date VIS Provided VIS Publication Date 12/08/24 Single Vaccine 21 Eligibility Eligibility Date Funding Source Not [facility] Eligible 12/08/24 Private Coding Level of Care Code Est Pt Level 3 (08214) Diagnoses Physical exam Z00.00 Vitamin D deficiency E55.9 Assessment & Plan Assessment & Plan (1) Physical exam: Code(s): Z00.00 - Encounter for general adult medical examination without abnormal findings Category: Medical (2) Vitamin D deficiency: Code(s): E55.9 - Vitamin D deficiency, unspecified Category: Medical Plan . Orders: Orders Complete Blood Count Auto Diff Today Z00.00 - Encounter for general adult medical examination without abnormal findings Vitamin D 25-OH Total Today E55.9 - Vitamin D deficiency, unspecified Comprehensive [place]. Panel Fast Today Z00.00 - Encounter for general adult medical examination without abnormal findings TSH reflex Free T4 Today Z00.00 - Encounter for general adult medical examination without abnormal findings UA CC w/rflx Micro + Cult Today Z00.00 - Encounter for general adult medical examination without abnormal findings Lipid Panel Today Z00.00 - Encounter for general adult medical examination without abnormal findings
--- OUTSIDE RECORDS SUMMARY | 2024-12-08 09:09 | XMS_ITS | Data Portability ---
Author Organization [facility] [employer] [facility], Main Office Address [address] [place] [address] Care Team Providers Care Routing Equipment Tender Name Role Phone MARKY BUNN - 2ND [...] Address Organization Details Recorded Time Hemiplegic migraine 14005375 Active 2016 Lizy Duong MD [address], [address], [place], [address], [facility] [employer] [facility] 7 21:05:29 Depressive disorder 36454300 Active 2016 Lizy Duong MD [address], [address], [place], [address], [facility] [employer] [facility] 7 21:08:25 Disturbance in speech 65841858 Active 2016 Lizy Duong MD [address] [place] [address], [address], [place], [address], [facility] [employer] [facility] 7 21:08:28 Essential hypertension 98058234 Active 2016 Lizy Duong MD [address], [address], [place], [address], [facility] [employer] [facility] 7 21:08:32 Mixed hyperlipidemia 463453264 Active 2016 Lizy Duong MD [address], [address], [place], [address], [place] [employer] 7 21:12:16 Allergic rhinitis 92471874 Active 2016 Lizy Duong MD [address], [address], [place], [address], [employer] [facility] 7 21:12:45 Gastroesophage al reflux disease without esophagitis 830345437 Active 2016 Lizy Duong MD [address], [address], [place], [address], [employer] 7 21:13:12 Acquired hypothyroidism 158577444 Active 2016 Lizy Duong MD [address], [address], [place], [address], [facility] [employer] 7 21:13:54 History of cerebrovascula r accident 981026548 Active 2016 Lizy Duong MD [address], [address], [place], [address], [employer] 7 13:39:33 Problem Notes None recorded. Medical Equipment None Reported. Allergies Allergen ID Allergen Name Allergen Category Reaction Reaction Severity Criticality Documentation Date Start Date Code Code System Note Provider Name and Address Organization Details Recorded Time 7402 codeine medicatio n Not available Not available Not available 01/13/2017 2670 RxNorm Lizy Duong MD [address], [address], [place], [address], [employer] 7 21:26:10 Vitals Date Recorded Heart rate Respiratory rate Body temperature Oxygen saturation Oxygen saturation in Arterial blood by Pulse oximetry Systolic And Diastolic Provider Name and Address Organization Details Last Updated DateTime 7 78 /min 18 /min 98.1 [degF] 98 % 98 % 118/70 mm[Hg] Lizy Duong MD [address], [address], [place], [address], [employer] 7 16:24:20 Social History None recorded. Functional Status None recorded. Mental Status None recorded. Family History Nothing Reported. Medical History No medical history recorded. Gynecological HistoryNo gynecological history recorded. Obstetrics History GPAL:G 0 P 0 0 0 0 Past Encounters Encounter ID Performer Location Encounter Start Date Encounter Closed Date Diagnosis/Indication Diagnosis SNOMED-CT Code Diagnosis ICD10 Code Diagnosis Note [id number] Lizy Duong MD [address] [address] 01/11/2017 16:22:56 01/25/2017 13:57:04 Hemiplegic migraine 90834486 G43.409 Was started on topamax in hospital. Had already been on baclofen and lidocaine patches for back/neck pain. At this time with new sxs as below, being sent back to hospital for further eval. Disturbance in speech 29 659884 R47.89 New speech abnormalit y, hard to describe, part stutter, part word finding difficulti es. Was definitely not present yesterday per nurse who cared for her last night. WIll send back to ED as above. Essential hypertension 67404014 I10 Stable on chlorthali done 25 mg qd. Depressive disorder 3548 9007 F33.1 Had been stable on citalopram 40 mg qd. Sees outpt psych. Consult NEG prn. Mixed hyperlipidemia 267 501209 E78.2 Continue atorvastat in 20 mg qd and ASA 81 mg. Allergic rhinitis 231810 04 J30.2 Continue benadryl prn Gastroesop hageal reflux disease without esophagitis 101696402 K21.9 continue famotidine 20 mg BID Acquired hypothyroidism 841173069 E03.8 TSH good on levothyrox ine 50 mcg qd. Follow [id number] Lizy Duong MD [address] [address] 01/14/2017 13:20:56 01/25/2017 14:01:02 Hemiplegic migraine 52304075 G43.409 Sxs have completely resolved, probably topamax has kicked in now. Will continue and have her f/u with neuro as planned. OK for d/c tomorrow Disturbance in speech 29 950162 R47.89 Resolved Essential hypertension 11265072 I10 Stable on chlorthali done 25 mg qd. F/U with PCP as outpt. Depressive disorder 3548 9007 F33.1 Had been stable on citalopram 40 mg qd. Sees outpt psych. F/U with PCP as outpt. Mixed hyperlipidemia 267 283955 E78.2 Continue atorvastat in 20 mg qd and ASA 81 mg. F/U with PCP as outpt. Allergic rhinitis 189392 04 J30.2 Continue benadryl prn Gastroesop hageal reflux disease without esophagitis 655329049 K21.9 continue famotidine 20 mg BID. F/U with PCP as outpt. Acquired hypothyroidism 388127429 E03.8 TSH good on levothyrox ine 50 mcg qd. F/U with PCP as outpt. History of cerebrovascular accident 781181399 Z86.73 with some left sided weakness and balance issues, PT/OT feel she is ready to go home. Has [employer] for 2 hrs/day Health Concerns Section Related Observation LastModified by Organization Detai ls LastModified Time None Recorded Concern Status LastModified by Organization Details LastModified Time None Recorded Advance Directives Directive None Recorded Payers Encounter Date Sequence Insurance Name Policy Number Policy Spicer Covered Member ID Spicer Member ID Guarantor Name 01/11/2017 2 [place] [facility] Tram Macedo [id number] Tram Macedo 01/11/2017 1 [facility] - DOS PRIOR TO 2022 - DUAL ELIGIBLE (MEDICARE REPLACEMENT/AD VANTAGE - HMO) Tram Remington [id number] Tram Macedo 01/14/2017 2 [place] [facility] Tram Remington [id number] Tram Macedo 01/14/2017 1 [facility] - DOS PRIOR TO 2022 - DUAL ELIGIBLE (MEDICARE REPLACEMENT/AD VANTAGE - HMO) Tram Remington [id number] Tram Remington Notes Date Note Type Note Provider Name [...] communicating. See PE notes. Lizy Duong MD [address] [place] [address], [address], [place], [address], [facility] [employer] 01/13/2017 21:26:25 01/14/2017 text/html I am asked [...] and low back pain. Lizy Duong MD [address] [place] [address], [address], [place], [address], [facility] [employer] 01/14/2017 13:41:26 OBGyn Episode No OBEpisode recorded.
== END 2024-12-08 09:54 | disposition home or self-care (01) ==
LOC: HO.HMCC 08:48
PROVIDERS: PCP Nurse Practitioner Family; Visit Provider Nurse Practitioner Family
DX: Z00.00 Encounter for general adult medical examination without abnormal findings (principal); E55.9 Vitamin D deficiency, unspecified; Z23 Encounter for immunization

== ENCOUNTER → 2024-12-08 08:47 | Outpatient (BNVA) | payer OTHER, SELFPAY | PROVIDERS: PCP Nurse Practitioner Family; Visit Provider Nurse Practitioner Family | DX: Z00.00 Encounter for general adult medical examination without abnormal findings (principal); E55.9 Vitamin D deficiency, unspecified; Z23 Encounter for immunization | CPT/HCPCS: 90471; 90677; 99212 ==

== ENCOUNTER 2024-12-11 09:16 | Outpatient (REF) | payer OTHER, SELFPAY ==
--- OUTSIDE RECORDS SUMMARY | 2024-12-11 09:28 | XMS_ITS | Data Portability ---
Author Organization [facility] [employer] [facility], Main Office Address [address] [place] [address] Care Team Providers Care Technology Education Instructor Name Role Phone MARKY BUNN - 2ND [...] Address Organization Details Recorded Time Hemiplegic migraine 90447635 Active 2016 Lizy Duong MD [address], [address], [place], [address], [facility] [employer] [facility] 7 21:05:29 Depressive disorder 81757000 Active 2016 Lizy Duong MD [address], [address], [place], [address], [facility] [employer] [facility] 7 21:08:25 Disturbance in speech 03972152 Active 2016 Lizy Duong MD [address] [place] [address], [address], [place], [address], [facility] [employer] [facility] 7 21:08:28 Essential hypertension 83590041 Active 2016 Lizy Duong MD [address], [address], [place], [address], [facility] [employer] [facility] 7 21:08:32 Mixed hyperlipidemia 497333553 Active 2016 Lizy Duong MD [address], [address], [place], [address], [place] [employer] 7 21:12:16 Allergic rhinitis 89428659 Active 2016 Lizy Duong MD [address], [address], [place], [address], [facility] [employer] [facility] 7 21:12:45 Gastroesophage al reflux disease without esophagitis 936634225 Active 2016 Lizy Duong MD [address], [address], [place], [address], [facility] [employer] 7 21:13:12 Acquired hypothyroidism 673565860 Active 2016 Liyz Duong MD [address], [address], [place], [address], [facility] [employer] 7 21:13:54 History of cerebrovascula r accident 366892045 Active 2016 Lizy Duong MD [address] [place] [address], [address], [place], [address], [employer] 7 13:39:33 Problem Notes None recorded. Medical Equipment None Reported. Allergies Allergen ID Allergen Name Allergen Category Reaction Reaction Severity Criticality Documentation Date Start Date Code Code System Note Provider Name and Address Organization Details Recorded Time 7402 codeine medicatio n Not available Not available Not available 01/13/2017 2670 RxNorm Lizy Duong MD [address], [address], [place], [address], [employer] 7 21:26:10 Vitals Date Recorded Heart rate Respiratory rate Body temperature Oxygen saturation Oxygen saturation in Arterial blood by Pulse oximetry Systolic blood pressure Diastolic blood pressure Provider Name and Address Organization Details Last Updated DateTime 7 78 /min 18 /min 98.1 [degF] 98 % 98 % 118 mm[Hg] 70 mm[Hg] Lizy Duong MD [address] [place] [address], [address], [place], [address], [employer] 7 16:24:20 Social History None recorded. Functional Status None recorded. Mental Status None recorded. Family History Nothing Reported. Medical History No medical history recorded. Gynecological HistoryNo gynecological history recorded. Obstetrics History GPAL:G 0 P 0 0 0 0 Past Encounters Encounter ID Performer Location Encounter Start Date Encounter Closed Date Diagnosis/Indication Diagnosis SNOMED-CT Code Diagnosis ICD10 Code Diagnosis Note [id number] Lizy Duong MD [address] [address] 01/11/2017 16:22:56 01/25/2017 13:57:04 Hemiplegic migraine 18105578 G43.409 Was started on topamax in hospital. Had already been on baclofen and lidocaine patches for back/neck pain. At this time with new sxs as below, being sent back to hospital for further eval. Disturbance in speech 29 203266 R47.89 New speech abnormalit y, hard to describe, part stutter, part word finding difficulti es. Was definitely not present yesterday per nurse who cared for her last night. WIll send back to ED as above. Essential hypertension 69268356 I10 Stable on chlorthali done 25 mg qd. Depressive disorder 3548 9007 F33.1 Had been stable on citalopram 40 mg qd. Sees outpt psych. Consult NEG prn. Mixed hyperlipidemia 267 696783 E78.2 Continue atorvastat in 20 mg qd and ASA 81 mg. Allergic rhinitis 800592 04 J30.2 Continue benadryl prn Gastroesop hageal reflux disease without esophagitis 397674162 K21.9 continue famotidine 20 mg BID Acquired hypothyroidism 482966625 E03.8 TSH good on levothyrox ine 50 mcg qd. Follow [id number] Lizy Duong MD [address] [address] 01/14/2017 13:20:56 01/25/2017 14:01:02 Hemiplegic migraine 09191585 G43.409 Sxs have completely resolved, probably topamax has kicked in now. Will continue and have her f/u with neuro as planned. OK for d/c tomorrow Disturbance in speech 29 865872 R47.89 Resolved Essential hypertension 41069450 I10 Stable on chlorthali done 25 mg qd. F/U with PCP as outpt. Depressive disorder 3548 9007 F33.1 Had been stable on citalopram 40 mg qd. Sees outpt psych. F/U with PCP as outpt. Mixed hyperlipidemia 267 434594 E78.2 Continue atorvastat in 20 mg qd and ASA 81 mg. F/U with PCP as outpt. Allergic rhinitis 236872 04 J30.2 Continue benadryl prn Gastroesop hageal reflux disease without esophagitis 376536410 K21.9 continue famotidine 20 mg BID. F/U with PCP as outpt. Acquired hypothyroidism 790221204 E03.8 TSH good on levothyrox ine 50 mcg qd. F/U with PCP as outpt. History of cerebrovascular accident 000286223 Z86.73 with some left sided weakness and balance issues, PT/OT feel she is ready to go home. 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 Health Concerns Section Related Observation LastModified by Organization Detai ls LastModified Time None Recorded Concern Status LastModified by Organization Details LastModified Time None Recorded Advance Directives Directive None Recorded Payers Encounter Date Sequence Insurance Name Policy Number Policy Spicer Covered Member ID Spicer Member ID Guarantor Name 01/11/2017 2 [place] [facility] Tram Macedo [id number] Tram Macedo 01/11/2017 1 [facility] - DOS PRIOR TO 2022 - DUAL ELIGIBLE (MEDICARE REPLACEMENT/AD VANTAGE - HMO) Tram Macedo [id number] Tram Macedo 01/14/2017 2 [place] [facility] Tram Macedo [id number] Tram Macedo 01/14/2017 1 [facility] - DOS PRIOR TO 2022 - DUAL ELIGIBLE (MEDICARE REPLACEMENT/AD VANTAGE - HMO) Tram Macedo [id number] Tram Macedo Notes Date Note Type Note [...] communicating. See PE notes. Lizy Duong MD [address] [place] [address], [address], [place], [address], [employer] 01/13/2017 21:26:25 01/14/2017 text/html I am asked [...] and low back pain. Lizy Duong MD [address] [place] [address], [address], [place], [address], [employer] 01/14/2017 13:41:26 OBGyn Episode No OBEpisode recorded.
[2024-12-11 10:24] LABS: MANUAL DIFF FLAG NO
[2024-12-11 10:32] LABS: Basophils Percent Auto 0.4 % (0-2); Eosinophils Absolute Auto 0.4 X10*3/uL (0.0-0.4); Eosinophils Percent Auto 5.7 % (0-4); Hemoglobin 12.4 g/dl (12.0-16.0); Imm Gran Abs Auto 0.01 X10*3/uL (0.00-0.03); Imm Gran Pct Auto 0.1 % (0.0-0.4); Lymphocytes Absolute Auto 2.2 X10*3/uL (1.2-4.9); Lymphocytes Percent Auto 31.4 % (20-40); Mean Corpuscular Hemoglobin 26.1 pg (27.0-33.0); Mean Platelet Volume 10.5 fL (9.4-12.3); Monocytes Absolute Auto 0.7 X10*3/uL (0.1-1.2); Monocytes Percent Auto 9.3 % (2-11); Neutrophils Absolute Auto 3.7 x10*3/uL (2.0-8.3); Neutrophils Percent Auto 53.1 % (45-73); Platelet Count 207 X10*3/uL (160-400); Red Blood Count 4.76 X10*6/uL (4.20-5.50); Red Cell Distribution Width 13.7 % (11.0-16.0)
[2024-12-11 11:14] LABS: Alanine Aminotransferase 27 U/L (0-31); Alkaline Phosphatase 87 U/L (39-117); Anion Gap 12 (12-20); Aspartate Amino Transferase 32 U/L (5-31); Bilirubin Total 0.5 mg/dL (0.0-1.0); Blood Urea Nitrogen 13 mg/dL (9-16); Calcium 9.8 mg/dL (8.4-10.2); Carbon Dioxide 30 mmol/L (22-29); Chloride 109 mmol/L (96-108); Cholesterol 174 mg/dL (<200); Estimated Glomerular Filt Rate > 60; Glucose Fasting 88 mg/dL (60-99); HDL Cholesterol 49 mg/dL (>40); LDL Cholesterol Calculated 106 mg/dL (<100); Potassium 4.5 mmol/L (3.3-5.1); Sodium 146 mmol/L (135-145); Total Protein 7.3 g/dL (6.5-8.0); Triglycerides 96 mg/dL (<150)
[2024-12-11 11:17] LABS: Appearance Urine Clear; Color Urine Dark Yellow; Glucose Urine UA Negative (Negative); Leukocyte Esterase Urine Trace (Negative); Nitrite Urine Negative (Negative); PH 5.5 (5.0-9.0); Specific Gravity - Urine 1.025 (1.005-1.025); UMIC TRIGGER UACC YES; Urine Blood Negative (Negative); Urine Ketones Trace mg/dL (Negative); Urine Protein Negative (Neg-Trace)
[2024-12-11 11:21] LABS: TSH reflex Free T4 0.05 uIU/mL (0.32-4.0)
[2024-12-11 11:23] LABS: HBS Num1 7.37 mIU/mL (0-7.99); HBc Num1 0.17 S/CO (0.00-0.79); Hepatitis A Antibody IgM 0.22 Index (0-0.79); Hepatitis B Core Antibody Nonreactive (Nonreactive); Hepatitis B Surface Antigen Negative (Negative); ~HepC Num1 0.15 S/CO (0.00-0.79); ~Hepatitis A Antibody IgM Nonreactive (Nonreactive); ~Hepatitis B Surface Antibody NONREACTIVE (Nonreactive); ~Hepatitis C Antibody Nonreactive (Nonreactive)
[2024-12-11 12:05] LABS: Free T4 (Free Thyroxine) 1.21 ng/dL (0.71-1.85)
[2024-12-11 12:06] LABS: Bacteria Urine None Seen (None Seen); Calcium Oxalate Crystals Urine Present; Hyaline Casts Urine 0-2 /LPF (0-2); RBC Urine 0-2 /HPF (0-2); WBC Urine 0-5 /HPF (0-5)
== END 2024-12-11 09:17 | disposition home or self-care (01) ==
LOC: HO.HMGCLDS 09:16
PROVIDERS: PCP Nurse Practitioner Family; Visit Provider Nurse Practitioner Family
DX: Z00.00 Encounter for general adult medical examination without abnormal findings (principal); E55.9 Vitamin D deficiency, unspecified; R74.8 Abnormal levels of other serum enzymes
CPT/HCPCS: 36415; 80053; 80061; 81001; 81003; 82306; 84439; 84443; 85025; 86704; 86706; 86709; 86803; 87340

== ENCOUNTER 2025-03-10 08:41 | Outpatient (AMB) | payer OTHER, SELFPAY ==
--- OUTSIDE RECORDS SUMMARY | 2025-03-10 09:04 | XMS_ITS | Continuity of Care Document ---
Author Name [facility], Medical Address [address] [place] [address] Organization Unknown Address [address] [place] [address] Medications No known medications Problems No known problems
--- OUTSIDE RECORDS SUMMARY | 2025-03-10 09:04 | XMS_ITS | Clinical Summary ---
Author Organization [employer] [facility] Address [address] [place] [address] Care Team Providers Care Night Guard Name Role Phone Carmelo Enriquez Primary Care Provider [phone] Social History Tobacco Use Types Packs/Day Years [...] Tdap / Td (1 - Tdap) 1977 Colon Cancer Screening (Colonoscopy) 12/02/2003 Breast Cancer Screening (Mammogram) 2008 Shingrix-Zoster Vaccine (1 of 2) 2008 Fall Risk Assessment 12/02/2023 Osteoporosis Screening (DEXA Scan) 12/02/2023 Pneumococcal Vaccine (1 of 1 - PCV) 12/02/2023 Influenza Vaccine (#1) 2025 RSV Adult > 60+ Yrs or Pregn ant (1 - 1-dose 75+ series) 2033 Hepatitis B Vaccines Aged Out No long er eligible based on patient's age to complete this topic RSV Ped < 20 months Aged Out No longe r eligible based on patient's age to complete this topic Care Teams Night Guard Relationship Specialty Start Date End Date Carmelo Erniquez [address] [facility] [place] [id number] PCP - General Family Medicine 04/18/20
--- OUTSIDE RECORDS SUMMARY | 2025-03-10 09:04 | XMS_ITS | Encounter Summary ---
Author Organization [facility] Address [address] [place] [address] Encounters * CPT with Medical [facility]ED at [facility] on 2025-02-25 { reasonForRequest : Patient has arm and leg pain. , patientReports :& quot; , denies :[ Falls with head strike and LOC , Falls from a standing position, no LOC, patient is amnestic to the event , Falls with isolated injury and deformity noted to limb , Falls with inability to move post fall , Cool extremities after fall or injury ], chiefComplaints : Extremity Pain , pmh : Stroke, Hypertension, Migraine , allergies : Penicillins, Morphine ,& quot;otherAllergies :null, painAssessment : , visitOutcome :&quo t; , additionalComments : 64 y.o female complains of Extremity Pain\nPatient c/o pain to right arm. Denies swelling or skin discoloration. Has had this pain in the past. No recentinjuries or falls. Patient was given pain injection in the past. Has not taken any pain medication today. \nI provided information on the mobile health provider response time and advised the patient and/or caregiver to monitor reported signs and symptoms. I discussed the warning signs of when to seek emergency care. } [facility] responds to the listed address for a 64 yof w/ a c/c of R shoulder pain. Upon arrival, pt answers the door to her small and well-kept apartment and invites [facility] inside. She is generally well-appearing, fully ambulatory and not in acute distress. She is holding her R arm against her body to self-splint. She smiles and tells [facility] she is having pain in her shoulder and neck and runs her fingers along the trapezius and top of R shoulder. She said she was at the kitchen table cutting a piece of wood for her small model house she is building and she had to push hard to cut it and she felt something in her shoulder w/ some pain. She quit working on her model and went in her room to rest and apply ice and a lidocaine patch and she felt a little better after that. Today, she reports the pain as almost unbearable. She is prescribed meloxicam, but it is not helping. She describes the pain as sharp and radiates into her neck and is 7/10. Pt endorses pain w/ ROM in all planes and is having restricted motion of her neck. Pt reports a CVA hx about 15 years ago w/ some deficits, mainly weakness on the L side. She denies GI bleed, kidney issues, and is not anticoagulated. Pt consents to evaluation and treatment today. [facility] obtains pt consent. Vital signs are gathered and focused physical exam is performed on the UEs and neck. Pt has limited ROM turning her head to the R. She can tip either ear to her shoulders and touch her chin to her chest, but cannot raise her chin to the tereso due to pain. Forward flexion and abduction to 90 degrees w/ pain and pain w/ eccentric shoulder movement. No pain w/ resisted IR/ER, but pain w/ resisted elbow flexion. Trapezius and scalene tightness palpated on R more than L. [facility] contacts [facility] and discusses the above. [facility] orders 30mg toradol IM and advises pt to obtain some OTC Tylenol and take 1G TID as needed for pain. [facility] also recommends pt contact her PCP for a referral to PT. [facility] administers 30mg toradol IM in the L deltoid using aseptic technique. [facility] advises pt to monitor for swelling lips, tongue, or throat, any difficulty breathing, n/v/d, rash or hives, as these allrequire emergency care. [facility] also recommends pt continue w/ cold pack application x20min every couple hours as needed to assist w/ pain control and instructs pt to not take her meloxicam until at least tomorrow. Pt gives her verbal understanding of the instructions. [facility] is clear. Report completed by [facility] Cline [id number]. IV_(FLUIDS_AND/OR_MEDICATION), MEDICATION_IM, ORAL_MEDICATION, WOUND_CARE, ORTHOSTATIC_VITAL_SIGNS Written by [facility] on 2025-02-25
--- OUTSIDE RECORDS SUMMARY | 2025-03-10 09:04 | XMS_ITS | Clinical Summary ---
Author Organization [facility] Address [id number] [place] [id number] Care Team Providers Care Shake Splitter Name Role Phone Carmelo Enriquez NP Primary Care Provider Surgical History Surgery Date Site/Laterality Comments BACK SURGERY PROCEDURE: HISTORICAL BACK SURGERY HYSTERECTOMY PROCEDURE: HISTORICAL HYSTERECTOMY BREAST REDUCTION PROCEDURE: WI BREAST REDUCTION Medical History Medical History Date [...] DTaP,Tdap,and Td Vaccines (1 - Tdap) 1977 Pneumococcal Vaccine: 50+ Ye ars (1 of 1 - PCV) 2008 Zoster Vaccines (1 of 2) 2008 Colorectal Cancer Screening: Colonoscopy 06/17/2022 Hepatitis C Screening 06/17/2022 Osteoporosis Screening (Bone Density Screening) 06/17/2022 Social Influencers of Health Screening 06/17/2022 Falls Risk Assessment 12/02/2023 COVID-19 Vaccine (1 - 2023-2 5 season) 2024 Depression Screening 07/15/2024 Influenza Vaccine (#1) 2025 RSV Immunization Adult Patie nts (1 [...] age to complete this topic Care Teams Shake Splitter Relationship Specialty Start Date End Date Carmelo Enriquez NP [address] [place] PCP - General Family Medicine 04/18/20
--- NOTE | 2025-03-10 09:07 | A.OFFVIS_ITS ---
Vital Signs 03/10/25 09:16 Height 5 ft 5 in Weight 169 lb 5.04 oz BMI 28.2 BP 156/83 H Blood Pressure Location Lt brachial Position Sitting Pulse 62 Intake Visit Reasons: ? lamictal toxicity, N/V Intake Note: Patient is seen in office for questioning medication lamictal toxiticity. Pt c/o: states she stop the medication a month ago and since no longer has nausea and vomit Sourcing Associate Required: Yes Sourcing Associate Language: Equipment Washer Services: Sourcing Associate Present Sourcing Associate Name: [facility] Information Interpreted: non-clinical & clinical Allergies buprenorphine (From Butrans) Allergy (Severe, Verified 03/10/25 09:27) Anaphylaxis cat dander Allergy (Unknown, Verified 03/10/25 09:27) Unknown cortisone Allergy (Unknown, Verified 03/10/25 09:27) Unknown cyclobenzaprine Allergy (Unknown, Verified 03/10/25 09:27) pruritus morphine (MORPHINE) Allergy (Unknown, Verified 03/10/25 09:27) RASH,HIVES,SOB, rash, hives, SOB, rash, hives, SOB Penicillins (PENICILLINS) Allergy (Unknown, Verified 03/10/25 09:27) RASH,HIVES prazosin (PRAZOSIN) Allergy (Unknown, Verified 03/10/25 09:27) INCREASED HEADACHES, increase/worsened headaches, increase/worsened headaches strawberry (STRAWBERRY) Allergy (Unknown, Verified 03/10/25 09:27) RASH nickel Allergy (Verified 03/10/25 09:27) Rash amitriptyline Adverse Reaction (Severe, Verified 03/10/25 09:47) Palpitations Rozerem Adverse Reaction (Unknown, Uncoded 03/10/25 09:27) rash/memory loss HPI HPI ? lamictal toxicity, N/V: Details: Assessment & Plan (1) GERD (gastroesophageal reflux disease): Code(s): K21.9 - Gastro-esophageal reflux disease without esophagitis Category: Medical (2) Chronic idiopathic constipation: Code(s): K59.04 - Chronic idiopathic constipation Category: Medical (3) Hepatic steatosis: Comment: Baseline labs: 07/2019 ast/alt 42/52 alk phos 126 remainder normal, normal CBC, neg Hep A, B and C, ANASTACIO elevated 1:320 homogenous, negative autoimmune work up and neg hemochromatosis screen AFP 2.2, ferritin 32, total bilirubin 0.7 with directed 0.2 * CURRENT LABS 08/21/22 WBC 6.9 Hgb 12.3 Hct 39.2 MCV 83.1 MCH 26.1 L Plt Count 185 Estimated GFR > 60 Total Bilirubin 1.1 H AST 29 ALT 51 H Alkaline Phosphatase 135 H Alpha Fetoprotein 2.3 TSH 2.64 ULTRASOUND OF THE ABDOMEN 10/24/22 IMPRESSION: Slightly echogenic liver probably representing fatty infiltration. Pancreas not well visualized. Code(s): K76.0 - Fatty (change of) liver, not elsewhere classified Category: Medical (4) Nausea and vomiting: Code(s): R11.2 - Nausea with vomiting, unspecified Category: Medical (5) Transaminitis: Code(s): R74.01 - Elevation of levels of liver transaminase levels Category: Medical (6) Chest pain: Code(s): R07.9 - Chest pain, unspecified Category: Medical (7) Nausea and vomiting: Code(s): R11.2 - Nausea with vomiting, unspecified Category: Medical (8) Transaminitis: Code(s): R74.01 - Elevation of levels of liver transaminase levels Category: Medical Plan Estonian #declines CIC and GERD well controlled with Linzess, bisacodyl p.r.n., simethicone, and pantoprazole twice a day. 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 Because 1 of the potential side effects of Lamictal is severe fulminant hepatic failure I tell her to stop it immediately I think this is also causing her nausea and vomiting. Will also get some additional liver workup to make sure there is no other contributing factor. We will repeat labs today and then again in 2 weeks to make sure they are coming down. I am going to give her a temporary prescription of Zofran but she does find that if she avoids heavier foods she is less nauseated and this will be for comfort until we find the underlying cause. I am going to send her for an EKG because cardiotoxicity can sometimes be a problem with Lamictal we will also get an amylase lipase to screen for pancreatitis. Of note she has been on it for at least 4 weeks and it has had no affect on her headaches and according to the Neurology note this is why was initiated. I will send a letter to the provider letting her know why I have discontinued the medication. Return office visit next available Orders: Orders ECG 12 lead EKG Today R07.9 - Chest pain, unspecified Amylase Today R11.2 - Nausea with vomiting, unspecified, R74.01 - Elevation of levels of liver transaminase levels Complete Blood Count Auto Diff Today R11.2 - Nausea with vomiting, unspecified, R74.01 - Elevation of levels of liver transaminase levels Comprehensive Met. Panel Today R11.2 - Nausea with vomiting, unspecified, R74.01 - Elevation of levels of liver transaminase levels Hepatitis A,B,C Profile Today R11.2 - Nausea with vomiting, unspecified, R74.01 - Elevation of levels of liver transaminase levels Liver Panel Today R11.2 - Nausea with vomiting, unspecified, R74.01 - Elevation of levels of liver transaminase levels Lipase Today R11.2 - Nausea with vomiting, unspecified, R74.01 - Elevation of levels of liver transaminase levels Mitochondrial Antibody Today R11.2 - Nausea with vomiting, unspecified, R74.01 - Elevation of levels of liver transaminase levels Smooth Muscle Antibody Today R11.2 - Nausea with vomiting, unspecified, R74.01 - Elevation of levels of liver transaminase levels Medications: New ondansetron HCl 4 mg PO BID-TID 14 days PRN 60 tabs 0RF nausea and vomiting R11.2 - Nausea with vomiting, unspecified Changed From budesonide DR-ER 9 mg (3 x 3 mg) PO DAILY 90 caps 5RF K52.9 - Noninfective gastroenteritis and colitis, unspecified To budesonide DR-ER 6 mg (2 x 3 mg) PO DAILY 60 caps 5RF K52.9 - Noninfective gastroenteritis and colitis, unspecified Refilled psyllium husk (Reguloid (psyllium husk)) 2 caps PO daily 0.8 grams (2 x 0.4 gram) PO DAILY 30 days 60 caps 3RF pantoprazole 40 mg PO BID 60 tabs 6RF simethicone after meals 180 mg PO QID 30 days 120 caps 6RF linaclotide (Linzess) 290 mcg PO QAM 30 days 30 caps 6RF Discontinued lamotrigine Discontinued Reason: Change Referral Type 1 tab qhs x's 2 weeks, then 1 tab bid orally daily; 30 days 60 tabs 1RF 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 LABS: Laboratory Tests 08/17/24 10/08/24 12/11/24 10:46 12:19 09:21 WBC 7.0 Hgb 12.4 Hct 40.0 MCV 84.0 MCH 26.1 L Plt Count 207 Total Bilirubin 0.5 Direct Bilirubin 0.2 AST 84 H 67 H 32 H ALT 99 H 76 H 27 Alkaline Phosphatase 135 H 126 H 87 Amylase 65 Lipase 8 TSH 0.05 L Free T4 1.21 Anti-Mitochondrial Ab NEGATIVE Anti-Smooth Muscle Ab <20 Hepatitis A IgM Ab Nonreactive Nonreactive Hep Bs Antigen Negative Negative Hep Bs Antibody GRAYZONE NONREACTIVE Hep B Core Total Ab Nonreactive Nonreactive Hepatitis C Ab (EIA) Nonreactive Nonreactive EKG Not obtained TODAY'S VISIT [place]ESE # Evonne Live [facility] Medical History Physical exam Colitis Elevated fecal calprotectin Vaginal irritation Jesika infection of flexural skin Fungal infection of the groin Encounter for annual wellness visit (AWV) in Medicare patient Pre-op examination Early satiety Hepatic steatosis Chronic tension headache Lumbar spondylosis Dyslipidemia Gastritis Diastolic murmur Positive ANASTACIO (antinuclear antibody) Tubular adenoma Hx of diverticulitis of colon Bunion of unspecified foot History of anxiety Depression Hypertension Shoulder pain Migraine Prediabetes Chronic low back pain Hypothyroid History of TIAs Surgical History History of esophagogastroduodenoscopy (EGD) Hx of colonoscopy H/O rectal polypectomy Hx of breast reduction, elective History of hysterectomy History of back surgery Family History Father CVD (cardiovascular disease) ETOHism Myocardial infarct Mother CVD (cardiovascular disease) Myocardial infarct Maternal Aunt History of breast cancer Brother History of cancer of unknown primary site Other Mental health disorder Substance use disorder Social History Household Members: None Housing: Apartment Alcohol intake: current Alcohol intake frequency: does not drink Patient Tobacco Use Status: Never used Tobacco e-Cigarette/Vaping Use: Never Used service: No Current occupational status: disabled Cognitive needs: No Hearing needs: No Vision needs: No Female Reproductive History Menstrual Age of Menarche: 8 Review of Systems Const Denies fatigue, Denies fever(s), Reports headache(s), Denies night sweats, Reports poor appetite and Denies weight loss ENT Reports Normal hearing present, Reports dental pain, Denies dysphagia, Reports facial pain, Reports headache(s), Denies hearing loss, Reports mouth pain, Denies odynophagia, Denies throat swelling, Denies tongue swelling and Reports other (Dentition adequate) Card Reports no additional complaints Resp Reports no additional complaints GI Details: Reports abdominal pain, Denies melena, Denies bloating, Denies hematochezia, Reports constipation, Denies GI cramping, Denies dysphagia, Denies excessive flatus, Denies early satiety, Reports dyspepsia, Reports heartburn, Denies diarrhea, Denies nausea, Denies odynophagia, Denies vomiting and Denies hematemesis Musc Reports myalgias and Reports arthralgias Skin/Breast Denies pruritus, Denies lesions, Denies rash and Denies jaundice Neuro Reports Normal hearing present, Denies Abnormal speech present and Reports headache(s) Psych Reports abnormal sleep pattern and Reports anxiety Endo Denies fatigue Aller/Immun Denies throat swelling and Denies tongue swelling Physical Exam Vital Signs: Last Vital Signs Pulse 62 03/10/25 09:16 BP 156/83 H 03/10/25 09:16 BMI result Body Mass Index 28.2 Const General: cooperative, no acute distress, well developed and well groomed Nutritional Appearance: average body habitus and well nourished Orientation/consciousness: oriented to person, oriented to place and oriented to time Limitations: language barrier and other limitations (Educational, low literacy) HEENT Head: Yes normocephalic and Yes atraumatic Face and sinus: Yes normal facial exam and Yes Facial tenderness on exam of face and sinuses (TMJ joint and along the jawline) Eyes General: appearance normal, both eyes and all related structures Pupils: Equal, round and reactive pupils present Neck Neck: Yes normal visual inspection and Yes no lymphadenopathy Thyroid: Thyroid normal Resp Effort & Inspection: normal respiratory effort and able to speak in complete sentences Auscultation: clear to auscultation bilaterally Cardio Rate: regular rate Rhythm: regular rhythm Heart sounds: Normal, physiologic split S2 sound present Peripheral pulses: radial pulses present and posterior tibial pulses present GI Inspection: No distended and No Abdominal panniculus present Palpation (GI): Soft to palpation, nontender, no guarding, not rigid and No hepatosplenomegaly present Percussion: Yes normal to percussion Auscultation: normal bowel sounds Rectal Exam - Female: deferred Skin General skin exam: no rashes or lesions noted, turgor normal, skin not dry, no jaundice, No spider nevi and no striae Rashes: no rashes Nails: normal Neuro General: oriented to person, oriented to place and oriented to time Cranial nerves: Yes Equal, round and reactive pupils present and Yes Normal hearing present Speech: No Abnormal speech present Extrem General: Yes normal to inspection, No clubbing, No cyanosis and No edema Psych Appearance: grossly normal and well kempt Mental Status: mental status grossly normal Speech and movement: Pressured speech present Affect: Labile affect present, Sad affect present and Anxious affect present Attitude: cooperative Thought process: not confabulating, Impoverished thought process present and Tangential thought process present Thought content: Normal thought content present Insight: Limited insight present (Psych) Judgement: Limited judgement present (Psych) Assessment & Plan Assessment & Plan (1) Hepatic steatosis: Comment: Baseline labs: 07/2019 ast/alt 42/52 alk phos 126 remainder normal, normal CBC, neg Hep A, B and C, ANASTACIO elevated 1:320 homogenous, negative autoimmune work up and neg hemochromatosis screen AFP 2.2, ferritin 32, total bilirubin 0.7 with directed 0.2 * CURRENT LABS 08/21/22 WBC 6.9 Hgb 12.3 Hct 39.2 MCV 83.1 MCH 26.1 L Plt Count 185 Estimated GFR > 60 Total Bilirubin 1.1 H AST 29 ALT 51 H Alkaline Phosphatase 135 H Alpha Fetoprotein 2.3 TSH 2.64 ULTRASOUND OF THE ABDOMEN 04/12/23 IMPRESSION: Slightly echogenic liver probably representing fatty infiltration. Pancreas not well visualized. Code(s): K76.0 - Fatty (change of) liver, not elsewhere classified Category: Medical (2) Chronic idiopathic constipation: Code(s): K59.04 - Chronic idiopathic constipation Category: Medical (3) GERD (gastroesophageal reflux disease): Code(s): K21.9 - Gastro-esophageal reflux disease without esophagitis Category: Medical (4) Nausea and vomiting: Code(s): R11.2 - Nausea with vomiting, unspecified Category: Medical (5) Drug-induced hepatic toxicity: Comment: ? Related to Lamictal Code(s): K71.6 - Toxic liver disease with hepatitis, not elsewhere classified; T50.905A - Adverse effect of unspecified drugs, medicaments and biological substances, i nitial encounter Category: Medical (6) Migraine: Code(s): G43.909 - Migraine, unspecified, not intractable, without status migrainosus Category: Medical (7) TMJ (temporomandibular joint disorder): Code(s): M26.609 - Unspecified temporomandibular joint disorder, unspecified side Category: Medical (8) Transaminitis: Code(s): R74.01 - Elevation of levels of liver transaminase levels Category: Medical Plan - The patient is a 64-year-old female presenting with management and treatment of GONZALEZ with a recent escalation of her transaminitis attributed to Lamictal toxicity. With discontinuance her transaminases are now normalizing. He is also treated for chronic GERD and constipation with her current GI regimen consisting of omeprazole, Linzess, a fiber supplement, and simethicone. She also has frequent unexplained nausea and vomiting treated with Zofran. She is also on budesonide (budesinide to see it this is worsening her sx. It HAS helped with her gas and bloating. Again, my thought was that she has had some sort of post COVID inflammation since her symptoms do not match IBD and neither does her most recent colonoscopy with biopsies. ) -today she has a new complaint of jaw pain that seems consistent with Temporal Mandibular Joint Syndrome presents with severe facial pain, likely exacerbated post molar extractions, affecting chewing abilities significantly. The condition includes symptoms like a painful sensation in the joint, with disruptions in sleep , noted increasingly over recent months. Her dentist has referred her to [facility] for further investigation. - Complaints of difficulty with digestion due to an inability to properly chew food, stemming from jaw pain and functional limitations related to mastication. 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 All of these condition are causing the patient's severe anxiety. She feels that her GI regimen is properly controlling her GI problems except for what her nausea is exacerbated by jaw pain and she has fears that she is not digesting her food well because she can not chew it properly. As TMJ is generally treated with neuropathic pain agents we discuss TCA is, but the patient has had a poor response in the past to amitriptyline. With this in my and I suggest a trial of Topamax. It is possible that her nausea and vomiting are also related to migrai gregorio and Topamax may be a good agent for either of these. That will be an interim trial while I await referral to pain management for more definitive management. This is a very long appointment as the patient is a bit upset perseverates on multiple health concerns not directly related to GI. She seems to also have quite a lot of frustration with the [facility] system and her ability to communicate her needs to her care team. Return office visit in 4 weeks to evaluate the Topamax Orders: Orders Liver Panel 03/10/25 K76.0 - Fatty (change of) liver, not elsewhere classified, R74.01 - Elevation of levels of liver transaminase levels TSH reflex Free T4 03/10/25 K76.0 - Fatty (change of) liver, not elsewhere classified, R74.01 - Elevation of levels of liver transaminase levels Referrals Pain Management Referral M26.609 - Unspecified temporomandibular joint disorder, unspecified side Medications: New topiramate (Topamax) 25 mg PO DAILY 30 tabs 3RF G43.909 - Migraine, unspecified, not intractable, without status migrainosus, M26.609 - Unspecified temporomandibular joint disorder, unspecified side Refilled pantoprazole 40 mg PO BID 60 tabs 6RF linaclotide (Linzess) 290 mcg PO QAM 30 caps 6RF 30 days simethicone 180 mg PO QID 120 caps [address]-ER 6 mg (2 x 3 mg) PO DAILY 60 caps 5RF K52.9 - Noninfective gastroenteritis and colitis, unspecified Coding Level of Care Code Est Pt Level 4 (39197) Diagnoses Hepatic steatosis K76.0 Chronic idiopathic constipation K59.04 GERD (gastroesophageal reflux disease) K21.9 Nausea and vomiting R11.2 Drug-induced hepatic toxicity K71.6; T50.905A Migraine G43.909 TMJ (temporomandibular joint disorder) M26.609 Transaminitis R74.01 Time Spent (min) 39
[2025-03-10 09:16] VITALS: BP 156/83; PULSE 62; BMI 28.2
== END 2025-03-10 09:55 | disposition home or self-care (01) ==
LOC: HO.HGI 08:42
PROVIDERS: PCP Nurse Practitioner Family; Visit Provider Nurse Practitioner
DX: K76.0 Fatty (change of) liver, not elsewhere classified (principal); K59.04 Chronic idiopathic constipation; K21.9 Gastro-esophageal reflux disease without esophagitis; R11.2 Nausea with vomiting, unspecified; K71.6 Toxic liver disease with hepatitis, not elsewhere classified; T50.905A Adverse effect of unspecified drugs, medicaments and biological substances, initial encounter; G43.909 Migraine, unspecified, not intractable, without status migrainosus; M26.609 Unspecified temporomandibular joint disorder, unspecified side; R74.01 Elevation of levels of liver transaminase levels
CPT/HCPCS: 99214

== ENCOUNTER 2025-03-10 08:41 | Outpatient (REF) | payer OTHER, SELFPAY ==
[2025-03-10 11:22] LABS: Alanine Aminotransferase 51 U/L (0-31); Albumin Level 4.0 g/dL (3.5-5.0); Alkaline Phosphatase 96 U/L (39-117); Aspartate Amino Transferase 47 U/L (5-31); Total Protein 7.1 g/dL (6.5-8.0)
[2025-03-10 13:18] LABS: Free T4 (Free Thyroxine) 1.28 ng/dL (0.71-1.85)
== END 2025-03-10 08:42 | disposition home or self-care (01) ==
LOC: HO.LAB 08:41
PROVIDERS: PCP Nurse Practitioner Family; Visit Provider Nurse Practitioner
DX: K76.0 Fatty (change of) liver, not elsewhere classified (principal); K59.04 Chronic idiopathic constipation; K71.6 Toxic liver disease with hepatitis, not elsewhere classified; T50.905A Adverse effect of unspecified drugs, medicaments and biological substances, initial encounter; G43.909 Migraine, unspecified, not intractable, without status migrainosus; M26.609 Unspecified temporomandibular joint disorder, unspecified side; R74.01 Elevation of levels of liver transaminase levels; K52.9 Noninfective gastroenteritis and colitis, unspecified; Z79.899 Other long term (current) drug therapy
CPT/HCPCS: 36415; 80076; 84439; 84443; 99212

== ENCOUNTER 2025-03-29 08:17 | Outpatient (REF) | payer OTHER, SELFPAY ==
--- NOTE | ~2025-03-29 | US_ITS ---
EXAMINATION: US ABDOMEN COMPLETE CLINICAL INFORMATION: K76.0. Fatty liver.. COMPARISON: September 08, 2024 TECHNIQUE: Real-time ultrasound of the abdomen using grayscale technique. FINDINGS: PANCREAS: No gross peripancreatic fluid collections. ABDOMINAL AORTA: The proximal, mid, and distal segments are normal in caliber. INFERIOR VENA CAVA: Visualized portions are normal. LIVER: Liver measures 12 cm per technologist. Coarse echotexture. No nodular surface. No gross solid or cystic lesion detected. No intrahepatic biliary ductal dilatation. GALLBLADDER: Fluid-filled nondistended. No pericholecystic fluid collection or gallbladder wall thickening. COMMON BILE DUCT: 3 mm.. RIGHT KIDNEY: 10 cm. Normal echotexture. Normal renal cortical thickness. No hydronephrosis. No gross solid or cystic lesion. Probable extrarenal pelvis. LEFT KIDNEY: 9 cm. Normal echotexture. Normal renal cortical thickness. No hydronephrosis. No gross solid or cystic lesion. SPLEEN: 7 cm. FREE FLUID: None. US/US abdomen complete IMPRESSION: Probable hepatic steatosis. No cholelithiasis or gross choledocholithiasis. No ascites. No hydronephrosis. Electronically signed by: Leoncio Moore MD 03/29/2025 09:21 AM EDT
--- OUTSIDE RECORDS SUMMARY | 2025-03-29 09:13 | XMS_ITS | Clinical Summary ---
Author Organization [employer] [facility] Address [address] [place] [address] Care Team Providers Care Pleating Supervisor Name Role Phone Carmelo Enriquez Primary Care Provider [phone] Social History Tobacco Use Types Packs/Day Years [...] age to complete this topic Care Teams Pleating Supervisor Relationship Specialty Start Date End Date Carmelo Enriquez [address] [facility] [place] [id number] PCP - General Family Medicine 04/18/20
--- OUTSIDE RECORDS SUMMARY | 2025-03-29 09:13 | XMS_ITS | Clinical Summary ---
Author Organization [facility] Address [address] [place] [id number] Care Team Providers Care Parking Analyst Name Role Phone Carmelo Enriquez NP Primary [...] Health Screening 06/17/2022 Falls Risk Assessment 12/02/2023 Depression Screening 07/15/2024 COVID-19 Vaccine (1 - 2023-2 5 season) 2025 Influenza Vaccine (#1) 2025 RSV Immunization Adult [...] age to complete this topic Care Teams Parking Analyst Relationship Specialty Start Date End Date Carmelo Enriquez NP [address] [facility] [place] P[facility] - General Family Medicine 04/18/20
== END 2025-03-29 08:18 | disposition home or self-care (01) ==
LOC: HO.US 08:17
PROVIDERS: PCP Nurse Practitioner Family; Visit Provider Nurse Practitioner
DX: K76.0 Fatty (change of) liver, not elsewhere classified (principal)
CPT/HCPCS: 76700

== ENCOUNTER → 2025-03-29 08:22 | Outpatient (BNV) | payer OTHER, SELFPAY | PROVIDERS: PCP Nurse Practitioner Family; Visit Provider Radiology Diagnostic Radiology | DX: K76.0 Fatty (change of) liver, not elsewhere classified (principal) | CPT/HCPCS: 76700 ==

== ENCOUNTER 2025-04-08 11:37 | Outpatient (AMB) | payer OTHER, SELFPAY ==
--- NOTE | 2025-04-08 11:44 | MHC.OFFVIS ---
Vital Signs 04/08/25 11:45 Height 5 ft 5 in Weight 163 lb 2.273 oz BMI 27.1 BP 146/68 H Blood Pressure Location Lt brachial Position Sitting Pulse 57 Intake Visit Reasons: eval topamax Intake Note: Tram presents in the office as a follow up. CC: States that she had labs and ultrasound. constipation all the time and pains in the stomach. 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: No Allergies buprenorphine (From Butrans) Allergy (Severe, Verified 04/08/25 11:46) Anaphylaxis cat dander Allergy (Unknown, Verified 04/08/25 11:46) Unknown cortisone Allergy (Unknown, Verified 04/08/25 11:46) Unknown cyclobenzaprine Allergy (Unknown, Verified 04/08/25 11:46) pruritus morphine (MORPHINE) Allergy (Unknown, Verified 04/08/25 11:46) RASH,HIVES,SOB, rash, hives, SOB, rash, hives, SOB Penicillins (PENICILLINS) Allergy (Unknown, Verified 04/08/25 11:46) RASH,HIVES prazosin (PRAZOSIN) Allergy (Unknown, Verified 04/08/25 11:46) INCREASED HEADACHES, increase/worsened headaches, increase/worsened headaches strawberry (STRAWBERRY) Allergy (Unknown, Verified 04/08/25 11:46) RASH nickel Allergy (Verified 04/08/25 11:46) Rash amitriptyline Adverse Reaction (Severe, Verified 04/08/25 11:46) Palpitations Rozerem Adverse Reaction (Unknown, Uncoded 04/08/25 11:46) rash/memory loss HPI HPI eval topamax: Details: Assessment & Plan (1) Hepatic steatosis: Comment: Baseline labs: 07/2019 ast/alt 42/52 alk phos 126 remainder normal, normal CBC, neg Hep A, B and C, ANASTACIO elevated 1:320 homogenous, negative autoimmune work up and neg hemochromatosis screen AFP 2.2, ferritin 32, total bilirubin 0.7 with directed 0.2 * CURRENT LABS 08/21/22 WBC 6.9 Hgb 12.3 Hct 39.2 MCV 83.1 MCH 26.1 L Plt Count 185 Estimated GFR > 60 Total Bilirubin 1.1 H AST 29 ALT 51 H Alkaline Phosphatase 135 H Alpha Fetoprotein 2.3 TSH 2.64 ULTRASOUND OF THE ABDOMEN 10/24/22 IMPRESSION: Slightly echogenic liver probably representing fatty infiltration. Pancreas not well visualized. Code(s): K76.0 - Fatty (change of) liver, not elsewhere classified Category: Medical (2) Chronic idiopathic constipation: Code(s): K59.04 - Chronic idiopathic constipation Category: Medical (3) GERD (gastroesophageal reflux disease): Code(s): K21.9 - Gastro-esophageal reflux disease without esophagitis Category: Medical (4) Nausea and vomiting: Code(s): R11.2 - Nausea with vomiting, unspecified Category: Medical (5) Drug-induced hepatic toxicity: Comment: ? Related to Lamictal Code(s): K71.6 - Toxic liver disease with hepatitis, not elsewhere classified; T50.905A - Adverse effect of unspecified drugs, medicaments and biological substances, initial encounter Category: Medical (6) Migraine: Code(s): G43.909 - Migraine, unspecified, not intractable, without status migrainosus Category: Medical (7) TMJ (temporomandibular joint disorder): Code(s): M26.609 - Unspecified temporomandibular joint disorder, unspecified side Category: Medical (8) Transaminitis: Code(s): R74.01 - Elevation of levels of liver transaminase levels Category: Medical Plan - The patient is a 64-year-old female presenting with management and treatment of GONZALEZ with a recent escalation of her transaminitis attributed to Lamictal toxicity. With discontinuance her transaminases are now normalizing. He is also treated for chronic GERD and constipation with her current GI regimen consisting of omeprazole, Linzess, a fiber supplement, and simethicone. She also has frequent unexplained nausea and vomiting treated with Zofran. She is also on budesonide (budesinide to see it this is worsening her sx. It HAS helped with her gas and bloating. Again, my thought was that she has had some sort of post COVID inflammation since her symptoms do not match IBD and neither does her most recent colonoscopy with biopsies. ) -today she has a new complaint of jaw pain that seems consistent with Temporal Mandibular Joint Syndrome presents with severe facial pain, likely exacerbated post molar extractions, affecting chewing abilities significantly. The condition includes symptoms like a painful sensation in the joint, with disruptions in sleep , noted increasingly over recent months. Her dentist has referred her to [facility] for further investigation. - Complaints of difficulty with digestion due to an inability to properly chew food, stemming from jaw pain and functional limitations related to mastication. 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 All of these condition are causing the patient's severe anxiety. She feels that her GI regimen is properly controlling her GI problems except for what her nausea is exacerbated by jaw pain and she has fears that she is not digesting her food well because she can not chew it properly. As TMJ is generally treated with neuropathic pain agents we discuss TCA is, but the patient has had a poor response in the past to amitriptyline. With this in my and I suggest a trial of Topamax. It is possible that her nausea and vomiting are also related to migraines and Topamax may be a good agent for either of these. That will be an interim trial while I await referral to pain management for more definitive management. This is a very long appointment as the patient is a bit upset perseverates on multiple health concerns not directly related to GI. She seems to also have quite a lot of frustration with the [employer] system and her ability to communicate her needs to her care team. Return office visit in 4 weeks to evaluate the Topamax Orders: Orders Liver Panel 03/10/25 K76.0 - Fatty (change of) liver, not elsewhere classified, R74.01 - Elevation of levels of liver transaminase levels TSH reflex Free T4 03/10/25 K76.0 - Fatty (change of) liver, not elsewhere classified, R74.01 - Elevation of levels of liver transaminase levels Referrals Pain Management Referral M26.609 - Unspecified temporomandibular joint disorder, unspecified side Medications: New topiramate (Topamax) 25 mg PO DAILY 30 tabs 3RF G43.909 - Migraine, unspecified, not intractable, without status migrainosus, M26.609 - Unspecified temporomandibular joint disorder, unspecified side Refilled pantoprazole 40 mg PO BID 60 tabs 6RF linaclotide (Linzess) 290 mcg PO QAM 30 caps 6RF 30 days simethicone 180 mg PO QID [address]-ER 6 mg (2 x 3 mg) PO DAILY 60 caps 5RF K52.9 - Noninfective gastroenteritis and colitis, unspecified LABS: Laboratory Tests 03/10/25 10:30 Total Bilirubin 0.6 Direct Bilirubin 0.2 AST 47 H ALT 51 H Alkaline Phosphatase 96 TSH 0.05 L Free T4 1.28 US ABD 03/29/2025 FINDINGS: PANCREAS: No gross peripancreatic fluid collections. ABDOMINAL AORTA: The proximal, mid, and distal segments are normal in caliber. INFERIOR VENA CAVA: Visualized portions are normal. LIVER: Liver measures 12 cm per technologist. Coarse echotexture. No nodular surface. No gross solid or cystic lesion detected. No intrahepatic biliary ductal dilatation. GALLBLADDER: Fluid-filled nondistended. No pericholecystic fluid collection or gallbladder wall thickening. COMMON BILE DUCT: 3 mm.. RIGHT KIDNEY: 10 cm. Normal echotexture. Normal renal cortical thickness. No hydronephrosis. No gross solid or cystic lesion. Probable extrarenal pelvis. LEFT KIDNEY: 9 cm. Normal echotexture. Normal renal cortical thickness. No hydronephrosis. No gross solid or cystic lesion. SPLEEN: 7 cm. FREE FLUID: None. US/US abdomen complete IMPRESSION: Probable hepatic steatosis. No cholelithiasis or gross choledocholithiasis. No ascites. No hydronephrosis. [facility] VISIT [facility] Medical History (Updated 04/08/25 @ 12:00 by TATE Majano) Elevated liver enzymes Physical exam Colitis Elevated fecal calprotectin Vaginal irritation Jesika infection of flexural skin Fungal infection of the groin Encounter for annual wellness visit (AWV) in Medicare patient Pre-op examination Early satiety Hepatic steatosis Chronic tension headache Lumbar spondylosis Dyslipidemia Gastritis Diastolic murmur Positive ANASTACIO (antinuclear antibody) Tubular adenoma Hx of diverticulitis of colon Bunion of unspecified foot History of anxiety Depression Hypertension Shoulder pain Migraine Prediabetes Chronic low back pain Hypothyroid History of TIAs Surgical History History of esophagogastroduodenoscopy (EGD) Hx of colonoscopy H/O rectal polypectomy Hx of breast reduction, elective History of hysterectomy History of back surgery Family History Father CVD (cardiovascular disease) ETOHism Myocardial infarct Mother CVD (cardiovascular disease) Myocardial infarct Maternal Aunt History of breast cancer Brother History of cancer of unknown primary site Other Mental health disorder Substance use disorder Social History Household Members: None Housing: Apartment Alcohol intake: current Alcohol intake frequency: does not drink Patient Tobacco Use Status: Never used Tobacco e-Cigarette/Vaping Use: Never Used service: No Current occupational status: disabled Cognitive needs: No Hearing needs: No Vision needs: No Female Reproductive History Menstrual Age of Menarche: 8 Review of Systems Const Denies fatigue, Denies fever(s), Reports headache(s), Denies night sweats, Denies poor appetite and Reports weight loss Eyes Details: glasses Reports loss of vision and Reports requires corrective lenses ENT Denies Normal hearing present, Denies dental pain, Denies dysphagia, Reports headache(s), Denies hearing loss, Denies mouth pain, Reports neck pain, Denies odynophagia, Denies throat swelling, Denies tongue swelling and Reports other (Dentition adequate) Card Reports no additional complaints Resp Reports no additional complaints GI Details: Denies abdominal pain, Denies melena, Reports bloating, Denies hematochezia, Reports constipation, Denies GI cramping, Denies dysphagia, Denies excessive flatus, Denies early satiety, Reports heartburn, Denies diarrhea, Reports nausea, Denies odynophagia, Denies vomiting and Denies hematemesis Musc Reports arthralgias and Reports neck pain Skin/Breast Denies pruritus, Denies lesions, Denies rash and Denies jaundice Neuro Denies Normal hearing present, Denies Abnormal speech present, Reports headache(s) and Reports loss of vision Psych Reports anxiety Endo Denies fatigue Aller/Immun Denies throat swelling and Denies tongue swelling Physical Exam Vital Signs: Last Vital Signs Pulse 57 04/08/25 11:45 BP 146/68 H 04/08/25 11:45 BMI result Body Mass Index 27.1 Const General: cooperative, no acute distress, well developed and well groomed Nutritional Appearance: average body habitus and well nourished Orientation/consciousness: oriented to person, oriented to place and oriented to time Limitations: No language barrier HEENT Head: Yes normocephalic and Yes atraumatic Eyes General: appearance normal, both eyes and all related structures Pupils: Equal, round and reactive pupils present Neck Neck: Yes normal visual inspection and Yes no lymphadenopathy Thyroid: Thyroid normal Resp Effort & Inspection: normal respiratory effort and able to speak in complete sentences Auscultation: clear to auscultation bilaterally Cardio Rate: regular rate Rhythm: regular rhythm Heart sounds: Normal, physiologic split S2 sound present Peripheral pulses: radial pulses present and posterior tibial pulses present GI Inspection: No distended and No Abdominal panniculus present Palpation (GI): Soft to palpation, nontender, no guarding, not rigid and No hepatosplenomegaly present Percussion: Yes normal to percussion Auscultation: normal bowel sounds Rectal Exam - Female: deferred Skin General skin exam: no rashes or lesions noted, turgor normal, skin not dry, no jaundice, No spider nevi and no striae Rashes: no rashes Nails: normal Neuro General: oriented to person, oriented to place and oriented to time Cranial nerves: Yes Equal, round and reactive pupils present and No Normal hearing present Speech: No Abnormal speech present Extrem General: Yes normal to inspection, No clubbing, No cyanosis and No edema Psych Appearance: grossly normal and well kempt Mental Status: mental status grossly normal Speech and movement: Normal speech and movement present Affect: normal affect Attitude: cooperative Thought process: Normal thought process present and not confabulating Thought content: Normal thought content present Insight: Fair insight present (Psych) Judgement: Fair judgement present (Psych) Results Reviewed Results Reviewed: Laboratory Tests 03/10/25 10:30 Total Bilirubin 0.6 Direct Bilirubin 0.2 AST 47 H ALT 51 H Alkaline Phosphatase 96 TSH 0.05 L Free T4 1.28 US ABD 03/29/2025 FINDINGS: PANCREAS: No gross peripancreatic fluid collections. ABDOMINAL AORTA: The proximal, mid, and distal segments are normal in caliber. INFERIOR VENA CAVA: Visualized portions are normal. LIVER: Liver measures 12 cm per technologist. Coarse echotexture. No nodular surface. No gross solid or cystic lesion detected. No intrahepatic biliary ductal dilatation. GALLBLADDER: Fluid-filled nondistended. No pericholecystic fluid collection or gallbladder wall thickening. COMMON BILE DUCT: 3 mm.. RIGHT KIDNEY: 10 cm. Normal echotexture. Normal renal cortical thickness. No hydronephrosis. No gross solid or cystic lesion. Probable extrarenal pelvis. LEFT KIDNEY: 9 cm. Normal echotexture. Normal renal cortical thickness. No hydronephrosis. No gross solid or cystic lesion. SPLEEN: 7 cm. FREE FLUID: None. US/US abdomen complete IMPRESSION: Probable hepatic steatosis. No cholelithiasis or gross choledocholithiasis. No ascites. No hydronephrosis. Assessment & Plan Assessment & Plan (1) GERD (gastroesophageal reflux disease): Code(s): K21.9 - Gastro-esophageal reflux disease without esophagitis Category: Medical (2) Transaminitis: Code(s): R74.01 - Elevation of levels of liver transaminase levels Category: Medical (3) Chronic idiopathic constipation: Code(s): K59.04 - Chronic idiopathic constipation Category: Medical (4) Nausea and vomiting: Code(s): R11.2 - Nausea with vomiting, unspecified Category: Medical (5) TMJ (temporomandibular joint disorder): Code(s): M26.609 - Unspecified temporomandibular joint disorder, unspecified side Category: Medical Plan Her current GI regimen consists of budesonide, omeprazole, Linzess, a fiber supplement, and simethicone. AND ZOFRAN - The patient is a 64-year-old female presenting for follow up of her GERD, constipattion and abd bloating. She also has unrelated problems with jaw pain and headaches. - She reports dealing with temporomandibular joint issues resulting in persistent jaw pain, while she is waiting for dental surgery consult I have her a trial of Topamax 25mg, which she feels helped somewhat. I will increase this to 50mg. - These issues severely restrict her eating and are consequent with weight loss. - She also experiences headaches, purportedly related to a pituitary disorder, as well as a noted thyroid disorder. - The patient has elevated liver enzymes without recent weight gain. - Additionally, a pattern of nausea and bloating persists despite treatment strategies involving budesonide. ROV 6 mos. Medications: New topiramate (Topamax) 50 mg PO DAILY 30 tabs 6RF M26.609 - Unspecified temporomandibular joint disorder, unspecified side Refilled pantoprazole 40 mg PO BID 60 tabs 6RF linaclotide (Linzess) 290 mcg PO QAM 30 caps 6RF 30 days methylcellulose (laxative) (Citrucel) 1,000 mg (2 x 500 mg) PO DAILY 60 tabs 3RF simethicone 180 mg PO QID 120 caps [address]-ER 6 mg (2 x 3 mg) PO DAILY 60 caps 5RF K52.9 - Noninfective gastroenteritis and colitis, unspecified Discontinued topiramate (Topamax) Discontinued Reason: Doctor's Order 25 mg PO DAILY 30 tabs 3RF G43.909 - Migraine, unspecified, not intractable, without status migrainosus, M26.609 - Unspecified temporomandibular joint disorder, unspecified side Coding Level of Care Code Est Pt Level 3 (54270) Diagnoses GERD (gastroesophageal reflux disease) K21.9 Transaminitis R74.01 Chronic idiopathic constipation K59.04 Nausea and vomiting R11.2 TMJ (temporomandibular joint disorder) M26.609
[2025-04-08 11:45] VITALS: BP 146/68; PULSE 57; BMI 27.1
--- OUTSIDE RECORDS SUMMARY | 2025-04-08 16:30 | XMS_ITS | Clinical Summary ---
Author Organization [facility] Address [address] [place] [address] Care Team Providers Care Patient Service Technician Pst Name Role Phone Carmelo Enriquez Primary Care Provider [phone] Social History Tobacco Use Types Packs/Day Years [...] age to complete this topic Care Teams Patient Service Technician Pst Relationship Specialty Start Date End Date Carmelo Enriquez [address] [facility] [place] [id number] PCP - General Family Medicine 04/18/20
== END 2025-04-08 12:24 | disposition home or self-care (01) ==
LOC: HO.HGI 11:38
PROVIDERS: PCP Nurse Practitioner Family; Visit Provider Nurse Practitioner
DX: K21.9 Gastro-esophageal reflux disease without esophagitis (principal); R74.01 Elevation of levels of liver transaminase levels; K59.04 Chronic idiopathic constipation; R11.2 Nausea with vomiting, unspecified; M26.609 Unspecified temporomandibular joint disorder, unspecified side
CPT/HCPCS: 99213

== ENCOUNTER → 2025-04-08 11:37 | Outpatient (BNVA) | payer OTHER, SELFPAY | PROVIDERS: PCP Nurse Practitioner Family; Visit Provider Nurse Practitioner | DX: K21.9 Gastro-esophageal reflux disease without esophagitis (principal); R74.01 Elevation of levels of liver transaminase levels; K59.04 Chronic idiopathic constipation; R11.2 Nausea with vomiting, unspecified; M26.609 Unspecified temporomandibular joint disorder, unspecified side; R14.0 Abdominal distension (gaseous) | CPT/HCPCS: 99212 ==

== ENCOUNTER 2025-05-11 07:48 | Outpatient (REF) | payer MEDICARE, SELFPAY ==
--- OUTSIDE RECORDS SUMMARY | 2025-05-11 07:54 | XMS_ITS | Clinical Summary ---
Author Organization [facility] Address [address] [place] [address] Care Team Providers Care Manager Forms Name Role Phone Carmelo Enriquez Primary Care Provider [phone] Social History Tobacco Use Types Packs/Day Years [...] age to complete this topic Care Teams Manager Forms Relationship Specialty Start Date End Date Carmelo Enriquez [address] [facility] [place] [id number] PCP - General Family Medicine 04/18/20
--- OUTSIDE RECORDS SUMMARY | 2025-05-11 07:54 | XMS_ITS | Clinical Summary ---
Author Organization [facility] Address [address] [place] [id number] Care Team Providers Care Special Needs Child Caregiver Name Role Phone Carmelo Enriquez NP Primary Care Provider Surgical History Surgery Date Site/Laterality Comments BACK SURGERY PROCEDURE: HISTORICAL BACK SURGERY HYSTERECTOMY PROCEDURE: HISTORICAL HYSTERECTOMY BREAST REDUCTION PROCEDURE: OR BREAST REDUCTION Medical History Medical History Date [...] Last Done Comments Breast Cancer Screening 1958 Colorectal Cancer Screening: Colonoscopy 1958 DTaP,Tdap,and Td Vaccines (1 - Tdap) 1977 Pneumococcal Vaccine: 50+ Ye ars (1 of 1 - PCV) 2008 Zoster Vaccines (1 of 2) 2008 Hepatitis C Screening 06/17/2022 Osteoporosis Screening (Bone [...] age to complete this topic Care Teams Special Needs Child Caregiver Relationship Specialty Start Date End Date [facility] [address] [facility] [place] [facility] - General Family Medicine 04/18/20
--- OUTSIDE RECORDS SUMMARY | 2025-05-11 07:55 | XMS_ITS | Data Portability ---
Author Organization [facility], Main Office Address [address] [place] [address] Care Team Providers Care Citizen Participation Specialist Name Role Phone MARKY BUNN - [...] Address Organization Details Recorded Time Hemiplegic migraine 94757663 Active 2016 Lizy Duong MD [address] , [address], [place], [address], [facility] 7 21:05:29 Depressive disorder 91207842 Active 2016 Lizy Duong MD [address] [facility] [address] [facility], [address], [place], [address], [address] [place] 7 21:08:25 Disturbance in speech 36271610 Active 2016 Lizy Duong MD [address] , [address], [place], [address], [address] [facility] 7 21:08:28 Essential hypertension 87688948 Active 2016 Lizy Duong MD [address] [facility] [address], [address], [place], [address], [facility] 7 21:08:32 Mixed hyperlipidemia 219784818 Active 2016 Lizy Duong MD [address] [facility], [address], [place], [address], [place] [facility] [place] 7 21:12:16 Allergic rhinitis 31681367 Active 2016 Lizy Duong MD [address] [facility] [address], [address], [place], [address], [facility] 7 21:12:45 Gastroesophage al reflux disease without esophagitis 852515508 Active 2016 Lizy Duong MD [address] [place] [address], [address], [place], [address], [facility] 7 21:13:12 Acquired hypothyroidism 800991953 Active 2016 Lizy Duong MD [address] [facility], [address], [place], [address], [facility] 7 21:13:54 History of cerebrovascula r accident 412707980 Active 2016 Lizy Duong MD [address] [place] [address], [address], [place], [address], [facility] My 1% [facility] 7 13:39:33 Problem Notes None recorded. Medical Equipment None Reported. Allergies Allergen ID Allergen Name Allergen Category Reaction Reaction Severity Criticality Documentation Date Start Date Code Code System Note Provider Name and Address Organization Details Recorded Time 7402 codeine medicatio n Not available Not available Not available 01/13/2017 2670 RxNorm Lizy Duong MD [address] [place] [address], [address], [place], [address], [facility] My 1% [facility] 7 21:26:10 Vitals Date Recorded Heart rate Respiratory rate Body temperature Oxygen saturation Oxygen saturation in Arterial blood by Pulse oximetry Systolic And Diastolic Provider Name and Address Organization Details Last Updated DateTime 7 78 /min 18 /min 98.1 [degF] 98 % 98 % 118/70 mm[Hg] Lizy Dunog MD [address] [place] [address], [address], [place], [address], [place] [employer] 7 16:24:20 Social History None recorded. Functional Status None recorded. Mental Status None recorded. Family History Nothing Reported. Medical History No medical history recorded. Gynecological HistoryNo gynecological history recorded. Obstetrics History GPAL:G 0 P 0 0 0 0 Past Encounters Encounter ID Performer Location Encounter Start Date Encounter Closed Date Diagnosis/Indication Diagnosis SNOMED-CT Code Diagnosis ICD10 Code Diagnosis IMO Codes Diagnosis Note [id number] Lizy Duong MD [address] [address] 01/11/2017 16:22:56 01/25/2017 13:57:04 Hemiplegic migraine 57698259 G43.409 Was started on topamax in hospital. Had already been on baclofen and lidocaine patches for back/neck pain. At this time with new sxs as below, being sent back to hospital for further eval. Disturbance in speech 29 402874 R47.89 New speech abnormalit y, hard to describe, part stutter, part word finding difficulti es. Was definitely not present yesterday per nurse who cared for her last night. WIll send back to ED as above. Essential hypertension 37387147 I10 Stable on chlorthali done 25 mg qd. Depressive disorder 3548 9007 F33.1 Had been stable on citalopram 40 mg qd. Sees outpt psych. Consult NEG prn. Mixed hyperlipidemia 267 476516 E78.2 Continue atorvastat in 20 mg qd and ASA 81 mg. Allergic rhinitis 292351 04 J30.2 Continue benadryl prn Gastroesop hageal reflux disease without esophagitis 957371331 K21.9 continue famotidine 20 mg BID Acquired hypothyroidism 076238046 E03.8 TSH good on levothyrox ine 50 mcg qd. Follow [id number] Lizy Duong MD [address] [address] 01/14/2017 13:20:56 01/25/2017 14:01:02 Hemiplegic migraine 11547032 G43.409 Sxs have completely resolved, probably topamax has kicked in now. Will continue and have her f/u with neuro as planned. OK for d/c tomorrow Disturbance in speech 29 926488 R47.89 Resolved Essential hypertension 39525725 I10 Stable on chlorthali done 25 mg qd. F/U with PCP as outpt. Depressive disorder 3548 9007 F33.1 Had been stable on citalopram 40 mg qd. Sees outpt psych. F/U with PCP as outpt. Mixed hyperlipidemia 267 903430 E78.2 Continue atorvastat in 20 mg qd and ASA 81 mg. F/U with PCP as outpt. Allergic rhinitis 400286 04 J30.2 Continue benadryl prn Gastroesop hageal reflux disease without esophagitis 840094784 K21.9 continue famotidine 20 mg BID. F/U with PCP as outpt. Acquired hypothyroidism 428377799 E03.8 TSH good on levothyrox ine 50 mcg qd. F/U with PCP as outpt. History of cerebrovascular accident 559070893 Z86.73 with some left sided weakness and balance issues, PT/OT feel she is ready to go home. 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 Health Concerns Section Related Observation LastModified by Organization Detai ls LastModified Time None Recorded Concern Status LastModified by Organization Details LastModified Time None Recorded Advance Directives Directive None Recorded Payers Insurance Date Sequence Insurance Name Policy Number Policy Spicer Covered Member ID Spicer Member ID Guarantor Name 01/25/2017 2 [place] [facility] Tram Mossendez [id number] Tram [place] 01/25/2017 1 [facility] - DOS PRIOR TO 2022 - DUAL ELIGIBLE (MEDICARE REPLACEMENT/AD VANTAGE - HMO) Tram Mossendez [id number] Tram Mossendez Notes Date Note Type Note Provider Name [...] communicating. See PE notes. Lizy Duong MD [address] [place] [address], [address], [place], [address], [facility] [employer] 01/13/2017 21:26:25 01/14/2017 text/html I am asked to see this 56 yo woman because she feels [...] low back pain. Lizy Duong MD [address] [facility], [address], [place], [address], [facility] [employer] 01/14/2017 13:41:26 OBGyn Episode No OBEpisode recorded.
[2025-05-11 08:03] LABS: MANUAL DIFF FLAG NO
[2025-05-11 08:07] LABS: Hematocrit 41.8 % (37.0-47.0); Hemoglobin 13.1 g/dl (12.0-16.0); Imm Gran Abs Auto 0.01 X10*3/uL (0.00-0.03); Imm Gran Pct Auto 0.1 % (0.0-0.4); Lymphocytes Absolute Auto 2.7 X10*3/uL (1.2-4.9); Mean Corpuscular HGB Conc 31.3 g/dl (31.0-35.0); Mean Corpuscular Hemoglobin 26.4 pg (27.0-33.0); Mean Corpuscular Volume 84.1 fL (80.0-98.0); NRBC Abs Auto 0.000 X10*3/uL (0.0-0.012); NRBC Pct Auto 0.0 /100WBC (0.0-0.2); Platelet Count 212 X10*3/uL (160-400); Red Blood Count 4.97 X10*6/uL (4.20-5.50); White Blood Count 7.0 X10*3/uL (4.8-10.8)
[2025-05-11 08:30] LABS: Appearance Urine Cloudy; Glucose Urine UA Negative (Negative); PH 5.5 (5.0-9.0); Specific Gravity - Urine 1.020 (1.005-1.025); UMIC TRIGGER UACC YES
[2025-05-11 08:33] LABS: Alanine Aminotransferase 29 U/L (0-31); Albumin Level 4.2 g/dL (3.5-5.0); Alkaline Phosphatase 103 U/L (39-117); Anion Gap 12 (12-20); Aspartate Amino Transferase 36 U/L (5-31); Blood Urea Nitrogen 12 mg/dL (9-16); Calcium 9.8 mg/dL (8.4-10.2); Carbon Dioxide 27 mmol/L (22-29); Chloride 112 mmol/L (96-108); Estimated Glomerular Filt Rate > 60; Potassium 4.6 mmol/L (3.3-5.1); Sodium 146 mmol/L (135-145); Total Protein 7.6 g/dL (6.5-8.0)
[2025-05-11 08:44] LABS: UACC Culture Trigger YES
[2025-05-11 09:14] LABS: Free T4 (Free Thyroxine) 1.02 ng/dL (0.71-1.85)
== END 2025-05-11 07:49 | disposition home or self-care (01) ==
LOC: HO.LAB 07:48
PROVIDERS: PCP Nurse Practitioner Family; Visit Provider Nurse Practitioner Family
DX: Z00.00 Encounter for general adult medical examination without abnormal findings (principal); E03.9 Hypothyroidism, unspecified
CPT/HCPCS: 36415; 80053; 81001; 84439; 84443; 85025; 87086

== ENCOUNTER 2025-06-08 10:33 | Outpatient (AMB) | payer OTHER, SELFPAY ==
--- NOTE | 2025-06-08 10:39 | A.OFFVIS_ITS ---
Vital Signs 06/08/25 10:41 Height 5 ft 5 in Weight 165 lb 5.547 oz BMI 27.5 BP 122/70 Blood Pressure Location Rt brachial Position Sitting Pulse 55 Pulse Source Pulse Oximeter Pulse Oximetry (%) 98 Oxygen Delivery Method Room Air Intake Visit Reasons: Other disorders of pituitary gland Intake Note: NEW Patient presents today to establish care for Disorders Of Pituitary Gland: Assistant Branch Operations Manager Required: Yes Assistant Branch Operations Manager Language: Audio Technician Services: Assistant Branch Operations Manager Offered & Declined (DR Nicole Speak Fluent Macedonian) Accompanied by: Self / Same As Patient Allergies buprenorphine (From Butrans) Allergy (Severe, Verified 06/08/25 10:49) Anaphylaxis cat dander Allergy (Unknown, Verified 06/08/25 10:49) Unknown cortisone Allergy (Unknown, Verified 06/08/25 10:49) Unknown cyclobenzaprine Allergy (Unknown, Verified 06/08/25 10:49) pruritus morphine (MORPHINE) Allergy (Unknown, Verified 06/08/25 10:49) RASH,HIVES,SOB, rash, hives, SOB, rash, hives, SOB Penicillins (PENICILLINS) Allergy (Unknown, Verified 06/08/25 10:49) RASH,HIVES prazosin (PRAZOSIN) Allergy (Unknown, Verified 06/08/25 10:49) INCREASED HEADACHES, increase/worsened headaches, increase/worsened headaches strawberry (STRAWBERRY) Allergy (Unknown, Verified 06/08/25 10:49) RASH nickel Allergy (Verified 06/08/25 10:49) Rash amitriptyline Adverse Reaction (Severe, Verified 06/08/25 10:49) Palpitations Rozerem Adverse Reaction (Unknown, Uncoded 06/08/25 10:49) rash/memory loss HPI Comments Details: 64 years old female with past medical history of pituitary mass, previously seen on 03/19/2025 at [facility]. That visit it was noted MRI of the brain that was done in November 2022 that showed a bilobed septated cystic lesion within the pituitary fossa projecting to the intrasellar cistern measuring 1.3 X 1.8 X 1.1 cm and she was supposed to get a dedicated pituitary MRI and have a full pituitary panel but I don't have those records . Upon records review I see an MRI on 05/06/24 from [facility] showing a estable bi lobed/septated sella/suprasellar cystic lesion within the pituitary fossa (more details on imaging section). Per patient report, a neurosurgeon ordered an MRI for headaches, and incidentally found a pituitary lesion. She reports that she also had dizziness and multiple falls. She reports intermittent lapsus in memory. Patient comes now with complains of continuous headaches, photophobia. Unfor tunately, it does not seem that she had had all the blood work done. She reports that she has had multiple changes in her thyroid medication. She reports that she was diagnosed with thyroid problems since before 2019. She is being seen by ophthalmology. ROS energy: low weight: lost 19 lbs in less 1 month, related to maxilofacial pain/disorder requiring biopsy for which she was referred to [place]. insomnia: unable to sleep due to headaches hair/nail: reports hair fall and frail nails nausea: continuous thinning of skin, easy bleeding no violacious striae no changes in hand size or shoe size Reports polydipsia, denies polyuria and nocturia Physical exam: General: Well appearing. NAD. Not Cushingoid or Acromegalic Neck/Thyroid: Thyroid not palpable, no nodules. CV: RRR, no murmur. No edema. Resp: Lungs clear to auscultation bilaterally Abdomen: Soft, nontender. nondistended Extremities/Neuro: No weakness or tremor of outstretched hands Laboratory Tests 11/01/22 08/23/23 11/12/23 09:38 13:00 09:55 TSH 3.33 3.72 Free T4 Prolactin 5.5 Insulin-like GF II 634 H 08/17/24 12/11/24 03/10/25 10:46 09:21 10:30 TSH 5.41 H 0.05 L 0.05 L Free T4 0.84 1.21 1.28 Prolactin Insulin-like GF II 05/11/25 08:02 TSH 0.25 L Free T4 1.02 Prolactin Insulin-like GF II MR head/brain wo/w con 05/06/24 COMPARISON: MRI brain on 11/19/2022 TECHNIQUE: Multiplanar, multisequence MRI of the brain was obtained before and after the intravenous administration of 4.5 mL Gadavist. FINDINGS: The sella is not enlarged. Redemonstration of bilobed/septated cystic lesion within the pituitary fossa the pituitary fossa 1.9 cm in transverse dimensions, unchanged. The lesion extends into the suprasellar region. There is mass effect on the pituitary gland. Leftward deviation of the infundibulum. There is mild involvement of the right cavernous sinus. The optic chiasm and prechiasmatic optic tracts are unremarkable. No abnormal intracranial enhancement. No acute intracranial hemorrhage or infarct. Scattered and confluent periventricular and deep white matter T2/FLAIR hyperintensities, nonspecific however commonly seen with small vessel ischemic disease. No midline shift or hydrocephalus. No acute extra-axial fluid collections. The osseous structures are unremarkable. The pineal gland and remaining midline structures are unremarkable. No orbital pathology. The paranasal sinuses and mastoid air cells are clear. 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 [facility] Medical History Elevated liver enzymes Physical exam Colitis Elevated fecal calprotectin Vaginal irritation Jesika infection of flexural skin Fungal infection of the groin Encounter for annual wellness visit (AWV) in Medicare patient Pre-op examination Early satiety Hepatic steatosis Chronic tension headache Lumbar spondylosis Dyslipidemia Gastritis Diastolic murmur Positive ANASTACIO (antinuclear antibody) Tubular adenoma Hx of diverticulitis of colon Bunion of unspecified foot History of anxiety Depression Hypertension Shoulder pain Migraine Prediabetes Chronic low back pain Hypothyroid History of TIAs Surgical History History of esophagogastroduodenoscopy (EGD) Hx of colonoscopy H/O rectal polypectomy Hx of breast reduction, elective History of hysterectomy History of back surgery Family History Father CVD (cardiovascular disease) ETOHism Myocardial infarct Mother CVD (cardiovascular disease) Myocardial infarct Maternal Aunt History of breast cancer Brother History of cancer of unknown primary site Other Mental health disorder Substance use disorder Social History Household Members: None Housing: Apartment Alcohol intake: current Alcohol intake frequency: does not drink Patient Tobacco Use Status: Never used Tobacco e-Cigarette/Vaping Use: Never Used service: No Current occupational status: disabled Cognitive needs: No Hearing needs: No Vision needs: No Female Reproductive History Menstrual Age of Menarche: 8 Physical Exam Vital Signs: Last Vital Signs Pulse 55 06/08/25 10:41 BP 122/70 06/08/25 10:41 Pulse Ox 98 06/08/25 10:41 Oxygen Delivery Method Room Air 06/08/25 10:41 BMI result Body Mass Index 27.5 Assessment & Plan Assessment & Plan (1) Pituitary cyst: Code(s): E23.6 - Other disorders of pituitary gland Category: Medical Plan: Pituitary cysts diagnosed incidentally found during work up for headaches. Per review of her records, it seems like her pituitary cyst has remained stable. She does has previously estrablished hypothyroidism treated with levothyroxine, which has required multiple adjustments recently. She has not undergone (or not recall and not available) pituitary labs ruling out hormone excess or deficits. but she does not look acromegalic or cushingoid. She does not show any symptoms concerning for TECHNICAL TRAINING SPECIALIST deficiency. She reports weight loss but seems to be in the setting of a mandibular pain/dysfunction that is currently being studies. Plan Order MRI to assess cyst stability Assess for hormone deficiency/excess with pituitary labs Will later assess for excess cortisol with STOCK ORDER LISTER depending of initial results If MRI stable this time, we might be able to space the MRI to repeat in 3 years after She is being followed by ophthalmology She has to reestablish with neurosurgery/neurology Follow up in 3 months Plan 60 minutes spent reviewing previous records, labs, imaging, education and documenting in the chart Orders: Orders Adrenocorticotropic Hormone Today E23.6 - Other disorders of pituitary gland Basic Metabolic Panel Today E23.6 - Other disorders of pituitary gland Follicle Stimulating Hormone Today E23.6 - Other disorders of pituitary gland IGF-1 (Somatomedin C) Today E23.6 - Other disorders of pituitary gland Thyroid Stimulating Hormone Today E23.6 - Other disorders of pituitary gland Free T4 (Free Thyroxine) Today E23.6 - Other disorders of pituitary gland Osmolality Urine Today E23.6 - Other disorders of pituitary gland Lutenizing Hormone Today E23.6 - Other disorders of pituitary gland Cortisol Random Today E23.6 - Other disorders of pituitary gland Prolactin Today E23.6 - Other disorders of pituitary gland Osmolality, Serum Today E23.6 - Other disorders of pituitary gland MR head/brain wo/w con Today E23.6 - Other disorders of pituitary gland Coding Level of Care Code New Pt Level 5 (71747) Complex visit Add On G2211 Diagnoses Pituitary cyst E23.6
[2025-06-08 10:41] VITALS: BP 122/70; PULSE 55; O2SAT 98; BMI 27.5
--- OUTSIDE RECORDS SUMMARY | 2025-06-08 13:22 | XMS_ITS | Data Portability ---
Author Organization [facility], [facility] Address [address] [place] [address] Care Team Providers Care Lodging House Keeper Name Role Phone HIM CCA OTHER Assessment Encounter Date Assessment Date Assessment LastModified by Organization Details LastModified Time 09/21/2024 09/21/2024 I provided real -time medical direction via phone for this encounter, and was available for additional phone based assistance as needed. I have reviewed and agree with the Assessment and Plan as documented by the Aws Consultant. We discussed the diagnostic uncertainty of home [...] Advised if develops CP/severe SOB/turning blue/severe abdominal pain/uncontrolled n/v/d or black/bloody emesis or stool/ AMS/ syncope/ severe STACK/ any new neuro changes: vision/ speech/ focal weakness/ or numbness//hi fever to call 911- she verbalized understanding of instructions to the medic [email or web address] Not available 09/21/2024 19:46:19 02/25/2025 02/25/2025 As noted, we larisa e called to see this patient regarding acute right shoulder and neck pain following forceful use of the arm while working on a model at home. The medic performed the in-person evaluation, and I provided remote direction. On arrival, the patient was well-appearing, ambulatory, and hemodynamically stable, holding the right arm in a self-splinting position. Exam as noted is most c/w rotator cuff injury though not entirely specific, with was no swelling, deformity, or focal neurologic deficit. Presentation is most consistent with rotator cuff injury vs muscular strain. Impression: Rotator cuff vs muscle strain, low risk for complications from NSAID x 1. Plan: Administered ketorolac 30 mg IM in clinic, counseled on rare risks with this, OK to give Recommend acetaminophen 1 g TID as needed for pain Avoid meloxicam until at least the day after ketorolac Apply cold packs x20 min every 2 hours as needed Gradual return to activity as tolerated Follow up with PCP for possible PT referral Primary care, consider physical therapy evaluation if symptoms persist beyond several days, and assess for other causes of recurrent shoulder pain if not improving. We discussed the diagnostic uncertainty of home visits and the risks involved. In this case, the patient and I felt this to be an acceptable and reasonable amount of risk given the benefit of avoiding an ED visit. Red flags were reviewed, and the patient was advised to seek urgent care for worsening pain, new weakness or numbness, swelling, fever, or other concerning changes. [email or web address] Not available 02/25/2025 16:11:38 Plan of Treatment Reminders Order Date Submit Date Provider Last Modified By Organization Details Last Modified Time Details Appointments None recorded. Lab rapid flu (A+B) 2024 [email or web address], [address] 5 15:03:52 rapid SARS CoV 2 Ag, QL IA, respiratory specimen [email or web address] [facility], [address] [place] [address], [phone] 5 15:03:51 BMP, serum or plasma [email or web address], [address] 5 18:04:17 Referral None recorded. Procedures None recorded. Surgeries None recorded. Imaging None recorded. Medication Orders ketorolac 30 mg/mL injection solution 2024 025 [email or web address] [facility]/Pharmacy #[id number], [address] [place], [address], 5 14:02:32 acetaminoph en ER 650 mg tablet,exte nded release 2024 025 [id number], [address] [place] [address], [address], 5 15:15:29 acetaminoph en 500 mg tablet 2024 025 [id number], [address] [place] [address], [address], 5 15:15:26 sodium chloride 0.9 % intravenous solution 2024 025 [id number], [address] [place] [address], [address], 5 15:05:39 ondansetron HCl (PF) 4 mg/2 mL injection solution 2024 025 [address], [address] [place] [address], [address], 5 15:05:39 loperamide 2 mg tablet [address] [place], [place] [address]Pharmacy #[facility], [address] [place] [address], [address], 5 15:05:39 ondansetron 4 mg disintegrat ing tablet [address] [place], [place] [address]Pharmacy #[id number], [address] [place] [address], [address], 5 15:15:29 loperamide 2 mg tablet [address] [place], [place] [address]Pharmacy #[id number], [address] [place] [address], [address], 5 15:15:29 Patient TargetsNo targets recorded. Patient InstructionsNo instructions recorded. Reason for Referral None Reported. Results Created Date Observation Date Name Description Value Unit Range Abnormal Flag Note LastModifiedBy Organization Detail LastModifiedTime 09/22/19 25 09/21/2024 rapid SARS CoV 2 Ag, QL IA, respi rator y speci men rapid SARS CoV 2 Ag, QL IA, respiratory specimen negati ve Not Available [facility] ed [address] [place] [address], [phone] 09/21/2024 14:51:23 09/22/19 25 09/21/2024 rapid flu (A+B) Flu negati ve Not Available [facility] ed [address] [place] [address], [phone] 09/21/2024 14:51:20 Result Notes None recorded. Medical Equipment None Reported. Allergies Allergen ID Allergen Name Allergen Category Reaction Reaction Severity Criticality Documentation Date Start Date Code Code System Note Provider Name and Address Organization Details Recorded Time 06727 Product containin g penicilli n (product) medicatio n Not available Not available Not available 09/21/2024 07514 8001 SNOMED Not Available [facility] - production 5 09:59:51 47951 morphine medicatio n Not available Not available Not available 09/21/2024 7052 RxNorm Not Available [facility] - production 5 09:59:51 Medications Name Sig Start Date Stop [...] temperature Body weight Body height Oxygen saturation Systolic And Diastolic Provider Name and Address Organization Details Last Updated DateTime 5 56 /min 19 /min 97.9 [degF] 41278.0 08 g 165.1 cm 99 % 141/66 mm[Hg] Not Available [facility] - production 5 14:49:20 Date Recorded Respiratory rate Oxygen saturation Body height Body weight Heart rate Body temperature Systolic And Diastolic Provider Name and Address Organization Details Last Updated DateTime 5 18 /min 99 % 165.1 cm 90053.6 4 g 57 /min 97.4 [degF] 143/83 mm[Hg] Not Available [facility] - production 13:59:36 Social History None recorded. Functional Status None recorded. Mental Status None recorded. Family History Nothing Reported. Medical History No medical history recorded. Gynecological HistoryNo gynecological history recorded. Obstetrics History GPAL:G 0 P 0 0 0 0 Past Encounters Encounter ID Performer Location Encounter Start Date Encounter Closed Date Diagnosis/Indication Diagnosis SNOMED-CT Code Diagnosis ICD10 Code Diagnosis IMO Codes Diagnosis Note [id number] Esperanza Chaidez MD Main - [facility] [address] [place] [address] 09/21/2024 14:49:10 09/21/2024 22:15:10 Muscle pain 55830116 M79.10 Likely viral syndrome with myalgias/l abs non concerning -lactate not above 2, patient has stable H&H. See medic notes- d/w patient - avoid ibuprofen while GI upset -explained it is too irritating to the GI tract- may have Tylenol Headache 64420474 R51.9 has been taking excedrin and ibuprofen/ given GERD and dyspepsia ketorolac contraindi cated-advi sed may have Tylenol safely Nausea, vo miting and diarrhea 5496205 R11.2 R19.7 hx GERD-advis ed to continue [...] She verbalized understand ing to the medic [id number] Grabiel Broderick MD [facility] ED Medical [facility] [address] [place] [address] 02/25/2025 13:59:32 02/25/2025 19:47:13 Pain of shoulder region 09534935 M25.519 [id number] Health Concerns Section Related Observation LastModified by Organization Detai ls LastModified Time None Recorded Concern Status LastModified by Organization Details LastModified Time None Recorded Advance Directives Directive None Recorded Payers Insurance Date Sequence Insurance Name Policy Number Policy Spicer Covered Member ID Spicer Member ID Guarantor Name 02/25/2025 1 [facility] - DOS ON OR AFTER 2022 - DUAL ELIGIBLE - INTERMEDIATE OPTIONS AND ONE CARE (MEDICARE REPLACEMENT/ADV ANTAGE - HMO) Tram Macedo [id number] Tram Macedo Notes Date Note Type Note Provider Name and Address Organization Details Recorded Time 09/21/2024 text/html ROS as noted in the HPI CRC Nurse Triage Notes (Danny Buck): Reason [...] - :59Allergies Reviewed at 09/21/2024 - :59Comments: Tariff Compiling Clerk verified the patient's name//address and phone number. Pt Guinean speaking primarily, captain assistant# [id number] used for triage assessment. Pt reports body [...] emergency treatment if needed -Kamran Buck RN Aws Consultant Organization Information for Kar[facility] Name[facility] TransportationAddre ss: [address] [place], [place] [address], Medical Director: Omid PALACIO No.: [id number] Aws Consultant POC Test Results from Karla Frost - [...] result can be found under Documents section. ................... ................... ................... ................... ................... ................... ................... ........ Aws Consultant Note From Karla Frost: Pt chief complaint today of headache, nausea, vomiting as well as diarrhea and possible dehydration. Pt state that all signs and symptoms have been occurring for the past 5 days prior to [facility] arrival on scene, pt notes that [...] gauge iv placed in right ac. Per [facility] orders POC blood work taken with no significant findings. Pt is feliciano 4 with a GCS of 15. Negative covid. Flu test given. [facility] Esperanza Chaidez consulted, Pt given. 1 gram of Tylenol, 500 ml of normal saline, 4 mg of loperamide as well as 4 mg of iv zofran. Pt informs to contact her pcp at earliest convenience for a possible follow up. Pt informed of red flag S&S and to call emergency services if any present. [facility] Lab Orders: rapid flu (A+B): Performed rapid SARS CoV 2 Ag, QL IA, respiratory specimen: Performed BMP, serum or plasma: Performed [facility] Medication Orders: acetaminophen 500 mg tablet: Administered sodium chloride 0.9 % intravenous solution: Administered ondansetron HCl (PF) 4 mg/2 mL injection solution: Administered loperamide 2 mg tablet: Administered ................... ................... ................... ................... ................... ................... ................... ........ [facility] Consulted: Esperanza Chaidez ................... ................... ................... ................... ................... ................... ................... ........ Disposition: Fulfilled SEGMD: Patient states she has [...] chest pain. For breakfast she had coffee [place] and milk. She has had normal urination. She denies any focal weakness numbness, changes in vision or speech. She states she does have some pain in the back of her upper neck which radiates to the front of her head. Esperanza Chaidez MD [address] [place] [address],[address] [facility], [place], [address], [employer] 09/21/2024 19:47:12 02/25/2025 text/html CRC Nurse Triage Notes (Shantelle Harrison): Reason For Request: Patient has arm and leg pain.Denies: Falls with head strike and LOC Falls from a standing position, no LOC, patient is amnestic to the event Falls with isolated injury and deformity noted to limb Falls with inability to move post fall Cool extremities after fall or injury Chief Complaints: Extremity PainPMH: Stroke, Hypertension, MigrainePMH Reviewed at 02/25/2025:Allergies Reviewed at 02/25/2025:06Comments: 64 y.o female complains of Extremity PainPatient c/o pain to right arm. Denies swelling or skin discoloration. Has had this pain in the past. No recent injuries or falls. Patient was given pain injection in the past. Has not taken any pain medication today.I provided information on the mobile health provider response time and advised the patient and/or caregiver to monitor reported signs and symptoms. I discussed the warning signs of when to seek emergency care. ................... ................... ................... ................... ................... ................... ................... ........ Aws Consultant Note From Armando Cline: MA6 responds to the listed address for a 64 yof w/ a c/c of R shoulder pain. Upon arrival, pt answers the door to her small and well-kept apartment and invites [facility] inside. She is generally well-appearing, fully ambulatory and not in acute distress. She is holding her R arm against her body to self-splint. She smiles and tells [facility] she is having pain in her shoulder [...] Pt consents to evaluation and treatment today. [facility] obtains pt consent. Vital signs are gathered [...] tightness palpated on R more than L. [facility] contacts [facility] and discusses the above. [facility] orders 30mg toradol IM and advises pt to obtain some OTC Tylenol and take 1G TID as needed for pain. [facility] also recommends pt contact her PCP for a referral to PT. [facility] administers 30mg toradol IM in the L deltoid using aseptic technique. [facility] advises pt to monitor for swelling lips, tongue, or throat, any difficulty breathing, n/v/d, rash or hives, as these all require emergency care. [facility] also recommends pt continue w/ cold pack application x20min every couple hours as needed to assist w/ pain control and instructs pt to not take her meloxicam until at least tomorrow. Pt gives her verbal understanding of the instructions. [facility] is clear. Report completed by FAB Cline [id number]. [facility] Medication Orders: ketorolac 30 mg/mL injection solution: Administered ................... ................... ................... ................... ................... ................... ................... ........ [facility] Consulted: José Luis Broderick ................... ................... ................... ................... ................... ................... ................... ........ Disposition: Fulfilled Grabiel Broderick MD [address] [facility],[address] [facility], [place], [address], BERYL JALLOH 02/25/2025 16:11:52 OBGyn Episode No OBEpisode recorded.
--- OUTSIDE RECORDS SUMMARY | 2025-06-08 13:22 | XMS_ITS | Data Portability ---
Author Organization [facility] [employer] [facility], Main Office Address [address] [facility] [place] [address] Care Team Providers Care Aeronautical Engineering Officer Name Role Phone MARKY BUNN - 2ND [...] Address Organization Details Recorded Time Hemiplegic migraine 22161675 Active 2016 Lizy Duong MD [address] , [address], [place], [address], [employer] 7 21:05:29 Depressive disorder 43219610 Active 2016 Lizy Duong MD [address] [facility], [address], [place], [address], [employer] 7 21:08:25 Disturbance in speech 61974812 Active 2016 Lizy Duong MD [address] , [address], [place], [address], [employer] 7 21:08:28 Essential hypertension 45665497 Active 2016 Lizy Duong MD [address] [facility], [address], [place], [address], [employer] 7 21:08:32 Mixed hyperlipidemia 838406174 Active 2016 Lizy Duong MD [address] [facility], [address], [place], [address], [place] [employer] 7 21:12:16 Allergic rhinitis 69755862 Active 2016 Lizy Duong MD [address] [facility], [address], [place], [address], [facility] [employer] [facility] 7 21:12:45 Gastroesophage al reflux disease without esophagitis 691464044 Active 2016 Lizy Duong MD [address] [facility], [address], [place], [address], [facility] [employer] [facility] 7 21:13:12 Acquired hypothyroidism 528603727 Active 2016 Lizy Duong MD [address] [facility], [address], [place], [address], [facility] [employer] [facility] 7 21:13:54 History of cerebrovascula r accident 394628994 Active 2016 Lizy Duong MD [address] [place] [address], [address], [place], [address], [facility] [employer] [facility] 7 13:39:33 Problem Notes None recorded. Medical Equipment None Reported. Allergies Allergen ID Allergen Name Allergen Category Reaction Reaction Severity Criticality Documentation Date Start Date Code Code System Note Provider Name and Address Organization Details Recorded Time 7402 codeine medicatio n Not available Not available Not available 01/13/2017 2670 RxNorm Lizy Duong MD [address] [facility], [address], [place], [address], [facility] [email or web address] 7 21:26:10 Vitals Date Recorded Heart rate Respiratory rate Body temperature Oxygen saturation Systolic And Diastolic Provider Name and Address Organization Details Last Updated DateTime 7 78 /min 18 /min 98.1 [degF] 98 % 118/70 mm[Hg] Lizy Duong MD [address] [facility], [address], [place], [address], [employer] 7 16:24:20 Social History None recorded. Functional Status None recorded. Mental Status None recorded. Family History Nothing Reported. Medical History No medical history recorded. Gynecological HistoryNo gynecological history recorded. Obstetrics History GPAL:G 0 P 0 0 0 0 Past Encounters Encounter ID Performer Location Encounter Start Date Encounter Closed Date Diagnosis/Indication Diagnosis SNOMED-CT Code Diagnosis ICD10 Code Diagnosis IMO Codes Diagnosis Note [id number] Lizy Duong MD [facility] [address] 01/11/2017 16:22:56 01/25/2017 13:57:04 Hemiplegic migraine 03179580 G43.409 Was started on topamax in hospital. Had already been on baclofen and lidocaine patches for back/neck pain. At this time with new sxs as below, being sent back to hospital for further eval. Disturbance in speech 29 982213 R47.89 New speech abnormalit y, hard to describe, part stutter, part word finding difficulti es. Was definitely not present yesterday per nurse who cared for her last night. WIll send back to ED as above. Essential hypertension 79710019 I10 Stable on chlorthali done 25 mg qd. Depressive disorder 3548 9007 F33.1 Had been stable on citalopram 40 mg qd. Sees outpt psych. Consult NEG prn. Mixed hyperlipidemia 267 385890 E78.2 Continue atorvastat in 20 mg qd and ASA 81 mg. Allergic rhinitis 604079 04 J30.2 Continue benadryl prn Gastroesop hageal reflux disease without esophagitis 281495326 K21.9 continue famotidine 20 mg BID Acquired hypothyroidism 535616642 E03.8 TSH good on levothyrox ine 50 mcg qd. Follow [id number] Lizy Duong MD [facility] [address] 01/14/2017 13:20:56 01/25/2017 14:01:02 Hemiplegic migraine 74859338 G43.409 Sxs have completely resolved, probably topamax has kicked in now. Will continue and have her f/u with neuro as planned. OK for d/c tomorrow Disturbance in speech 29 925831 R47.89 Resolved Essential hypertension 52236685 I10 Stable on chlorthali done 25 mg qd. F/U with PCP as outpt. Depressive disorder 3548 9007 F33.1 Had been stable on citalopram 40 mg qd. Sees outpt psych. F/U with PCP as outpt. Mixed hyperlipidemia 267 345714 E78.2 Continue atorvastat in 20 mg qd and ASA 81 mg. F/U with PCP as outpt. Allergic rhinitis 214135 04 J30.2 Continue benadryl prn Gastroesop hageal reflux disease without esophagitis 411795747 K21.9 continue famotidine 20 mg BID. F/U with PCP as outpt. Acquired hypothyroidism 153563423 E03.8 TSH good on levothyrox ine 50 mcg qd. F/U with PCP as outpt. History of cerebrovascular accident 539579798 Z86.73 with some left sided weakness and balance issues, PT/OT feel she is ready to go home. Has TUBE SKIVER for 2 hrs/day Health Concerns Section Related Observation LastModified by Organization Detai ls LastModified Time None Recorded Concern Status LastModified by Organization Details LastModified Time None Recorded Advance Directives Directive None Recorded Payers Insurance Date Sequence Insurance Name Policy Number Policy Spicer Covered Member ID Spicer Member ID Guarantor Name 01/25/2017 2 [place] Tram Macedo [id number] Tram Mossendez 01/25/2017 1 [facility] - DOS PRIOR TO 2022 - DUAL ELIGIBLE (MEDICARE REPLACEMENT/AD VANTAGE - HMO) Tram Macedo [id number] Tram Macedo Notes Date Note Type Note [...] communicating. See PE notes. Lizy Duong MD [address] [place] [address], [address], [place], [address], [facility] [email or web address] 01/13/2017 21:26:25 01/14/2017 text/html I am asked [...] and low back pain. Lizy Duong MD [address] [place] [address], [address], [place], [address], [facility] [email or web address] 01/14/2017 13:41:26 OBGyn Episode No OBEpisode recorded.
== END 2025-06-08 11:48 | disposition home or self-care (01) ==
LOC: HO.ENCR 10:34
PROVIDERS: PCP Nurse Practitioner Family; Visit Provider Student in an Organized Health Care Education/Training Program
DX: E23.6 Other disorders of pituitary gland (principal)
CPT/HCPCS: 99205

== ENCOUNTER 2025-07-02 08:12 | Outpatient (REF) | payer OTHER, MEDICAID, SELFPAY ==
--- OUTSIDE RECORDS SUMMARY | 2025-07-02 08:17 | XMS_ITS | Clinical Summary ---
Author Organization [facility] Address [address] [place] [address] Care Team Providers Care Gas Transfer Operator Name Role Phone Carmelo Enriquez NP Primary Care Provider Surgical History Surgery Date Site/Laterality Comments BACK SURGERY PROCEDURE: HISTORICAL BACK SURGERY HYSTERECTOMY PROCEDURE: HISTORICAL HYSTERECTOMY BREAST REDUCTION PROCEDURE: MS BREAST REDUCTION Medical History Medical History Date [...] on file Sexual Orientation Not on file Last Filed Vital Signs Vital Sign Reading [...] Depression Screening 07/15/2024 COVID-19 Vaccine (1 - 2024-2 6 season) 2025 Influenza Vaccine (#1) 2025 RSV [...] age to complete this topic Care Teams Gas Transfer Operator Relationship Specialty Start Date End Date Carmelo Enriquez NP [address] [facility] [place], [place] PCP - General Family Medicine 04/18/20
--- OUTSIDE RECORDS SUMMARY | 2025-07-02 08:17 | XMS_ITS | Clinical Summary ---
Author Organization [employer] [facility] Prior to 12/12/24 Address [address] [place] [address] Care Team Providers Care Operations Support Representative Name Role Phone Carmelo Enriquez Primary Care Provider [phone] Social History Tobacco Use Types Packs/Day Years [...] age to complete this topic Care Teams Operations Support Representative Relationship Specialty Start Date End Date Carmelo Enriquez [address] [facility] [place] [address] PCP - General Family Medicine 04/18/20
[2025-07-02 09:04] LABS: Appearance Urine Cloudy; Glucose Urine UA Negative (Negative); PH 5.5 (5.0-9.0); Specific Gravity - Urine 1.015 (1.005-1.025); UMIC TRIGGER UACC YES
[2025-07-02 09:25] LABS: UACC Culture Trigger YES
[2025-07-02 09:47] LABS: Alanine Aminotransferase 25 U/L (0-31); Albumin Level 4.2 g/dL (3.5-5.0); Alkaline Phosphatase 99 U/L (39-117); Anion Gap 12 (12-20); Aspartate Amino Transferase 37 U/L (5-31); Blood Urea Nitrogen 14 mg/dL (9-16); Calcium 9.6 mg/dL (8.4-10.2); Carbon Dioxide 21 mmol/L (22-29); Chloride 112 mmol/L (96-108); Estimated Glomerular Filt Rate > 60; Potassium 3.4 mmol/L (3.3-5.1); Sodium 142 mmol/L (135-145); Total Protein 7.3 g/dL (6.5-8.0)
[2025-07-02 10:00] LABS: Free T4 (Free Thyroxine) 1.19 ng/dL (0.71-1.85); Thyroid Stimulating Hormone 0.34 uIU/mL (0.32-4.0)
[2025-07-02 10:19] LABS: Osmolality, Serum 303 mosm/kg (281-305)
[2025-07-03 04:17] LABS: Follicle Stimulating Hormone 44.5 mIU/mL
== END 2025-07-02 08:13 | disposition home or self-care (01) ==
LOC: HO.MRI 08:12
PROVIDERS: Absent Provider Student in an Organized Health Care Education/Training Program; PCP Nurse Practitioner Family; Referring Provider Nurse Practitioner Family; Visit Provider Nurse Practitioner Family
DX: R93.0 Abnormal findings on diagnostic imaging of skull and head, not elsewhere classified (principal); E23.6 Other disorders of pituitary gland; E03.9 Hypothyroidism, unspecified
CPT/HCPCS: 36415; 80053; 81001; 81003; 82024; 82533; 83001; 83002; 83930; 83935; 84146; 84305; 84439; 84443; 87086